=== PATIENT | female | born 1975 | race African-American/Black ===

== ENCOUNTER → 2016-11-26 | Outpatient (CLI) | payer MEDICARE, OTHER ==
[~2016-11-26] MED LIST: ACET325T PO; BENA25TA3 PO; CALC.25 PO; CALC667C PO; CEFU1TAB20 PO; DARU800T PO; DOLU1TAB PO; HYDR-3533 PO; INTE200T PO; LEVA250T PO; MEGE40S PO; NORC5TAB PO; ORPH100T99 PO; OSEL30 PO; OYST500T11 PO; ROPI.5 PO; ZITHTAB PO; ZOFR4TAB PO
[2016-11-26 13:50] LABS: AUTOMATED NEUTROPHIL # 2.4 TH/MM3 (1.8-7.7); BASOPHIL # 0.1 TH/MM3 (0-0.2); BASOPHIL % 1.1 % (0.0-2.0); EOSINOPHIL # 0.1 TH/MM3 (0-0.4); EOSINOPHIL % 2.6 % (0.0-4.0); HEMATOCRIT 32.3 % (35.0-46.0); HEMO FLAGS DIFF FINAL; LYMPH % 42.7 % (9.0-44.0); LYMPHOCYTE # 2.2 TH/MM3 (1.0-4.8); MEAN CELL VOLUME 90.7 FL (80.0-100.0); MEAN CORPUSCULAR HEMOGLOBIN 29.8 PG (27.0-34.0); MEAN CORPUSCULAR HGB CONC 32.8 % (32.0-36.0); MONO % 7.4 % (0.0-8.0); NEUT % 46.2 % (16.0-70.0); PLATELET COUNT 196 TH/MM3 (150-450); RED BLOOD COUNT 3.56 MIL/MM3 (4.00-5.30); RED CELL DISTRIBUTION WIDTH 15.6 % (11.6-17.2); WHITE BLOOD COUNT 5.1 TH/MM3 (4.0-11.0)
[2016-11-26 14:17] LABS: ALKALINE PHOSPHATASE 74 U/L (45-117); ALT (GPT) 12 U/L (10-53); ANION GAP 10 MEQ/L (5-15); AST (GOT) 8 U/L (15-37); BICARBONATE 27.5 MEQ/L (21.0-32.0); BLOOD UREA NITROGEN 33 MG/DL (7-18); CHLORIDE 101 MEQ/L (98-107); GLOMERULAR FILTRATION RATE 7 ML/MIN (>89); GLUCOSE,FASTING 70 MG/DL (74-99); POTASSIUM 4.1 MEQ/L (3.5-5.1); SODIUM (NA) 138 MEQ/L (136-145); TOTAL BILIRUBIN ADULT 0.3 MG/DL (0.2-1.0)
[2016-11-28 07:57] LABS: CD4/CD8 RATIO 0.3 (0.86-5.00)
[2016-11-28 14:17] LABS: MITOGEN MINUS NIL RESULT >10.00 IU/mL (()); NIL RESULT 0.05 IU/mL (()); QUANTIFERON TB GOLD RESULT Negative (Negative)
[2016-11-29 13:56] LABS: HIV RNA LOG COPIES 2.23 (())
== END ==
LOC: CLAB 13:03
DX: B20 Human immunodeficiency virus [HIV] disease (principal); G63 Polyneuropathy in diseases classified elsewhere
CPT/HCPCS: 36415; 80053; 85025; 86355; 86357; 86359; 86360; 86480; 86592; 87536

== ENCOUNTER 2016-12-06 11:38 | Emergency (ER) | payer MEDICARE, OTHER ==
[~2016-12-06] VITALS: Ht 167.6 cm; Wt 69.0 kg
[~2016-12-06 11:38] MED LIST changes: -ACET325T PO; -CALC667C PO; -HYDR-3533 PO; -LEVA250T PO; -ORPH100T99 PO; -OSEL30 PO; -OYST500T11 PO; -ZITHTAB PO
[2016-12-06 11:49] VITALS: BP 129/91; PULSE 76; RESP 16; TEMP 99; O2SAT 99
--- NOTE | 2016-12-06 12:10 | PD ---
HPI Chief Complaint: GI Complaint Time Seen by Provider: 12:03 Travel History International Travel<30 days: No Contact w/Intl Traveler<30days: No Traveled to known affect area: No History of Present Illness HPI The patient is a 41-year-old [place] female who presents emergency department for nausea, vomiting, diarrhea, and body aches. The patient states her symptoms started last night at 1:30 AM with body aches. The patient went back to sleep thinking she might feel better in the morning, however, when she awakened this morning she had nausea that was followed by vomiting. The patient then developed diarrhea which she describes as loose and watery. She does complain of bilateral leg pain and low back pain. The patient does have a history of HIV and is currently on antivirals, also has a history of end-stage renal disease on hemodialysis and is followed by her lumber chain offbearer, Dr. Rodas. The patient goes to dialysis on Tuesdays, , and Saturdays, missed dialysis today secondary to her symptoms. The patient does complain of intermittent chills and sweats for the last 2 days with a productive cough producing yellow sputum. The patient does smoke, her last cigarette was 6:30 AM with coffee. Patient's last CD4 count was approximately 276 and her last viral count was approximately 188,000, according to paperwork she brought with her. [facility] Past Medical History Arthritis: Yes Asthma: Yes Autoimmune Disease: Yes (HIV POSITIVE) Blood Disorders: No Heart Rhythm Problems: No Cancer: No Cardiac Catheterization: No Cardiovascular Problems: No High Cholesterol: No Chest Pain: No Congestive Heart Failure: No COPD: No Cerebrovascular Accident: No Diabetes: No Dialysis: Yes (Thursday, and Thursday; fistula left arm,) Diminished Hearing: No Endocrine: No GERD: No Glaucoma: No Genitourinary: No Headaches: Yes Hepatitis: No Hiatal Hernia: No Hypertension: Yes Immune Disorder: No Implanted Vascular Access Dvce: Yes (VAS CATH R CHEST) Kidney Stones: No Musculoskeletal: No Neurologic: No Psychiatric: No Reproductive: No Respiratory: Yes (ASTHMA) Myocardial Infarction: No Renal Failure: Yes Seizures: No Sleep Apnea: No Thyroid Disease: No Ulcer: No : 5 Para: 5 Tubal Ligation: Yes Past Surgical History Abdominal Surgery: No AICD: No Body Medical Devices: L ARM AV FISTULA Cardiac Surgery: No Section: Yes Coronary Artery Bypass Graft: No Ear Surgery: No Endocrine Surgery: No Eye Surgery: No Genitourinary Surgery: No Gynecologic Surgery: Yes (C-SECT.) Joint Replacement: No Neurologic Surgery: No Pacemaker: No Thoracic Surgery: No Other Surgery: Yes (fistula for dialysis: left arm) Social History Alcohol Use: No Tobacco Use: Yes (11/10 PPD) Substance Use: No Allergies-Medications (Allergen,Severity, Reaction): Coded Allergies: Sulfa (Verified Allergy, Severe, Hives, 12/01/16) Reported Meds & Prescriptions Reported Meds & Active Scripts Active [place] (Hydrocodone-Acetaminophen) 5-325 mg Tab 1 Tab PO Q6H PRN Rocaltrol (Calcitriol) 0.25 Mcg Cap 0.5 Mcg PO DAILY Reported Requip (Ropinirole HCl) 0.5 Mg Tab 0.5 Mg PO TID Zofran (Ondansetron HCl) 4 Mg Tab 4 Mg PO Q6HR PRN Megace Liq (Megestrol Acetate) 40 Mg/Ml Susp 800 Mg PO DAILY Benadryl Allergy (Diphenhydramine HCl) 25 Mg Tab 25 Mg PO Q6H PRN Tivicay (Dolutegravir Sodium) 50 Mg Tab 50 Mg PO DAILY Prezista (Darunavir) 800 Mg Tab 800 Mg PO DAILY Intelence (Etravirine) 200 Mg Tab 200 Mg PO BID Review of Systems Except as stated in HPI: all other systems reviewed are Neg General / Constitutional: Positive: Fever (subjective), Chills HENT: No: Lightheadedness Cardiovascular: No: Chest Pain or Discomfort Respiratory: Positive: Cough Gastrointestinal: Positive: Nausea, Vomiting, Diarrhea, No: Abdominal Pain Musculoskeletal: Positive: Myalgias Neurologic: Positive: Weakness Physical Exam Narrative GENERAL: Awake, alert, 41-year-old female who appears her stated age and is in no acute respiratory distress. SKIN: Warm and dry. HEAD: Atraumatic. Normocephalic. EYES: No injection or drainage. ENT: No nasal bleeding or discharge. Mucous membranes pink and moist. NECK: Trachea midline. No JVD. CARDIOVASCULAR: Regular rate and rhythm. No murmur appreciated. RESPIRATORY: No accessory muscle use. Clear to auscultation. Breath sounds equal bilaterally. GASTROINTESTINAL: Abdomen soft, non-tender, nondistended. No rebound tenderness. MUSCULOSKELETAL: Left forearm AV fistula with positive thrill. NEUROLOGICAL: Awake and alert. No obvious cranial nerve deficits. Motor grossly within normal limits. Normal speech. PSYCHIATRIC: Appropriate mood and affect; insight and judgment normal. Data Data Last Documented VS Vital Signs Date Time Temp Pulse Resp B/P Pulse Ox O2 Delivery O2 Flow Rate FiO2 12/06/16 13:15 16 12/06/16 11:49 99.0 76 129/91 99 Orders Complete Blood Count With Diff (12/06/16 12:03) Comprehensive Metabolic Panel (12/06/16 12:03) Lipase (12/06/16 12:03) Iv Access Insert/Monitor (12/06/16 12:03) Ecg Monitoring (12/06/16 12:03) Oximetry (12/06/16 12:03) Ondansetron Inj (Zofran Inj) (12/06/16 12:15) Sodium Chloride 0.9% Flush (Ns Flush) (12/06/16 12:15) Chest, Single Ap (12/06/16 12:03) Influenzae A/B Antigen (12/06/16 12:03) Magnesium (Mg) (12/06/16 12:03) Phosphorus (Po4) (12/06/16 12:03) Sodium Chlor 0.9% 250 Ml Inj (Ns 250 Ml (12/06/16 12:15) Morphine Inj (Morphine Inj) (12/06/16 12:15) Electrocardiogram (12/06/16 ) Potassium, Serum (K) (12/06/16 16:41) Insulin Human Regular Inj (Novolin R Inj (12/06/16 14:00) Dextrose 50% In Bk (Vial) Inj (D50w (Vi (12/06/16 13:45) Sodium Bicarbonate 8.4% Inj (Sodium Bica (12/06/16 13:45) Albuterol Concentrated Neb (Albuterol Co (12/06/16 13:45) Sodium Polysty Sulfate Liq (Kayexalate L (12/06/16 13:45) Albuterol Neb (Albuterol Neb) (12/06/16 14:00) Labs Laboratory Tests Test 12/06/16 12:55 White Blood Count 6.5 TH/MM3 Red Blood Count 3.52 MIL/MM3 Hemoglobin 10.5 GM/DL Hematocrit 31.7 % Mean Corpuscular Volume 90.0 FL Mean Corpuscular Hemoglobin 29.8 PG Mean Corpuscular Hemoglobin 33.1 % Concent Red Cell Distribution Width 14.8 % Platelet Count 158 TH/MM3 Mean Platelet Volume 8.1 FL Neutrophils (%) (Auto) 55.8 % Lymphocytes (%) (Auto) 34.7 % Monocytes (%) (Auto) 5.5 % Eosinophils (%) (Auto) 2.4 % Basophils (%) (Auto) 1.6 % Neutrophils # (Auto) 3.5 TH/MM3 Lymphocytes # (Auto) 2.3 TH/MM3 Monocytes # (Auto) 0.4 TH/MM3 Eosinophils # (Auto) 0.2 TH/MM3 Basophils # (Auto) 0.1 TH/MM3 CBC Comment DIFF FINAL Differential Comment Sodium Level 141 MEQ/L Potassium Level 6.7 MEQ/L Chloride Level 106 MEQ/L Carbon Dioxide Level 20.9 MEQ/L Anion Gap 14 MEQ/L Blood Urea Nitrogen 85 MG/DL Creatinine 14.00 MG/DL Estimat Glomerular Filtration 4 ML/MIN Rate Random Glucose 75 MG/DL Calcium Level 6.9 MG/DL Protein Corrected Calcium MG/DL Phosphorus Level 8.3 MG/DL Magnesium Level 2.2 MG/DL Total Bilirubin 0.3 MG/DL Aspartate Amino Transf 13 U/L (AST/SGOT) Alanine Aminotransferase 11 U/L (ALT/SGPT) Alkaline Phosphatase 72 U/L Total Protein 8.4 GM/DL Albumin 3.1 GM/DL Lipase 241 U/L MDM Medical Decision Making Medical Screen Exam Complete: Yes Emergency Medical Condition: Yes Medical Record Reviewed: Yes Interpretation(s) EKG reveals normal sinus rhythm with a rate of 74. No ischemic changes or ectopy noted. Laboratory Tests Test 12/06/16 12:55 White Blood Count 6.5 TH/MM3 Red Blood Count 3.52 MIL/MM3 Hemoglobin 10.5 GM/DL Hematocrit 31.7 % Mean Corpuscular Volume 90.0 FL Mean Corpuscular Hemoglobin 29.8 PG Mean Corpuscular Hemoglobin 33.1 % Concent Red Cell Distribution Width 14.8 % Platelet Count 158 TH/MM3 Mean Platelet Volume 8.1 FL Neutrophils (%) (Auto) 55.8 % Lymphocytes (%) (Auto) 34.7 % Monocytes (%) (Auto) 5.5 % Eosinophils (%) (Auto) 2.4 % Basophils (%) (Auto) 1.6 % Neutrophils # (Auto) 3.5 TH/MM3 Lymphocytes # (Auto) 2.3 TH/MM3 Monocytes # (Auto) 0.4 TH/MM3 Eosinophils # (Auto) 0.2 TH/MM3 Basophils # (Auto) 0.1 TH/MM3 CBC Comment DIFF FINAL Differential Comment Sodium Level 141 MEQ/L Potassium Level 6.7 MEQ/L Chloride Level 106 MEQ/L Carbon Dioxide Level 20.9 MEQ/L Anion Gap 14 MEQ/L Blood Urea Nitrogen 85 MG/DL Creatinine 14.00 MG/DL Estimat Glomerular Filtration 4 ML/MIN Rate Random Glucose 75 MG/DL Calcium Level 6.9 MG/DL Protein Corrected Calcium MG/DL Phosphorus Level 8.3 MG/DL Magnesium Level 2.2 MG/DL Total Bilirubin 0.3 MG/DL Aspartate Amino Transf 13 U/L (AST/SGOT) Alanine Aminotransferase 11 U/L (ALT/SGPT) Alkaline Phosphatase 72 U/L Total Protein 8.4 GM/DL Albumin 3.1 GM/DL Lipase 241 U/L Differential Diagnosis Differential diagnosis includes gastroenteritis, enteritis, colitis, influenza, viral syndrome, pneumonia, hypokalemia, hyperkalemia, ESRD on HD. Narrative Course IV was established, labs were drawn and sent, and the patient was placed on cardiac telemetry monitoring and continuous pulse oximetry monitoring. The patient was initially administered Zofran and 250 cc of normal saline. The patient requested pain medication. Chest x-ray was obtained. Influenza screen was sent to lab. Nursing staff was unable to obtain IV access, therefore, I placed a 20-gauge, 1.88 inch, ultrasound-guided IV and right upper extremity with no obvious contraindications. The IV flowed easily and there was good blood return. The patient's potassium was elevated at 6.7, no evidence of hemolysis. The patient does make urine, however, missed dialysis today. She normally goes Tuesdays, , Saturdays. I discussed the patient with the on-call lumber chain offbearer for her urologist, it was agreed the patient needed dialysis. Dr. Vargas spoke with the patient's dialysis center, the patient will be scheduled for dialysis at 3:30 PM today. Therefore, the patient will be discharged and is advised to go straight to the dialysis Center. Procedures Procedure Narrative I placed a 20-gauge, 1.88 inch, IV and a right upper extremity under ultrasound guidance using a linear probe. There was good blood return and the IV flowed easily. There was no obvious complications. Physician Communication Physician Communication I discussed the patient with the on-call physician for Dr. Rodas, Dr. Vargas. Diagnosis Primary Impression: End stage renal disease on dialysis Additional Impression: Hyperkalemia Patient Instructions: General Instructions Additional Instructions: Follow-up with your lumber chain offbearer. Dialysis on Thursday as scheduled. Return if symptoms worsen or progress. Go straight to your dialysis center for dialysis today at 3:30 PM. Med/Other Pt SpecificInfo: No Change to Meds Disposition: 01 DISCHARGE HOME Condition: Stable Zaid Stone MD Dec 06, 2016 12:10
[2016-12-06] MEDS ORDERED: SODIUM CHLORIDE 0.9% FLUSH 5 ML FLUSH IVF PRN (12:15)
[2016-12-06] MEDS ORDERED: SODIUM CHLOR 0.9% 250 ML INJ 250 ML IV ONE (12:15)
[2016-12-06] MEDS ORDERED: ONDANSETRON HCL 4 MG/2 ML VIAL IVP ONE (12:15)
[2016-12-06] MEDS ORDERED: MORPHINE SULFATE 4 MG/ML INJ IV PUSH ONE (12:15)
--- NOTE | 2016-12-06 12:39 | RADHPO ---
EXAM DATE/TIME: 12/06/2016 12:23 [place] COMPARISON: CHEST SINGLE AP, October 03, 2016, 18:51. INDICATIONS : Cough, short of breath MEDICAL HISTORY : HIV Renal disease SURGICAL HISTORY : None. ENCOUNTER: Initial ACUITY: 1 day PAIN SCORE: 0/10 LOCATION: Bilateral chest FINDINGS: A single view of the chest demonstrates the lungs to be symmetrically aerated without evidence of mas s, infiltrate or effusion. The cardiomediastinal contours are unremarkable. Osseous structures are intact. CONCLUSION: Normal examination for a patient of this age. No significant change has occurred. Ludin Wiggins MD on December 06, 2016 at 12:37 Board Certified Radiologist. This report was verified electronically.
[2016-12-06 13:01] LABS: AUTOMATED NEUTROPHIL # 3.5 TH/MM3 (1.8-7.7); BASOPHIL # 0.1 TH/MM3 (0-0.2); BASOPHIL % 1.6 % (0.0-2.0); EOSINOPHIL # 0.2 TH/MM3 (0-0.4); EOSINOPHIL % 2.4 % (0.0-4.0); HEMATOCRIT 31.7 % (35.0-46.0); HEMO FLAGS DIFF FINAL; LYMPH % 34.7 % (9.0-44.0); LYMPHOCYTE # 2.3 TH/MM3 (1.0-4.8); MEAN CORPUSCULAR HEMOGLOBIN 29.8 PG (27.0-34.0); MEAN CORPUSCULAR HGB CONC 33.1 % (32.0-36.0); MONO % 5.5 % (0.0-8.0); NEUT % 55.8 % (16.0-70.0); PLATELET COUNT 158 TH/MM3 (150-450); RED BLOOD COUNT 3.52 MIL/MM3 (4.00-5.30); RED CELL DISTRIBUTION WIDTH 14.8 % (11.6-17.2); WHITE BLOOD COUNT 6.5 TH/MM3 (4.0-11.0)
[2016-12-06 13:15] VITALS: RESP 16
[2016-12-06 13:36] LABS: BICARBONATE 20.9 MEQ/L (21.0-32.0); MAGNESIUM 2.2 MG/DL (1.5-2.5); TOTAL BILIRUBIN ADULT 0.3 MG/DL (0.2-1.0)
[2016-12-06 13:40] LABS: POTASSIUM 6.7 MEQ/L (3.5-5.1)
[2016-12-06] MEDS ORDERED: DEXTROSE 50% IN WATER 50 ML VIAL(D50) IV PUSH ONE (13:45)
[2016-12-06] MEDS ORDERED: SODIUM BICARBONATE 8.4% SOLN 50 MEQ/50 ML VIAL SLOW IVP ONE (13:45)
[2016-12-06] MEDS ORDERED: RESP: ALBUTEROL CONC 2.5 MG/0.5 ML NEB INH ONE (13:45)
[2016-12-06] MEDS ORDERED: SODIUM POLYSTYRENE SULFONATE SUSP 15 GM/60 ML CUP PO ONE (13:45)
[2016-12-06] MEDS ORDERED: RESP: ALBUTEROL 2.5 MG/3 ML NEB (SCH) NEB ONE (14:00)
[2016-12-06] MEDS ORDERED: INSULIN HUMAN REGULAR 1,000 UNITS/10 ML VIAL IV PUSH ONE (14:00)
[2016-12-06 14:31] VITALS: O2SAT 100
[2016-12-06 14:32] VITALS: BP 141/94
--- NOTE | 2016-12-07 13:23 | EKG ---
Date Performed: 12/06/2016 Time Performed: 13:49:58 PTAGE: 41 years EKG: Sinus rhythm Compared to prior tracing no significant change Normal ECG PREVIOUS TRACING : 03/07/2016 21.49 DOCTOR: Rufino Chowdhury Interpretating Date/Time 12/07/2016 13:18:25
[2017-01-16] MEDS ORDERED: LEVA250T PO (15:19)
== END 2016-12-06 14:38 | disposition home or self-care (01) ==
LOC: PHED 11:38
DX: I12.0 Hypertensive chronic kidney disease with stage 5 chronic kidney disease or end stage renal disease (principal); E87.5 Hyperkalemia; M79.605 Pain in left leg; M79.604 Pain in right leg; J45.909 Unspecified asthma, uncomplicated; F17.210 Nicotine dependence, cigarettes, uncomplicated; Z99.2 Dependence on renal dialysis; M54.5 Low back pain
CPT/HCPCS: 71010; 80053; 83690; 83735; 84100; 85025; 87804; 93005; 94664; 96361; 96374; 96375; 99284; J1815; J2270; J2405; J7050; J7613

== ENCOUNTER 2017-01-01 11:55 | Inpatient (IN) | payer MEDICARE, OTHER ==
[~2017-01-01] VITALS: Ht 167.6 cm; Wt 67.3 kg
[2017-01-01] VITALS (8 sets, daily range): BP systolic 138–154; BP diastolic 90–103; PULSE 16–80; RESP 18; TEMP 98.8–98.9; O2SAT 97–100
[~2017-01-01 11:55] MED LIST changes: -CEFU1TAB20 PO
[2017-01-01] MEDS ORDERED: SODIUM CHLORID 0.9% 500 ML INJ 500 ML IV ONE (14:00)
[2017-01-01] MEDS ORDERED: ACETAMINOPHEN 325 MG TAB PO ONE (14:00)
--- NOTE | 2017-01-01 14:06 | PD ---
HPI Chief Complaint: GI Complaint Time Seen by Provider: 13:30 Travel History International Travel<30 days: No Contact w/Intl Traveler<30days: No Traveled to known affect area: No History of Present Illness HPI So 41 year-old woman who presents to the emergency department complaining of nausea vomiting diarrhea. Patient has a history of HIV, on medications, with a previous history of AIDS reported, last CD4 384 in November, as well as end- stage renal disease on hemodialysis Thursday and Thursday. She was feeling generally well until yesterday when she began getting body aches, chills , vomiting, and diarrhea consisting of copious liquid brown stool. She been feeling generally weak. She does not have any sick contacts. No recent unusual or undercooked foods, travel, or antibiotic exposures. No history of previous similar problems. History Past Medical History Narrative Medical HIV, patient takes her last CD4 count 347 in November, on anti-retroviral therapy End-stage renal disease, on hemodialysis Thursday, left arm AV fistula Asthma Hypertension History of polysubstance abuse Influenza Vaccination: Yes LMP: TUBAL : 5 Para: 5 Social History Alcohol Use: No Tobacco Use: Yes (2 PPD) Allergies-Medications (Allergen,Severity, Reaction): Coded Allergies: Sulfa (Verified Allergy, Severe, Hives, 12/15/16) Reported Meds & Prescriptions Reported Meds & Active Scripts Active [place] (Hydrocodone-Acetaminophen) 5-325 mg Tab 1 Tab PO Q6H PRN Rocaltrol (Calcitriol) 0.25 Mcg Cap 0.5 Mcg PO DAILY Reported Requip (Ropinirole HCl) 0.5 Mg Tab 0.5 Mg PO TID Zofran (Ondansetron HCl) 4 Mg Tab 4 Mg PO Q6HR PRN Megace Liq (Megestrol Acetate) 40 Mg/Ml Susp 800 Mg PO DAILY Benadryl Allergy (Diphenhydramine HCl) 25 Mg Tab 25 Mg PO Q6H PRN Tivicay (Dolutegravir Sodium) 50 Mg Tab 50 Mg PO DAILY Prezista (Darunavir) 800 Mg Tab 800 Mg PO DAILY Intelence (Etravirine) 200 Mg Tab 200 Mg PO BID Review of Systems Except as stated in HPI: all other systems reviewed are Neg Physical Exam Narrative GENERAL: Well-appearing 41 year-old woman, appears weak and uncomfortable but nontoxic. SKIN: Warm and dry. Decreased skin turgor, NECK: Trachea midline. No JVD. CARDIOVASCULAR: Regular rate and rhythm. No murmur appreciated. Left arm AV fistula palpable thrill. RESPIRATORY: No accessory muscle use. Clear to auscultation. Breath sounds equal bilaterally. GASTROINTESTINAL: Admits flat and soft. No significant tenderness. MUSCULOSKELETAL: No obvious deformities. No edema. NEUROLOGICAL: Awake and alert. No obvious cranial nerve deficits. Motor grossly within normal limits. Normal speech. PSYCHIATRIC: Appropriate mood and affect; insight and judgment normal. Data Data Last Documented VS Vital Signs Date Time Temp Pulse Resp B/P Pulse Ox O2 Delivery O2 Flow Rate FiO2 01/01/17 16:47 80 18 154/98 98 Room Air 01/01/17 12:27 98.9 Orders Complete Blood Count With Diff (01/01/17 13:47) Comprehensive Metabolic Panel (01/01/17 13:47) Iv Access Insert/Monitor (01/01/17 13:47) Stool Ova And Parasite Screen (01/01/17 13:47) C Diff Toxin Pcr (01/01/17 13:47) Sodium Chlorid 0.9% 500 Ml Inj (Ns 500 M (01/01/17 14:00) Influenzae A/B Antigen (01/01/17 13:47) Acetaminophen (Tylenol) (01/01/17 14:00) Oseltamivir (Tamiflu) (01/01/17 14:45) Calcium Gluconate Inj (Calcium Gluconate (01/01/17 16:30) Phosphorus (Po4) (01/01/17 14:30) Labs Laboratory Tests Test 01/01/17 14:30 White Blood Count 4.9 TH/MM3 Red Blood Count 3.79 MIL/MM3 Hemoglobin 10.9 GM/DL Hematocrit 33.4 % Mean Corpuscular Volume 88.0 FL Mean Corpuscular Hemoglobin 28.7 PG Mean Corpuscular Hemoglobin 32.7 % Concent Red Cell Distribution Width 13.7 % Platelet Count 126 TH/MM3 Mean Platelet Volume 7.5 FL Neutrophils (%) (Auto) 60.7 % Lymphocytes (%) (Auto) 27.9 % Monocytes (%) (Auto) 8.0 % Eosinophils (%) (Auto) 2.7 % Basophils (%) (Auto) 0.7 % Neutrophils # (Auto) 3.0 TH/MM3 Lymphocytes # (Auto) 1.4 TH/MM3 Monocytes # (Auto) 0.4 TH/MM3 Eosinophils # (Auto) 0.1 TH/MM3 Basophils # (Auto) 0.0 TH/MM3 CBC Comment DIFF FINAL Differential Comment Sodium Level 137 MEQ/L Potassium Level 4.3 MEQ/L Chloride Level 101 MEQ/L Carbon Dioxide Level 17.8 MEQ/L Anion Gap 18 MEQ/L Blood Urea Nitrogen 87 MG/DL Creatinine 14.00 MG/DL Estimat Glomerular Filtration 4 ML/MIN Rate Random Glucose 83 MG/DL Calcium Level 5.5 MG/DL Protein Corrected Calcium 5.3 MG/DL Phosphorus Level 9.2 MG/DL Total Bilirubin 0.3 MG/DL Aspartate Amino Transf 32 U/L (AST/SGOT) Alanine Aminotransferase 34 U/L (ALT/SGPT) Alkaline Phosphatase 81 U/L Total Protein 7.9 GM/DL Albumin 2.9 GM/DL [facility] Medical Decision Making Medical Screen Exam Complete: Yes Emergency Medical Condition: Yes Differential Diagnosis Colitis, viral syndrome, flu, sepsis, dehydration, other Narrative Course Medical decision making INITIAL: 41-year-old woman presents to the emergency department with nausea vomiting diarrhea and body aches, subjective chills, with a history of HIV and renal failure. She looks older dehydrated but nontoxic. We'll give her small bolus of IV fluids, check labs. We'll try to send stool studies given her dialysis and HIV, screen for C. difficile or opportunistic infections. Supportive treatment. Procedures Procedure Narrative Peripheral IV: Nursing staff unable to establish IV access or obtain blood samples for diagnostic studies. Right EJ was prepped with chlorhexidine. 20-gauge Angiocath was placed by myself. Patient tolerated well. Diagnosis Primary Impression: Influenza A Additional Impression: Hypocalcemia Trip Lutz MD Jan 01, 2017 14:06
[2017-01-01 14:37] LABS: BASOPHIL % 0.7 % (0.0-2.0); EOSINOPHIL # 0.1 TH/MM3 (0-0.4); EOSINOPHIL % 2.7 % (0.0-4.0); HEMATOCRIT 33.4 % (35.0-46.0); HEMO FLAGS DIFF FINAL; LYMPH % 27.9 % (9.0-44.0); LYMPHOCYTE # 1.4 TH/MM3 (1.0-4.8); MEAN CORPUSCULAR HEMOGLOBIN 28.7 PG (27.0-34.0); MEAN CORPUSCULAR HGB CONC 32.7 % (32.0-36.0); NEUT % 60.7 % (16.0-70.0); PLATELET COUNT 126 TH/MM3 (150-450); RED BLOOD COUNT 3.79 MIL/MM3 (4.00-5.30); RED CELL DISTRIBUTION WIDTH 13.7 % (11.6-17.2); WHITE BLOOD COUNT 4.9 TH/MM3 (4.0-11.0)
[2017-01-01] MEDS ORDERED: OSELTAMIVIR PHOSPHATE 30 MG CAP PO ONE (14:45)
[2017-01-01 15:13] LABS: POTASSIUM 4.3 MEQ/L (3.5-5.1)
[2017-01-01 15:54] LABS: BICARBONATE 17.8 MEQ/L (21.0-32.0); TOTAL BILIRUBIN ADULT 0.3 MG/DL (0.2-1.0)
[2017-01-01 16:02] LABS: CALCIUM-PROTEIN CORRECTED 5.3 MG/DL (8.5-10.1)
[2017-01-01] MEDS ORDERED: CALCIUM GLUCONATE INJ 2 GM in DEXTROSE 5% IN WATER 100ML INJ 100 ML IV ONE ×2 (16:30)
[2017-01-01] MEDS ORDERED: ACETAMINOPHEN 325 MG TAB PO PRN ×2 (17:45→21:30)
[2017-01-01] MEDS ORDERED: SODIUM CHLORIDE 0.9% FLUSH 5 ML FLUSH FLUSH PRN (17:45)
[2017-01-01] MEDS ORDERED: SODIUM CHLOR 0.9% 1000 ML INJ 1,000 ML IV PRN ×3 (21:18)
[2017-01-01] MEDS ORDERED: EPOETIN ALFA 10,000 UNITS/ML VIAL IV PRN (21:30)
[2017-01-01] MEDS ORDERED: diphenhydrAMINE HCL 25 MG CAP PO PRN (21:30)
[2017-01-01] MEDS ORDERED: ALBUMIN HUMAN 25% 25 GM/100 ML BAGP IV PRN (21:30)
[2017-01-01] MEDS ORDERED: NITROGLYCERIN 0.4 MG SL 25 TABS/BTL SL PRN (21:30)
[2017-01-01] MEDS ORDERED: GELATIN 12 MM/7 MM FOAM TOP PRN (21:30)
[2017-01-01] MEDS ORDERED: HEPARIN SODIUM - IV 10,000 UNITS/10 ML VIAL IVF PRN (21:30)
[2017-01-01] MEDS ORDERED: cloNIDine HCL 0.1 MG TAB PO PRN (21:30)
[2017-01-01] MEDS ORDERED: HEPARIN SODIUM - IV 10,000 UNITS/10 ML VIAL PRN (21:30)
[2017-01-01] MEDS ORDERED: MANNITOL 12.5 GM/50 ML VIAL IV PRN (21:30)
[2017-01-01] MEDS ORDERED: SODIUM CHLORIDE 0.9% FLUSH 5 ML FLUSH IVF PRN (21:30)
[2017-01-01] MEDS ORDERED: GENTAMICIN SULFATE (DIALYSIS USE ONLY) 20 MG/2 ML VIAL IV PRN (21:30)
[2017-01-01] MEDS ORDERED: ACETAMINOPHEN/HYDROcodone 325 MG/5 MG TAB PO PRN ×2 (21:45)
[2017-01-01] MEDS: ACETAMINOPHEN/HYDROcodone 325 MG/10 MG TAB PO PRN (22:01)
[2017-01-01] MEDS: SODIUM CHLORIDE 0.9% FLUSH 5 ML FLUSH FLUSH SCH (22:01)
[2017-01-01 22:49] LABS: C. DIFF EPI 027 PRESUMPTIVE NEGATIVE (NEGATIVE); C. DIFF TOXIN PCR NEGATIVE (NEGATIVE)
[2017-01-02] VITALS: BP 138/98; PULSE 75; RESP 16; TEMP 98.7; O2SAT 99
[2017-01-02 04:00] VITALS: BP 140/90; PULSE 78; RESP 18; TEMP 98.9; O2SAT 98
[2017-01-02] MEDS: ACETAMINOPHEN/HYDROcodone 325 MG/10 MG TAB PO PRN ×4 (04:29→21:24)
[2017-01-02 08:00] VITALS: BP 135/95; PULSE 67; PULSE 82; RESP 18; TEMP 99.1; O2SAT 99
[2017-01-02 08:17] LABS: AUTOMATED NEUTROPHIL # 4.3 TH/MM3 (1.8-7.7); BASOPHIL % 0.6 % (0.0-2.0); EOSINOPHIL # 0.1 TH/MM3 (0-0.4); HEMATOCRIT 33.7 % (35.0-46.0); HEMO FLAGS DIFF FINAL; LYMPH % 22.9 % (9.0-44.0); LYMPHOCYTE # 1.4 TH/MM3 (1.0-4.8); MEAN CELL VOLUME 89.4 FL (80.0-100.0); MEAN CORPUSCULAR HEMOGLOBIN 28.6 PG (27.0-34.0); NEUT % 67.5 % (16.0-70.0); PLATELET COUNT 100 TH/MM3 (150-450); RED BLOOD COUNT 3.77 MIL/MM3 (4.00-5.30); RED CELL DISTRIBUTION WIDTH 14.5 % (11.6-17.2); WHITE BLOOD COUNT 6.2 TH/MM3 (4.0-11.0)
[2017-01-02 08:19] LABS: POTASSIUM 4.9 MEQ/L (3.5-5.1)
[2017-01-02 08:37] LABS: BICARBONATE 16.7 MEQ/L (21.0-32.0)
--- NOTE | 2017-01-02 08:42 | MB ---
cc: MELA HERNANDEZ MD DATE OF CONSULTATION 01/01/17 REASON FOR CONSULTATION End-stage renal disease on hemodialysis for management. HISTORY OF PRESENT ILLNESS This is a 41-year-old female known to me from before with past medical history of HIV disease, history of hypertension, history of chronic hypocalcemia, bronchial asthma, history of renal stones, chronic anemia, came to the hospital with complaint of nausea, vomiting, diarrhea sputum. I was called to see the patient for the management of dialysis. She has been on hemodialysis Thursday, and Thursday. The patient had last dialysis done on Thursday and she missed the treatment today because she was feeling sick and she came to the hospital. She has this nausea, vomiting and diarrhea associated with cough and whitish sputum. She denies any history of fever. She has generalized body pain. No history of blood in the stool. She denies any history of fever at home. There is no shortness of breath. No chest pain. PAST MEDICAL HISTORY 1. Bronchial asthma, 2. Hypertension, 3. History of polysubstance abuse, 4. HIV disease, 5. Chronic anemia, 6. End-stage renal disease on hemodialysis three times per week. PAST SURGICAL HISTORY 1. Left arm AV fistula surgery. 2. tubal ligation. REVIEW OF SYSTEMS There is no history of fever. The patient has some sore throat. She has cough with whitish sputum. She does not have any chest pain. She has nausea, vomiting and diarrhea going on for last 2 days. There is no blood in the stool. SOCIAL HISTORY The patient is . She smokes about half-pack per day. There is no history of heavy alcoholism. She has past history of polysubstance abuse. FAMILY HISTORY Noncontributory. ALLERGIES SULFA MEDICATIONS Currently, 1. Calcium gluconate IV 2. Tamiflu 30 mg once a day 3. Tylenol PHYSICAL EXAMINATION GENERAL: The patient is awake, alert. He is not in acute distress. VITAL SIGNS: The last blood pressure is 149/103, temperature 98.8, oxygen saturation 98-99% on room air. HEENT: Pupils equally reacting to light. Nonicteric sclerae. Conjunctivae normal. NECK: Supple. JVD is not elevated. LUNGS: The patient has bilateral good air entry with occasional wheezing and some basilar rales. HEART: S1, S2 regular rhythm. ABDOMEN: Distended, soft, lax. There is no tenderness. Bowel sounds noted. EXTREMITIES: There is no pedal edema. LABORATORY DATA WBC count is 4.9 with hemoglobin of 10.9 and platelet count 126, neutrophils 60.7%. Sodium 139, potassium 4.3, chloride 101, bicarb 17.8, BUN 87, creatinine 14, corrected calcium is 5.3, phosphorus 9.2, AST and ALT normal, total bilirubin is 0.3, total protein 7.9 with albumin of 2.9. She has positive flu A antigen. Stool for cryptosporidium and Giardia are pending. IMAGING STUDIES There is no imaging study done. ASSESSMENT/PLAN 1. Influenza A. 2. Nausea, vomiting, diarrhea possibly gastritis. 3. Dehydration. 4. Severe hypocalcemia. 5. End-stage renal disease on hemodialysis. 6. History of bronchial asthma 7. Hypertension 8. HIV disease. 9. Anemia. The patient has been started on Tamiflu. She was given IV fluid bolus and she was given calcium gluconate IV. Her phosphorus is also elevated. She has been taking calcium supplement at home. I discussed with her and she claims to be taking it regularly. Her calcium was better as outpatient. She will need to continue the calcium supplement as directed. We will dialyze her with high calcium bath tomorrow. There is no acute urgent need for dialysis today. We will continue the dialysis tomorrow and then put her back on her regular schedule of Thursday, and Thursday. If she is stable tomorrow then possibly she could be discharged tomorrow for dialysis. Thank you for the consultation and I will follow the patient while she is in the hospital. MD NANCY Solis/ /9:14 PM /8:36 AM [place]
[2017-01-02 08:55] LABS: CALCIUM-PROTEIN CORRECTED 5.4 MG/DL (8.5-10.1)
[2017-01-02] MEDS: DARUNAVIR 800 MG TAB PO SCH ×2 (09:00→14:28)
[2017-01-02] MEDS ORDERED: OSELTAMIVIR PHOSPHATE 30 MG CAP PO PRN (09:00)
[2017-01-02] MEDS: MEGESTROL ACETATE SUSP 400 MG/10 ML CUP PO SCH ×2 (09:00→09:53)
[2017-01-02] MEDS ORDERED: CALCITRIOL 0.25 MCG CAP PO SCH (09:00)
[2017-01-02] MEDS: ETRAVIRINE 100 MG TAB PO SCH ×2 (09:53→21:14)
[2017-01-02] MEDS: DOLUTEGRAVIR SODIUM 50 MG TAB PO SCH (09:53)
[2017-01-02] MEDS: SODIUM CHLORIDE 0.9% FLUSH 5 ML FLUSH FLUSH SCH ×2 (09:54→21:15)
--- NOTE | 2017-01-02 10:30 | HHI.HP ---
cc: Phi De La Rosa MD [facility] Primary Care Physician Phi De La Rosa MD Admission Diagnosis influenza A, hypocalcemia Diagnoses: (1) Influenza A Diagnosis: Principal (2) Gastroenteritis Diagnosis: Principal (3) Hypocalcemia Diagnosis: Principal Chief Complaint: vomiting, body aches Travel History International Travel<30 Days: No Contact w/Intl Traveler <30 Da: No Traveled to Known Affected Are: No History of Present Illness 41-year-old -[place] female with HIV on antiretrovirals, end-stage renal disease on hemodialysis, asthma, anemia, and hypertension is admitted for influenza and hypocalcemia. Patient admits to having vomiting and body aches which started on Thursday, 3 days ago. She admits to subjective fevers and chills, runny nose, sore throat, and productive cough. States she is producing black mucus. She admits to nausea and constant diarrhea, but states the diarrhea has slowed up some. She admits to chest pain only with coughing and mild shortness of breath. She denies any hematemesis or coffee-ground emesis, hematochezia, or melena. She states she took Tylenol PM at home without relief. Denies any rashes. Denies any urinary symptoms. Review of Systems Constitutional: COMPLAINS OF: Fever, Chills Eyes: DENIES: Blurred vision Ears, nose, mouth, throat: COMPLAINS OF: Throat pain, Running Nose Respiratory: COMPLAINS OF: Cough, Sputum production, Shortness of breath Cardiovascular: COMPLAINS OF: Chest pain (with coughing) Gastrointestinal: COMPLAINS OF: Diarrhea, Nausea, Vomiting, DENIES: Abdominal pain, Black stools, Bloody stools Genitourinary: DENIES: Urinary frequency, Urgency, Dysuria Musculoskeletal: COMPLAINS OF: Muscle aches Integumentary: DENIES: Rash Neurologic: DENIES: Headache Past Family Social History Past Medical History HIV, last CD4 count 347 in November, on antiretroviral therapy. End-stage renal disease on hemodialysis Thursday, , and Thursday Hypertension Anemia Asthma Past Surgical History One Tubal ligation Reported Medications Active [place] (Hydrocodone-Acetaminophen) 5-325 mg Tab 1 Tab PO Q6H PRN Rocaltrol (Calcitriol) 0.25 Mcg Cap 0.5 Mcg PO DAILY Reported Requip (Ropinirole HCl) 0.5 Mg Tab 0.5 Mg PO TID Zofran (Ondansetron HCl) 4 Mg Tab 4 Mg PO Q6HR PRN Megace Liq (Megestrol Acetate) 40 Mg/Ml Susp 800 Mg PO DAILY Benadryl Allergy (Diphenhydramine HCl) 25 Mg Tab 25 Mg PO Q6H PRN Tivicay (Dolutegravir Sodium) 50 Mg Tab 50 Mg PO DAILY Prezista (Darunavir) 800 Mg Tab 800 Mg PO DAILY Intelence (Etravirine) 200 Mg Tab 200 Mg PO BID Allergies: Coded Allergies: Sulfa (Verified Allergy, Severe, Hives, 12/15/16) Family History Denies mother or father having any medical problems. Social History Patient has a history of cocaine use but states she has not used in "a while". She denies history of IVDA. Patient smokes half pack per day of cigarettes starting at age of 18. Drinks alcohol socially. Physical Exam Vital Signs Vital Signs Date Time Temp Pulse Resp B/P Pulse Ox O2 Delivery O2 Flow Rate FiO2 01/02/17 08:00 99.1 82 18 135/95 99 01/02/17 04:00 98.9 78 18 140/90 98 01/02/17 00:00 98.7 75 16 138/98 99 01/01/17 23:17 99 21 01/01/17 20:58 98.8 77 18 149/103 99 01/01/17 20:41 78 01/01/17 20:37 76 18 151/90 98 Room Air 01/01/17 20:36 76 18 98 01/01/17 19:42 78 18 151/96 97 Room Air 01/01/17 16:47 80 18 154/98 98 Room Air 01/01/17 15:50 18 01/01/17 15:07 75 18 147/93 98 Room Air 01/01/17 12:27 98.9 76 18 138/90 100 Physical Exam GENERAL: This is a well-nourished, well-developed patient, in no apparent distress. SKIN: No rashes, ecchymoses or lesions. Warm and dry. HEAD: Atraumatic. Normocephalic. EYES: No scleral icterus. No injection or drainage. ENT: MMM. NECK: Trachea midline. CARDIOVASCULAR: Regular rate and rhythm without murmurs, gallops, or rubs. RESPIRATORY: Clear to auscultation. Breath sounds equal bilaterally. No wheezes , rales, or rhonchi. GASTROINTESTINAL: Normoactive bowel sounds. Abdomen soft, non-tender, nondistended. No guarding. MUSCULOSKELETAL: No lower extremity edema bilaterally. BACK: No CVA tenderness bilaterally. NEUROLOGICAL: Awake and alert. Motor grossly within normal limits. Normal speech. Laboratory Laboratory Tests Test 01/01/17 01/01/17 01/02/17 14:30 17:05 07:58 White Blood Count 4.9 6.2 Red Blood Count 3.79 3.77 Hemoglobin 10.9 10.8 Hematocrit 33.4 33.7 Mean Corpuscular Volume 88.0 89.4 Mean Corpuscular Hemoglobin 28.7 28.6 Mean Corpuscular Hemoglobin 32.7 32.0 Concent Red Cell Distribution Width 13.7 14.5 Platelet Count 126 100 Mean Platelet Volume 7.5 7.8 Neutrophils (%) (Auto) 60.7 67.5 Lymphocytes (%) (Auto) 27.9 22.9 Monocytes (%) (Auto) 8.0 7.0 Eosinophils (%) (Auto) 2.7 2.0 Basophils (%) (Auto) 0.7 0.6 Neutrophils # (Auto) 3.0 4.3 Lymphocytes # (Auto) 1.4 1.4 Monocytes # (Auto) 0.4 0.4 Eosinophils # (Auto) 0.1 0.1 Basophils # (Auto) 0.0 0.0 CBC Comment DIFF FINAL DIFF FINAL Differential Comment Sodium Level 137 136 Potassium Level 4.3 4.9 Chloride Level 101 103 Carbon Dioxide Level 17.8 16.7 Anion Gap 18 16 Blood Urea Nitrogen 87 89 Creatinine 14.00 14.00 Estimat Glomerular Filtration 4 4 Rate Random Glucose 83 85 Calcium Level 5.5 5.7 Protein Corrected Calcium 5.3 5.4 Phosphorus Level 9.2 Total Bilirubin 0.3 Aspartate Amino Transf 32 (AST/SGOT) Alanine Aminotransferase 34 (ALT/SGPT) Alkaline Phosphatase 81 Total Protein 7.9 8.1 Albumin 2.9 Stool C. difficile Toxin (PCR) NEGATIVE Stl C. difficile Toxin PRESUMPTIVE Epiderm 027 NEGATIVE Date/Time Procedure Status Source Growth 01/01/17 17:05 Cryptosporidium Exam Received Stool Stool Pending 01/01/17 17:05 Giardia Antigen (JACKLYN) Received Stool Stool Pending 01/01/17 14:00 Influenza Types A,B Antigen (JACKLYN) - Final Complete Nasal Washing Positive For Flu A Antigen Result Diagram: 01/02/17 0758 01/02/17 0758 Assessment and Plan Assessment and Plan 41-year-old -[place] female with: Influenza A: Patient with respiratory symptoms with h/o HIV. Vitals stable and WBC normal, but patient with productive cough and mild SOB, chest pain only with coughing. -Tamiflu -Tylenol prn fever -Will obtain chest x-ray after checking HCG level. Gastroenteritis: Nausea, vomiting, and diarrhea. Likely viral. -C. difficile negative -Zofran prn nausea/vomiting -Stool studies pending ESRD: Cr [address] Rodas evaluated patient yesterday, to resume hemodialysis today. -Monitor BMP -Dr. Rodas following Hypocalcemia: Protein corrected level 5.3. 2 g IV calcium gluconate ordered yesterday. Ca still low 5.4 today, but patient to receive high calcium with dialysis per Dr. Rodas. Chronic anemia: stable at 10.8. HIV: continue antiretrovirals DVT prevention: SCDs. Discussed Condition With Dr. Lobato Physician Certification 2 Midnight Certification Type: Admission for Inpatient Services Order for Inpatient Services The services are ordered in accordance with Medicare regulations or non- Medicare payer requirements, as applicable. In the case of services not specified as inpatient-only, they are appropriately provided as inpatient services in accordance with the 2-midnight benchmark. Estimated LOS (days): 2 days is the estimated time the patient will need to remain in the hospital, assuming treatment plan goals are met and no additional complications. Post-Hospital Plan: Verenice Amato Jan 02, 2017 10:30
[2017-01-02 10:56] LABS: BETA HCG QUANT LESS THAN 1 MIU/ML (0-5)
--- NOTE | 2017-01-02 12:29 | HHI.NPPN ---
Subjective General Problems: Anemia, Hypertension Renal Failure: End Stage Renal Disease History of Present Illness 41-year-old female known to me from before with past medical history of HIV disease, history of hypertension, history of chronic hypocalcemia, bronchial asthma, history of renal stones, chronic anemia, came to the hospital with complaint of nausea, vomiting, diarrhea cough and sputum. I was called to see the patient for the management of dialysis. Additional Remarks Patient is alert, vomiting is better and cough improving. Review of Systems General Constitutional: Fatigue Respiratory Lungs: SOB, Cough, Sputum Gastrointestinal Gastrointestinal: Nausea & Vomiting, Diarrhea Objective Data Data 01/01/17 01/02/17 18:59 06:59 Intake Total 1350 ml 380 ml Balance 1350 ml 380 ml Intake Oral 750 ml 380 ml IV Total 600 ml # Voids 3 # Bowel Movements 0 Vital Signs Date Time Temp Pulse Resp B/P Pulse Ox O2 Delivery O2 Flow Rate FiO2 01/02/17 08:00 21 01/02/17 08:00 99.1 82 18 135/95 99 01/02/17 04:00 98.9 78 18 140/90 98 01/02/17 00:00 98.7 75 16 138/98 99 01/01/17 23:17 99 21 01/01/17 20:58 98.8 77 18 149/103 99 01/01/17 20:41 78 01/01/17 20:37 76 18 151/90 98 Room Air 01/01/17 20:36 76 18 98 01/01/17 19:42 78 18 151/96 97 Room Air 01/01/17 16:47 80 18 154/98 98 Room Air 01/01/17 15:50 18 01/01/17 15:07 75 18 147/93 98 Room Air 01/01/17 12:27 98.9 76 18 138/90 100 -: 01/02/17 0758 01/02/17 0758 Microbiology 01/01/17 Influenza Types A,B Antigen (JACKLYN) - Final, Complete Positive For Flu A Antigen 01/01/17 Cryptosporidium Exam, Received Pending 01/01/17 Giardia Antigen (JACKLYN), Received Pending Physical Exam General Appearance: No Acute Distress, Comfortable Throat Throat Exam: Oral Mucosa [place] & Moist Neck Neck Exam: Neck Supple Pulmonary Resp Exam: Breath Sounds Equal, No Distress, Decreased Bases Cardiology CV Exam: Regular, Normal Sinus Rhythm Gastrointestinal/Abdomen GI Exam: Soft, Non-Tender, Bowel Sounds Present Extremeties Extremities Exam: Trace Edema Neurologic Neuro Exam: Alert, Awake, Oriented Psychiatric Psych Exam: Appropriate Responses Assessment/Plan Assessment Summary: Anemia of CKD, End Stage Renal Disease Electrolyte Assessment: Hypocalcemia Problem List: (1) Nausea & vomiting (2) Diarrhea in adult patient (3) Hypocalcemia (4) Influenza A (5) Anemia (6) HIV-associated nephropathy (7) End stage renal disease on dialysis Plan Patient has still low Calcium PO4 is elevated, will add Phoslo and CaCo3. Also increase Calcitriol. HD will high Calcium Bath. Follow Calcium level , if better , possible D/C in Am. Josselyn Rodas MD Jan 02, 2017 12:29
[2017-01-02] MEDS: CALCIUM ACETATE 667 MG CAP PO SCH ×2 (14:27→17:50)
[2017-01-02] MEDS: CALCIUM CARBONATE 1.25 GM (CA 500 MG) TAB PO SCH ×2 (14:27→21:14)
[2017-01-02] MEDS: VITAMIN B CMPLX/VITC/FOLIC AC CAP PO SCH (14:28)
[2017-01-02 16:00] VITALS: BP 131/89; PULSE 79; RESP 19; TEMP 98.8; O2SAT 99
--- NOTE | 2017-01-02 16:05 | RADHPO ---
EXAM DATE/TIME: 01/02/2017 15:46 [place] COMPARISON: CHEST SINGLE AP, April 04, 2016, 11:44. CHEST PA & LAT, December 27, 2014, 20:03. INDICATIONS : Cough. MEDICAL HISTORY : HIV Renal disease SURGICAL HISTORY : None. ENCOUNTER: Initial ACUITY: 1 day PAIN SCORE: 7/10 LOCATION: Bilateral chest FINDINGS: PA and lateral views of the chest demonstrate the lungs to be symmetrically aerated without evidence of mass, infiltrate or effusion. Bilateral nipple shadows are demonstrated. The cardiomediastinal co ntours are unremarkable. Osseous structures are intact. CONCLUSION: No acute disease. No significant change has occurred. Ludin Wiggins MD on January 02, 2017 at 16:03 Board Certified Radiologist. This report was verified electronically.
[2017-01-02] MEDS: ONDANSETRON HCL 4 MG/2 ML VIAL IV PRN (17:46)
[2017-01-02 20:26] VITALS: BP 137/95; PULSE 77; RESP 18; TEMP 99.4; O2SAT 100
[2017-01-03 00:28] VITALS: BP 128/85; PULSE 70; RESP 16; TEMP 98; O2SAT 98
[2017-01-03] MEDS: ACETAMINOPHEN/HYDROcodone 325 MG/10 MG TAB PO PRN ×3 (04:13→20:35)
[2017-01-03 04:34] VITALS: BP 133/93; PULSE 80; RESP 14; TEMP 98.5; O2SAT 96
[2017-01-03] MEDS: CALCIUM CARBONATE 1.25 GM (CA 500 MG) TAB PO SCH ×3 (06:04→21:51)
[2017-01-03 08:00] VITALS: BP 135/90; PULSE 75; RESP 18; TEMP 98.1; O2SAT 97
[2017-01-03] MEDS: MEGESTROL ACETATE SUSP 400 MG/10 ML CUP PO SCH (09:00)
[2017-01-03] MEDS ORDERED: CALCITRIOL 0.25 MCG CAP PO SCH (09:00)
[2017-01-03] MEDS: VITAMIN B CMPLX/VITC/FOLIC AC CAP PO SCH (09:00)
[2017-01-03] MEDS: DARUNAVIR 800 MG TAB PO SCH (09:02)
[2017-01-03] MEDS: CALCIUM ACETATE 667 MG CAP PO SCH ×4 (09:02→17:50)
[2017-01-03] MEDS: DOLUTEGRAVIR SODIUM 50 MG TAB PO SCH (09:02)
[2017-01-03] MEDS: ETRAVIRINE 100 MG TAB PO SCH ×2 (09:06→20:35)
[2017-01-03] MEDS: SODIUM CHLORIDE 0.9% FLUSH 5 ML FLUSH FLUSH SCH ×2 (09:08→20:35)
[2017-01-03] MEDS ORDERED: CALC667C PO (11:01)
[2017-01-03] MEDS ORDERED: OSEL30 PO (11:01)
[2017-01-03] MEDS ORDERED: CALC.25 PO (11:01)
--- NOTE | 2017-01-03 11:02 | HHI.DCPOC ---
Discharge Care Plan Diagnosis: (1) HIV (human immunodeficiency virus infection) (2) Renal failure (3) Influenza A Goals to Promote Your Health * To prevent worsening of your condition and complications * To maintain your health at the optimal level Directions to Meet Your Goals Take your medications as prescribed Follow your dietary instruction Follow activity as directed Keep your appointments as scheduled Take your immunizations and boosters as scheduled If your symptoms worsen call your PCP, if no PCP go to Urgent Care Center or Emergency Room Smoking is Dangerous to Your Health. Avoid second hand smoke Call the 24-hour hour crisis hotline for domestic abuse at Shawna Lobato MD Jan 03, 2017 11:02
[2017-01-03 11:14] LABS: BICARBONATE 28.5 MEQ/L (21.0-32.0); POTASSIUM 3.2 MEQ/L (3.5-5.1)
--- NOTE | 2017-01-03 11:31 | HHI.PR ---
Subjective Remarks Seen and evaluated today in follow-up for end-stage renal disease, which might dysphasia and 4 flu. Patient lying a bit better today Tolerating food. Objective Vitals Vital Signs Date Time Temp Pulse Resp B/P Pulse Ox O2 Delivery O2 Flow Rate FiO2 01/03/17 08:00 98.1 75 18 135/90 97 01/03/17 04:34 98.5 80 14 133/93 96 01/03/17 00:28 98.0 70 16 128/85 98 01/02/17 20:26 99.4 77 18 137/95 100 01/02/17 16:00 98.8 79 19 131/89 99 I/O 01/02/17 01/02/17 01/02/17 01/03/17 01/03/17 01/03/17 07:00 15:00 23:00 07:00 15:00 23:00 Intake Total 380 ml Output Total 2400 ml Balance 380 ml -2400 ml Intake Oral 380 ml Output Hemodialysis 2400 ml # Voids 2 2 2 # Bowel Movements 0 Result Diagram: 01/02/17 0758 01/03/17 1015 Imaging Last Impressions Chest X-Ray 01/02/17 0000 Signed Impressions: Service Date/Time: Monday, January 02, 2017 15:46 - CONCLUSION: No acute disease. No significant change has occurred. Ludin Wiggins MD Objective Remarks GENERAL: This is a well-nourished, well-developed patient, in no apparent distress. CARDIOVASCULAR: Regular rate and rhythm without murmurs, gallops, or rubs. RESPIRATORY: Clear to auscultation. Breath sounds equal bilaterally. No wheezes , rales, or rhonchi. GASTROINTESTINAL: Abdomen soft, non-tender, nondistended. Normal active bowel sounds MUSCULOSKELETAL: Extremities without clubbing, cyanosis, or edema. NEURO: Alert & Oriented x4 to person, place, time, situation. Moves all ext x4 A/P Problem List: (1) Influenza A ICD Code: J10.1 Status: Acute Plan: Continue Tamiflu post dialysis (2) Hypocalcemia ICD Code: E83.51 Status: Chronic Plan: Replaced. We'll also correct potassium and check magnesium (3) End stage renal disease on dialysis ICD Code: N18.6 Status: Chronic Plan: Continue hemodialysis Thursday, , Thursday (4) HIV (human immunodeficiency virus infection) ICD Code: Z21 Status: Chronic Plan: Asymptomatic on current antiviral therapy Discharge Planning Likely discharge in a.m. after dialysis Shawna Joiner MD Jan 03, 2017 11:31
[2017-01-03 11:40] LABS: CALCIUM-PROTEIN CORRECTED 6.7 MG/DL (8.5-10.1)
[2017-01-03 12:00] VITALS: BP 158/68; PULSE 66; RESP 18; TEMP 98; O2SAT 97
[2017-01-03] MEDS ORDERED: POTASSIUM CHLORIDE 10 MEQ CONTROLLED RELEASE TAB PO ONE (12:00)
[2017-01-03] MEDS ORDERED: CALCIUM GLUCONATE INJ 1 GM in DEXTROSE 5% IN WATER 100ML INJ 100 ML IV ONE ×2 (13:00)
[2017-01-03] MEDS: ONDANSETRON HCL 4 MG/2 ML VIAL IV PRN (19:40)
[2017-01-03 20:00] VITALS: BP 145/87; PULSE 82; RESP 18; TEMP 100.4; O2SAT 96
[2017-01-03 23:51] VITALS: BP 156/94; PULSE 85; RESP 20; TEMP 99.2; O2SAT 97
[2017-01-04 04:00] VITALS: BP 137/88; PULSE 79; RESP 19; TEMP 99.3; O2SAT 97
[2017-01-04] MEDS: CALCIUM CARBONATE 1.25 GM (CA 500 MG) TAB PO SCH (05:35)
[2017-01-04] MEDS: ACETAMINOPHEN/HYDROcodone 325 MG/10 MG TAB PO PRN (08:05)
[2017-01-04] MEDS ORDERED: ACET325T PO (08:12)
[2017-01-04] MEDS ORDERED: ZOFR4TAB PO (08:12)
--- NOTE | 2017-01-04 08:14 | HHI.DS ---
cc: Josselyn Rodas MD Discharge Summary Admission Date Jan 01, 2017 at 17:25 Discharge Date: Jan 04, 2017 Admitting Diagnosis influenza A, hypocalcemia (1) Influenza A ICD Code: J10.1 (2) Hypocalcemia ICD Code: E83.51 Diagnosis: Principal (3) End stage renal disease on dialysis ICD Code: N18.6 Diagnosis: Principal (4) HIV (human immunodeficiency virus infection) ICD Code: Z21 Diagnosis: Principal Procedures HD Brief History - From Admission 41-year-old -[place] female with HIV on antiretrovirals, end-stage renal disease on hemodialysis, asthma, anemia, and hypertension is admitted for influenza and hypocalcemia. Patient admits to having vomiting and body aches which started on Thursday, 3 days ago. She admits to subjective fevers and chills, runny nose, sore throat, and productive cough. States she is producing black mucus. She admits to nausea and constant diarrhea, but states the diarrhea has slowed up some. She admits to chest pain only with coughing and mild shortness of breath. She denies any hematemesis or coffee-ground emesis, hematochezia, or melena. She states she took Tylenol PM at home without relief. Denies any rashes. Denies any urinary symptoms. CBC/BMP: 01/02/17 0758 01/03/17 1015 Significant Findings Laboratory Tests Test 01/01/17 01/02/17 01/03/17 14:30 07:58 10:15 Red Blood Count 3.79 MIL/MM3 3.77 MIL/MM3 (4.00-5.30) (4.00-5.30) Hemoglobin 10.9 GM/DL 10.8 GM/DL (11.6-15.3) (11.6-15.3) Hematocrit 33.4 % 33.7 % (35.0-46.0) (35.0-46.0) Platelet Count 126 TH/MM3 100 TH/MM3 (150-450) (150-450) Carbon Dioxide Level 17.8 MEQ/L 16.7 MEQ/L (21.0-32.0) (21.0-32.0) Anion Gap 18 MEQ/L (5-15) 16 MEQ/L (5-15) Blood Urea Nitrogen 87 MG/DL (7-18) 89 MG/DL (7-18) 55 MG/DL (7-18) Creatinine 14.00 MG/DL 14.00 MG/DL 12.00 MG/DL (0.50-1.00) (0.50-1.00) (0.50-1.00) Estimat Glomerular Filtration 4 ML/MIN (>89) 4 ML/MIN (>89) 4 ML/MIN (>89) Rate Calcium Level 5.5 MG/DL 5.7 MG/DL 7.0 MG/DL (8.5-10.1) (8.5-10.1) (8.5-10.1) Protein Corrected Calcium 5.3 MG/DL 5.4 MG/DL 6.7 MG/DL (8.5-10.1) (8.5-10.1) (8.5-10.1) Phosphorus Level 9.2 MG/DL (2.5-4.9) Albumin 2.9 GM/DL (3.4-5.0) Potassium Level 3.2 MEQ/L (3.5-5.1) Chloride Level 97 MEQ/L (98-107) Random Glucose 124 MG/DL (74-106) Imaging Last Impressions Chest X-Ray 01/02/17 0000 Signed Impressions: Service Date/Time: Monday, January 02, 2017 15:46 - CONCLUSION: No acute disease. No significant change has occurred. Ludin Wiggins MD PE at Discharge GENERAL: This is a well-nourished, well-developed patient, in no apparent distress. CARDIOVASCULAR: Regular rate and rhythm without murmurs, gallops, or rubs. RESPIRATORY: Clear to auscultation. Breath sounds equal bilaterally. No wheezes , rales, or rhonchi. GASTROINTESTINAL: Abdomen soft, non-tender, nondistended. Normal active bowel sounds MUSCULOSKELETAL: Extremities without clubbing, cyanosis, or edema. NEURO: Alert & Oriented x4 to person, place, time, situation. Moves all ext x4 Pt update on day of discharge Recent seen today, feels better. Discharge plans discussed with patient and Benson ESPINOSA. Dialysis went well overnight. Hospital Course This patient is a 41-year-old female with HIV controlled on medications and with incentive renal disease with hemodialysis. Patient was found have the flu and did spend some time in the hospital for control of symptoms. She was given Tamiflu with renal recommendations for dosing. She also was hypocalcemic and required quite a bit of replacement. She was seen by her visual developer. Patient was discharged home Pt Condition on Discharge: Good Discharge Disposition: Discharge Home Discharge Time: > 30 minutes Discharge Instructions DIET: Follow Instructions for: Renal Failure Diet Activities you can perform: Regular-No Restrictions Follow up Referrals: PCP Follow-up - 1 Week New Medications: Acetaminophen (Acetaminophen) 325 Mg Tab 650 MG PO UNSCH PRN pain #90 TAB Calcitriol (Rocaltrol) 0.25 Mcg Cap 1 MCG PO DAILY calcium #31 CAP Calcium Acetate (Phosphate Bin (Calcium Acetate) 667 Mg Cap 2001 MG PO TID calcium #93 CAP Oseltamivir (Tamiflu) 30 Mg Cap 30 MG PO UNSCH take after HD PRN AFTER EACH HEMODIALYSIS X 5 #3 CAP Continued Medications: Calcitriol (Rocaltrol) 0.25 Mcg Cap 0.5 MCG PO DAILY medical examiner #15 CAP Darunavir (Prezista) 800 Mg Tab 800 MG PO DAILY Mgmt Viral Infection #30 Ref 0 TAB Diphenhydramine (Benadryl Allergy) 25 Mg Tab 25 MG PO Q6H PRN ALLERGIES Ref 0 TAB Dolutegravir (Tivicay) 50 Mg Tab 50 MG PO DAILY Mgmt Viral Infection #30 Ref 0 TAB Etravirine (Intelence) 200 Mg Tab 200 MG PO BID Mgmt Viral Infection Ref 0 TAB Hydrocodone-Acetaminophen ([place]) 5-325 mg Tab 1 TAB PO Q6H PRN PAIN #10 Ref 0 TAB Megestrol Liq (Megace Liq) 40 Mg/Ml Susp 800 MG PO DAILY Improve Appetite Ref 0 ML Ondansetron (Zofran) 4 Mg Tab 4 MG PO Q6HR PRN NAUSEA OR VOMITING #90 Ref 0 TAB (This prescription has been renewed) Ropinirole (Requip) 0.5 Mg Tab 0.5 MG PO TID #90 Ref 0 TAB Shawna Lobato MD Jan 04, 2017 08:14
--- NOTE | 2017-01-04 09:47 | HHI.NPPN ---
Subjective General Problems: Anemia, Hypertension Renal Failure: End Stage Renal Disease History of Present Illness 41-year-old female known to me from before with past medical history of HIV disease, history of hypertension, history of chronic hypocalcemia, bronchial asthma, history of renal stones, chronic anemia, came to the hospital with complaint of nausea, vomiting, diarrhea cough and sputum. I was called to see the patient for the management of dialysis. Additional Remarks This is late entry, patient seen 01/03/17. Patient is alert, feeling weak, cough is better, no vomiting. Review of Systems General Constitutional: Fatigue Respiratory Lungs: SOB, Cough, Sputum Gastrointestinal Gastrointestinal: Nausea & Vomiting, Diarrhea Objective Data Data 01/03/17 01/04/17 19:00 07:00 Intake Total 110 ml 280 ml Output Total 2000 ml Balance 110 ml -1720 ml Intake Oral 280 ml IV Total 110 ml 0 ml Output Hemodialysis 2000 ml # Voids 2 # Bowel Movements 0 Vital Signs Date Time Temp Pulse Resp B/P Pulse Ox O2 Delivery O2 Flow Rate FiO2 01/04/17 04:00 99.3 79 19 137/88 97 01/03/17 23:51 99.2 85 20 156/94 97 01/03/17 21:35 20 01/03/17 20:00 100.4 82 18 145/87 96 01/03/17 12:00 98.0 66 18 158/68 97 -: 01/02/17 0758 01/03/17 1015 Physical Exam General Appearance: No Acute Distress, Comfortable Throat Throat Exam: Oral Mucosa [place] & Moist Neck Neck Exam: Neck Supple Pulmonary Resp Exam: Breath Sounds Equal, No Distress, Decreased Bases Cardiology CV Exam: Regular, Normal Sinus Rhythm Gastrointestinal/Abdomen GI Exam: Soft, Non-Tender, Bowel Sounds Present Extremeties Extremities Exam: Trace Edema Neurologic Neuro Exam: Alert, Awake, Oriented Psychiatric Psych Exam: Appropriate Responses Assessment/Plan Assessment Summary: Anemia of CKD, End Stage Renal Disease Electrolyte Assessment: Hypocalcemia Problem List: (1) Nausea & vomiting (2) Diarrhea in adult patient (3) Hypocalcemia (4) Influenza A (5) Anemia (6) HIV-associated nephropathy (7) End stage renal disease on dialysis Plan Calcium is better, on Caco3 and Phoslo. To continue Calcitriol. HD today. Possible D/C in AM after HD. Will follow Calcium and PO4 with HD. Josselyn Rodas MD Jan 04, 2017 09:47
[2017-01-16] MEDS ORDERED: LEVA250T PO (15:19)
== END 2017-01-04 08:28 | disposition home or self-care (01) | DRG 193 ==
LOC: PHED 11:55 → PHEDA 17:25 → PH3A 20:30
PROVIDERS: ADMIT Hospitalist; ATTEND Hospitalist
PROC: 5A1D60Z (ICD-10-PCS; principal; 2017-01-02)
DX: J10.1 Influenza due to other identified influenza virus with other respiratory manifestations (principal); N18.6 End stage renal disease; I12.0 Hypertensive chronic kidney disease with stage 5 chronic kidney disease or end stage renal disease; E83.51 Hypocalcemia; N05.8 Unspecified nephritic syndrome with other morphologic changes; Z99.2 Dependence on renal dialysis; K52.9 Noninfective gastroenteritis and colitis, unspecified; Z21 Asymptomatic human immunodeficiency virus [HIV] infection status; J45.909 Unspecified asthma, uncomplicated; D63.1 Anemia in chronic kidney disease; Z79.899 Other long term (current) drug therapy; F17.210 Nicotine dependence, cigarettes, uncomplicated
CPT/HCPCS: 71020; 80048; 80053; 82330; 83735; 84100; 84155; 84702; 85025; 87328; 87329; 87493; 87804; 90935; 96361; 96365; 96374; J0610; J2405; J7030; J7040

== ENCOUNTER 2017-01-10 07:01 | Emergency (ER) | payer MEDICARE, OTHER ==
[~2017-01-10] VITALS: Ht 167.6 cm; Wt 64.0 kg
[~2017-01-10 07:01] MED LIST changes: +ACET325T PO; +CALC667C PO; +OSEL30 PO
[2017-01-10 07:18] VITALS: BP 134/85; PULSE 84; RESP 18; TEMP 98.9; O2SAT 97
[2017-01-10] MEDS ORDERED: MORPHINE SULFATE 4 MG/ML INJ IM ONE (07:30)
[2017-01-10] MEDS ORDERED: ONDANSETRON HCL 4 MG/2 ML VIAL IM ONE (07:30)
--- NOTE | 2017-01-10 07:32 | PD ---
HPI Chief Complaint: Pain: Acute or Chronic Time Seen by Provider: 07:17 Travel History International Travel<30 days: No Contact w/Intl Traveler<30days: No Traveled to known affect area: No History of Present Illness HPI The patient was seen and examined in the presence of the nurse. This patient complains of pain in her left chest wall. Duration one day. Severity is moderate. Worse with movement or deep breath or coughing. No injury. She has HIV and was hospitalized for a few days with influenza A. She was discharged week ago. She still has occasional cough. No alleviating factors. PFSH Past Medical History Arthritis: Yes Asthma: Yes Autoimmune Disease: Yes (HIV POSITIVE) Blood Disorders: No Heart Rhythm Problems: No Cancer: No Cardiac Catheterization: No Cardiovascular Problems: No High Cholesterol: No Chest Pain: No Congestive Heart Failure: No COPD: No Cerebrovascular Accident: No Diabetes: No Dialysis: Yes (Thursday, and Thursday; fistula left arm,) Diminished Hearing: No Endocrine: No GERD: No Glaucoma: No Genitourinary: Yes Headaches: Yes Hepatitis: No Hiatal Hernia: No Heparin Induced Thrombocytopen: No Hypertension: No Immune Disorder: Yes Implanted Vascular Access Dvce: Yes (VAS CATH R CHEST) Kidney Stones: No Musculoskeletal: No Neurologic: No Psychiatric: No Reproductive: No Respiratory: Yes (ASTHMA) Myocardial Infarction: No Renal Failure: Yes Seizures: No Sleep Apnea: No Thyroid Disease: No Ulcer: No : 5 Para: 5 Tubal Ligation: Yes Past Surgical History Abdominal Surgery: No AICD: No Body Medical Devices: L ARM AV FISTULA Cardiac Surgery: No Section: Yes Coronary Artery Bypass Graft: No Ear Surgery: No Endocrine Surgery: No Eye Surgery: No Genitourinary Surgery: No Gynecologic Surgery: Yes (C-SECT.) Joint Replacement: No Neurologic Surgery: No Pacemaker: No Thoracic Surgery: No Other Surgery: Yes (fistula for dialysis: left arm) Social History Alcohol Use: No Tobacco Use: Yes (1/2 PPD) Substance Use: No Allergies-Medications (Allergen,Severity, Reaction): Coded Allergies: Sulfa (Verified Allergy, Severe, Hives, 01/10/17) Reported Meds & Prescriptions Reported Meds & Active Scripts Active Acetaminophen 325 Mg Tab 650 Mg PO UNSCH PRN Zofran (Ondansetron HCl) 4 Mg Tab 4 Mg PO Q6HR PRN Tamiflu (Oseltamivir Phosphate) 30 Mg Cap 30 Mg PO UNSCH PRN take after HD Calcium Acetate (Calcium Acetate (Phosphate Bin) 667 Mg Cap 2,001 Mg PO TID Rocaltrol (Calcitriol) 0.25 Mcg Cap 1 Mcg PO DAILY [place] (Hydrocodone-Acetaminophen) 5-325 mg Tab 1 Tab PO Q6H PRN Rocaltrol (Calcitriol) 0.25 Mcg Cap 0.5 Mcg PO DAILY Reported Requip (Ropinirole HCl) 0.5 Mg Tab 0.5 Mg PO TID Megace Liq (Megestrol Acetate) 40 Mg/Ml Susp 800 Mg PO DAILY Benadryl Allergy (Diphenhydramine HCl) 25 Mg Tab 25 Mg PO Q6H PRN Tivicay (Dolutegravir Sodium) 50 Mg Tab 50 Mg PO DAILY Prezista (Darunavir) 800 Mg Tab 800 Mg PO DAILY Intelence (Etravirine) 200 Mg Tab 200 Mg PO BID Review of Systems General / Constitutional: No: Fever Eyes: No: Diploplia HENT: No: Headaches Cardiovascular: Positive: Chest Pain or Discomfort Respiratory: Positive: Cough Gastrointestinal: Positive: Diarrhea Physical Exam Narrative GENERAL: Well-nourished, well-developed patient with chest wall pain SKIN: Warm and dry. HEAD: Normocephalic. EYES: No scleral icterus. No injection or drainage. NECK: Supple, trachea midline. No JVD or lymphadenopathy. No meningeal signs CARDIOVASCULAR: Regular rate and rhythm without murmurs, gallops, or rubs. RESPIRATORY: Breath sounds equal bilaterally. No accessory muscle use. GASTROINTESTINAL: Abdomen soft, non-tender, nondistended. MUSCULOSKELETAL: No cyanosis, or edema. Prominent left chest wall tenderness. This is in the anterior midaxillary lines. No crepitus or bruising. Readily reproducible pain with palpation BACK: Nontender without obvious deformity. No CVA tenderness. Data Data Last Documented VS Vital Signs Date Time Temp Pulse Resp B/P Pulse Ox O2 Delivery O2 Flow Rate FiO2 01/10/17 07:18 98.9 84 18 134/85 97 Orders Chest, Single Ap (01/10/17 ) Ondansetron Inj (Zofran Inj) (01/10/17 07:30) Morphine Inj (Morphine Inj) (01/10/17 07:30) MDM Medical Decision Making Medical Screen Exam Complete: Yes Emergency Medical Condition: Yes Medical Record Reviewed: Yes Differential Diagnosis Rib contusion, pleurisy, intercostal muscle tear Narrative Course I have reviewed the patient's electronic medical record. Reviewed her hospitalization from 1 week ago. She had positive influenza A and was hypocalcemic I gave her injection of morphine and Zofran for symptom relief No objective findings on exam Vital signs are normal This is clearly chest wall in origin and will not require cardiac evaluation I reviewed her chest x-ray which shows no evidence of pneumothorax or rib fracture. There is some bilateral basilar densities not present on prior x- ray. This could be edema or infectious She is due for dialysis in 3 hours and I wrote her some Zithromax to cover the other possibility given her weakened immune system. On recheck she is much improved She has appointment with her primary physician on Thursday Diagnosis Primary Impression: Left-sided chest wall pain Additional Impressions: HIV (human immunodeficiency virus infection) Chronic kidney disease, stage 4, severely decreased GFR Additional Instructions: The patient was advised to follow up with their physician and return if they worsen. Med/Other Pt SpecificInfo: Prescription(s) given Scripts Azithromycin (Zithromax Z-Jamir)250 Mg [id number] Mg PO DIRECTED #1 DSPK Ref 0 500 MG (2 tabs) day 1, then 1 tab days 2-5. Prov:Henry Milton MD 01/10/17 Disposition: 01 DISCHARGE HOME Condition: Stable Henry Milton MD Jan 10, 2017 07:32
--- NOTE | 2017-01-10 07:50 | RADHPO ---
EXAM DATE/TIME: 01/10/2017 07:39 [facility] COMPARISON: CHEST PA & LAT, January 02, 2017, 15:46. CHEST SINGLE AP, December 06, 2016, 12:23. INDICATIONS : Sudden onset of left side chest pain MEDICAL HISTORY : None. SURGICAL HISTORY : None. ENCOUNTER: Initial ACUITY: 1 day PAIN SCORE: 10/10 LOCATION: Left chest FINDINGS: Portable AP view of the chest demonstrates a normal-sized cardiac silhouette. There is mild airspace consolidation at the lung bases bilaterally. No pleural effusion or pneumothorax is visualized. Bones and soft tissues demonstrate no acute finding. CONCLUSION: Mild bibasilar airspace consolidation, right greater than left. Some consideration should include asp iration, edema, or infection. Phi Mott MD on January 10, 2017 at 7:47 Board Certified Radiologist. This report was verified electronically.
[2017-01-10] MEDS ORDERED: ZITHTAB PO (08:20)
[2017-01-10 08:45] VITALS: BP 126/84
[2017-01-16] MEDS ORDERED: LEVA250T PO (15:19)
== END 2017-01-10 08:47 | disposition home or self-care (01) ==
LOC: PHED 07:01
DX: R07.89 Other chest pain (principal); N18.4 Chronic kidney disease, stage 4 (severe); J45.909 Unspecified asthma, uncomplicated; Z21 Asymptomatic human immunodeficiency virus [HIV] infection status; Z99.2 Dependence on renal dialysis; F17.210 Nicotine dependence, cigarettes, uncomplicated
CPT/HCPCS: 71010; 96372; 99283; J2270; J2405

== ENCOUNTER 2017-01-11 13:22 | Inpatient (IN) | payer MEDICARE, OTHER ==
[~2017-01-11] VITALS: Ht 167.6 cm; Wt 70.5 kg
[2017-01-11 13:22] VITALS: BP_SYST 130; BP_DIAS 67; BP_DIAS 87; PULSE 88; PULSE 90; RESP 16; RESP 18; TEMP 97.7; O2SAT 96
[~2017-01-11 13:22] MED LIST changes: +ZITHTAB PO
--- NOTE | 2017-01-11 13:44 | PD ---
HPI Chief Complaint: Chest Pain Time Seen by Provider: 13:35 Travel History International Travel<30 days: No Contact w/Intl Traveler<30days: No Traveled to known affect area: No History of Present Illness HPI This patient was examined in the presence of a nurse at all times. 41-year-old female with history of HIV on antiretroviral therapy, end-stage renal disease with dialysis (TRS), presents via EMS for evaluation of cough and chest pain. Initially the cough started 2 weeks ago. The cough is productive with green sputum production. The patient was admitted on January 01 with a diagnosis of influenza, discharged in January 04. The cough has persisted and then yesterday she developed some left-sided chest wall pain. She was seen at [facility] where chest x-ray revealed mild bibasilar airspace consolidation, right greater than left. She was sent home with azithromycin. She now has bilateral chest pain which is sharp, worse with movement or coughing or palpation. She continues to have a productive cough. She does note some nausea, vomiting yesterday evening as well as this morning. No abdominal pain, dysuria, flank pain, fevers or chills. She missed her usual Thursday dialysis yesterday because she was at emergency department. 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 No other complaints. PFSH Past Medical History Arthritis: Yes Asthma: Yes Autoimmune Disease: Yes (HIV POSITIVE) Blood Disorders: No Heart Rhythm Problems: No Cancer: No Cardiac Catheterization: No Cardiovascular Problems: No High Cholesterol: No Chest Pain: No Congestive Heart Failure: No COPD: No Cerebrovascular Accident: No Diabetes: No Dialysis: Yes (Thursday, and Thursday; fistula left arm,) Diminished Hearing: No Endocrine: No GERD: No Glaucoma: No Genitourinary: Yes Headaches: Yes Hepatitis: No Hiatal Hernia: No Heparin Induced Thrombocytopen: No Hypertension: No Immune Disorder: Yes Implanted Vascular Access Dvce: Yes (VAS CATH R CHEST) Kidney Stones: No Medical other: Yes (HIV POS.) Musculoskeletal: No Neurologic: No Psychiatric: No Reproductive: No Respiratory: Yes (ASTHMA) Myocardial Infarction: No Renal Failure: Yes Seizures: No Sleep Apnea: No Thyroid Disease: No Ulcer: No Tetanus Vaccination: > 5 Years Influenza Vaccination: Yes ?: Not LMP: 3/1/17 : 5 Para: 5 Miscarriage: 0 : 0 Tubal Ligation: Yes Past Surgical History Abdominal Surgery: No AICD: No Body Medical Devices: L ARM AV FISTULA Cardiac Surgery: No Section: Yes Coronary Artery Bypass Graft: No Ear Surgery: No Endocrine Surgery: No Eye Surgery: No Genitourinary Surgery: No Gynecologic Surgery: Yes (C-SECT.) Joint Replacement: No Neurologic Surgery: No Pacemaker: No Thoracic Surgery: No Other Surgery: Yes (fistula for dialysis: left arm) Social History Alcohol Use: No Tobacco Use: Yes (11/10 PPD) Substance Use: No Allergies-Medications (Allergen,Severity, Reaction): Coded Allergies: Sulfa (Verified Allergy, Severe, Hives, 01/11/17) Reported Meds & Prescriptions Reported Meds & Active Scripts Active Zithromax Z-Jamir (Azithromycin) 250 Mg Dspk 250 Mg PO DIRECTED 500 MG (2 tabs) day 1, then 1 tab days 2-5. Acetaminophen 325 Mg Tab 650 Mg PO UNSCH PRN Zofran (Ondansetron HCl) 4 Mg Tab 4 Mg PO Q6HR PRN Tamiflu (Oseltamivir Phosphate) 30 Mg Cap 30 Mg PO UNSCH PRN take after HD Calcium Acetate (Calcium Acetate (Phosphate Bin) 667 Mg Cap 2,001 Mg PO TID Rocaltrol (Calcitriol) 0.25 Mcg Cap 1 Mcg PO DAILY [place] (Hydrocodone-Acetaminophen) 5-325 mg Tab 1 Tab PO Q6H PRN Reported Requip (Ropinirole HCl) 0.5 Mg Tab 0.5 Mg PO TID Megace Liq (Megestrol Acetate) 40 Mg/Ml Susp 800 Mg PO DAILY Benadryl Allergy (Diphenhydramine HCl) 25 Mg Tab 25 Mg PO Q6H PRN Tivicay (Dolutegravir Sodium) 50 Mg Tab 50 Mg PO DAILY Prezista (Darunavir) 800 Mg Tab 800 Mg PO DAILY Intelence (Etravirine) 200 Mg Tab 200 Mg PO BID Review of Systems Except as stated in HPI: all other systems reviewed are Neg Physical Exam Narrative GENERAL: Well-nourished female in no acute distress. SKIN: Warm and dry. HEAD: Atraumatic. Normocephalic. EYES: Pupils equal and round. No scleral icterus. No injection or drainage. ENT: No nasal bleeding or discharge. Mucous membranes pink and moist. No oral pharyngeal erythema or exudate. Tympanic membranes clear. NECK: Trachea midline. No JVD. No lymphadenopathy. CARDIOVASCULAR: Regular rate and rhythm. No murmur appreciated. RESPIRATORY: No accessory muscle use. Clear to auscultation. Breath sounds equal bilaterally. No crackles no wheezing or rhonchi GASTROINTESTINAL: Abdomen soft, non-tender, nondistended. Hepatic and splenic margins not palpable. MUSCULOSKELETAL: No obvious deformities. No edema. There is generalized tenderness to palpation along the lateral aspect of both sides of the chest. No rashes. NEUROLOGICAL: Awake and alert. No obvious cranial nerve deficits. Motor grossly within normal limits. Normal speech. PSYCHIATRIC: Appropriate mood and affect; insight and judgment normal. Data Data Last Documented VS Vital Signs Date Time Temp Pulse Resp B/P Pulse Ox O2 Delivery O2 Flow Rate FiO2 01/11/17 14:30 87 16 153/95 96 Room Air 01/11/17 13:22 97.7 Orders Electrocardiogram (01/11/17 ) Chest, Pa & Lat (01/11/17 ) Complete Blood Count With Diff (01/11/17 13:39) Comprehensive Metabolic Panel (01/11/17 13:39) Phosphorus (Po4) (01/11/17 13:39) Magnesium (Mg) (01/11/17 13:39) Sodium Chlorid 0.9% 500 Ml Inj (Ns 500 M (01/11/17 13:45) Metoclopramide Inj (Reglan Inj) (01/11/17 13:45) Acetaminophen (Tylenol) (01/11/17 13:45) Lactic Acid Sepsis Protocol (01/11/17 14:32) Blood Culture (01/11/17 14:32) Vancomycin Inj (Vancomycin Inj) (01/11/17 14:45) Piperacil-Tazo 2.25 Gm Premix (Zosyn 2.2 (01/11/17 14:45) Diet Renal (01/11/17 Dinner) Sodium Polysty Sulfate Liq (Kayexalate L (01/11/17 14:45) Admit Order (Ed Use Only) (01/11/17 15:05) Labs Laboratory Tests Test 01/11/17 13:50 White Blood Count 9.2 TH/MM3 Red Blood Count 3.91 MIL/MM3 Hemoglobin 11.5 GM/DL Hematocrit 34.4 % Mean Corpuscular Volume 88.1 FL Mean Corpuscular Hemoglobin 29.3 PG Mean Corpuscular Hemoglobin 33.3 % Concent Red Cell Distribution Width 13.9 % Platelet Count 259 TH/MM3 Mean Platelet Volume 8.2 FL Neutrophils (%) (Auto) 67.1 % Lymphocytes (%) (Auto) 22.4 % Monocytes (%) (Auto) 8.3 % Eosinophils (%) (Auto) 1.8 % Basophils (%) (Auto) 0.4 % Neutrophils # (Auto) 6.1 TH/MM3 Lymphocytes # (Auto) 2.0 TH/MM3 Monocytes # (Auto) 0.8 TH/MM3 Eosinophils # (Auto) 0.2 TH/MM3 Basophils # (Auto) 0.0 TH/MM3 CBC Comment DIFF FINAL Differential Comment Sodium Level 135 MEQ/L Potassium Level 5.7 MEQ/L Chloride Level 99 MEQ/L Carbon Dioxide Level 23.5 MEQ/L Anion Gap 13 MEQ/L Blood Urea Nitrogen 53 MG/DL Creatinine 12.90 MG/DL Estimat Glomerular Filtration 4 ML/MIN Rate Random Glucose 75 MG/DL Calcium Level 7.2 MG/DL Protein Corrected Calcium MG/DL Phosphorus Level 6.8 MG/DL Magnesium Level 1.8 MG/DL Total Bilirubin 0.3 MG/DL Aspartate Amino Transf 14 U/L (AST/SGOT) Alanine Aminotransferase 11 U/L (ALT/SGPT) Alkaline Phosphatase 65 U/L Total Protein 8.8 GM/DL Albumin 2.7 GM/DL [facility] Medical Decision Making Medical Screen Exam Complete: Yes Emergency Medical Condition: Yes Medical Record Reviewed: Yes Interpretation(s) EKG sinus rhythm CBC hemoglobin 11.5 CMP sodium 135, potassium 5.7 with some hemolysis, creatinine 12.9, calcium 7.2 , phosphorus 6.8 Differential Diagnosis Bronchitis, pneumonia, influenza, pleurisy, costochondritis, pneumothorax, hemothorax, pulmonary embolism, acute coronary syndrome, pericarditis, myocarditis, gastroenteritis Narrative Course 41-year-old female presents with persistent cough with productive green sputum production, bilateral chest wall pain, nausea and vomiting. Basic lab work and chest x-ray have been ordered. The patient was given IV Reglan as well as oral Tylenol. Her chest x-ray reveals bilateral increased nodular focal areas of consolidation at both lung bases worsening comparison to chest x-ray yesterday with concern for atypical infectious process versus septic emboli. Given the patient's worsening symptoms as well as history of HIV, plan is to admit the patient for IV antibiotic therapy. She was given IV vancomycin and Zosyn here. There is also hyperkalemia with some hemolysis. The patient will be given a dose of Kayexalate. Procedures EKG Prior to Arrival: Yes Diagnosis Primary Impression: Pneumonia Qualified Code: J18.9 - Pneumonia of both lungs due to infectious organism, unspecified part of lung Admitting Information Admitting Physician Requests: it Nick Ulloa Jan 11, 2017 13:44
[2017-01-11] MEDS ORDERED: ACETAMINOPHEN 500 MG CPLT PO ONE (13:45)
[2017-01-11] MEDS ORDERED: METOCLOPRAMIDE HCL 10 MG/2 ML VIAL IV PUSH ONE (13:45)
[2017-01-11] MEDS ORDERED: SODIUM CHLORID 0.9% 500 ML INJ 500 ML IV ONE (13:45)
[2017-01-11 14:08] LABS: AUTOMATED NEUTROPHIL # 6.1 TH/MM3 (1.8-7.7); BASOPHIL % 0.4 % (0.0-2.0); EOSINOPHIL # 0.2 TH/MM3 (0-0.4); EOSINOPHIL % 1.8 % (0.0-4.0); HEMATOCRIT 34.4 % (35.0-46.0); HEMO FLAGS DIFF FINAL; LYMPH % 22.4 % (9.0-44.0); MEAN CELL VOLUME 88.1 FL (80.0-100.0); MEAN CORPUSCULAR HEMOGLOBIN 29.3 PG (27.0-34.0); MEAN CORPUSCULAR HGB CONC 33.3 % (32.0-36.0); MONO % 8.3 % (0.0-8.0); NEUT % 67.1 % (16.0-70.0); PLATELET COUNT 259 TH/MM3 (150-450); RED BLOOD COUNT 3.91 MIL/MM3 (4.00-5.30); RED CELL DISTRIBUTION WIDTH 13.9 % (11.6-17.2); WHITE BLOOD COUNT 9.2 TH/MM3 (4.0-11.0)
[2017-01-11 14:26] LABS: BICARBONATE 23.5 MEQ/L (21.0-32.0); MAGNESIUM 1.8 MG/DL (1.5-2.5)
[2017-01-11 14:27] LABS: POTASSIUM 5.7 MEQ/L (3.5-5.1)
--- NOTE | 2017-01-11 14:28 | RADRPT ---
EXAM DATE/TIME: 01/11/2017 14:20 [facility] COMPARISON: CHEST SINGLE AP, December 06, 2016, 12:23. CT ABDOMEN & PELVIS W/O CONTRAST, April 04, 2016, 11:50. CH EST SINGLE AP, January 10, 2017, 7:39. CHEST PA & LAT, January 02, 2017, 15:46. INDICATIONS : Cough, shortness of breath, and chest pain. MEDICAL HISTORY : None. SURGICAL HISTORY : None. ENCOUNTER: Initial ACUITY: 2 days PAIN SCORE: 10/10 LOCATION: Bilateral chest FINDINGS: Frontal and lateral views of the chest demonstrate a normal-sized cardiac silhouette. There are focal somewhat nodular areas of airspace consolidation at the lung bases bilaterally that appear more dens e than yesterday's examination. No pleural effusion or pneumothorax is identified. Bones and soft tis sues demonstrate no acute finding. Coil remains present in the right upper quadrant. CONCLUSION: Persistent and mildly increased nodular focal areas of consolidation at both lung bases. Given the uncommon appearance consideration should be given to atypical infectious processes or septi c emboli. Phi Mott MD on January 11, 2017 at 14:22 Board Certified Radiologist. This report was verified electronically.
[2017-01-11 14:30] VITALS: BP 153/95; PULSE 87; RESP 16; O2SAT 96
[2017-01-11 14:31] LABS: TOTAL BILIRUBIN ADULT 0.3 MG/DL (0.2-1.0)
[2017-01-11] MEDS ORDERED: VANCOMYCIN INJ 1,000 MG in SODIUM CHLOR 0.9% 250 ML INJ 250 ML IV ONE (14:45)
[2017-01-11] MEDS ORDERED: SODIUM POLYSTYRENE SULFONATE SUSP 15 GM/60 ML CUP PO ONE (14:45)
[2017-01-11] MEDS ORDERED: PIPERACIL-TAZO 2.25 GM PREMIX 50 ML IV ONE (14:45)
--- NOTE | 2017-01-11 15:10 | PD ---
Data Data Last Documented VS Vital Signs Date Time Temp Pulse Resp B/P Pulse Ox O2 Delivery O2 Flow Rate FiO2 01/11/17 14:30 87 16 153/95 96 Room Air 01/11/17 13:22 97.7 Orders Electrocardiogram (01/11/17 ) Chest, Pa & Lat (01/11/17 ) Complete Blood Count With Diff (01/11/17 13:39) Comprehensive Metabolic Panel (01/11/17 13:39) Phosphorus (Po4) (01/11/17 13:39) Magnesium (Mg) (01/11/17 13:39) Sodium Chlorid 0.9% 500 Ml Inj (Ns 500 M (01/11/17 13:45) Metoclopramide Inj (Reglan Inj) (01/11/17 13:45) Acetaminophen (Tylenol) (01/11/17 13:45) Lactic Acid Sepsis Protocol (01/11/17 14:32) Blood Culture (01/11/17 14:32) Vancomycin Inj (Vancomycin Inj) (01/11/17 14:45) Piperacil-Tazo 2.25 Gm Premix (Zosyn 2.2 (01/11/17 14:45) Diet Renal (01/11/17 Dinner) Sodium Polysty Sulfate Liq (Kayexalate L (01/11/17 14:45) Admit Order (Ed Use Only) (01/11/17 15:05) Labs Laboratory Tests Test 01/11/17 13:50 White Blood Count 9.2 TH/MM3 Red Blood Count 3.91 MIL/MM3 Hemoglobin 11.5 GM/DL Hematocrit 34.4 % Mean Corpuscular Volume 88.1 FL Mean Corpuscular Hemoglobin 29.3 PG Mean Corpuscular Hemoglobin 33.3 % Concent Red Cell Distribution Width 13.9 % Platelet Count 259 TH/MM3 Mean Platelet Volume 8.2 FL Neutrophils (%) (Auto) 67.1 % Lymphocytes (%) (Auto) 22.4 % Monocytes (%) (Auto) 8.3 % Eosinophils (%) (Auto) 1.8 % Basophils (%) (Auto) 0.4 % Neutrophils # (Auto) 6.1 TH/MM3 Lymphocytes # (Auto) 2.0 TH/MM3 Monocytes # (Auto) 0.8 TH/MM3 Eosinophils # (Auto) 0.2 TH/MM3 Basophils # (Auto) 0.0 TH/MM3 CBC Comment DIFF FINAL Differential Comment Sodium Level 135 MEQ/L Potassium Level 5.7 MEQ/L Chloride Level 99 MEQ/L Carbon Dioxide Level 23.5 MEQ/L Anion Gap 13 MEQ/L Blood Urea Nitrogen 53 MG/DL Creatinine 12.90 MG/DL Estimat Glomerular Filtration 4 ML/MIN Rate Random Glucose 75 MG/DL Calcium Level 7.2 MG/DL Protein Corrected Calcium MG/DL Phosphorus Level 6.8 MG/DL Magnesium Level 1.8 MG/DL Total Bilirubin 0.3 MG/DL Aspartate Amino Transf 14 U/L (AST/SGOT) Alanine Aminotransferase 11 U/L (ALT/SGPT) Alkaline Phosphatase 65 U/L Total Protein 8.8 GM/DL Albumin 2.7 GM/DL [facility] Supervised Visit with ESHA: Yes Narrative Course The history, exam, and medical decision-making in the associated midlevel provider note were completed with my assistance. I reviewed and agree with the findings presented. I attest that I had a [id number] encounter with the patient on the same day, and personally performed and documented my assessment and findings in the medical record. *My assessment and Findings: This is a 41-year-old female who presents to the emergency department with a history of HIV and end-stage renal disease with persistent cough and chest pain. She was admitted with influenza about a week ago and discharged. She was seen yesterday in the emergency department with chest pain and had evidence of bibasilar pneumonia and was discharged on azithromycin. She returns as her symptoms are worsening. Here in the emergency department her chest x-ray is concerning and increasingly nodular, worrisome for possible septic emboli. She also has an upward trending potassium which may be somewhat related to hemolysis but patient would benefit from dialysis sooner than Thursday which is her scheduled date. Plan for admission for failed outpatient therapy in the setting of pneumonia cultures, empiric antibiotics, and nephrology consultation. Diagnosis Primary Impression: Pneumonia Qualified Code: J18.9 - Pneumonia of both lungs due to infectious organism, unspecified part of lung Mallory Smith MD Jan 11, 2017 15:10
--- NOTE | 2017-01-11 15:46 | HHI.HP ---
[facility] Service Family Medicine Primary Care Physician Phi De La Rosa MD Admission Diagnosis Bilateral pneumonia Diagnoses: International Travel<30 Days: No Contact w/Intl Traveler<30days: No Known Affected Area: No History of Present Illness Patient is a 41-year-old female with a past medical history of HIV, hypertension, end-stage renal disease on hemodialysis that presents to the [facility] ED with a chief complaint of bilateral thoracic back pain. The patient was recently hospitalized at [facility] for influenza and was discharged on ThursdayJanuary 04 with a course of Tamiflu, which she completed. Patient states that she never felt better after leaving the hospital and she continued to have intermittent fever up to 101F measured at home with a thermometer. Yesterday Wednesday 01/10, the patient went to [facility] around 6:30 AM in the morning because she started having left sided thoracic back pain. A chest x-ray was performed which showed mild bibasilar air space consolidation, right greater than left. She was discharged home with a Z-Jamir, which she only took one dose. This morning she woke up with bilateral back pain and also had 2 episodes of vomiting white mucus. She was unable to take a second azithromycin dose. She decided to present to the [facility] ED. (Carleen Reddy MD R1) Review of Systems Constitutional: COMPLAINS OF: Fatigue, Fever, Chills, Change in appetite (poor on and off), Night Sweats Eyes: COMPLAINS OF: Blurred vision, DENIES: Vision loss, Double Vision Ears, nose, mouth, throat: COMPLAINS OF: Running Nose, DENIES: Nasal discharge , Throat pain Respiratory: COMPLAINS OF: Cough, Wheezing, Shortness of breath Cardiovascular: COMPLAINS OF: Chest pain, DENIES: Syncope Gastrointestinal: COMPLAINS OF: Abdominal pain, Nausea, Vomiting Genitourinary: DENIES: Dysuria Musculoskeletal: COMPLAINS OF: Joint pain, DENIES: Muscle aches Integumentary: DENIES: Rash Neurologic: COMPLAINS OF: Headache, Paresthesias (chronic ) (Carleen Reddy MD R1) Past Family Social History Past Medical History HIV, last CD4 count 347 in November, on antiretroviral therapy End-stage renal disease on hemodialysis Thursday, , and Thursday Hypertension Anemia Asthma Past Surgical History One Tubal ligation Reported Medications Reported Meds & Active Scripts Active Zithromax Z-Jamir (Azithromycin) 250 Mg Dspk 250 Mg PO DIRECTED 500 MG (2 tabs) day 1, then 1 tab days 2-5. Acetaminophen 325 Mg Tab 650 Mg PO UNSCH PRN Zofran (Ondansetron HCl) 4 Mg Tab 4 Mg PO Q6HR PRN Tamiflu (Oseltamivir Phosphate) 30 Mg Cap 30 Mg PO UNSCH PRN take after HD Calcium Acetate (Calcium Acetate (Phosphate Bin) 667 Mg Cap 2,001 Mg PO TID Rocaltrol (Calcitriol) 0.25 Mcg Cap 1 Mcg PO DAILY [place] (Hydrocodone-Acetaminophen) 5-325 mg Tab 1 Tab PO Q6H PRN Reported Requip (Ropinirole HCl) 0.5 Mg Tab 0.5 Mg PO TID Megace Liq (Megestrol Acetate) 40 Mg/Ml Susp 800 Mg PO DAILY Benadryl Allergy (Diphenhydramine HCl) 25 Mg Tab 25 Mg PO Q6H PRN Tivicay (Dolutegravir Sodium) 50 Mg Tab 50 Mg PO DAILY Prezista (Darunavir) 800 Mg Tab 800 Mg PO DAILY Intelence (Etravirine) 200 Mg Tab 200 Mg PO BID (Carleen Reddy MD R1) Allergies: Coded Allergies: Sulfa (Verified Allergy, Severe, Hives, 01/11/17) Family History Denies mother or father having any medical problems Lung cancer in mom's side of family Social History Smokes half pack per day of cigarettes starting at age of 18 Denies history of IVDU Drinks alcohol socially (Carleen Reddy MD R1) Physical Exam Vital Signs Vital Signs Date Time Temp Pulse Resp B/P Pulse Ox O2 Delivery O2 Flow Rate FiO2 01/11/17 14:30 87 16 153/95 96 Room Air 01/11/17 13:22 88 18 130/87 96 Room Air 01/11/17 13:22 97.7 90 16 130/67 96 01/11/17 13:22 89 18 96 Room Air Physical Exam GENERAL: This is a well-developed patient, in no respiratory distress SKIN: No rashes, ecchymoses or lesions. Cool and dry. AV dialysis fistula on left arm HEAD: Atraumatic. Normocephalic. No temporal or scalp tenderness. EYES: Pupils equal round and reactive. Extraocular motions intact. No scleral icterus. No injection or drainage. ENT: Nose without bleeding, purulent drainage or septal hematoma. Throat without erythema, tonsillar hypertrophy or exudate. Uvula midline. Airway patent. NECK: Trachea midline. No JVD or lymphadenopathy. Supple, nontender, no meningeal signs. CARDIOVASCULAR: Regular rate and rhythm without murmurs, gallops, or rubs. RESPIRATORY: Clear to auscultation, but very weak effort due to pain. No wheezes , rales, or rhonchi. BACK: Tender to light palpation bilaterally on flank at thoracic level GASTROINTESTINAL: Abdomen soft, non-tender, nondistended. No hepato-splenomegaly , or palpable masses. No guarding. MUSCULOSKELETAL: Extremities without clubbing, cyanosis, or edema. No joint tenderness, effusion, or edema noted. No calf tenderness. NEUROLOGICAL: Awake and alert. Cranial nerves II through XII intact. Motor and sensory grossly within normal limits. Five out of 5 muscle strength in all muscle groups. Normal speech. Laboratory Laboratory Tests Test 01/11/17 01/11/17 13:50 14:50 White Blood Count 9.2 Red Blood Count 3.91 Hemoglobin 11.5 Hematocrit 34.4 Mean Corpuscular Volume 88.1 Mean Corpuscular Hemoglobin 29.3 Mean Corpuscular Hemoglobin 33.3 Concent Red Cell Distribution Width 13.9 Platelet Count 259 Mean Platelet Volume 8.2 Neutrophils (%) (Auto) 67.1 Lymphocytes (%) (Auto) 22.4 Monocytes (%) (Auto) 8.3 Eosinophils (%) (Auto) 1.8 Basophils (%) (Auto) 0.4 Neutrophils # (Auto) 6.1 Lymphocytes # (Auto) 2.0 Monocytes # (Auto) 0.8 Eosinophils # (Auto) 0.2 Basophils # (Auto) 0.0 CBC Comment DIFF FINAL Differential Comment Sodium Level 135 Potassium Level 5.7 Chloride Level 99 Carbon Dioxide Level 23.5 Anion Gap 13 Blood Urea Nitrogen 53 Creatinine 12.90 Estimat Glomerular Filtration 4 Rate Random Glucose 75 Calcium Level 7.2 Protein Corrected Calcium Phosphorus Level 6.8 Magnesium Level 1.8 Total Bilirubin 0.3 Aspartate Amino Transf 14 (AST/SGOT) Alanine Aminotransferase 11 (ALT/SGPT) Alkaline Phosphatase 65 Total Protein 8.8 Albumin 2.7 Lactic Acid Level 0.5 Date/Time Procedure Status Source Growth 01/11/17 14:55 Aerobic Blood Culture Received Blood Peripheral Pending 01/11/17 14:55 Anaerobic Blood Culture Received Blood Peripheral Pending (Carleen Reddy MD R1) Result Diagram: 01/11/17 1350 01/11/17 1350 Imaging Last Impressions Chest X-Ray 01/11/17 0000 Signed Impressions: Service Date/Time: Wednesday, January 11, 2017 14:20 - CONCLUSION: Persistent and mildly increased nodular focal areas of consolidation at both lung bases. Given the uncommon appearance consideration should be given to atypical infectious processes or septic emboli. Phi Mott MD (Carleen Reddy MD R1) Assessment and Plan Assessment and Plan 41-year-old -[place] female with past medical history of HIV, end-stage renal disease on hemodialysis, hypertension, and asthma presents with bilateral lower lobe pneumonia after recent hospitalization for influenza. She will be admitted for management with IV antibiotics. Code Status Full Code Discussed Condition With Seen and examined with Dr. Snider, PGY 2. Discussed with Dr. Newman. DISPO: -Spoke with sales enablement manager; pt. does meet inpatient criteria for double lobe pneumonia -Anticipate discharge in 3-4 days if SOB and chest pain improves -Consider home on PO Levaquin to complete 14-21 total days of therapy from admission (Carleen Reddy MD R1) Attending Attestation The patient has been seen and examined. The chart and all resident notes have been reviewed. I agree that inpatient care is appropriate and that a two midnight stay is expected for the reasons documented in the resident history and physical. I have discussed this with the resident and certify the resident s order for inpatient admission. (Loulou Newman MD) Problem List: (1) Pneumonia Status: Acute Plan: Suspect HCAP Pneumonia due to recent hospitalization for influenza -CXR shows persistent and mildly increased nodular focal areas of consolidation at both lung bases -Causative ddx includes S. pneumo, pseudomonas, MRSA, mycoplasma, Moraxella, viral URI, vs other -WBC 9.2, neutrophil % 67.1, afebrile in the ED, but patient reports a temperature up to 10 1F at home -Vancomycin 1 g every 12 hours for gram positives and MRSA coverage. Pharmacy consulted due to ESRD -Zosyn renally dosed at 2.25 g IV every 12 hours for coverage of gram negatives and Pseudomonas. -Levaquin 750 mg IV loading dose, then 500 mg every 48 hours to cover atypicals and also double coverage for Pseudomonas -Duonebs Q8 hours alternate with albuterol nebulizer when necessary SOB -Albuterol Q8h alternate with DuoNeb's PRN SOB. -Supplemental O2 and continuous pulse ox monitoring -Acapella, incentive spirometer -Tessalon, and Mucinex available as PRNs -Tylenol 650 mg Q6h PRN pain 1-10 of fever greater than 101F -Zofran 4mg IV Q6h PRN nausea/vomiting -Hydralazine 10mg PO QID prn SBP >= 180, DBP >= 100 Trending troponin 3 -electronic device monitor with telemetry -Continuous pulse oximetry with supplemental oxygen -Vital signs every 4 hours -OOB ad neto -Fall precautions -Monitor Is & Os (2) Chronic Medical Problems Status: Acute Plan: Hypertension: No home antihypertensive regimen listed, will cover with hydralazine by mouth when necessary ESRD: -Creatinine 12.90, phosphorus 6.8. Received PhosLo in the ED -Nephrology consulted for hemodialysis while inpatient Anemia: H/H 11.5/34.4, will monitor HIV: Continue home HIV meds (3) FEN/DVT PPX/GI PPX Status: Acute Plan: Fluids: NS @ 100 mls/hr IV Electrolytes: Will monitor and replace as needed, K of 5.7 in the ED. Received one dose of Kayexalate Nutrition: Renal diet DVT Prophylaxis: Bilateral SCDs, heparin and Lovenox contraindicated due to ESRD GI Prophylaxis: Protonix 40mg PO daily (Carleen Reddy MD R1) Physician Certification 2 Midnight Certification Type: Admission for Inpatient Services Order for Inpatient Services The services are ordered in accordance with Medicare regulations or non- Medicare payer requirements, as applicable. In the case of services not specified as inpatient-only, they are appropriately provided as inpatient services in accordance with the 2-midnight benchmark. Estimated LOS (days): 2 days is the estimated time the patient will need to remain in the hospital, assuming treatment plan goals are met and no additional complications. Post-Hospital Plan: Home (Carleen Reddy MD R1) Problem Qualifiers (1) Pneumonia: Qualified Code: J18.9 - Pneumonia of both lungs due to infectious organism, unspecified part of lung Carleen Reddy MD R1 Jan 11, 2017 15:46 Loulou Newman MD Jan 14, 2017 10:02 Carleen Reddy MD R1 Jan 11, 2017 15:46 The services are ordered in accordance with Medicare regulations or non- Medicare payer requirements, as applicable. In the case of services not specified as inpatient-only, they are appropriately provided as inpatient services in accordance with the 2-midnight benchmark. days is the estimated time the patient will need to remain in the hospital, assuming treatment plan goals are met and no additional complications. Problem Qualifiers (1) Pneumonia: Qualified Code: J18.9 - Pneumonia of both lungs due to infectious organism, unspecified part of lung Carleen Reddy MD R1 Jan 11, 2017 15:46
[2017-01-11 16:00] VITALS: BP 141/88; PULSE 90; RESP 16; O2SAT 96
[2017-01-11] MEDS ORDERED: SYRINGE/BAG 1 EA PO SCH (16:30)
[2017-01-11] MEDS ORDERED: hydrALAZINE HCL 10 MG TAB PO PRN (16:30)
[2017-01-11] MEDS ORDERED: Vancomycin Consult Pharmacy 1 EA XX SCH (16:30)
[2017-01-11] MEDS ORDERED: diphenhydrAMINE HCL 25 MG CAP PO PRN (16:30)
[2017-01-11] MEDS ORDERED: ACETAMINOPHEN 325 MG TAB PO PRN (16:30)
[2017-01-11] MEDS ORDERED: BENZONATATE 100 MG CAP PO PRN (17:15)
[2017-01-11] MEDS ORDERED: RESP: ALBUTEROL 2.5 MG/3 ML NEB (PRN) NEB (17:15)
[2017-01-11] MEDS ORDERED: RESP: ALBUTEROL 2.5 MG/IPRATROPIUM 0.5 MG NEB (PRN) NEB (17:15)
[2017-01-11] MEDS ORDERED: LEVOFLOXACIN 750 MG PREMIX INJ 150 ML IV ONE (17:15)
[2017-01-11] MEDS ORDERED: guaiFENesin E.R. 600 MG TAB PO PRN (17:15)
[2017-01-11 17:27] LABS: BETA HCG QUANT LESS THAN 1 MIU/ML (0-5)
[2017-01-11] MEDS: FOLIC ACID 1 MG TAB PO SCH (17:57)
[2017-01-11] MEDS: SODIUM CHLOR 0.9% 1000 ML INJ 1,000 ML IV SCH (17:57)
[2017-01-11] MEDS: CALCIUM ACETATE 667 MG CAP PO SCH (17:58)
[2017-01-11 18:00] VITALS: BP 145/91; PULSE 90; RESP 16; O2SAT 96; O2SAT 97
[2017-01-11] MEDS: ONDANSETRON HCL 4 MG/2 ML VIAL IV PRN (19:55)
[2017-01-11 20:00] VITALS: BP 147/94; PULSE 79; PULSE 80; RESP 18; TEMP 97; O2SAT 97
[2017-01-11] MEDS: MORPHINE SULFATE 4 MG/ML INJ IV PUSH PRN (20:12)
[2017-01-11] MEDS: ETRAVIRINE 100 MG TAB PO SCH (20:16)
[2017-01-11 20:21] VITALS: O2SAT 98
[2017-01-12] VITALS (7 sets, daily range): BP systolic 131–168; BP diastolic 86–95; PULSE 73–92; RESP 16–18; TEMP 96.3–97.6; O2SAT 98–99
[2017-01-12 00:32] LABS: BACTERIA, URINE RARE /hpf; BLOOD, URINE TRACE (NEG); COMMENT (UR) CATH-CULTURE IND; CULTURE IF INDICATED CATH CULTURE IND; GLUCOSE,URINE NEG (NEG); KETONE, URINE NEG (NEG); MUCUS URINE FEW /lpf (OCC); NITRITE,URINE NEG (NEG); SQUAMOUS EPITHELIAL CELL URINE 1 /hpf (0-5); URINE COLOR LIGHT-YELLOW (YELLW/STRAW)
[2017-01-12] MEDS: PIPERACIL-TAZO 2.25 GM PREMIX 50 ML IV SCH ×2 (04:01→18:44)
[2017-01-12] MEDS: SODIUM CHLOR 0.9% 1000 ML INJ 1,000 ML IV SCH (04:04)
[2017-01-12] MEDS ORDERED: VANCOMYCIN IV SCH (04:30)
[2017-01-12] MEDS ORDERED: SODIUM CHLOR 0.9% IV SCH (04:30)
[2017-01-12] MEDS: MORPHINE SULFATE 4 MG/ML INJ IV PUSH PRN ×2 (07:11→19:13)
--- NOTE | 2017-01-12 08:25 | HHI.FPPN ---
Subjective Subjective Patient seen and examined. Case reviewed and discussed Please refer to resident H&P for further details regarding HPI, ROS, PMH, SurgHx , FH and SocHx. In summary, patient is a 41yoF with a history of HIV, last CD4 count 347 11/2016 , ESRD on HD presenting after worsening chest and back pain. Of note, she was recently admitted to the hospital for influenza. She missed her last HD session on Thursday. She is seen in her hospital bed this morning reporting that her breathing and chest pain complaints are slightly improved. Nephrology and infectious disease consult are pending. [facility] Objective Objective Last Impressions Chest X-Ray 01/11/17 0000 Signed Impressions: Service Date/Time: Wednesday, January 11, 2017 14:20 - CONCLUSION: Persistent and mildly increased nodular focal areas of consolidation at both lung bases. Given the uncommon appearance consideration should be given to atypical infectious processes or septic emboli. Phi Mott MD Laboratory Tests - Abnormals Test 01/11/17 01/11/17 01/12/17 13:50 20:00 00:15 Red Blood Count 3.91 MIL/MM3 Hemoglobin 11.5 GM/DL Hematocrit 34.4 % Monocytes (%) (Auto) 8.3 % Sodium Level 135 MEQ/L Potassium Level 5.7 MEQ/L Blood Urea Nitrogen 53 MG/DL Creatinine 12.90 MG/DL Estimat Glomerular Filtration 4 ML/MIN Rate Calcium Level 7.2 MG/DL Phosphorus Level 6.8 MG/DL Aspartate Amino Transf 14 U/L (AST/SGOT) Troponin I LESS THAN 0.02 LESS THAN 0.02 NG/ML NG/ML Total Protein 8.8 GM/DL Albumin 2.7 GM/DL Urine Protein 300 mg/dL Urine Occult Blood TRACE Urine Bacteria RARE /hpf Urine Mucus FEW /lpf Vital Signs 01/11/17 01/11/17 01/11/17 01/11/17 13:22 13:22 13:22 14:30 Temp 97.7 Pulse 89 90 88 87 Resp 18 16 18 16 B/P 130/67 130/87 153/95 Pulse Ox 96 96 96 96 O2 Delivery Room Air Room Air Room Air 01/11/17 01/11/17 01/11/17 01/11/17 16:00 18:00 18:00 18:00 Pulse 90 90 Resp 16 16 B/P 141/88 145/91 Pulse Ox 96 97 97 96 O2 Delivery Room Air Nasal Cannula Nasal Cannula Room Air O2 Flow Rate 1.00 1 01/11/17 01/11/17 01/11/17 01/12/17 20:00 20:00 20:21 00:00 Temp 97.0 97.1 Pulse 80 79 86 Resp 18 18 B/P 147/94 149/95 Pulse Ox 97 98 98 01/12/17 04:00 Temp 97.5 Pulse 86 Resp 17 B/P 131/86 Pulse Ox 98 INTAKE & OUTPUT 01/12/17 07:00 Intake Total 720 ml Output Total 550 ml Balance 170 ml Physical exam GENERAL: Thin female, NAD resting in bed SKIN: Warm and dry. No rashes or lesions HEAD: Normocephalic. Atraumatic EYES: No scleral icterus. No injection or drainage. ENT: OP clear. MM slightly dry. NECK: Supple, trachea midline. No JVD or lymphadenopathy. CARDIOVASCULAR: Regular rate and rhythm without audible murmurs, gallops, or rubs. RESPIRATORY: Breath sounds diminished at bilateral bases. No accessory muscle use. No wheeze. No increased work of breathing GASTROINTESTINAL: Abdomen soft, non-tender, nondistended. No rebound or guarding. Normal active bowel sounds MUSCULOSKELETAL: No cyanosis, or edema. AV fistula present BACK: Nontender without obvious deformity. No CVA tenderness. Neuro: Awake and alert with normal speech. Cranial nerves grossly intact. Assessment Assessment 41yoF admitted with: Bilateral pneumonia in patient with recent hospitalization and HIV End-stage renal disease on hemodialysis Hyperkalemia Hypertension Anemia PLAN PLAN CT chest with IV contrast followed immediately by hemodialysis, discussed with nephrology, Dr. Rodas Infectious disease consultation given pneumonia with HIV Empiric antibiotic therapy with vancomycin and Zosyn Blood cultures Sputum culture Check influenza, pneumococcal, legionella antigen Home medications to be resumed as appropriate Hemodialysis as per nephrology Patient seen and examined. Case reviewed and discussed Agree with plan of care as discussed with me and documented in the resident note. Loulou Newman MD Jan 12, 2017 08:25
[2017-01-12] MEDS: DARUNAVIR 800 MG TAB PO SCH (09:57)
[2017-01-12] MEDS: CALCIUM ACETATE 667 MG CAP PO SCH ×3 (09:57→18:44)
[2017-01-12] MEDS: FOLIC ACID 1 MG TAB PO SCH (09:57)
[2017-01-12] MEDS: ETRAVIRINE 100 MG TAB PO SCH ×2 (09:57→20:39)
[2017-01-12] MEDS: CALCITRIOL 0.25 MCG CAP PO SCH (09:57)
[2017-01-12] MEDS: DOLUTEGRAVIR SODIUM 50 MG TAB PO SCH (09:57)
--- NOTE | 2017-01-12 10:09 | EKG ---
Date Performed: 01/11/2017 Time Performed: 13:46:56 PTAGE: 41 years EKG: Sinus rhythm NORMAL ECG Compared to prior tracing no significant change PREVIOUS TRACING : 12/06/2016 13.49 DOCTOR: Rufino Chowdhury Interpretating Date/Time 01/12/2017 10:04:23
[2017-01-12] MEDS ORDERED: SODIUM CHLOR 0.9% 1000 ML INJ 1,000 ML IV PRN ×3 (10:19)
[2017-01-12] MEDS ORDERED: HEPARIN SODIUM - IV 10,000 UNITS/10 ML VIAL IVF PRN (10:30)
[2017-01-12] MEDS ORDERED: diphenhydrAMINE HCL 25 MG CAP PO PRN (10:30)
[2017-01-12] MEDS ORDERED: ONDANSETRON HCL 4 MG/2 ML VIAL IV PRN (10:30)
[2017-01-12] MEDS ORDERED: MANNITOL 12.5 GM/50 ML VIAL IV PRN (10:30)
[2017-01-12] MEDS ORDERED: SODIUM CHLORIDE 0.9% FLUSH 5 ML FLUSH IVF PRN (10:30)
[2017-01-12] MEDS ORDERED: NITROGLYCERIN 0.4 MG SL 25 TABS/BTL SL PRN (10:30)
[2017-01-12] MEDS ORDERED: ALBUMIN HUMAN 25% 25 GM/100 ML BAGP IV PRN (10:30)
[2017-01-12] MEDS ORDERED: HEPARIN SODIUM - IV 10,000 UNITS/10 ML VIAL PRN (10:30)
[2017-01-12] MEDS ORDERED: cloNIDine HCL 0.1 MG TAB PO PRN (10:30)
[2017-01-12] MEDS ORDERED: GENTAMICIN SULFATE (DIALYSIS USE ONLY) 20 MG/2 ML VIAL IV PRN (10:30)
[2017-01-12 11:25] LABS: AUTOMATED NEUTROPHIL # 5.3 TH/MM3 (1.8-7.7); BASOPHIL % 0.4 % (0.0-2.0); EOSINOPHIL # 0.2 TH/MM3 (0-0.4); EOSINOPHIL % 2.2 % (0.0-4.0); HEMO FLAGS DIFF FINAL; LYMPHOCYTE # 1.4 TH/MM3 (1.0-4.8); MEAN CELL VOLUME 88.8 FL (80.0-100.0); MEAN CORPUSCULAR HEMOGLOBIN 29.8 PG (27.0-34.0); MEAN CORPUSCULAR HGB CONC 33.5 % (32.0-36.0); MONO % 6.7 % (0.0-8.0); NEUT % 71.7 % (16.0-70.0); PLATELET COUNT 207 TH/MM3 (150-450); RED BLOOD COUNT 3.27 MIL/MM3 (4.00-5.30); RED CELL DISTRIBUTION WIDTH 13.9 % (11.6-17.2); WHITE BLOOD COUNT 7.4 TH/MM3 (4.0-11.0)
--- NOTE | 2017-01-12 11:29 | MB ---
cc: MELA HERNANDEZ MD DATE OF CONSULTATION 01/12/2017 REASON FOR CONSULTATION End-stage renal disease on hemodialysis for management. HISTORY OF PRESENT ILLNESS This is a 41-year-old female known to me from before with past medical history of hypertension, HIV disease, has been following with Infectious Disease, history of bronchial asthma, chronic anemia, end-stage renal disease on hemodialysis three times per week, history of chronic hypocalcemia. She came to the hospital with complaint of shortness of breath and pain in lower chest on both sides on taking a deep breath. I was called to see the patient for the management of her dialysis. The patient has been on hemodialysis Thursday, and Thursday. She missed her dialysis on Thursday as she went to the emergency department in [place] and she was diagnosed at that time with left-sided chest wall pain and she was given azithromycin. She missed her dialysis treatment at that time and potassium yesterday was 5.7. She tends to run a very low calcium and the last time she was admitted almost two weeks ago, her calcium was very low and she was given phosphorus binder and also calcium supplement along with calcitriol. Now the patient is diagnosed with bilateral pneumonia. The last time she was admitted almost two weeks ago, she had flu at that time and she was given Tamiflu she intermittently having low-grade to high-grade fever and according to her she had a temperature of 101 Thursday night after she went home from the emergency department. When she was seen in the emergency department on January 10 she was afebrile and she has been afebrile here since then. She has this chest, both lower chest mainly laterally and it increases with taking a deep breath. She has cough which is mainly dry. There is no vomiting. She occasionally has nausea. There is no history of diarrhea. PAST MEDICAL HISTORY 1. Hypertension. 2. Chronic anemia. 3. Bronchial asthma. 4. HIV disease. 5. Chronic hypocalcemia. 6. End-stage renal disease on hemodialysis. PAST SURGICAL HISTORY 1. Left arm A-V fistula surgery. 2. History of section. 3. Tubal ligation. REVIEW OF SYSTEMS The patient has a history of fever at home. She has generalized weakness, has shortness of breath on exertion. Has cough which is mainly dry, bilateral lower chest pain increases with taking deep breaths, not continuous. She has some nausea. There is no vomiting. No abdominal pain. No history of diarrhea. SOCIAL HISTORY The patient is . She smokes about half-pack per day of cigarettes. She has past history of using other drugs but she is not using any drugs now. She occasionally drinks alcoholic beverage. FAMILY HISTORY Noncontributory. ALLERGIES She is ALLERGIC TO SULFA. MEDICATIONS CURRENTLY 1. She is on calcitriol 1 mcg once per day. 2. Etravirine 200 mg b.i.d. 3. Folic acid 1 mg once a day. 4. Prezista 800 mg once a day. 5. Zosyn 2.25 grams IV q. 12-hours. 6. Levaquin 500 mg IV q.48 hours. 7. PhosLo 2000, 1 mg t.i.d. 8. Requip 0.5 mg t.i.d. 9. Benadryl p.r.n. 10. Hydralazine p.r.n. 11. Zofran p.r.n. 12. Mucinex p.r.n. PHYSICAL EXAMINATION GENERAL: The patient is awake, alert. She is not in acute distress. VITAL SIGNS: Her last blood pressure was 134/87, temperature was 97.3, oxygen saturation 98%. HEENT: Pupils equally reacting to light. Nonicteric sclerae, conjunctivae pale. NECK: Supple. JVD is not elevated. LUNGS: The patient has bilateral decreased air entry with basilar rales and scattered wheezing. HEART: S1, S2. Regular rhythm. ABDOMEN: Soft, lax. There is no tenderness. Bowel sounds positive. EXTREMITIES: She has mild edema in the legs. Left arm A-V fistula with good bruit. INVESTIGATION WBC count is 9.2, hemoglobin 11.5, platelet count 259, neutrophils 67.1%. Sodium 135, potassium 5.7, chloride 99, bicarb 23.5, BUN 53, creatinine 12.9, calcium 7.2, phosphorus 6.8, AST is 14, ALT is 11, total protein is 8.8 and albumin is 2.7. Troponin I is less than 0.02. Urinalysis showing protein of 300 with rare bacteria. IMAGING STUDIES The patient had a chest x-ray done which shows mild increased nodular focal area of ulceration at both lung bases, possible atypical pneumonia or septic embolism. ASSESSMENT/PLAN 1. Bilateral pneumonia. 2. End-stage renal disease on hemodialysis. 3. Hypocalcemia. 4. Chronic anemia. 5. History of HIV disease. 6. History of bronchial asthma. The patient was started on Zosyn and Levaquin mainly for atypical coverage and Pseudomonas coverage. At present she is afebrile. She will be going for the CT scan of chest to rule out any septic embolism or fluid collection. She missed her dialysis treatment on Thursday and her potassium was 5.7 yesterday. I already called Dialysis and she will be dialyzed after the CT scan today. We will continue dialysis with high calcium bath and continue the calcium supplement and the phosphorus binders and calcitriol and follow the calcium and phosphorus level. Her hemoglobin is 11.5 so we will give her a lower dose of Epogen. Thank you for the consultation and I will follow the patient while she is in the hospital Mela Hernandez MD AQErendira/BAILEE /10:14 AM /11:01 AM
[2017-01-12] MEDS ORDERED: IOHEXOL 350 MG/ML 10 ML VIAL (for RAD DIAG) IV ONE (11:33)
[2017-01-12] MEDS: ONDANSETRON HCL 4 MG/2 ML VIAL IV PRN (11:46)
--- NOTE | 2017-01-12 11:54 | RADRPT ---
EXAM DATE/TIME: 01/12/2017 11:13 [facility] COMPARISON: CHEST PA & LAT, January 11, 2017, 14:20. CHEST SINGLE AP, January 10, 2017, 7:39. INDICATIONS : Chest and mid back pain IV CONTRAST: 55 cc Omnipaque 350 (iohexol) IV RADIATION DOSE: 6.56 CTDIvol (mGy) MEDICAL HISTORY : HIV. Asthma SURGICAL HISTORY : Tubal ligation. ENCOUNTER: Initial ACUITY: 1 day PAIN SCALE: 5/10 LOCATION: middle chest and back TECHNIQUE: Volumetric scanning of the chest was performed using a pulmonary embolism protocol MIP images were re constructed. Using automated exposure control and adjustment of the mA and/or kV according to patien t size, radiation dose was kept as low as reasonably achievable to obtain optimal diagnostic quality images. FINDINGS: PULMONARY ARTERIES: No filling defects are seen in the pulmonary arteries through the segmental level. LUNGS: There is abnormal patchy dense airspace consolidation in the lower lung zones bilaterally involving t he right middle lobe, right lower lobe, inferior left upper lobe, and left lower lobe. No cavitation is present. Consolidation is primarily subpleural. There is compressive atelectasis in both lower lob es adjacent to the small pleural effusions. No pneumothorax is present. PLEURAE: There are small bilateral pleural effusions. MEDIASTINUM: Heart and great vessels demonstrate no acute finding. There is abnormal soft tissue density encasing the trachea and throughout the mediastinum. There is lymphadenopathy in the hilar regions bilaterally and there is an enlarged subcarinal lymph node measuring 2 cm in short axis diameter. MUSCULOSKELETAL: No acute osseous abnormality. MISCELLANEOUS: The visualized upper abdominal organs demonstrate no acute abnormality. CONCLUSION: 1. No PE is identified. 2. Abnormal dense multifocal subpleural predominant air space consolidation in the lower lung zones b ilaterally with associated small bilateral pleural effusions. Aspiration should be a consideration as well as infectious processes including atypical infections given the history of HIV. 3. Bilateral hilar and subcarinal lymphadenopathy and abnormal soft tissue throughout the middle medi astinum that also presumably represents lymphadenopathy as well. Suggest followup imaging following a ppropriate treatment to confirm resolution. Phi Mott MD on January 12, 2017 at 11:48 Board Certified Radiologist. This report was verified electronically.
[2017-01-12 12:10] LABS: ALKALINE PHOSPHATASE 51 U/L (45-117); ALT (GPT) 8 U/L (10-53); ANION GAP 14 MEQ/L (5-15); AST (GOT) 9 U/L (15-37); BICARBONATE 19.9 MEQ/L (21.0-32.0); BLOOD UREA NITROGEN 53 MG/DL (7-18); CHLORIDE 103 MEQ/L (98-107); GLOMERULAR FILTRATION RATE 4 ML/MIN (>89); MAGNESIUM 1.8 MG/DL (1.5-2.5); POTASSIUM 4.4 MEQ/L (3.5-5.1); SODIUM (NA) 137 MEQ/L (136-145); TOTAL BILIRUBIN ADULT 0.2 MG/DL (0.2-1.0)
[2017-01-12 12:17] LABS: CALCIUM-PROTEIN CORRECTED 6.3 MG/DL (8.5-10.1)
--- NOTE | 2017-01-12 16:04 | EC ---
Study Study Date:01/12/2017 STUDY CONCLUSIONS SUMMARY - Left ventricle: The cavity size was normal. Wall thickness was normal. Systolic function was normal. The estimated ejection fraction was in the range of 60% to 65%. Wall motion was normal; there were no regional wall motion abnormalities. - Aortic valve: Valve area: 2.69cm^2 (Vmax). - Mitral valve: Mild regurgitation. Impressions: No evidence of endocarditis. If LV function is below 40, please consider prescribing an ACEI or ARB or document rationale for non-use. PROCEDURE DATA STUDY STATUS: Elective. Procedure: Transthoracic echocardiography. Image quality was good. Scanning was performed from the parasternal, apical, and subcostal acoustic windows. Study completion: The patient tolerated the procedure well. Transthoracic echocardiography. M-mode, complete 2D, complete spectral Doppler, and color Doppler. Patient status: Inpatient. CARDIAC ANATOMY LEFT VENTRICLE: The cavity size was normal. Wall thickness was normal. Systolic function was normal. The estimated ejection fraction was in the range of 60% to 65%. Wall motion was normal; there were no regional wall motion abnormalities. AORTIC VALVE: Trileaflet; normal thickness leaflets. Doppler: Transvalvular velocity was within the normal range. There was no stenosis. No regurgitation. Valve area: 2.69cm^2 (Vmax). AORTA: Aortic root: The aortic root was normal in size. MITRAL VALVE: Structurally normal valve. Doppler: Transvalvular velocity was within the normal range. There was no evidence for stenosis. Mild regurgitation. Peak gradient: 3mm Hg (D). LEFT ATRIUM: The atrium was normal in size. RIGHT VENTRICLE: The cavity size was normal. Wall thickness was normal. PULMONIC VALVE: Doppler: Transvalvular velocity was within the normal range. There was no evidence for stenosis. No regurgitation. TRICUSPID VALVE: Structurally normal valve. Doppler: Transvalvular velocity was within the normal range. Trace regurgitation. PULMONARY ARTERY: The main pulmonary artery was normal-sized. Systolic pressure was within the normal range. RIGHT ATRIUM: The atrium was normal in size. PERICARDIUM: There was no pericardial effusion. SYSTEMIC VEINS: Inferior vena cava: The vessel was normal in size. BASIC MEASUREMENTS ADULT NORMAL Left ventricle LV internal dimension, ED, chordal level, 46.7 mm 43-52 PLAX LV internal dimension, ES, chordal level, 36.7 mm 23-38 PLAX Fractional shortening, chordal level, PLAX *21 % >29 LV posterior wall thickness, ED 7.42 mm IVS/LVPW ratio, ED 0.99 <1.3 Ventricular septum Septal thickness, ED 7.33 mm Aortic valve Leaflet separation *14 mm 15-26 BASIC MEASUREMENTS ADULT NORMAL Aortic valve Leaflet separation *14 mm 15-26 Aorta Root diameter, ED 20 mm 20-37 Left atrium Anterior-posterior dimension, ES 26 mm 19-40 LA/aortic root ratio 1.3 DOPPLER MEASUREMENTS ADULT NORMAL Main pulmonary artery Pressure, S 27 mm Hg =30 Aortic valve Peak velocity, S 134 cm/s Valve area, Vmax 2.69 cm^2 Mitral valve Peak E-wave velocity 91.3 cm/s Peak A-wave velocity 76.5 cm/s Deceleration time *261 ms 150-230 Peak gradient, D 3 mm Hg Peak E/A ratio 1.2 Maximal regurgitant velocity 388 cm/s Tricuspid valve Regurgitant peak velocity 224 cm/s Peak RV-RA gradient, S 20 mm Hg Maximal regurgitant velocity 224 cm/s Systemic veins Estimated CVP 10 mm Hg Right ventricle RV pressure, S *30 mm Hg <30 Pulmonic valve Peak velocity, S 88.2 cm/s LEGEND: Mean values are shown as u=mean value. Asterisk (*) weiner values outside specified normal range. Prepared and signed by Diaz Peguero [id number]
[2017-01-12] MEDS: ACETAMINOPHEN 325 MG TAB PO PRN (17:00)
[2017-01-12] MEDS: EPOETIN ALFA 10,000 UNITS/ML VIAL IV PRN (17:45)
[2017-01-12] MEDS: GELATIN 12 MM/7 MM FOAM TOP PRN (18:18)
[2017-01-12] MEDS: HEPARIN SODIUM - SQ 10,000 UNITS/ML VIAL SQ SCH (20:40)
[2017-01-13] VITALS (9 sets, daily range): BP systolic 123–148; BP diastolic 78–92; PULSE 69–92; RESP 16–18; TEMP 96.9–97.8; O2SAT 93–98
[2017-01-13] MEDS: MORPHINE SULFATE 4 MG/ML INJ IV PUSH PRN ×3 (00:27→15:46)
[2017-01-13] MEDS: PIPERACIL-TAZO 2.25 GM PREMIX 50 ML IV SCH ×3 (02:55→17:15)
[2017-01-13 07:06] LABS: BASOPHIL % 0.8 % (0.0-2.0); EOSINOPHIL # 0.1 TH/MM3 (0-0.4); EOSINOPHIL % 2.2 % (0.0-4.0); HEMATOCRIT 28.5 % (35.0-46.0); HEMO FLAGS DIFF FINAL; LYMPH % 24.6 % (9.0-44.0); LYMPHOCYTE # 1.5 TH/MM3 (1.0-4.8); MEAN CELL VOLUME 88.1 FL (80.0-100.0); MEAN CORPUSCULAR HEMOGLOBIN 28.7 PG (27.0-34.0); MEAN CORPUSCULAR HGB CONC 32.6 % (32.0-36.0); MONO % 7.2 % (0.0-8.0); NEUT % 65.2 % (16.0-70.0); PLATELET COUNT 184 TH/MM3 (150-450); RED BLOOD COUNT 3.24 MIL/MM3 (4.00-5.30); RED CELL DISTRIBUTION WIDTH 13.7 % (11.6-17.2); WHITE BLOOD COUNT 6.2 TH/MM3 (4.0-11.0)
--- NOTE | 2017-01-13 07:33 | MB ---
cc: SHAY NEWMAN MD, ARJUN D. MD DATE OF CONSULTATION: 01/12/2017 REASON FOR CONSULTATION Evaluation of pneumonia. HISTORY OF PRESENT ILLNESS Ms. Martinez is at 41-year-old -[place] female with a longstanding history of HIV disease and AIDS. She has hypertension and end-stage renal disease. She has been on hemodialysis for about one year or so. She came to the hospital with complaint of pain in both sides of the chest. She was seen at [facility] two days ago and was given a Z-Jamir. She did not get better. She started having more pain and also she threw up one time, had nausea and vomiting and fever up to 101 degrees. Because of worsening of her symptoms she came to the hospital. She had a CTA of the chest done which shows that she has no PE. She has multifocal subpleural predominant airspace consolidation in the lower lobes, small pleural effusion. She has bilateral hilar and subcarinal lymphadenopathy. Her CBC showed WBC count 7.4, hemoglobin 9.7, hematocrit 29, MCV 88, platelet count 207. Sodium 137, potassium 4.4, chloride 103, CO2 20, BUN 53, creatinine 13.35. Beta hCG is negative. PAST MEDICAL HISTORY 1. HIV/AIDS. 2. Hypertension. 3. End-stage renal disease. 4. Asthma. MEDICATIONS She is currently takin. Levaquin q.48h. 2. Heparin 5000 units daily. 3. Prezista 800 mg daily. 4. Calcitriol 0.25 mcg a day. ALLERGIES She is allergic to SULFA. SOCIAL HISTORY She is . She has five children. She smokes 1/2 pack of cigarettes a day. No alcohol use. FAMILY HISTORY Her youngest daughter has HIV. REVIEW OF SYSTEMS She denies any weight loss. Normally she is up, around and active. No hemoptysis. No DVT or pulmonary embolism. PHYSICAL EXAMINATION GENERAL: A well-built, well-nourished female not in any acute distress. VITAL SIGNS: Blood pressure 145/90, heart rate 70, respirations 16, temperature 96.3. HEENT: Pupils are equal and reactive to light. No thrush. NECK: Supple. JVP not raised. CHEST: Symmetrical bilaterally. Has a few scattered rales. CARDIOVASCULAR: S1, S2 normal. ABDOMEN: Benign. EXTREMITIES: No edema. IMPRESSION 1. Multifocal pneumonia, likely community acquired, however, the patient is immunocompromised, need to rule out atypical pneumonia. Clinically she is stable. 2. HIV/AIDS. 3. End-stage renal disease. 4. Hypertension. PLAN I discussed with the patient to check her pneumococcal Legionella antigen, sputum for culture and sensitivity. Continue antibiotic, Levaquin. Also start her on Zosyn. She is stable on room air. Further treatment will depend on the course in the hospital. Thank you Dr. Newman for this consult. MD JUAN Mcclain/JIM /6:16 PM /7:16 AM MTDRajan
[2017-01-13 07:39] LABS: BICARBONATE 26.3 MEQ/L (21.0-32.0); TOTAL BILIRUBIN ADULT 0.3 MG/DL (0.2-1.0)
[2017-01-13 07:46] LABS: CALCIUM-PROTEIN CORRECTED 7.1 MG/DL (8.5-10.1)
[2017-01-13] MEDS: CALCITRIOL 0.25 MCG CAP PO SCH (09:11)
[2017-01-13] MEDS: ETRAVIRINE 100 MG TAB PO SCH ×2 (09:11→20:40)
[2017-01-13] MEDS: FOLIC ACID 1 MG TAB PO SCH (09:11)
[2017-01-13] MEDS: CALCIUM ACETATE 667 MG CAP PO SCH ×3 (09:11→16:57)
[2017-01-13] MEDS: DARUNAVIR 800 MG TAB PO SCH (09:12)
[2017-01-13] MEDS: DOLUTEGRAVIR SODIUM 50 MG TAB PO SCH (09:12)
[2017-01-13] MEDS: HEPARIN SODIUM - SQ 10,000 UNITS/ML VIAL SQ SCH (09:14)
--- NOTE | 2017-01-13 12:11 | HHI.FPPN ---
Subjective Remarks Patient states she is doing a little better this morning. Continues to have cough with sputum production. No fever or chills. She continues to complain of mild pain when she coughs. She has a little more energy today. Overall, slightly better than yesterday. (Jones Snider MD R2) Objective Vitals Vital Signs Date Time Temp Pulse Resp B/P Pulse Ox O2 Delivery O2 Flow Rate FiO2 01/13/17 11:01 74 01/13/17 08:53 98 21 01/13/17 08:00 97.1 92 16 123/79 96 01/13/17 05:29 17 01/13/17 04:00 97.5 85 18 140/78 96 01/13/17 00:58 93 Nasal Cannula 01/13/17 00:15 97.7 83 18 131/92 01/12/17 20:40 77 01/12/17 20:00 97.6 73 18 168/93 99 01/12/17 18:20 17 01/12/17 12:00 96.3 79 16 145/90 99 I/O 01/12/17 01/12/17 01/12/17 01/13/17 01/13/17 01/13/17 07:00 15:00 23:00 07:00 15:00 23:00 Intake Total 240 ml 220 ml 830 ml 120 ml Output Total 400 ml Balance -160 ml 220 ml 830 ml 120 ml Intake Oral 240 ml 220 ml 480 ml 120 ml IV Total 350 ml Output Urine Total 400 ml # Voids 2 1 (Jones Snider MD R2) Result Diagram: 01/13/17 0636 01/13/17 [address] Angiography 01/12/17 0000 Signed Impressions: Service Date/Time: Thursday, January 12, 2017 11:13 - CONCLUSION: 1. No PE is identified. 2. Abnormal dense multifocal subpleural predominant air space consolidation in the lower lung zones bilaterally with associated small bilateral pleural effusions. Aspiration should be a consideration as well as infectious processes including atypical infections given the history of HIV. 3. Bilateral hilar and subcarinal lymphadenopathy and abnormal soft tissue throughout the middle mediastinum that also presumably represents lymphadenopathy as well. Suggest followup imaging following appropriate treatment to confirm resolution. Phi Mott MD Chest X-Ray 01/11/17 0000 Signed Impressions: Service Date/Time: Wednesday, January 11, 2017 14:20 - CONCLUSION: Persistent and mildly increased nodular focal areas of consolidation at both lung bases. Given the uncommon appearance consideration should be given to atypical infectious processes or septic emboli. Phi Mott MD Objective Remarks GENERAL: Thin female, NAD resting in bed SKIN: Warm and dry. No rashes or lesions HEAD: Normocephalic. Atraumatic EYES: No scleral icterus. No injection or drainage. ENT: OP clear. MM slightly dry. NECK: Supple, trachea midline. No JVD or lymphadenopathy. CARDIOVASCULAR: Regular rate and rhythm without audible murmurs, gallops, or rubs. RESPIRATORY: Breath sounds diminished at bilateral bases. No accessory muscle use. No wheeze. No increased work of breathing GASTROINTESTINAL: Abdomen soft, non-tender, nondistended. No rebound or guarding. Normal active bowel sounds MUSCULOSKELETAL: No cyanosis, or edema. AV fistula present BACK: Nontender without obvious deformity. No CVA tenderness. Neuro: Awake and alert with normal speech. Cranial nerves grossly intact. ( Jones Snider MD R2) A/P Assessment and Plan 41-year-old -[place]ian female with past medical history of HIV, end-stage renal disease on hemodialysis, hypertension, and asthma presents with bilateral lower lobe pneumonia after recent hospitalization for influenza. She will be admitted for management with IV antibiotics. Discharge Planning Pending clinical improvement. Patient will need follow-up chest imaging following hospital course. (Jones Snider MD R2) Attending Attestation Patient seen and examined. Case reviewed and discussed Agree with plan of care as discussed with me and documented in the resident note. (Loulou Newman MD) Problem List: (1) Pneumonia Status: Acute Plan: CTA 01/12: abnormal dense multifocal subpleural predominant airspace consolidation in the lower lung zones bilaterally with associated small bilateral pleural effusions. Aspiration should be a consideration as well as infectious process including atypical infections given the history of HIV. Bilateral hilar and subcarinal lymphadenopathy and abnormal soft tissue throughout the middle mediastinum that also presumably represents nonfat adenopathy as well. Suggest follow-up imaging following appropriate treatment to confirm resolution. Infectious disease consult Pulmonology consult Continue Zosyn 2.25 g every 8 hours (started 01/11) Continue Levaquin 500 milligram IV every 48 hours Vancomycin discontinued Urine Legionella and streptococcal antigen negative Sputum culture pending Blood culture no growth in 2 days Negative for flu (2) Chronic Medical Problems Status: Acute Plan: Hypertension: No home antihypertensive regimen listed, will cover with hydralazine by mouth when necessary ESRD: -Nephrology consulted for hemodialysis while inpatient; continue dialysis with high calcium supplementation and phosphorus binders. -Follow calcium and phosphorus level Anemia: Currently stable HIV: Continue home HIV meds: darunavir 800 mg po daily, etravirine 200 mg bid (3) FEN/DVT PPX/GI PPX Status: Acute Plan: Fluids: tolerating, PO; careful with any fluids given ESRD Electrolytes: Will monitor and replace as needed Nutrition: Renal diet DVT Prophylaxis: Bilateral SCDs, heparin 5000 sq daily (Jones Snider MD R2) Problem Qualifiers (1) Pneumonia: Qualified Code: J18.9 - Pneumonia of both lungs due to infectious organism, unspecified part of lung Jones Snider MD R2 Jan 13, 2017 12:11 Loulou Newman MD Jan 14, 2017 10:04
[2017-01-13] MEDS: ONDANSETRON HCL 4 MG/2 ML VIAL IV PRN (15:46)
[2017-01-13] MEDS ORDERED: LEVOFLOXACIN 500 MG PREMIX INJ 100 ML IV SCH (17:00)
--- NOTE | 2017-01-13 17:04 | HHI.NPPN ---
Subjective General Problems: Anemia, Hypertension Renal Failure: End Stage Renal Disease History of Present Illness 11-year-old female known to me from before with past medical history of hypertension, HIV disease, has been following with Infectious Disease, history of bronchial asthma, chronic anemia, end-stage renal disease on hemodialysis three times per week, history of chronic hypocalcemia. She came to the hospital with complaint of shortness of breath and pain in lower chest on both sides on taking a deep breath. I was called to see the patient for the management of her dialysis. The patient has been on hemodialysis Thursday, and Thursday. Additional Remarks Patient is alert, no SOB, has nausea, now feeling better, seen post HD. Review of Systems General Constitutional: Fatigue Respiratory Lungs: SOB, Cough, Sputum Cardiovascular Cardiac: CEDILLO Gastrointestinal Gastrointestinal: Abdominal Pain, Nausea & Vomiting Objective Data Data 01/12/17 01/13/17 19:00 07:00 Intake Total 570 ml 600 ml Output Total 3000 ml Balance -2430 ml 600 ml Intake Oral 220 ml 600 ml IV Total 350 ml Hemodialysis 3000 ml # Voids 2 1 Vital Signs Date Time Temp Pulse Resp B/P Pulse Ox O2 Delivery O2 Flow Rate FiO2 01/13/17 16:00 96.9 69 16 136/85 97 01/13/17 12:31 97.8 78 16 131/85 96 01/13/17 11:01 74 01/13/17 08:53 98 21 01/13/17 08:00 97.1 92 16 123/79 96 01/13/17 05:29 17 01/13/17 04:00 97.5 85 18 140/78 96 01/13/17 00:58 93 Nasal Cannula 01/13/17 00:15 97.7 83 18 131/92 01/12/17 20:40 77 01/12/17 20:00 97.6 73 18 168/93 99 01/12/17 18:20 17 -: 01/13/17 0636 01/13/17 0636 Physical Exam General Appearance: No Acute Distress, Comfortable Eyes Eye Exam: Pupils Equal Throat Throat Exam: Oral Mucosa [employer] & Moist Neck Neck Exam: Neck Supple, Trachea Midline Pulmonary Resp Exam: No Distress, Rhonchi, Sputum, Decreased Bases, Diminished Breath Sounds Cardiology CV Exam: Regular, Normal Sinus Rhythm Gastrointestinal/Abdomen GI Exam: Soft, Non-Tender, Bowel Sounds Present, Non-Distended Extremeties Extremities Exam: No Edema Neurologic Neuro Exam: Alert, Awake, Oriented Psychiatric Psych Exam: Appropriate Responses Assessment/Plan Assessment Summary: Anemia of CKD, Hypertension, End Stage Renal Disease Electrolyte Assessment: Hypocalcemia Problem List: (1) Generalized weakness (2) Pneumonia (3) Anemia (4) HIV (human immunodeficiency virus infection) (5) Nausea & vomiting (6) Hyperkalemia (7) End stage renal disease on dialysis Plan Patient has HD done today. Tolerated well. The BP is stable, remain afebrile. Cultures all negative. Continue antibiotics. Calcium is better, Po4 increased, on PhosLo. Problem Qualifiers (1) Pneumonia: Qualified Code: J18.9 - Pneumonia of both lungs due to infectious organism, unspecified part of lung Josselyn Rodas MD Jan 13, 2017 17:04
--- NOTE | 2017-01-13 17:19 | HHI.IDPN ---
Subjective Subjective Remarks Patient feels okay. Notes she feels better. Still has chest pain. Still has cough. Afebrile. Sputum culture sent. Antibiotics Levaquin Pip/Tazo Current Medications Medications (Trade) Dose Ordered Sig/Alvaro Route PRN Reason Start Time Stop Time Status Last Admin Dose Admin Calcitriol (Rocaltrol) 1 mcg DAILY PO 01/12/17 09:00 01/13/17 09:11 Calcium Acetate (Phoslo) 2,001 mg TID PO 01/11/17 18:00 01/13/17 16:57 Darunavir (Prezista) 800 mg DAILY PO 01/12/17 09:00 01/13/17 09:12 Ropinirole HCl (Requip) 0.5 mg TID PO 01/11/17 18:00 01/13/17 16:57 Diphenhydramine HCl (Benadryl) 25 mg Q6H PRN PO ALLERGIES 01/11/17 16:30 Etravirine (Intelence) 200 mg BID PO 01/11/17 21:00 01/13/17 09:11 Hydralazine HCl (Apresoline) 10 mg Q6H PRN PO SBP>160, DBP>90 01/11/17 16:30 Ondansetron HCl (Zofran Inj) 4 mg Q6H PRN IV NAUSEA OR VOMITING 01/11/17 16:30 01/13/17 15:46 Folic Acid (Folate) 1 mg DAILY PO 01/11/17 16:30 01/16/17 16:29 01/13/17 09:11 Acetaminophen (Tylenol) 650 mg Q4H PRN PO SEE LABEL COMMENTS 01/11/17 16:30 01/13/17 12:26 Morphine Sulfate (Morphine Inj) 2 mg Q4H PRN IV PUSH PAIN SCALE 6 TO 10 01/11/17 16:30 01/13/17 15:46 Benzonatate (Tessalon) 200 mg Q8H PRN PO COUGH 01/11/17 17:15 Guaifenesin 600 mg 600 mg BID PRN PO NASAL CONGESTION 01/11/17 17:15 Levofloxacin/ Dextrose 100 ml @ 100 mls/hr Q48H IV 01/13/17 17:00 01/13/17 15:47 Sodium Chloride (NS 1000 ml Inj) 1,000 ml @ 0 mls/hr Q0M PRN IV For Prime & Rinse Back 01/12/17 10:19 Heparin Sodium (Porcine) 8000 units 8,000 units UNSCH PRN IVF WITH DIALYSIS 01/12/17 10:30 Sodium Chloride 1,000 ml @ 200 mls/hr Q5H PRN IV WITH DIALYSIS 01/12/17 10:19 Sodium Chloride (NS 1000 ml Inj) 1,000 ml @ 0 mls/hr Q0M PRN IV WITH DIALYSIS 01/12/17 10:19 Mannitol (Mannitol Inj) 12.5 gm UNSCH PRN IV WITH DIALYSIS 01/12/17 10:30 Albumin Human (Albumin 25% Inj) 25 gm UNSCH PRN IV WITH DIALYSIS 01/12/17 10:30 IV Flush (NS Flush) 5 ml UNSCH PRN IVF WITH DIALYSIS 01/12/17 10:30 Heparin Sodium (Porcine) (Heparin Inj) UNSCH PRN .XX WITH DIALYSIS 01/12/17 10:30 Gentamicin Sulfate (Gentamicin (Dialysis) Inj) 20 mg UNSCH PRN IV WITH DIALYSIS 01/12/17 10:30 Ondansetron HCl (Zofran Inj) 4 mg UNSCH PRN IV WITH DIALYSIS 01/12/17 10:30 Acetaminophen (Tylenol) 650 mg UNSCH PRN PO for headach, pain, temp > 101F 01/12/17 10:30 01/12/17 17:00 Diphenhydramine HCl (Benadryl) 25 mg UNSCH PRN PO for hives/itching/anaphylaxis 01/12/17 10:30 Nitroglycerin (Nitrostat Sl) 0.4 mg UNSCH PRN SL CHEST PAIN 01/12/17 10:30 Clonidine (Catapres) 0.1 mg UNSCH PRN PO for BP > 180/100 X 2 readings 01/12/17 10:30 Epoetin Hair (Epogen Inj) 4,000 units UNSCH PRN IV WITH DIALYSIS 01/12/17 10:30 01/12/17 17:45 Gelatin (Gelfoam 12 Mm/7 Mm Top) 1 foam UNSCH PRN TOP SEE LABEL COMMENTS 01/12/17 10:30 01/12/17 18:18 Heparin Sodium (Porcine) 5000 units 5,000 units DAILY SQ 01/12/17 21:00 01/13/17 09:14 Piperacillin Sod/ Tazobactam Sod (Zosyn 2.25 Gm Premix) 50 ml @ 100 mls/hr Q8H IV 01/13/17 02:00 01/13/17 10:14 Lines peripheral catheter. Allergies: Coded Allergies: Sulfa (Verified Allergy, Severe, Hives, 01/11/17) Objective . Vital Signs Date Time Temp Pulse Resp B/P Pulse Ox O2 Delivery O2 Flow Rate FiO2 01/13/17 16:00 96.9 69 16 136/85 97 01/13/17 12:31 97.8 78 16 131/85 96 01/13/17 11:01 74 01/13/17 08:53 98 21 01/13/17 08:00 97.1 92 16 123/79 96 01/13/17 05:29 17 01/13/17 04:00 97.5 85 18 140/78 96 01/13/17 00:58 93 Nasal Cannula 01/13/17 00:15 97.7 83 18 131/92 01/12/17 20:40 77 01/12/17 20:00 97.6 73 18 168/93 99 01/12/17 18:20 17 01/12/17 01/12/17 01/13/17 15:00 23:00 07:00 Intake Total 220 ml 830 ml 120 ml Output Total 3000 ml Balance 220 ml -2170 ml 120 ml Intake Oral 220 ml 480 ml 120 ml IV Total 350 ml Hemodialysis 3000 ml # Voids 2 1 . Laboratory Tests Test 01/12/17 01/13/17 10:30 06:36 White Blood Count 7.4 TH/MM3 6.2 TH/MM3 Red Blood Count 3.27 MIL/MM3 3.24 MIL/MM3 Hemoglobin 9.7 GM/DL 9.3 GM/DL Hematocrit 29.0 % 28.5 % Mean Corpuscular Volume 88.8 FL 88.1 FL Mean Corpuscular Hemoglobin 29.8 PG 28.7 PG Mean Corpuscular Hemoglobin 33.5 % 32.6 % Concent Red Cell Distribution Width 13.9 % 13.7 % Platelet Count 207 TH/MM3 184 TH/MM3 Mean Platelet Volume 8.4 FL 8.0 FL Neutrophils (%) (Auto) 71.7 % 65.2 % Lymphocytes (%) (Auto) 19.0 % 24.6 % Monocytes (%) (Auto) 6.7 % 7.2 % Eosinophils (%) (Auto) 2.2 % 2.2 % Basophils (%) (Auto) 0.4 % 0.8 % Neutrophils # (Auto) 5.3 TH/MM3 4.0 TH/MM3 Lymphocytes # (Auto) 1.4 TH/MM3 1.5 TH/MM3 Monocytes # (Auto) 0.5 TH/MM3 0.4 TH/MM3 Eosinophils # (Auto) 0.2 TH/MM3 0.1 TH/MM3 Basophils # (Auto) 0.0 TH/MM3 0.0 TH/MM3 CBC Comment DIFF FINAL DIFF FINAL Differential Comment Laboratory Tests Test 01/11/17 01/12/17 01/13/17 20:00 10:30 06:36 Troponin I LESS THAN 0.02 LESS THAN 0.02 NG/ML NG/ML Sodium Level 137 MEQ/L 137 MEQ/L Potassium Level 4.4 MEQ/L 4.0 MEQ/L Chloride Level 103 MEQ/L 100 MEQ/L Carbon Dioxide Level 19.9 MEQ/L 26.3 MEQ/L Anion Gap 14 MEQ/L 11 MEQ/L Blood Urea Nitrogen 53 MG/DL 31 MG/DL Creatinine 13.35 MG/DL 9.46 MG/DL Estimat Glomerular Filtration 4 ML/MIN 6 ML/MIN Rate Random Glucose 122 MG/DL 87 MG/DL Calcium Level 6.4 MG/DL 7.3 MG/DL Protein Corrected Calcium 6.3 MG/DL 7.1 MG/DL Phosphorus Level 7.8 MG/DL Magnesium Level 1.8 MG/DL Total Bilirubin 0.2 MG/DL 0.3 MG/DL Aspartate Amino Transf 9 U/L 7 U/L (AST/SGOT) Alanine Aminotransferase 8 U/L 7 U/L (ALT/SGPT) Alkaline Phosphatase 51 U/L 50 U/L C-Reactive Protein 15.00 MG/DL Total Protein 7.4 GM/DL 7.6 GM/DL Albumin 2.1 GM/DL 2.1 GM/DL Microbiology Date/Time Procedure Status Source Growth 01/11/17 14:50 Aerobic Blood Culture - Preliminary Resulted Blood Peripheral NO GROWTH IN 2 DAYS 01/11/17 14:50 Anaerobic Blood Culture - Preliminary Resulted Blood Peripheral NO GROWTH IN 2 DAYS 01/11/17 14:55 Aerobic Blood Culture - Preliminary Resulted Blood Peripheral NO GROWTH IN 2 DAYS 01/11/17 14:55 Anaerobic Blood Culture - Preliminary Resulted Blood Peripheral NO GROWTH IN 2 DAYS 01/11/17 18:35 Influenza Types A,B Antigen (JACKLYN) - Final Complete Nasal Washing NEGATIVE FOR FLU A AND B ANTIGEN.... 01/12/17 00:15 Legionella Antigen - Final Complete Urine Clean Catch PRESUMPTIVE NEGATIVE FOR LEGIONELLA P... 01/12/17 00:15 Streptococcus pneumoniae Antigen (M - Final Complete Urine Clean Catch PRESUMPTIVE NEGATIVE FOR STREPTOCOCCU... 01/12/17 00:15 Urine Culture - Preliminary Resulted Urine Catheterized Urine NO GROWTH IN 24 HOURS. 01/12/17 12:45 Gram Stain - Final Resulted Sputum Expectorated Sputum 01/12/17 12:45 Sputum Culture - Preliminary Resulted Sputum Expectorated Sputum IMMATURE GROWTH - REINCUBATE Imaging CT Angiography 01/12/17 0000 Signed Impressions: Service Date/Time: Thursday, January 12, 2017 11:13 - CONCLUSION: 1. No PE is identified. 2. Abnormal dense multifocal subpleural predominant air space consolidation in the lower lung zones bilaterally with associated small bilateral pleural effusions. Aspiration should be a consideration as well as infectious processes including atypical infections given the history of HIV. 3. Bilateral hilar and subcarinal lymphadenopathy and abnormal soft tissue throughout the middle mediastinum that also presumably represents lymphadenopathy as well. Suggest followup imaging following appropriate treatment to confirm resolution. Phi Mott MD Chest X-Ray 01/11/17 0000 Signed Impressions: Service Date/Time: Wednesday, January 11, 2017 14:20 - CONCLUSION: Persistent and mildly increased nodular focal areas of consolidation at both lung bases. Given the uncommon appearance consideration should be given to atypical infectious processes or septic emboli. Phi Mott MD Physical Exam GENERAL: Patient is in no acute distress. HEENT: EOMI, No icterus. NECK: Supple without adenopathy. LUNGS: Decreased breath sounds. CARDIAC: Regular rate and rhythm, No murmurs, rubs or gallops. ABDOMEN: Soft, non tender. EXTREMITIES: No Clubbing, cyanosis or edema. SKIN: No rash. Assessment & Plan Diagnosis: (1) Pneumonia (2) HIV (human immunodeficiency virus infection) Plan: Continue Levaquin adjusted for renal function. Continue Pip/Tazo. Monitor sputum culture. Monitor clinical status. (3) Renal failure Problem Qualifiers (1) Pneumonia: Qualified Code: J18.9 - Pneumonia of both lungs due to infectious organism, unspecified part of lung Michel Edwards MD Jan 13, 2017 17:19
--- NOTE | 2017-01-13 18:25 | HHI.PR ---
Subjective Remarks 41 YOAA female with HIV,AIDS,Pn Had HD yesterday Has mild sob Tired no Fever Objective Vital Signs Vital Signs Date Time Temp Pulse Resp B/P Pulse Ox O2 Delivery O2 Flow Rate FiO2 01/13/17 16:00 96.9 69 16 136/85 97 01/13/17 12:31 97.8 78 16 131/85 96 01/13/17 11:01 74 01/13/17 08:53 98 21 01/13/17 08:00 97.1 92 16 123/79 96 01/13/17 05:29 17 01/13/17 04:00 97.5 85 18 140/78 96 01/13/17 00:58 93 Nasal Cannula 01/13/17 00:15 97.7 83 18 131/92 01/12/17 20:40 77 01/12/17 20:00 97.6 73 18 168/93 99 I/O 01/12/17 01/12/17 01/12/17 01/13/17 01/13/17 01/13/17 07:00 15:00 23:00 07:00 15:00 23:00 Intake Total 240 ml 220 ml 830 ml 120 ml 640 ml Output Total 400 ml 3000 ml Balance -160 ml 220 ml -2170 ml 120 ml 640 ml Intake Oral 240 ml 220 ml 480 ml 120 ml 640 ml IV Total 350 ml Output Urine Total 400 ml Hemodialysis 3000 ml # Voids 2 1 2 Result Diagram: 01/13/17 0636 01/13/17 0636 Objective Remarks GENERAL: MBMN Female,NAD SKIN: Warm and dry. HEAD: Normocephalic. EYES: No scleral icterus. No injection or drainage. NECK: Supple, trachea midline. No JVD or lymphadenopathy. CARDIOVASCULAR: Regular rate and rhythm without murmurs, gallops, or rubs. RESPIRATORY: Breath sounds equal bilaterally. No accessory muscle use. GASTROINTESTINAL: Abdomen soft, non-tender, nondistended. MUSCULOSKELETAL: No cyanosis, or edema. BACK: Nontender without obvious deformity. No CVA tenderness. A/P Assessment and Plan Bilat multifocal Pn HIV,AIDS HTN ESRD PLAN: Cont Abx Levaquin and Zosyn Check cultures ID following Juan J Pelaez MD Jan 13, 2017 18:24
[2017-01-13] MEDS ORDERED: PROMETHAZINE HCL 25 MG TAB PO PRN (20:30)
[2017-01-14] VITALS (10 sets, daily range): BP systolic 121–140; BP diastolic 78–91; PULSE 67–77; RESP 16–18; TEMP 96.8–97.9; O2SAT 95–100
[2017-01-14] MEDS: MORPHINE SULFATE 4 MG/ML INJ IV PUSH PRN ×2 (00:21→23:44)
[2017-01-14] MEDS: PIPERACIL-TAZO 2.25 GM PREMIX 50 ML IV SCH ×3 (00:24→17:15)
[2017-01-14 07:27] LABS: AUTOMATED NEUTROPHIL # 3.2 TH/MM3 (1.8-7.7); BASOPHIL % 0.6 % (0.0-2.0); EOSINOPHIL # 0.2 TH/MM3 (0-0.4); HEMATOCRIT 28.6 % (35.0-46.0); HEMO FLAGS DIFF FINAL; LYMPH % 25.3 % (9.0-44.0); LYMPHOCYTE # 1.3 TH/MM3 (1.0-4.8); MEAN CELL VOLUME 86.8 FL (80.0-100.0); MEAN CORPUSCULAR HEMOGLOBIN 29.4 PG (27.0-34.0); MEAN CORPUSCULAR HGB CONC 33.9 % (32.0-36.0); MONO % 8.4 % (0.0-8.0); NEUT % 62.7 % (16.0-70.0); PLATELET COUNT 196 TH/MM3 (150-450); RED BLOOD COUNT 3.29 MIL/MM3 (4.00-5.30); RED CELL DISTRIBUTION WIDTH 13.7 % (11.6-17.2); WHITE BLOOD COUNT 5.1 TH/MM3 (4.0-11.0)
[2017-01-14 07:34] LABS: ALKALINE PHOSPHATASE 54 U/L (45-117); ALT (GPT) 9 U/L (10-53); ANION GAP 9 MEQ/L (5-15); AST (GOT) 9 U/L (15-37); BLOOD UREA NITROGEN 20 MG/DL (7-18); CHLORIDE 98 MEQ/L (98-107); GLOMERULAR FILTRATION RATE 7 ML/MIN (>89); SODIUM (NA) 136 MEQ/L (136-145); TOTAL BILIRUBIN ADULT 0.3 MG/DL (0.2-1.0)
--- NOTE | 2017-01-14 07:43 | MB ---
cc: ROSA EDWARDS MD DATE OF CONSULTATION 01/12/[address] Snider. REASON HIV with pneumonia. HISTORY OF PRESENT ILLNESS This is a 41-year-old white female who has HIV disease and was recently discharged from the hospital after treatment for influenza. The patient felt poorly with bilateral upper back and chest pain and was evaluated in the outpatient setting on January 10 because of left-sided chest wall pain. She was given Zithromax and went home and took the Zithromax for one day and felt worse and presented to the emergency department again on 01/11 and she was admitted to the hospital for evaluation. Chest x-ray was performed and it showed persistent increased nodular focal areas of consolidation in both lung bases. The patient states that she is coughing up black-brown sputum. A sputum sample was obtained today. Blood cultures were taken and has no growth in one day. Nasal washing for influenza is negative. She states that she has chest pain at both lateral chest houser, towards the anterior aspect of the chest as well. She has vomiting which occurs approximately one hour after she eats. She notes mild soreness of the throat. She is afebrile and the white blood cell count is normal. The patient follows up with the Dr. Lovell for HIV management. She recently was started on new medications about two months ago and she had lab work done but has not received the results. She tells me that her last check for HIV counts were high with high viral load and that her CD-4 count was less than 200. She undergoes hemodialysis three times a week through an A-V fistula in her left forearm. She has been on dialysis a little over a year. PAST MEDICAL HISTORY 1. HIV. 2. End-stage renal disease. 3. Hypertension. 4. Asthma. 5. Bilateral tubal ligation. 6. A-V fistula at the left forearm. 7. Surgery for fracture of the right arm. ALLERGIES SULFA. MEDICATIONS 1. Levaquin. 2. Prezista. 3. Calcitriol. 4. Piperacillin/tazobactam. 5. Etravirine. 6. Requip. 7. PhosLo. 8. Folic acid 9. Zofran. SOCIAL HISTORY The patient is . The patient smokes 1/2 pack of cigarettes a day. No alcohol. FAMILY HISTORY Noncontributory. REVIEW OF SYSTEMS CONSTITUTIONAL: Significant for body aches. HEAD, EYES, EARS, NOSE, AND THROAT: No difficulty swallowing. No blurred vision, no diplopia. No nasal discharge. RESPIRATORY: Significant for cough, sputum production. No hemoptysis. CARDIOVASCULAR: Significant for lateral chest pain bilateral. No palpitations. GASTROINTESTINAL: Positive vomiting. No abdominal pain. No diarrhea. No constipation. GENITOURINARY: No urgency, frequency, dysuria. MUSCULOSKELETAL: Significant for joint pain and muscle aches. INTEGUMENTARY: No skin rash or itching. NEUROLOGIC: No headache. The patient has occasional pains in the fingers and legs. PSYCHIATRIC: No abnormal affect or confusion. ENDOCRINE: No polyuria, polydipsia. PHYSICAL EXAMINATION GENERAL: This is a slender, well-appearing female who is in no acute distress. She is awake and alert and oriented. VITAL SIGNS: Temperature of 96.3, BP 145/90, respirations 16, heart rate 79. HEENT: Head atraumatic. Extraocular movements grossly intact, pupils reactive to light. No icterus. No conjunctival erythema. Oropharynx - no visible lesions. NECK: Supple without adenopathy. LUNGS: Decreased breath sounds at the bases. No rhonchi audible. HEART: Regular rate and rhythm without murmurs or rubs or gallops. ABDOMEN: Bowel sounds present, soft, no tenderness appreciated. RECTAL: Not performed. EXTREMITIES: No clubbing or cyanosis or edema. SKIN: Warm and moist. No diffuse skin rash. NEURO: Nonfocal. LABORATORY DATA WBC 7.4, platelets 207, 71% neutrophils, 19% lymphocytes, 6% monocytes. Creatinine is 13.35, BUN 53, sodium 137, AST 9, ALT 8, sodium 137. Urinalysis shows 1 white cell and urine culture is pending. IMAGING STUDIES CT scan of the chest showed abnormal dense multifocal subpleural predominant airspace consolidation in the lower lung zones bilateral and also associated bilateral pleural effusions. Bilateral high and subcarinal lymphadenopathy and abnormal soft tissue throughout the middle mediastinum and also presumably representing lymphadenopathy as well. IMPRESSION 1. Pneumonia bilateral in patient with HIV disease. 2. End-stage renal disease. 3. Nausea and vomiting. RECOMMENDATIONS 1. Continue Levaquin. 2. Continue piperacillin/tazobactam. 3. Follow up on the sputum culture. 4. Continue HIV medications which the patient has been receiving and which has been managed by her outpatient HIV provider, Dr. Lovell. 5. Monitor response to antibiotic treatment. Thank you this consultation. The patient's progress will be monitored and further recommendations will be given on following if necessary. Rosa Edwards MD FD/BAILEE /1:21 PM /7:19 AM
[2017-01-14] MEDS: CALCIUM ACETATE 667 MG CAP PO SCH ×3 (09:34→17:15)
[2017-01-14] MEDS: CALCITRIOL 0.25 MCG CAP PO SCH (09:34)
[2017-01-14] MEDS: DARUNAVIR 800 MG TAB PO SCH (09:34)
[2017-01-14] MEDS: ETRAVIRINE 100 MG TAB PO SCH ×2 (09:34→19:25)
[2017-01-14] MEDS: DOLUTEGRAVIR SODIUM 50 MG TAB PO SCH (09:34)
[2017-01-14] MEDS: FOLIC ACID 1 MG TAB PO SCH (09:35)
[2017-01-14] MEDS: HEPARIN SODIUM - SQ 10,000 UNITS/ML VIAL SQ SCH (09:35)
--- NOTE | 2017-01-14 09:39 | HHI.FPPN ---
Subjective Remarks Ms. Martinez is doing okay this morning. She states that she is 70-80% close to her baseline. She continues to have bilateral upper flank pain which she rates 7 /10 but is much improved compared to admission. She has been coughing a lot with sputum production. She would like to go home today. (Carleen Reddy MD R1) Objective Vitals Vital Signs Date Time Temp Pulse Resp B/P Pulse Ox O2 Delivery O2 Flow Rate FiO2 01/14/17 09:08 100 21 01/14/17 09:00 97.6 69 16 121/78 97 01/14/17 05:00 96.8 76 16 126/84 95 01/14/17 00:37 99 01/14/17 00:15 96.8 77 18 137/90 97 01/13/17 20:30 97.8 72 18 148/86 96 01/13/17 16:00 96.9 69 16 136/85 97 01/13/17 12:31 97.8 78 16 131/85 96 01/13/17 11:01 74 I/O 01/13/17 01/13/17 01/13/17 01/14/17 01/14/17 01/14/17 07:00 15:00 23:00 07:00 15:00 23:00 Intake Total 120 ml 640 ml 240 ml Output Total 2000 ml Balance 120 ml 640 ml -2000 ml 240 ml Intake Oral 120 ml 640 ml 240 ml Hemodialysis 2000 ml # Voids 1 2 (Carleen Reddy MD R1) Result Diagram: 01/14/17 0620 01/14/17 0620 Objective Remarks GENERAL: Thin female, NAD resting in bed SKIN: Warm and dry. No rashes or lesions HEAD: Normocephalic. Atraumatic EYES: No scleral icterus. No injection or drainage. ENT: OP clear. MM slightly dry. NECK: Supple, trachea midline. No JVD or lymphadenopathy. CARDIOVASCULAR: Regular rate and rhythm without audible murmurs, gallops, or rubs. RESPIRATORY: CTAB. No accessory muscle use. No wheeze. No increased work of breathing GASTROINTESTINAL: Abdomen soft, non-tender, nondistended. No rebound or guarding. Normal active bowel sounds MUSCULOSKELETAL: No cyanosis, or edema. AV fistula present BACK: Nontender without obvious deformity. No CVA tenderness. Neuro: Awake and alert with normal speech. Cranial nerves grossly intact. (Carleen Reddy MD R1) A/P Assessment and Plan 41-year-old -[place] female with past medical history of HIV, end-stage renal disease on hemodialysis, hypertension, and asthma presents with bilateral lower lobe pneumonia after recent hospitalization for influenza. She was admitted for management with IV antibiotics. Infectious diseases consulted to assist with antibiotic management in the setting of HIV. Discharge Planning Pending clinical improvement. Patient will need follow-up chest imaging following hospital course. (Carleen Reddy MD R1) Attending Attestation Patient seen and examined. Case reviewed and discussed Agree with plan of care as discussed with me and documented in the resident note. (Loulou Newman MD) Problem List: (1) Pneumonia Status: Acute Plan: CTA 01/12: abnormal dense multifocal subpleural predominant airspace consolidation in the lower lung zones bilaterally with associated small bilateral pleural effusions. Aspiration should be a consideration as well as infectious process including atypical infections given the history of HIV. Bilateral hilar and subcarinal lymphadenopathy and abnormal soft tissue throughout the middle mediastinum that also presumably represents nonfat adenopathy as well. Suggest follow-up imaging following appropriate treatment to confirm resolution. Infectious disease consult Pulmonology consult Continue Zosyn 2.25 g every 8 hours (started 01/11) Continue Levaquin 500 milligram IV every 48 hours Vancomycin discontinued on 01/12 Urine Legionella and streptococcal antigen negative Sputum culture pending Blood culture no growth in 3 days Negative for flu (2) Chronic Medical Problems Status: Acute Plan: Hypertension: No home antihypertensive regimen listed, will cover with hydralazine by mouth when necessary ESRD: -Nephrology consulted for hemodialysis while inpatient; continue hemodialysis with high calcium supplementation and phosphorus binders -Follow calcium and phosphorus level Anemia: Currently stable HIV: Continue home HIV meds: darunavir 800 mg po daily, etravirine 200 mg bid (3) FEN/DVT PPX/GI PPX Status: Acute Plan: Fluids: tolerating, PO; careful with any fluids given ESRD Electrolytes: Will monitor and replace as needed Nutrition: Renal diet DVT Prophylaxis: Bilateral SCDs, heparin 5000 sq daily (Carleen Reddy MD R1) Problem Qualifiers (1) Pneumonia: Qualified Code: J18.9 - Pneumonia of both lungs due to infectious organism, unspecified part of lung Carleen Reddy MD R1 Jan 14, 2017 09:39 Loulou Newman MD Jan 14, 2017 16:33
--- NOTE | 2017-01-14 11:21 | HHI.DCPOC ---
Discharge Care Plan Diagnosis: (1) HIV (human immunodeficiency virus infection) (2) MAGDALENA (acute kidney injury) (3) Bilateral pneumonia (4) End stage renal disease on dialysis (5) Asthma Goals to Promote Your Health * To prevent worsening of your condition and complications * To maintain your health at the optimal level Directions to Meet Your Goals Take your medications as prescribed Follow your dietary instruction Follow activity as directed Keep your appointments as scheduled Take your immunizations and boosters as scheduled If your symptoms worsen call your PCP, if no PCP go to Urgent Care Center or Emergency Room Smoking is Dangerous to Your Health. Avoid second hand smoke Call the 24-hour hour crisis hotline for domestic abuse at Carleen Reddy MD R1 Jan 14, 2017 11:20
--- NOTE | 2017-01-14 11:54 | HHI.IDPN ---
Note Infectious Disease Note Patient feels okay. Still has chest pain at R lateral chest. Still has cough but less. Afebrile. Sputum culture has normal soy. Antibiotics Levaquin Pip/Tazo Lines peripheral catheter. Allergies: Coded Allergies: Sulfa (Verified Allergy, Severe, Hives, 01/11/17) Objective . Vital Signs Date Time Temp Pulse Resp B/P Pulse Ox O2 Delivery O2 Flow Rate FiO2 01/14/17 09:08 100 21 01/14/17 09:00 97.6 69 16 121/78 97 01/14/17 05:00 96.8 76 16 126/84 95 01/14/17 00:37 99 01/14/17 00:15 96.8 77 18 137/90 97 01/13/17 20:30 97.8 72 18 148/86 96 01/13/17 16:00 96.9 69 16 136/85 97 01/13/17 12:31 97.8 78 16 131/85 96 01/13/17 01/13/17 01/14/17 15:00 23:00 07:00 Intake Total 640 ml 240 ml Output Total 2000 ml Balance 640 ml -2000 ml 240 ml Intake Oral 640 ml 240 ml Hemodialysis 2000 ml # Voids 2 Laboratory Tests Test 01/13/17 01/14/17 06:36 06:20 White Blood Count 6.2 TH/MM3 5.1 TH/MM3 Red Blood Count 3.24 MIL/MM3 3.29 MIL/MM3 Hemoglobin 9.3 GM/DL 9.7 GM/DL Hematocrit 28.5 % 28.6 % Mean Corpuscular Volume 88.1 FL 86.8 FL Mean Corpuscular Hemoglobin 28.7 PG 29.4 PG Mean Corpuscular Hemoglobin 32.6 % 33.9 % Concent Red Cell Distribution Width 13.7 % 13.7 % Platelet Count 184 TH/MM3 196 TH/MM3 Mean Platelet Volume 8.0 FL 8.5 FL Neutrophils (%) (Auto) 65.2 % 62.7 % Lymphocytes (%) (Auto) 24.6 % 25.3 % Monocytes (%) (Auto) 7.2 % 8.4 % Eosinophils (%) (Auto) 2.2 % 3.0 % Basophils (%) (Auto) 0.8 % 0.6 % Neutrophils # (Auto) 4.0 TH/MM3 3.2 TH/MM3 Lymphocytes # (Auto) 1.5 TH/MM3 1.3 TH/MM3 Monocytes # (Auto) 0.4 TH/MM3 0.4 TH/MM3 Eosinophils # (Auto) 0.1 TH/MM3 0.2 TH/MM3 Basophils # (Auto) 0.0 TH/MM3 0.0 TH/MM3 CBC Comment DIFF FINAL DIFF FINAL Differential Comment Hematology Comments Laboratory Tests Test 01/13/17 01/14/17 06:36 06:20 Sodium Level 137 MEQ/L 136 MEQ/L Potassium Level 4.0 MEQ/L 4.0 MEQ/L Chloride Level 100 MEQ/L 98 MEQ/L Carbon Dioxide Level 26.3 MEQ/L 29.0 MEQ/L Anion Gap 11 MEQ/L 9 MEQ/L Blood Urea Nitrogen 31 MG/DL 20 MG/DL Creatinine 9.46 MG/DL 7.93 MG/DL Estimat Glomerular Filtration 6 ML/MIN 7 ML/MIN Rate Random Glucose 87 MG/DL 79 MG/DL Calcium Level 7.3 MG/DL 7.6 MG/DL Protein Corrected Calcium 7.1 MG/DL Total Bilirubin 0.3 MG/DL 0.3 MG/DL Aspartate Amino Transf 7 U/L 9 U/L (AST/SGOT) Alanine Aminotransferase 7 U/L 9 U/L (ALT/SGPT) Alkaline Phosphatase 50 U/L 54 U/L Total Protein 7.6 GM/DL 8.0 GM/DL Albumin 2.1 GM/DL 2.3 GM/DL Microbiology Date/Time Procedure Status Source Growth 01/11/17 14:50 Aerobic Blood Culture - Preliminary Resulted Blood Peripheral NO GROWTH IN 3 DAYS 01/11/17 14:50 Anaerobic Blood Culture - Preliminary Resulted Blood Peripheral NO GROWTH IN 3 DAYS 01/11/17 14:55 Aerobic Blood Culture - Preliminary Resulted Blood Peripheral NO GROWTH IN 3 DAYS 01/11/17 14:55 Anaerobic Blood Culture - Preliminary Resulted Blood Peripheral NO GROWTH IN 3 DAYS 01/11/17 18:35 Influenza Types A,B Antigen (JACKLYN) - Final Complete Nasal Washing NEGATIVE FOR FLU A AND B ANTIGEN.... 01/12/17 00:15 Legionella Antigen - Final Complete Urine Clean Catch PRESUMPTIVE NEGATIVE FOR LEGIONELLA P... 01/12/17 00:15 Streptococcus pneumoniae Antigen (M - Final Complete Urine Clean Catch PRESUMPTIVE NEGATIVE FOR STREPTOCOCCU... 01/12/17 00:15 Urine Culture - Final Complete Urine Catheterized Urine <10,000 CFU/ML MIXED GRAM POSITIVE FL... 01/12/17 12:45 Gram Stain - Final Complete Sputum Expectorated Sputum 01/12/17 12:45 Sputum Culture - Final Complete Sputum Expectorated Sputum MODERATE GROWTH NORMAL RESPIRATORY SOY Imaging CT Angiography 01/12/17 0000 Signed Impressions: Service Date/Time: Thursday, January 12, 2017 11:13 - CONCLUSION: 1. No PE is identified. 2. Abnormal dense multifocal subpleural predominant air space consolidation in the lower lung zones bilaterally with associated small bilateral pleural effusions. Aspiration should be a consideration as well as infectious processes including atypical infections given the history of HIV. 3. Bilateral hilar and subcarinal lymphadenopathy and abnormal soft tissue throughout the middle mediastinum that also presumably represents lymphadenopathy as well. Suggest followup imaging following appropriate treatment to confirm resolution. Phi Mott MD Chest X-Ray 01/11/17 0000 Signed Impressions: Service Date/Time: Wednesday, January 11, 2017 14:20 - CONCLUSION: Persistent and mildly increased nodular focal areas of consolidation at both lung bases. Given the uncommon appearance consideration should be given to atypical infectious processes or septic emboli. Phi Mott MD Physical Exam GENERAL: Patient is in no acute distress. HEENT: EOMI, No icterus. NECK: Supple without adenopathy. LUNGS: Decreased breath sounds. Slight rhonchi at both lung mackenzie. no accessory muscle use. CARDIAC: Regular rate and rhythm, No murmurs, rubs or gallops. ABDOMEN: Soft, non tender. EXTREMITIES: No Clubbing, cyanosis or edema. SKIN: No rash. Assessment & Plan Diagnosis: (1) Pneumonia Clinically looks better. Plan: Repeat the CXR today. Continue Levaquin adjusted for renal function. PO x 14 more days. Stop Pip/Tazo. Arrangement for follow up with Dr Lovell her ID physician ASHLEY. Can be discharged from my standpoint as long as the CXR is not significantly worse. (2) HIV (human immunodeficiency virus infection) Follow up with Dr. Lovell. (3) Renal failure Follow up with renal. Michel Edwards MD Jan 14, 2017 11:54
--- NOTE | 2017-01-14 12:45 | RADRPT ---
EXAM DATE/TIME: 01/14/2017 12:11 [facility] COMPARISON: CHEST PA & LAT, January 11, 2017, 14:20. CHEST SINGLE AP, January 10, 2017, 7:39. INDICATIONS : Pneumonia. MEDICAL HISTORY : HIV Asthma. SURGICAL HISTORY : Tubal ligation. ENCOUNTER: Initial ACUITY: 1 day PAIN SCORE: 3/10 LOCATION: Bilateral lateral chest FINDINGS: Portable upright AP view of the chest demonstrates a normal-sized cardiac silhouette. There is bibasi lar airspace consolidation similar to the prior examination. No pneumothorax or definite pleural effu dez is visualized. Bones and soft tissues demonstrate no acute finding. CONCLUSION: Stable bilateral lower lung zone airspace consolidation. Phi Mott MD on January 14, 2017 at 12:42 Board Certified Radiologist. This report was verified electronically.
--- NOTE | 2017-01-14 16:14 | HHI.NPPN ---
Subjective General Problems: Anemia, Hypertension Renal Failure: End Stage Renal Disease History of Present Illness 11-year-old female known to me from before with past medical history of hypertension, HIV disease, has been following with Infectious Disease, history of bronchial asthma, chronic anemia, end-stage renal disease on hemodialysis three times per week, history of chronic hypocalcemia. She came to the hospital with complaint of shortness of breath and pain in lower chest on both sides on taking a deep breath. I was called to see the patient for the management of her dialysis. The patient has been on hemodialysis Thursday, and Thursday. Additional Remarks Patient is alert, breathing is better, has mild nausea. Review of Systems General Constitutional: Fatigue Respiratory Lungs: SOB, Cough, Sputum Cardiovascular Cardiac: CEDILLO Gastrointestinal Gastrointestinal: Abdominal Pain, Nausea & Vomiting Objective Data Data 01/13/17 01/14/17 19:00 07:00 Intake Total 640 ml 240 ml Output Total 2000 ml Balance 640 ml -1760 ml Intake Oral 640 ml 240 ml Hemodialysis 2000 ml # Voids 2 Vital Signs Date Time Temp Pulse Resp B/P Pulse Ox O2 Delivery O2 Flow Rate FiO2 01/14/17 16:00 97.7 72 133/89 97 01/14/17 12:00 97.9 67 16 123/84 96 01/14/17 09:08 100 21 01/14/17 09:00 97.6 69 16 121/78 97 01/14/17 08:09 74 01/14/17 05:00 96.8 76 16 126/84 95 01/14/17 00:37 99 01/14/17 00:15 96.8 77 18 137/90 97 01/13/17 20:30 97.8 72 18 148/86 96 -: 01/14/17 0620 01/14/17 0620 Physical Exam General Appearance: No Acute Distress, Comfortable Eyes Eye Exam: Pupils Equal Throat Throat Exam: Oral Mucosa [place] & Moist Neck Neck Exam: Neck Supple, Trachea Midline Pulmonary Resp Exam: No Distress, Rhonchi, Sputum, Decreased Bases, Diminished Breath Sounds Cardiology CV Exam: Regular, Normal Sinus Rhythm Gastrointestinal/Abdomen GI Exam: Soft, Non-Tender, Bowel Sounds Present, Non-Distended Extremeties Extremities Exam: No Edema Neurologic Neuro Exam: Alert, Awake, Oriented Psychiatric Psych Exam: Appropriate Responses Assessment/Plan Assessment Summary: Anemia of CKD, Hypertension, End Stage Renal Disease Electrolyte Assessment: Hypocalcemia Problem List: (1) Generalized weakness (2) Pneumonia (3) Anemia (4) HIV (human immunodeficiency virus infection) (5) Nausea & vomiting (6) Hyperkalemia (7) End stage renal disease on dialysis Plan HD was done yesterday. Remain afebrile, BP is stable. Repeat CXR noted, also ID follow up seen. To continue PO Levaquin. HD is due in AM. Problem Qualifiers (1) Pneumonia: Qualified Code: J18.9 - Pneumonia of both lungs due to infectious organism, unspecified part of lung Josselyn Rodas MD Jan 14, 2017 16:14
--- NOTE | 2017-01-14 18:57 | HHI.PR ---
Subjective Remarks 41 YOAA female with HIV,AIDS,Pn Had HD yesterday Has mild sob Tired no Fever CXR stable bilat infilt Objective Vital Signs Vital Signs Date Time Temp Pulse Resp B/P Pulse Ox O2 Delivery O2 Flow Rate FiO2 01/14/17 16:00 97.7 72 133/89 97 01/14/17 12:00 97.9 67 16 123/84 96 01/14/17 09:08 100 21 01/14/17 09:00 97.6 69 16 121/78 97 01/14/17 08:09 74 01/14/17 05:00 96.8 76 16 126/84 95 01/14/17 00:37 99 01/14/17 00:15 96.8 77 18 137/90 97 01/13/17 20:30 97.8 72 18 148/86 96 I/O 01/13/17 01/13/17 01/13/17 01/14/17 01/14/17 01/14/17 07:00 15:00 23:00 07:00 15:00 23:00 Intake Total 120 ml 640 ml 240 ml 588 ml Output Total 2000 ml Balance 120 ml 640 ml -2000 ml 240 ml 588 ml Intake Oral 120 ml 640 ml 240 ml 480 ml IV Total 108 ml Hemodialysis 2000 ml # Voids 1 2 4 Result Diagram: 01/14/1761901/14/17619 Objective Remarks GENERAL: MBMN Female,NAD SKIN: Warm and dry. HEAD: Normocephalic. EYES: No scleral icterus. No injection or drainage. NECK: Supple, trachea midline. No JVD or lymphadenopathy. CARDIOVASCULAR: Regular rate and rhythm without murmurs, gallops, or rubs. RESPIRATORY: Breath sounds equal bilaterally. No accessory muscle use. GASTROINTESTINAL: Abdomen soft, non-tender, nondistended. MUSCULOSKELETAL: No cyanosis, or edema. BACK: Nontender without obvious deformity. No CVA tenderness. A/P Assessment and Plan Bilat multifocal Pn HIV,AIDS HTN ESRD PLAN: Cont Abx Levaquin and Zosyn Check cultures ID following DW pt and her . Juan J Pelaez MD Jan 14, 2017 18:57
[2017-01-15] VITALS: BP 143/84; PULSE 76; RESP 18; TEMP 97; O2SAT 98
[2017-01-15] MEDS: PIPERACIL-TAZO 2.25 GM PREMIX 50 ML IV SCH (02:23)
[2017-01-15 04:00] VITALS: BP 136/82; PULSE 68; RESP 16; TEMP 96.7; O2SAT 97
[2017-01-15 05:09] LABS: AUTOMATED NEUTROPHIL # 2.7 TH/MM3 (1.8-7.7); BASOPHIL % 0.8 % (0.0-2.0); EOSINOPHIL # 0.2 TH/MM3 (0-0.4); EOSINOPHIL % 3.3 % (0.0-4.0); HEMATOCRIT 29.9 % (35.0-46.0); HEMO FLAGS DIFF FINAL; LYMPH % 32.8 % (9.0-44.0); LYMPHOCYTE # 1.6 TH/MM3 (1.0-4.8); MEAN CELL VOLUME 87.2 FL (80.0-100.0); MEAN CORPUSCULAR HEMOGLOBIN 28.7 PG (27.0-34.0); MEAN CORPUSCULAR HGB CONC 32.9 % (32.0-36.0); MONO % 8.3 % (0.0-8.0); NEUT % 54.8 % (16.0-70.0); PLATELET COUNT 211 TH/MM3 (150-450); RED BLOOD COUNT 3.43 MIL/MM3 (4.00-5.30); RED CELL DISTRIBUTION WIDTH 13.5 % (11.6-17.2)
[2017-01-15 05:46] LABS: ALKALINE PHOSPHATASE 60 U/L (45-117); ALT (GPT) 7 U/L (10-53); ANION GAP 11 MEQ/L (5-15); AST (GOT) 8 U/L (15-37); BICARBONATE 28.9 MEQ/L (21.0-32.0); BLOOD UREA NITROGEN 25 MG/DL (7-18); CHLORIDE 98 MEQ/L (98-107); GLOMERULAR FILTRATION RATE 5 ML/MIN (>89); SODIUM (NA) 138 MEQ/L (136-145); TOTAL BILIRUBIN ADULT 0.3 MG/DL (0.2-1.0)
[2017-01-15] MEDS: HEPARIN SODIUM - SQ 10,000 UNITS/ML VIAL SQ SCH (07:53)
[2017-01-15] MEDS: CALCIUM ACETATE 667 MG CAP PO SCH ×2 (07:53→12:50)
[2017-01-15] MEDS: FOLIC ACID 1 MG TAB PO SCH (07:53)
[2017-01-15 08:00] VITALS: BP 137/92; PULSE 72; RESP 18; TEMP 96.2; O2SAT 95
[2017-01-15] MEDS ORDERED: LEVA250T PO ×2 (08:18→14:05)
--- NOTE | 2017-01-15 08:26 | HHI.FPPN ---
Subjective Remarks Patient states she is doing well this morning. She would like to go home today. She is nearly 100% back to her baseline. She continues to have mild pain when coughing. However, her cough has improved. No fever, chills, shortness of breath. (Jones Snider MD R2) Objective Vitals Vital Signs Date Time Temp Pulse Resp B/P Pulse Ox O2 Delivery O2 Flow Rate FiO2 01/15/17 04:00 96.7 68 16 136/82 97 01/15/17 00:00 97.0 76 18 143/84 98 01/14/17 20:52 98 21 01/14/17 20:00 97.1 70 18 140/91 97 01/14/17 20:00 70 01/14/17 16:00 97.7 72 133/89 97 01/14/17 12:00 97.9 67 16 123/84 96 01/14/17 09:08 100 21 01/14/17 09:00 97.6 69 16 121/78 97 I/O 01/14/17 01/14/17 01/14/17 01/15/17 01/15/17 01/15/17 07:00 15:00 23:00 07:00 15:00 23:00 Intake Total 240 ml 588 ml 708 ml Balance 240 ml 588 ml 708 ml Intake Oral 240 ml 480 ml 600 ml IV Total 108 ml 108 ml # Voids 4 2 1 (Jones Snider MD R2) Result Diagram: 01/15/17 0453 01/15/17 0453 Imaging Last Impressions Chest X-Ray 01/14/17 0000 Signed Impressions: Service Date/Time: Saturday, January 14, 2017 12:11 - CONCLUSION: Stable bilateral lower lung zone airspace consolidation. Phi Mott MD CT Angiography 01/12/17 0000 Signed Impressions: Service Date/Time: Thursday, January 12, 2017 11:13 - CONCLUSION: 1. No PE is identified. 2. Abnormal dense multifocal subpleural predominant air space consolidation in the lower lung zones bilaterally with associated small bilateral pleural effusions. Aspiration should be a consideration as well as infectious processes including atypical infections given the history of HIV. 3. Bilateral hilar and subcarinal lymphadenopathy and abnormal soft tissue throughout the middle mediastinum that also presumably represents lymphadenopathy as well. Suggest followup imaging following appropriate treatment to confirm resolution. Phi Mott MD Objective Remarks GENERAL: Thin female, NAD resting in bed SKIN: Warm and dry. No rashes or lesions HEAD: Normocephalic. Atraumatic EYES: No scleral icterus. No injection or drainage. ENT: OP clear. MM slightly dry. NECK: Supple, trachea midline. No JVD or lymphadenopathy. CARDIOVASCULAR: Regular rate and rhythm without audible murmurs, gallops, or rubs. RESPIRATORY: CTAB. No accessory muscle use. No wheeze. No increased work of breathing GASTROINTESTINAL: Abdomen soft, non-tender, nondistended. No rebound or guarding. Normal active bowel sounds MUSCULOSKELETAL: No cyanosis, or edema. AV fistula present BACK: Nontender without obvious deformity. No CVA tenderness. Neuro: Awake and alert with normal speech. Cranial nerves grossly intact. ( Jones Snider MD R2) A/P Assessment and Plan 41-year-old -[place] female with past medical history of HIV, end-stage renal disease on hemodialysis, hypertension, and asthma presents with bilateral lower lobe pneumonia after recent hospitalization for influenza. She was admitted for management with IV antibiotics. Infectious diseases consulted to assist with antibiotic management in the setting of HIV. Discharge Planning Likely today following dialysis. Patient will need follow-up chest imaging following hospital course. (Jones Snider MD R2) Attending Attestation Patient seen and examined Case reviewed and discussed Agree with plan of care as discussed with me and documented in the resident note. (Loulou Newman MD) Problem List: (1) Pneumonia Status: Acute Plan: CTA 01/12: abnormal dense multifocal subpleural predominant airspace consolidation in the lower lung zones bilaterally with associated small bilateral pleural effusions. Aspiration should be a consideration as well as infectious process including atypical infections given the history of HIV. Bilateral hilar and subcarinal lymphadenopathy and abnormal soft tissue throughout the middle mediastinum that also presumably represents nonfat adenopathy as well. Suggest follow-up imaging following appropriate treatment to confirm resolution. Infectious disease consult Pulmonology consult Continue Levaquin renally dosed at 250 mg by mouth every 48 hours (first dose on 01/15); total course of 14 days per ID ASHLEY follow-up agents infectious disease doctor, Dr. Lovell Blood work: Urine Legionella and streptococcal antigen negative Sputum culture normal soy Blood culture no growth Negative for flu Antibiotic history: Zosyn 2.25 g every 8 hours (started 01/11-01/15) Levaquin 500 milligram IV every 48 hours (01/11-01/15) Vancomycin discontinued on 01/12 (2) Chronic Medical Problems Status: Acute Plan: Hypertension: No home antihypertensive regimen listed, will cover with hydralazine by mouth when necessary ESRD: -Nephrology consulted for hemodialysis while inpatient; continue hemodialysis with high calcium supplementation and phosphorus binders -Follow calcium and phosphorus level Anemia: Currently stable HIV: Continue home HIV meds: darunavir 800 mg po daily, etravirine 200 mg bid (3) FEN/DVT PPX/GI PPX Status: Acute Plan: Fluids: tolerating, PO; careful with any fluids given ESRD Electrolytes: Will monitor and replace as needed Nutrition: Renal diet DVT Prophylaxis: Bilateral SCDs, heparin 5000 sq daily (Jones Snider MD R2) Problem Qualifiers (1) Pneumonia: Qualified Code: J18.9 - Pneumonia of both lungs due to infectious organism, unspecified part of lung Jones Snider MD R2 Jan 15, 2017 08:26 Loulou Newman MD Jan 16, 2017 13:44
[2017-01-15] MEDS: CALCITRIOL 0.25 MCG CAP PO SCH (09:00)
[2017-01-15] MEDS: EPOETIN ALFA 10,000 UNITS/ML VIAL IV PRN (09:53)
[2017-01-15] MEDS: ACETAMINOPHEN 325 MG TAB PO PRN (09:54)
[2017-01-15] MEDS ORDERED: LEVOFLOXACIN 250 MG TAB PO SCH (10:00)
[2017-01-15] MEDS: GELATIN 12 MM/7 MM FOAM TOP PRN (10:02)
[2017-01-15] MEDS: MORPHINE SULFATE 4 MG/ML INJ IV PUSH PRN (11:06)
[2017-01-15 12:00] VITALS: BP 126/91; PULSE 74; RESP 16; O2SAT 100
[2017-01-15] MEDS: ETRAVIRINE 100 MG TAB PO SCH (12:49)
[2017-01-15] MEDS: DARUNAVIR 800 MG TAB PO SCH (12:49)
[2017-01-15] MEDS: DOLUTEGRAVIR SODIUM 50 MG TAB PO SCH (12:49)
--- NOTE | 2017-01-15 14:37 | HHI.FF ---
Face to Face Verification Diagnosis: (1) HIV (human immunodeficiency virus infection) (2) Sepsis (3) Asthma (4) Influenza A (5) Bilateral pneumonia (6) Chest pain Physical Therapy Order: Evaluate and Treat, Improve ambulation, Strength and gait training Home Health Nursing Order: Medical education Signs/symptoms of disease process Nursing assessment with vital signs I have seen patient Yoana Martinez on 01/15/17. My clinical findings support the need for the requested home health care services because: Ltd mobility - disease progression Deconditioned w/ increased weakness Limited ability to care for self I certify that my clinical findings support that this patient is homebound because: Unsteady gait/balance Unsafe to leave home unassisted Need for psychosocial assistance Carleen Reddy MD R1 Jan 15, 2017 14:37
--- NOTE | 2017-01-15 17:06 | HHI.NPPN ---
Subjective General Problems: Anemia, Hypertension Renal Failure: End Stage Renal Disease History of Present Illness 11-year-old female known to me from before with past medical history of hypertension, HIV disease, has been following with Infectious Disease, history of bronchial asthma, chronic anemia, end-stage renal disease on hemodialysis three times per week, history of chronic hypocalcemia. She came to the hospital with complaint of shortness of breath and pain in lower chest on both sides on taking a deep breath. I was called to see the patient for the management of her dialysis. The patient has been on hemodialysis Thursday, and Thursday. Additional Remarks Patient was seen in AM, feeling better. Review of Systems General Constitutional: Fatigue Respiratory Lungs: SOB, Cough, Sputum Cardiovascular Cardiac: CEDILLO Gastrointestinal Gastrointestinal: Abdominal Pain, Nausea & Vomiting Objective Data Data 01/14/17 01/15/17 19:00 07:00 Intake Total 696 ml 600 ml Balance 696 ml 600 ml Intake Oral 480 ml 600 ml IV Total 216 ml # Voids 4 3 Vital Signs Date Time Temp Pulse Resp B/P Pulse Ox O2 Delivery O2 Flow Rate FiO2 01/15/17 12:00 74 16 126/91 100 01/15/17 08:00 96.2 72 18 137/92 95 01/15/17 08:00 95 21 01/15/17 04:00 96.7 68 16 136/82 97 01/15/17 00:00 97.0 76 18 143/84 98 01/14/17 20:52 98 21 01/14/17 20:00 97.1 70 18 140/91 97 01/14/17 20:00 70 -: 01/15/17 0453 01/15/17 0453 Physical Exam General Appearance: No Acute Distress, Comfortable Eyes Eye Exam: Pupils Equal Throat Throat Exam: Oral Mucosa [place] & Moist Neck Neck Exam: Neck Supple, Trachea Midline Pulmonary Resp Exam: No Distress, Rhonchi, Sputum, Decreased Bases, Diminished Breath Sounds Cardiology CV Exam: Regular, Normal Sinus Rhythm Gastrointestinal/Abdomen GI Exam: Soft, Non-Tender, Bowel Sounds Present, Non-Distended Extremeties Extremities Exam: No Edema Neurologic Neuro Exam: Alert, Awake, Oriented Psychiatric Psych Exam: Appropriate Responses Assessment/Plan Assessment Summary: Anemia of CKD, Hypertension, End Stage Renal Disease Electrolyte Assessment: Hypocalcemia Problem List: (1) Generalized weakness (2) Pneumonia (3) Anemia (4) HIV (human immunodeficiency virus infection) (5) Nausea & vomiting (6) Hyperkalemia (7) End stage renal disease on dialysis Plan Remain afebrile, BP is stable. Repeat CXR noted, also ID follow up seen. To continue PO Levaquin. HD done, she cut treatment short. Wants to go home. Told to take binders reg. Will follow Calcium and Po4 as out patient. Problem Qualifiers (1) Pneumonia: Qualified Code: J18.9 - Pneumonia of both lungs due to infectious organism, unspecified part of lung Josselyn Rodas MD Jan 15, 2017 17:06
[2017-01-16] MEDS ORDERED: LEVA250T PO (15:19)
--- NOTE | 2017-01-17 15:33 | HHI.DS ---
Discharge Summary Admission Date Jan 11, 2017 at 15:06 Discharge Date: Jan 15, 2017 Admitting Diagnosis Bilateral pneumonia (1) Pneumonia (2) Chronic Medical Problems Diagnosis: Secondary Brief History Patient is a 41-year-old female with a past medical history of HIV, hypertension, end-stage renal disease on hemodialysis that presents to the [facility] ED with a chief complaint of bilateral thoracic back pain. The patient was recently hospitalized at [facility] for influenza and was discharged on ThursdayJanuary 04 with a course of Tamiflu, which she completed. Patient states that she never felt better after leaving the hospital and she continued to have intermittent fever up to 101F measured at home with a thermometer. Yesterday Wednesday 01/10, the patient went to [facility] around 6:30 AM in the morning because she started having left sided thoracic back pain. A chest x-ray was performed which showed mild bibasilar air space consolidation, right greater than left. She was discharged home with a Z-Jamir, which she only took one dose. This morning she woke up with bilateral back pain and also had 2 episodes of vomiting white mucus. She was unable to take a second azithromycin dose. She decided to present to the [facility] ED. CBC/BMP: 01/15/17 0453 01/15/17 0453 Significant Findings Laboratory Tests Test 01/15/17 04:53 Red Blood Count 3.43 MIL/MM3 (4.00-5.30) Hemoglobin 9.8 GM/DL (11.6-15.3) Hematocrit 29.9 % (35.0-46.0) Monocytes (%) (Auto) 8.3 % (0.0-8.0) Blood Urea Nitrogen 25 MG/DL (7-18) Creatinine 9.99 MG/DL (0.50-1.00) Estimat Glomerular Filtration 5 ML/MIN (>89) Rate Calcium Level 8.3 MG/DL (8.5-10.1) Aspartate Amino Transf 8 U/L (15-37) (AST/SGOT) Alanine Aminotransferase 7 U/L (10-53) (ALT/SGPT) Albumin 2.3 GM/DL (3.4-5.0) PE at Discharge GENERAL: Thin female, NAD resting in bed SKIN: Warm and dry. No rashes or lesions HEAD: Normocephalic. Atraumatic EYES: No scleral icterus. No injection or drainage. ENT: OP clear. MM slightly dry. NECK: Supple, trachea midline. No JVD or lymphadenopathy. CARDIOVASCULAR: Regular rate and rhythm without audible murmurs, gallops, or rubs. RESPIRATORY: CTAB. No accessory muscle use. No wheeze. No increased work of breathing GASTROINTESTINAL: Abdomen soft, non-tender, nondistended. No rebound or guarding. Normal active bowel sounds MUSCULOSKELETAL: No cyanosis, or edema. AV fistula present BACK: Nontender without obvious deformity. No CVA tenderness. Neuro: Awake and alert with normal speech. Cranial nerves grossly intact. Hospital Course 41-year-old -[place] female with past medical history of HIV, end-stage renal disease on hemodialysis, hypertension, and asthma presents with bilateral lower lobe pneumonia after recent hospitalization for influenza. She was admitted for management with broad-spectrum IV antibiotics. Infectious diseases was consulted to assist with antibiotic management in the setting of HIV and they recommended Levaquin 250 mg by mouth renally dosed every 48 hours to complete a total course of 14 days. Nephrology was consulted and she received hemodialysis while inpatient. Her shortness of breath, cough, and upper back pain slowly improved during her hospital stay. She was discharged home in stable condition. Pt Condition on Discharge: Stable Discharge Disposition: Discharge Home Discharge Instructions DIET: Follow Instructions for: Renal Failure Diet Activities you can perform: Weight Bearing as Nicanor Follow up Referrals: Appointment for Follow Up - 1 Week Infectious Disease - 1 Week with Magnus Lovell MD New Medications: Levofloxacin (Levaquin) 250 Mg Tab 250 MG PO Q48H Starting on 01/17, take one tablet every 48 hours after dialysis until you have completed the entire bottle. Infection #7 Ref 0 TAB Continued Medications: Acetaminophen (Acetaminophen) 325 Mg Tab 650 MG PO UNSCH PRN pain #90 TAB Calcitriol (Rocaltrol) 0.25 Mcg Cap 1 MCG PO DAILY calcium #31 CAP Calcium Acetate (Phosphate Bin (Calcium Acetate) 667 Mg Cap 2001 MG PO TID calcium #93 CAP Darunavir (Prezista) 800 Mg Tab 800 MG PO DAILY Mgmt Viral Infection #30 Ref 0 TAB Diphenhydramine (Benadryl Allergy) 25 Mg Tab 25 MG PO Q6H PRN ALLERGIES Ref 0 TAB Dolutegravir (Tivicay) 50 Mg Tab 50 MG PO DAILY Mgmt Viral Infection #30 Ref 0 TAB Etravirine (Intelence) 200 Mg Tab 200 MG PO BID Mgmt Viral Infection Ref 0 TAB Megestrol Liq (Megace Liq) 40 Mg/Ml Susp 800 MG PO DAILY Improve Appetite Ref 0 ML Ondansetron (Zofran) 4 Mg Tab 4 MG PO Q6HR PRN NAUSEA OR VOMITING #90 Ref 0 TAB Ropinirole (Requip) 0.5 Mg Tab 0.5 MG PO TID #90 Ref 0 TAB Discontinued Medications: Azithromycin (Zithromax Z-Jamir) 250 Mg Dspk 250 MG PO DIRECTED 500 MG (2 tabs) day 1, then 1 tab days 2-5. Infection #1 Ref 0 DSPK Hydrocodone-Acetaminophen ([place]) 5-325 mg Tab 1 TAB PO Q6H PRN PAIN #10 Ref 0 TAB Oseltamivir (Tamiflu) 30 Mg Cap 30 MG PO UNSCH take after HD PRN AFTER EACH HEMODIALYSIS X 5 #3 CAP Craleen Reddy MD R1 Jan 17, 2017 15:33
== END 2017-01-15 15:11 | disposition home health service (06) | DRG 193 ==
LOC: NEPA 13:22 → NEDA 15:06 → HOCA 19:31
PROVIDERS: ADMIT Family Medicine; ATTEND Family Medicine
PROC: 5A1D60Z (ICD-10-PCS; principal; 2017-01-13)
DX: J18.9 Pneumonia, unspecified organism (principal); N18.6 End stage renal disease; I12.0 Hypertensive chronic kidney disease with stage 5 chronic kidney disease or end stage renal disease; Z99.2 Dependence on renal dialysis; M19.90 Unspecified osteoarthritis, unspecified site; J45.909 Unspecified asthma, uncomplicated; Z21 Asymptomatic human immunodeficiency virus [HIV] infection status; F17.210 Nicotine dependence, cigarettes, uncomplicated; E87.5 Hyperkalemia; M54.6 Pain in thoracic spine; Z88.2 Allergy status to sulfonamides; Y95 Nosocomial condition; E83.51 Hypocalcemia; Z83.0 Family history of human immunodeficiency virus [HIV] disease; D63.1 Anemia in chronic kidney disease
CPT/HCPCS: 71010; 71020; 71275; 76937; 80053; 81001; 83605; 83735; 84100; 84484; 84702; 85025; 86140; 87040; 87070; 87086; 87205; 87449; 87804; 90935; 93005; 93306; 94150; 94664; 94667; 94668; 96361; 96372; 96374; 96375; J1644; J1956; J2270; J2405; J2543; J2765; J3370; J7030; J7040; J7050; J7613; Q0169; Q4081; Q9967

== ENCOUNTER 2017-02-19 11:45 | Emergency (ER) | payer OTHER, MEDICARE ==
[~2017-02-19] VITALS: Ht 167.6 cm; Wt 70.0 kg
[~2017-02-19 11:45] MED LIST changes: +LEVA250T PO; -NORC5TAB PO; -OSEL30 PO; -ZITHTAB PO
[2017-02-19 11:47] VITALS: BP 168/105; PULSE 68; RESP 20; TEMP 98; O2SAT 98
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
[2017-02-19] MEDS ORDERED: traMADol HCL 50 MG TAB PO ONE (12:30)
[2017-02-20] MEDS ORDERED: HYDR-3533 PO (20:38)
[2017-02-20] MEDS ORDERED: ORPH100T99 PO (20:38)
== END 2017-02-19 12:55 | disposition home or self-care (01) ==
LOC: NEPK 11:45
DX: S60.212A Contusion of left wrist, initial encounter (principal); E11.9 Type 2 diabetes mellitus without complications; I12.0 Hypertensive chronic kidney disease with stage 5 chronic kidney disease or end stage renal disease; N18.6 End stage renal disease; F17.200 Nicotine dependence, unspecified, uncomplicated; V89.2XXA Person injured in unspecified motor-vehicle accident, traffic, initial encounter; Y92.410 Unspecified street and highway as the place of occurrence of the external cause; Z99.2 Dependence on renal dialysis; Z79.84 Long term (current) use of oral hypoglycemic drugs; Z21 Asymptomatic human immunodeficiency virus [HIV] infection status; Z87.39 Personal history of other diseases of the musculoskeletal system and connective tissue; Z87.09 Personal history of other diseases of the respiratory system; Z87.448 Personal history of other diseases of urinary system
CPT/HCPCS: 99283

== ENCOUNTER 2017-02-20 19:41 | Emergency (ER) | payer OTHER, MEDICARE, MEDICAID ==
[~2017-02-20] VITALS: Ht 167.6 cm; Wt 69.0 kg
[~2017-02-20 19:41] MED LIST changes: -LEVA250T PO
[2017-02-20 20:09] VITALS: BP 158/91; PULSE 77; RESP 18; TEMP 98; O2SAT 100
[2017-02-20] MEDS ORDERED: HYDR-3533 PO (20:38)
[2017-02-20] MEDS ORDERED: ORPH100T99 PO (20:38)
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
== END 2017-02-20 20:53 | disposition home or self-care (01) ==
LOC: PHEFT 19:41
DX: M54.5 Low back pain (principal); F17.210 Nicotine dependence, cigarettes, uncomplicated; Z21 Asymptomatic human immunodeficiency virus [HIV] infection status; N18.6 End stage renal disease; Z99.2 Dependence on renal dialysis; V89.2XXD Person injured in unspecified motor-vehicle accident, traffic, subsequent encounter
CPT/HCPCS: 99281

== ENCOUNTER 2017-03-17 21:22 | Emergency (ER) | payer MEDICARE, MEDICAID ==
[~2017-03-17] VITALS: Ht 167.6 cm; Wt 71.2 kg
[~2017-03-17 21:22] MED LIST changes: +HYDR-3533 PO; +ORPH100T99 PO
[2017-03-17 21:46] VITALS: BP 146/102; PULSE 74; RESP 14; TEMP 98.4; O2SAT 100
[2017-03-17 21:57] VITALS: BP 174/102; PULSE 71; RESP 18; TEMP 98.4; O2SAT 99
[2017-03-17] MEDS ORDERED: hydrALAZINE HCL 20 MG/ML VIAL IM ONE ×2 (22:30→22:45)
--- NOTE | 2017-03-17 22:35 | PD ---
HPI Chief Complaint: Hypertension Time Seen by Provider: 22:28 Travel History International Travel<30 days: No Contact w/Intl Traveler<30days: No Traveled to known affect area: No History of Present Illness HPI The patient is a 41-year-old female that complains of high blood pressure. She has a global headache of gradual onset that started this morning. She does get dialysis apparently Thursday and Thursday. She went to dialysis this morning and Dr. Rodas wrote her some prescriptions for hypertension. She did not get these filled. Instead, she comes to the emergency department because of her headache and blood pressure. She denies any nausea. She denies any focal neurologic deficit. She denies any chest pain or shortness of breath. PFSH Past Medical History Arthritis: Yes Asthma: Yes Autoimmune Disease: Yes (HIV POSITIVE) Blood Disorders: No Heart Rhythm Problems: No Cancer: No Cardiac Catheterization: No Cardiovascular Problems: No High Cholesterol: No Chest Pain: No Congestive Heart Failure: No COPD: No Cerebrovascular Accident: No Diabetes: Yes (no metformin) Dialysis: Yes (Thursday, and Thursday; fistula left arm,) Diminished Hearing: No Endocrine: No GERD: No Glaucoma: No Genitourinary: Yes Headaches: Yes Hepatitis: No Hiatal Hernia: No Heparin Induced Thrombocytopen: No Hypertension: No Immune Disorder: Yes Kidney Stones: No Medical other: Yes (HIV POS.) Musculoskeletal: No Neurologic: No Psychiatric: No Reproductive: No Respiratory: Yes (asthma) Myocardial Infarction: No Renal Failure: Yes Seizures: No Sleep Apnea: No Thyroid Disease: No Ulcer: No Tetanus Vaccination: > 5 Years ?: Not LMP: 5-1-17 : 5 Para: 5 Miscarriage: 0 : 0 Tubal Ligation: Yes Past Surgical History Abdominal Surgery: No AICD: No Body Medical Devices: L ARM AV FISTULA Cardiac Surgery: No Section: Yes Coronary Artery Bypass Graft: No Ear Surgery: No Endocrine Surgery: No Eye Surgery: No Genitourinary Surgery: No Gynecologic Surgery: Yes (C-SECT.) Joint Replacement: No Neurologic Surgery: No Pacemaker: No Thoracic Surgery: No Other Surgery: Yes (fistula for dialysis: left arm) Social History Alcohol Use: No Tobacco Use: Yes (1 a day) Substance Use: No Allergies-Medications (Allergen,Severity, Reaction): Coded Allergies: Sulfa (Verified Allergy, Severe, Hives, 03/17/17) Reported Meds & Prescriptions Reported Meds & Active Scripts Active Orphenadrine CR (Orphenadrine Citrate) 100 Mg Tab 100 Mg PO Q12HR Lortab (Hydrocodone-Acetaminophen) 5-325 Mg Tab 1-2 Tab PO Q6H PRN Acetaminophen 325 Mg Tab 650 Mg PO UNSCH PRN Zofran (Ondansetron HCl) 4 Mg Tab 4 Mg PO Q6HR PRN Calcium Acetate (Calcium Acetate (Phosphate Bin) 667 Mg Cap 2,001 Mg PO TID Rocaltrol (Calcitriol) 0.25 Mcg Cap 1 Mcg PO DAILY Reported Requip (Ropinirole HCl) 0.5 Mg Tab 0.5 Mg PO TID Megace Liq (Megestrol Acetate) 40 Mg/Ml Susp 800 Mg PO DAILY Benadryl Allergy (Diphenhydramine HCl) 25 Mg Tab 25 Mg PO Q6H PRN Tivicay (Dolutegravir Sodium) 50 Mg Tab 50 Mg PO DAILY Prezista (Darunavir) 800 Mg Tab 800 Mg PO DAILY Intelence (Etravirine) 200 Mg Tab 200 Mg PO BID Review of Systems Except as stated in HPI: all other systems reviewed are Neg Physical Exam Narrative GENERAL: Well-nourished, well-developed patient in moderate apparent distress with her headache. She is alert and oriented 3. Her vital signs show blood pressure 146/102 with repeat 174/102. The rest the vital signs are normal. SKIN: Focused skin assessment warm/dry. HEAD: Normocephalic. EYES: No scleral icterus. No injection or drainage. NECK: Supple, trachea midline. No JVD or lymphadenopathy. CARDIOVASCULAR: Regular rate and rhythm without murmurs, gallops, or rubs. RESPIRATORY: Breath sounds equal bilaterally. No accessory muscle use. GASTROINTESTINAL: Abdomen soft, non-tender, nondistended. MUSCULOSKELETAL: No cyanosis, or edema. BACK: Nontender without obvious deformity. No CVA tenderness. Data Data Last Documented VS Vital Signs Date Time Temp Pulse Resp B/P Pulse Ox O2 Delivery O2 Flow Rate FiO2 03/17/17 23:23 87 15 143/90 100 03/17/17 22:02 Room Air 03/17/17 21:57 98.4 Orders Hydralazine Inj (Apresoline Inj) (03/17/17 22:30) Hydralazine Inj (Apresoline Inj) (03/17/17 22:45) MDM Medical Decision Making Medical Screen Exam Complete: Yes Emergency Medical Condition: Yes Medical Record Reviewed: Yes Differential Diagnosis Hypertensive headache, hypertension poor control, noncompliance to medications, postdialysis headache, intracranial bleedunlikely Narrative Course It is now 11:30 and the patient feels much better. The headache is resolving. Her blood pressure is 143/90. Plan: The patient will get her medications tomorrow and take them. She should follow-up with Dr. De La Rosa and Dr. Rodas. Diagnosis Primary Impression: Hypertension, poor control Additional Instructions: Follow-up with Dr. D eLa Rosa and Dr. Rodas. As we discussed, get the medications tomorrow morning as soon as the pharmacy opens up. Disposition: 01 DISCHARGE HOME Condition: Stable Hossein Demarco MD March 17, 2017 22:35
[2017-03-17 23:23] VITALS: BP 143/90; PULSE 87; RESP 15; O2SAT 100
[2017-03-17 23:32] VITALS: BP 143/90; TEMP 97.8
== END 2017-03-17 23:40 | disposition home or self-care (01) ==
LOC: PHED 21:22
DX: I10 Essential (primary) hypertension (principal); R51 Headache; J45.909 Unspecified asthma, uncomplicated; E11.9 Type 2 diabetes mellitus without complications; Z21 Asymptomatic human immunodeficiency virus [HIV] infection status; Z72.0 Tobacco use
CPT/HCPCS: 96372; 99283; J0360

== ENCOUNTER 2017-03-31 09:32 | Inpatient (IN) | payer MEDICARE, OTHER ==
[~2017-03-31] VITALS: Ht 167.6 cm; Wt 71.2 kg
[2017-03-31] VITALS (7 sets, daily range): BP systolic 143–187; BP diastolic 98–114; PULSE 69–75; RESP 14–18; TEMP 96.5–97.7; O2SAT 97–100
[2017-03-31] MEDS ORDERED: ACETAMINOPHEN/HYDROcodone 325 MG/5 MG TAB PO ONE (10:00)
[2017-03-31 10:21] LABS: AUTOMATED NEUTROPHIL # 2.5 TH/MM3 (1.8-7.7); BASOPHIL % 0.8 % (0.0-2.0); EOSINOPHIL # 0.2 TH/MM3 (0-0.4); EOSINOPHIL % 4.3 % (0.0-4.0); HEMATOCRIT 35.7 % (35.0-46.0); HEMO FLAGS DIFF FINAL; LYMPH % 32.4 % (9.0-44.0); LYMPHOCYTE # 1.5 TH/MM3 (1.0-4.8); MEAN CELL VOLUME 89.7 FL (80.0-100.0); MEAN CORPUSCULAR HEMOGLOBIN 28.9 PG (27.0-34.0); MEAN CORPUSCULAR HGB CONC 32.3 % (32.0-36.0); MONO % 7.6 % (0.0-8.0); NEUT % 54.9 % (16.0-70.0); PLATELET COUNT 153 TH/MM3 (150-450); RED BLOOD COUNT 3.98 MIL/MM3 (4.00-5.30); WHITE BLOOD COUNT 4.5 TH/MM3 (4.0-11.0)
[2017-03-31 10:36] LABS: POTASSIUM 6.4 MEQ/L (3.5-5.1)
[2017-03-31 10:57] LABS: BICARBONATE 20.8 MEQ/L (21.0-32.0); MAGNESIUM 2.2 MG/DL (1.5-2.5); TOTAL BILIRUBIN ADULT 0.3 MG/DL (0.2-1.0)
[2017-03-31 11:07] LABS: CALCIUM-PROTEIN CORRECTED 6.1 MG/DL (8.5-10.1)
[2017-03-31] MEDS ORDERED: ONDANSETRON HCL 4 MG/2 ML VIAL IV ONE (11:45)
[2017-03-31] MEDS ORDERED: CALCIUM GLUCONATE 10% 1 GM/10 ML VIAL SLOW IVP ONE (11:45)
[2017-03-31] MEDS ORDERED: INSULIN HUMAN REGULAR 1,000 UNITS/10 ML VIAL IV PUSH ONE (11:45)
[2017-03-31] MEDS ORDERED: DEXTROSE 50% IN WATER 50 ML VIAL(D50) IV PUSH ONE (11:45)
--- NOTE | 2017-03-31 11:47 | PD ---
HPI Chief Complaint: GI Complaint Time Seen by Provider: 09:46 Travel History International Travel<30 days: No Contact w/Intl Traveler<30days: No Traveled to known affect area: No History of Present Illness HPI This is a 41-year-old female who has a history of HIV who is dialysis dependent who presents to the emergency department with several days of diffuse body aches , constant, severe, and her legs and arms, associated with generalized fatigue. She is due for dialysis today. She denies any fevers or chills. She's also felt somewhat nauseous. PFSH Past Medical History Hx Anticoagulant Therapy: No Arthritis: Yes Asthma: Yes Autoimmune Disease: Yes (HIV POSITIVE) Blood Disorders: No Heart Rhythm Problems: No Cancer: No Cardiac Catheterization: No Cardiovascular Problems: Yes (HTN) High Cholesterol: No Chest Pain: No Congestive Heart Failure: No COPD: No Cerebrovascular Accident: No Diabetes: No Dialysis: Yes (Thursday, and Thursday; fistula left arm,) Diminished Hearing: No Endocrine: No GERD: No Glaucoma: No Genitourinary: Yes Headaches: Yes Hepatitis: No Hiatal Hernia: No Heparin Induced Thrombocytopen: No Hypertension: No Immune Disorder: Yes Kidney Stones: No Medical other: Yes (HIV POS.) Musculoskeletal: No Neurologic: No Psychiatric: No Reproductive: No Respiratory: Yes (asthma) Myocardial Infarction: No Renal Failure: Yes Seizures: No Sleep Apnea: No Thyroid Disease: No Ulcer: No ?: Not : 5 Para: 5 Miscarriage: 0 : 0 Tubal Ligation: Yes Past Surgical History Abdominal Surgery: No AICD: No Body Medical Devices: L ARM AV FISTULA Cardiac Surgery: No Section: Yes Coronary Artery Bypass Graft: No Ear Surgery: No Endocrine Surgery: No Eye Surgery: No Genitourinary Surgery: No Gynecologic Surgery: Yes (C-SECT.) Joint Replacement: No Neurologic Surgery: No Pacemaker: No Thoracic Surgery: No Other Surgery: Yes (fistula for dialysis: left arm) Family History Family Myocardial Infarction: No Social History Alcohol Use: No Tobacco Use: No Substance Use: No Allergies-Medications (Allergen,Severity, Reaction): Coded Allergies: Sulfa (Verified Allergy, Severe, Hives, 03/31/17) Reported Meds & Prescriptions Reported Meds & Active Scripts Active Orphenadrine CR (Orphenadrine Citrate) 100 Mg Tab 100 Mg PO Q12HR Lortab (Hydrocodone-Acetaminophen) 5-325 Mg Tab 1-2 Tab PO Q6H PRN Acetaminophen 325 Mg Tab 650 Mg PO UNSCH PRN Zofran (Ondansetron HCl) 4 Mg Tab 4 Mg PO Q6HR PRN Calcium Acetate (Calcium Acetate (Phosphate Bin) 667 Mg Cap 2,001 Mg PO TID Rocaltrol (Calcitriol) 0.25 Mcg Cap 1 Mcg PO DAILY Reported Requip (Ropinirole HCl) 0.5 Mg Tab 0.5 Mg PO TID Megace Liq (Megestrol Acetate) 40 Mg/Ml Susp 800 Mg PO DAILY Benadryl Allergy (Diphenhydramine HCl) 25 Mg Tab 25 Mg PO Q6H PRN Tivicay (Dolutegravir Sodium) 50 Mg Tab 50 Mg PO DAILY Prezista (Darunavir) 800 Mg Tab 800 Mg PO DAILY Intelence (Etravirine) 200 Mg Tab 200 Mg PO BID Review of Systems Except as stated in HPI: all other systems reviewed are Neg Physical Exam Narrative GENERAL:Well appearing, no acute distress SKIN: Focused skin assessment warm and dry. HEAD: Atraumatic. Normocephalic. EYES: Pupils equal and round. No injection or drainage. ENT: Moist mucous membranes NECK: Trachea midline. CARDIOVASCULAR: Regular rate and rhythm. No murmur appreciated. RESPIRATORY: Clear to auscultation. Breath sounds equal bilaterally. GASTROINTESTINAL: Abdomen soft, non-tender, nondistended. MUSCULOSKELETAL: No obvious deformities. NEUROLOGICAL: Awake and alert. No obvious cranial nerve deficits. Moving all extremities. PSYCHIATRIC: Appropriate mood and affect; insight and judgment normal. Data Data Last Documented VS Vital Signs Date Time Temp Pulse Resp B/P Pulse Ox O2 Delivery O2 Flow Rate FiO2 03/31/17 11:10 71 14 187/114 100 Room Air 03/31/17 09:37 97.7 Orders Acetamin-Hydrocod 325-5 Mg ([place] 5-325 (03/31/17 10:00) Complete Blood Count With Diff (03/31/17 09:53) Comprehensive Metabolic Panel (03/31/17 09:53) Magnesium (Mg) (03/31/17 09:53) ^ Insert Iv (03/31/17 09:53) Creatine Kinase (Cpk) (03/31/17 09:53) Electrocardiogram (03/31/17 ) Calcium Gluconate Inj (Calcium Gluconate (03/31/17 11:45) Insulin Human Regular Inj (Novolin R Inj (03/31/17 11:45) Dextrose 50% In Bk (Vial) Inj (D50w (Vi (03/31/17 11:45) Consult Nephrology (03/31/17 ) Ondansetron Inj (Zofran Inj) (03/31/17 11:45) Labs Laboratory Tests Test 03/31/17 10:13 White Blood Count 4.5 TH/MM3 Red Blood Count 3.98 MIL/MM3 Hemoglobin 11.5 GM/DL Hematocrit 35.7 % Mean Corpuscular Volume 89.7 FL Mean Corpuscular Hemoglobin 28.9 PG Mean Corpuscular Hemoglobin 32.3 % Concent Red Cell Distribution Width 16.0 % Platelet Count 153 TH/MM3 Mean Platelet Volume 8.0 FL Neutrophils (%) (Auto) 54.9 % Lymphocytes (%) (Auto) 32.4 % Monocytes (%) (Auto) 7.6 % Eosinophils (%) (Auto) 4.3 % Basophils (%) (Auto) 0.8 % Neutrophils # (Auto) 2.5 TH/MM3 Lymphocytes # (Auto) 1.5 TH/MM3 Monocytes # (Auto) 0.3 TH/MM3 Eosinophils # (Auto) 0.2 TH/MM3 Basophils # (Auto) 0.0 TH/MM3 CBC Comment DIFF FINAL Differential Comment Sodium Level 139 MEQ/L Potassium Level 6.4 MEQ/L Chloride Level 105 MEQ/L Carbon Dioxide Level 20.8 MEQ/L Anion Gap 13 MEQ/L Blood Urea Nitrogen 59 MG/DL Creatinine 11.00 MG/DL Estimat Glomerular Filtration 5 ML/MIN Rate Random Glucose 99 MG/DL Calcium Level 6.3 MG/DL Protein Corrected Calcium 6.1 MG/DL Magnesium Level 2.2 MG/DL Total Bilirubin 0.3 MG/DL Aspartate Amino Transf 18 U/L (AST/SGOT) Alanine Aminotransferase 13 U/L (ALT/SGPT) Alkaline Phosphatase 82 U/L Total Creatine Kinase 96 U/L Total Protein 7.8 GM/DL Albumin 3.0 GM/DL MDM Medical Decision Making Medical Screen Exam Complete: Yes Emergency Medical Condition: Yes Interpretation(s) EKG: Normal sinus rhythm No leukocytosis Mild anemia Potassium is 6.4 Protein corrected calcium is 6.1 Differential Diagnosis Opiate withdrawal, electrolyte abnormality, rhabdomyolysis, infection Narrative Course This is a 41-year-old female who is dialysis dependent who presents to the emergency department with body aches. She was placed on a monitor and an IV was established. Labs were obtained which moderate hyperkalemia. She has no EKG changes. I spoke to Dr. Schumacher who wants the patient admitted and we will dialyze her in the hospital.She was given insulin, D50 and calcium in the emergency department. Physician Communication Physician Communication Discussed with Dr. schumacher (geriatric physical therapist) Diagnosis Primary Impression: Hyperkalemia Additional Impression: Hypocalcemia Admitting Information Admitting Physician Requests: Admit Mallory Smith MD March 31, 2017 11:47
[2017-03-31] MEDS ORDERED: SODIUM CHLOR 0.9% 1000 ML INJ 1,000 ML IV SCH (11:56)
[2017-03-31] MEDS ORDERED: ONDANSETRON HCL 4 MG/2 ML VIAL IVP PRN (12:00)
[2017-03-31] MEDS ORDERED: ACETAMINOPHEN/HYDROcodone 325 MG/5 MG TAB PO PRN (12:00)
[2017-03-31] MEDS ORDERED: SODIUM CHLORIDE 0.9% FLUSH 10 ML FLUSH IV FLUSH PRN ×2 (12:00→13:45)
[2017-03-31] MEDS ORDERED: NALOXONE HCL 0.4 MG/ML AMP IV PRN (12:00)
[2017-03-31] MEDS ORDERED: cloNIDine HCL 0.1 MG TAB PO PRN ×2 (13:00→13:45)
[2017-03-31] MEDS: ACETAMINOPHEN/HYDROcodone 325 MG/7.5 MG TAB PO PRN ×2 (13:29→17:15)
[2017-03-31] MEDS ORDERED: HEPARIN SODIUM - IV 10,000 UNITS/10 ML VIAL PRN (13:45)
[2017-03-31] MEDS ORDERED: HEPARIN SODIUM - IV 10,000 UNITS/10 ML VIAL IVF PRN (13:45)
[2017-03-31] MEDS ORDERED: ALBUMIN HUMAN 25% 25 GM/100 ML BAGP IV PRN (13:45)
[2017-03-31] MEDS ORDERED: diphenhydrAMINE HCL 25 MG CAP PO PRN ×2 (13:45→18:00)
[2017-03-31] MEDS ORDERED: EPOETIN ALFA 4,000 UNITS/ML VIAL IV PRN ×2 (13:45→14:00)
[2017-03-31] MEDS ORDERED: ACETAMINOPHEN 325 MG TAB PO PRN ×2 (13:45→18:00)
[2017-03-31] MEDS ORDERED: GENTAMICIN SULFATE (DIALYSIS USE ONLY) 20 MG/2 ML VIAL IV PRN (13:45)
[2017-03-31] MEDS ORDERED: GELATIN 12 MM/7 MM FOAM TOP PRN (13:45)
[2017-03-31] MEDS ORDERED: NITROGLYCERIN 0.4 MG SL 25 TABS/BTL SL PRN (13:45)
[2017-03-31] MEDS ORDERED: SODIUM CHLOR 0.9% 1000 ML INJ 1,000 ML IV PRN ×3 (13:45)
[2017-03-31] MEDS ORDERED: ONDANSETRON HCL 4 MG/2 ML VIAL IV PRN (13:45)
[2017-03-31] MEDS ORDERED: MANNITOL 12.5 GM/50 ML VIAL IV PRN (13:45)
--- NOTE | 2017-03-31 14:34 | HHI.HP ---
[facility] Service [facility] Primary Care Physician Phi De La Rosa MD Admission Diagnosis hyperkalemia, hypocalcemia Diagnoses: (1) HIV (human immunodeficiency virus infection) Diagnosis: Secondary (2) Dependence on peritoneal dialysis Diagnosis: Secondary (3) Chronic renal failure Diagnosis: Secondary (4) Muscle weakness Diagnosis: Principal (5) Hypocalcemia Diagnosis: Principal (6) Acute hyperkalemia Diagnosis: Principal Travel History International Travel<30 Days: No Contact w/Intl Traveler <30 Da: No Traveled to Known Affected Are: No History of Present Illness Mrs. Martinez is a 41-year-old female. At baseline she has chronic renal failure secondary to HIV complications. She is here today secondary to global muscular pains and fatigue which has been present for about one week. Paresthesias and muscle weakness is worsening today which brought her in. She is found to be hyperkalemic with a value of 6.4. She is also hypocalcemic at 6.1. Dialysis planned for today. She follows with Dr. Rodas as an outpatient. Asthma and hypertension are to other medical conditions that she has. Neither of these have been exacerbated. She may have some mild opioid withdrawal but does not report taking high volumes of opioids. She ran out of her opioids 3 days ago. No complaints of fever. No nausea or vomiting. No diarrhea reported. She reports that she has had hypocalcemia in the past. She denies ever being hospitalized for hyperkalemia, to her recollection. Review of Systems Constitutional: COMPLAINS OF: Fatigue, DENIES: Fever, Chills Eyes: DENIES: Blurred vision, Diplopia Ears, nose, mouth, throat: DENIES: Tinnitus, Hearing loss Respiratory: DENIES: Cough, Wheezing, Shortness of breath Cardiovascular: DENIES: Chest pain, Palpitations, Syncope Gastrointestinal: DENIES: Abdominal pain, Black stools, Bloody stools Musculoskeletal: COMPLAINS OF: Muscle aches, DENIES: Joint pain Integumentary: DENIES: Abnormal pigmentation Hematologic/lymphatic: DENIES: Bruising Immunologic/allergic: DENIES: Eczema Neurologic: COMPLAINS OF: Headache, DENIES: Abnormal gait Psychiatric: DENIES: Anxiety, Confusion, Mood changes Past Family Social History Past Medical History Hypertension Chronic renal failure HIV Asthma Past Surgical History Dialysis-related catheter/port placements Reported Medications Administered Medications Medications (Trade) Dose Ordered Sig/Alvaro Route PRN Reason Start Time Stop Time Status Last Admin Dose Admin Acetaminophen/ Hydrocodone Bitart ([place] 7.5-325 Mg) 1 tab Q4H PRN PO PAIN SCALE 6 TO 10 03/31/17 12:00 03/31/17 13:29 Allergies: Coded Allergies: Sulfa (Verified Allergy, Severe, Hives, 03/31/17) Active Ordered Medications Administered Medications Medications (Trade) Dose Ordered Sig/Alvaro Route PRN Reason Start Time Stop Time Status Last Admin Dose Admin Acetaminophen/ Hydrocodone Bitart ([place] 7.5-325 Mg) 1 tab Q4H PRN PO PAIN SCALE 6 TO 10 03/31/17 12:00 03/31/17 13:29 Family History No medical history in parents Grandparent on her mother's side has had lung cancer Social History Smoking is present No alcohol abuse No drug abuse Physical Exam Vital Signs Vital Signs Date Time Temp Pulse Resp B/P Pulse Ox O2 Delivery O2 Flow Rate FiO2 03/31/17 11:35 14 03/31/17 11:10 71 14 187/114 100 Room Air 03/31/17 09:37 97.7 74 16 143/98 100 Physical Exam GENERAL: NAD, A&Ox3 SKIN: Warm and dry. HEAD: Normocephalic. EYES: No scleral icterus. No injection or drainage. NECK: Supple, trachea midline. No JVD or lymphadenopathy. CARDIOVASCULAR: Regular rate and rhythm without murmurs, gallops, or rubs. RESPIRATORY: Breath sounds equal bilaterally. No accessory muscle use. GASTROINTESTINAL: Abdomen soft, non-tender, nondistended. MUSCULOSKELETAL: No cyanosis, or edema. Laboratory Laboratory Tests Test 03/31/17 10:13 White Blood Count 4.5 Red Blood Count 3.98 Hemoglobin 11.5 Hematocrit 35.7 Mean Corpuscular Volume 89.7 Mean Corpuscular Hemoglobin 28.9 Mean Corpuscular Hemoglobin 32.3 Concent Red Cell Distribution Width 16.0 Platelet Count 153 Mean Platelet Volume 8.0 Neutrophils (%) (Auto) 54.9 Lymphocytes (%) (Auto) 32.4 Monocytes (%) (Auto) 7.6 Eosinophils (%) (Auto) 4.3 Basophils (%) (Auto) 0.8 Neutrophils # (Auto) 2.5 Lymphocytes # (Auto) 1.5 Monocytes # (Auto) 0.3 Eosinophils # (Auto) 0.2 Basophils # (Auto) 0.0 CBC Comment DIFF FINAL Differential Comment Sodium Level 139 Potassium Level 6.4 Chloride Level 105 Carbon Dioxide Level 20.8 Anion Gap 13 Blood Urea Nitrogen 59 Creatinine 11.00 Estimat Glomerular Filtration 5 Rate Random Glucose 99 Calcium Level 6.3 Protein Corrected Calcium 6.1 Magnesium Level 2.2 Total Bilirubin 0.3 Aspartate Amino Transf 18 (AST/SGOT) Alanine Aminotransferase 13 (ALT/SGPT) Alkaline Phosphatase 82 Total Creatine Kinase 96 Total Protein 7.8 Albumin 3.0 Result Diagram: 03/31/17 1013 03/31/17 1013 Assessment and Plan Problem List: (1) HIV (human immunodeficiency virus infection) ICD Code: Z21 Status: Acute (2) Acute hyperkalemia ICD Code: E87.5 Status: Acute (3) Hypocalcemia ICD Code: E83.51 Status: Acute (4) Muscle weakness ICD Code: M62.81 Status: Acute (5) Chronic renal failure ICD Code: N18.9 Status: Acute (6) Dependence on peritoneal dialysis ICD Code: Z99.2 Status: Acute Assessment and Plan Assessment and plan 41-year-old female with a history of chronic renal failure admitted with hyperkalemia and hypocalcemia. Hyperkalemia Glucose and insulin given in the ER Dialysis pending Follow potassium level after dialysis Follow potassium level in the a.m. Hypocalcemia supplement provided in the ER Follow calcium level twice a day Supplement as needed based on lab findings Asthma No exacerbation Follow clinically As needed albuterol Hypertension When necessary clonidine Monitor blood pressures Continue baseline treatment DVT prophylaxis SCDs Physician Certification 2 Midnight Certification Type: Admission for Inpatient Services Order for Inpatient Services The services are ordered in accordance with Medicare regulations or non- Medicare payer requirements, as applicable. In the case of services not specified as inpatient-only, they are appropriately provided as inpatient services in accordance with the 2-midnight benchmark. Estimated LOS (days): 2 days is the estimated time the patient will need to remain in the hospital, assuming treatment plan goals are met and no additional complications. Post-Hospital Plan: Simone Thompson MD March 31, 2017 2:34 pm
[2017-03-31] MEDS ORDERED: RESP: ALBUTEROL 2.5 MG/3 ML NEB (PRN) INH (14:45)
--- NOTE | 2017-03-31 17:55 | MB ---
cc: MELA HERNANDEZ MD DATE OF CONSULTATION 03/31/2017 REASON FOR CONSULTATION End-stage renal disease on hemodialysis for management. HISTORY OF PRESENT ILLNESS This is a 41-year-old female with past medical history of HIV disease, end-stage renal disease on hemodialysis, history of hypocalcemia, hypertension, bronchial asthma and history of noncompliance came to the hospital with complaint of generalized weakness and loose bowel motion and not feeling well. I was called to see the patient for management of dialysis. The patient has been on hemodialysis three times per week Thursday, and Thursday. I was told from the outpatient clinic that she has been signing off her dialysis early and not completing the treatments, and now she came with a very high potassium and she has some fluid overload. The patient was seen by me after dialysis and she felt much better. Her potassium on admission was found to be 6.4 and also her calcium was very low, her corrected calcium was 6.3. The creatinine was 11. The patient has known history of hypocalcemia and she has been taking the calcium supplement but recently she reduced it to only once a day instead of taking it three times a day. Her blood pressure was quite high on admission and still on the higher side. She has this loose bowel motions started 2 days ago associated with generalized weakness and inability to ambulate much because of weakness. PAST MEDICAL HISTORY 1. HIV disease. 2. End-stage renal disease on hemodialysis. 3. Hypertension. 4. Bronchial asthma. 5. Chronic hypocalcemia. PAST SURGICAL HISTORY 1. A-V fistula surgery. 2. Perma-Cath placement and removal. REVIEW OF SYSTEMS The patient has generalized weakness, feeling tired. Denies any history of fever. No sore throat. She has shortness of breath on exertion. There is no nausea or vomiting. Denies any abdominal pain. Has loose bowel motion going on for last [id number] days. No history of dysuria. She cut down her calcium tablet to once only at night and she was supposed to take three times per day. SOCIAL HISTORY The patient is . There is no history of alcoholism. She smokes currently. ALLERGIES SHE IS ALLERGIC TO SULFA. MEDICATIONS Currently she is on following medications: 1. Zofran p.r.n. 2. She received calcium gluconate. 3. She received Epogen with the dialysis. PHYSICAL EXAMINATION GENERAL: The patient is awake and alert. She is not in acute distress. VITAL SIGNS: Her last blood pressure was 157/112, temperature is 96.6. Oxygen saturation is 100% on room air. HEENT: Pupils equally reactive to light. Nonicteric sclerae. Conjunctivae normal. NECK: Supple. JVD is not elevated. LUNGS: The patient has bilateral good air entry with occasional wheezing. HEART: S1-S2. Regular rhythm. ABDOMEN: Soft. Lax. There is no tenderness. Bowel sounds positive. EXTREMITIES: She has bilateral 2+ edema in the legs. LABORATORY DATA Investigation, WBC count is 4.5, hemoglobin 11.5, platelet count 153. Sodium 139. Potassium 6.4, chloride 105, bicarb 20.8, BUN 59, creatinine 11. Corrected calcium 6.3, glucose 99. AST, ALT normal. Albumin level is 3.0. IMAGING There is no imaging study done. ASSESSMENT AND PLAN 1. Severe hyperkalemia. 2. End-stage renal disease on hemodialysis. 3. Fluid overload status. 4. Hypocalcemia. 5. Hypertension uncontrolled. 6. History of HIV disease. The patient has known history of hypocalcemia. She has to be on high dose of calcium supplement. I will restart her back on Os-Alex which is 500 mg and I will give her every 8-hour when she receives the hemodialysis. I will follow her potassium, calcium and phosphorus in the morning. I discussed with the patient and told her to be compliant with her dialysis treatment and with her medications. Thank you for the consultation and I will follow the patient while she is in the hospital. MD NANCY Solis/JORGE /5:04 PM /5:17 PM
[2017-03-31] MEDS: VITAMIN B CMPLX/VITC/FOLIC AC CAP PO SCH (18:00)
[2017-03-31] MEDS: CALCIUM ACETATE 667 MG CAP PO SCH (20:05)
--- NOTE | 2017-03-31 20:08 | EKG ---
Date Performed: 03/31/2017 Time Performed: 11:05:30 PTAGE: 41 years EKG: Sinus rhythm Rightward axis Borderline ECG PREVIOUS TRACING : 01/11/2017 13.46 Compared to prior tracing no significant change DOCTOR: Vernon Concepcion Interpretating Date/Time 03/31/2017 20:07:25
[2017-03-31] MEDS: SODIUM CHLORIDE 0.9% FLUSH 10 ML FLUSH IV FLUSH SCH (21:16)
[2017-03-31] MEDS: ETRAVIRINE 100 MG TAB PO SCH (21:16)
[2017-03-31] MEDS: CALCIUM CARBONATE 1.25 GM (CA 500 MG) TAB PO SCH (21:16)
[2017-03-31] MEDS: ORPHENADRINE CITRATE 100 MG SUSTAINED RELEASE TAB PO SCH (21:16)
[2017-04-01] VITALS: BP 149/104; PULSE 78; RESP 16; TEMP 97.2; O2SAT 99
[2017-04-01 04:00] VITALS: BP 151/98; PULSE 75; RESP 18; TEMP 96.7; O2SAT 99
[2017-04-01] MEDS: CALCIUM CARBONATE 1.25 GM (CA 500 MG) TAB PO SCH (06:00)
[2017-04-01 07:39] LABS: AUTOMATED NEUTROPHIL # 1.6 TH/MM3 (1.8-7.7); BASOPHIL % 1.3 % (0.0-2.0); EOSINOPHIL # 0.2 TH/MM3 (0-0.4); EOSINOPHIL % 6.5 % (0.0-4.0); HEMATOCRIT 35.4 % (35.0-46.0); HEMO FLAGS DIFF FINAL; LYMPH % 39.5 % (9.0-44.0); LYMPHOCYTE # 1.4 TH/MM3 (1.0-4.8); MEAN CELL VOLUME 89.9 FL (80.0-100.0); MEAN CORPUSCULAR HEMOGLOBIN 28.9 PG (27.0-34.0); MEAN CORPUSCULAR HGB CONC 32.1 % (32.0-36.0); MONO % 9.8 % (0.0-8.0); NEUT % 42.9 % (16.0-70.0); PLATELET COUNT 138 TH/MM3 (150-450); RED BLOOD COUNT 3.94 MIL/MM3 (4.00-5.30); RED CELL DISTRIBUTION WIDTH 15.8 % (11.6-17.2); WHITE BLOOD COUNT 3.5 TH/MM3 (4.0-11.0)
[2017-04-01 08:00] VITALS: BP_SYST 142; BP_SYST 158; BP_DIAS 103; BP_DIAS 63; PULSE 80; PULSE 92; RESP 20; RESP 21; TEMP 96.3; TEMP 96.8; O2SAT 92; O2SAT 97
[2017-04-01 08:12] LABS: BICARBONATE 25.7 MEQ/L (21.0-32.0); POTASSIUM 4.3 MEQ/L (3.5-5.1); TOTAL BILIRUBIN ADULT 0.3 MG/DL (0.2-1.0)
[2017-04-01 08:24] LABS: CALCIUM-PROTEIN CORRECTED 6.6 MG/DL (8.5-10.1)
[2017-04-01] MEDS ORDERED: DOLUTEGRAVIR SODIUM 50 MG TAB PO SCH (09:00)
[2017-04-01] MEDS ORDERED: MEGESTROL ACETATE SUSP 400 MG/10 ML CUP PO SCH (09:00)
[2017-04-01] MEDS: VITAMIN B CMPLX/VITC/FOLIC AC CAP PO SCH (09:00)
[2017-04-01] MEDS ORDERED: DARUNAVIR 800 MG TAB PO SCH (09:00)
[2017-04-01] MEDS ORDERED: CALCITRIOL 0.25 MCG CAP PO SCH (09:00)
[2017-04-01] MEDS ORDERED: OYST500T11 PO (09:01)
[2017-04-01] MEDS: ACETAMINOPHEN/HYDROcodone 325 MG/7.5 MG TAB PO PRN (09:03)
--- NOTE | 2017-04-01 09:04 | HHI.DS ---
Discharge Summary Admission Date March 31, 2017 at 11:52 am Discharge Date: April 01, 2017 Admitting Diagnosis hyperkalemia, hypocalcemia (1) HIV (human immunodeficiency virus infection) ICD Code: Z21 (2) Acute hyperkalemia ICD Code: E87.5 Diagnosis: Principal (3) Hypocalcemia ICD Code: E83.51 Diagnosis: Principal (4) Muscle weakness ICD Code: M62.81 Diagnosis: Principal (5) Chronic renal failure ICD Code: N18.9 Diagnosis: Secondary (6) Dependence on peritoneal dialysis ICD Code: Z99.2 Diagnosis: Secondary Procedures Dialysis Brief History - From Admission Mrs. Martinez is a 41-year-old female. At baseline she has chronic renal failure secondary to HIV complications. She is here today secondary to global muscular pains and fatigue which has been present for about one week. Paresthesias and muscle weakness is worsening today which brought her in. She is found to be hyperkalemic with a value of 6.4. She is also hypocalcemic at 6.1. Dialysis planned for today. She follows with Dr. Rodas as an outpatient. Asthma and hypertension are to other medical conditions that she has. Neither of these have been exacerbated. She may have some mild opioid withdrawal but does not report taking high volumes of opioids. She ran out of her opioids 3 days ago. No complaints of fever. No nausea or vomiting. No diarrhea reported. She reports that she has had hypocalcemia in the past. She denies ever being hospitalized for hyperkalemia, to her recollection. CBC/BMP: 04/01/17 0715 04/01/17 0715 Significant Findings Laboratory Tests Test 03/31/17 04/01/17 10:13 07:15 Red Blood Count 3.98 MIL/MM3 3.94 MIL/MM3 (4.00-5.30) (4.00-5.30) Hemoglobin 11.5 GM/DL 11.4 GM/DL (11.6-15.3) (11.6-15.3) Eosinophils (%) (Auto) 4.3 % (0.0-4.0) 6.5 % (0.0-4.0) Potassium Level 6.4 MEQ/L (3.5-5.1) Carbon Dioxide Level 20.8 MEQ/L (21.0-32.0) Blood Urea Nitrogen 59 MG/DL (7-18) 45 MG/DL (7-18) Creatinine 11.00 MG/DL 8.60 MG/DL (0.50-1.00) (0.50-1.00) Estimat Glomerular Filtration 5 ML/MIN (>89) 6 ML/MIN (>89) Rate Calcium Level 6.3 MG/DL 6.6 MG/DL (8.5-10.1) (8.5-10.1) Protein Corrected Calcium 6.1 MG/DL 6.6 MG/DL (8.5-10.1) (8.5-10.1) Albumin 3.0 GM/DL 2.8 GM/DL (3.4-5.0) (3.4-5.0) White Blood Count 3.5 TH/MM3 (4.0-11.0) Platelet Count 138 TH/MM3 (150-450) Monocytes (%) (Auto) 9.8 % (0.0-8.0) Neutrophils # (Auto) 1.6 TH/MM3 (1.8-7.7) Random Glucose 71 MG/DL (74-106) Phosphorus Level 8.0 MG/DL (2.5-4.9) Aspartate Amino Transf 13 U/L (15-37) (AST/SGOT) PE at Discharge GENERAL: NAD, A&Ox3 SKIN: Warm and dry. HEAD: Normocephalic. EYES: No scleral icterus. No injection or drainage. NECK: Supple, trachea midline. No JVD or lymphadenopathy. CARDIOVASCULAR: Regular rate and rhythm without murmurs, gallops, or rubs. RESPIRATORY: Breath sounds equal bilaterally. No accessory muscle use. GASTROINTESTINAL: Abdomen soft, non-tender, nondistended. MUSCULOSKELETAL: No cyanosis, or edema. Hospital Course Mrs. Martinez is a 41-year-old female. At baseline she has chronic renal failure , end-stage renal disease, and is dialysis dependent. She came in secondary to global muscle fatigues and aches. She was found to have severe hyperkalemia and hypocalcemia. Supplementation for hypocalcemia has been provided and this is slowly improving her through time. She had dialysis to correct her hyperkalemia and this morning it is returned to normal level. Patient reports resolution of her symptoms. She feels a baseline today. She requests discharge. Nephrology has cleared patient for discharge. Medically stable to discharge home today on calcium supplement. Pt Condition on Discharge: Stable Discharge Disposition: Discharge Home Discharge Time: > 30 minutes Discharge Instructions DIET: Follow Instructions for: As Tolerated, No Restrictions, Renal Failure Diet Activities you can perform: Regular-No Restrictions Follow up Referrals: Nephrology - 2-3 Days PCP Follow-up - 1 Week New Medications: Oyster Shell (Oyster Shell Calcium) 500 Mg Tab 500 MG PO Q8HR Hypocalcemia #90 TAB Continued Medications: Acetaminophen (Acetaminophen) 325 Mg Tab 650 MG PO UNSCH PRN pain #90 TAB Calcitriol (Rocaltrol) 0.25 Mcg Cap 1 MCG PO DAILY calcium #31 CAP Calcium Acetate (Phosphate Bin (Calcium Acetate) 667 Mg Cap 2001 MG PO TID calcium #93 CAP Darunavir (Prezista) 800 Mg Tab 800 MG PO DAILY Mgmt Viral Infection #30 Ref 0 TAB Diphenhydramine (Benadryl Allergy) 25 Mg Tab 25 MG PO Q6H PRN ALLERGIES Ref 0 TAB Dolutegravir (Tivicay) 50 Mg Tab 50 MG PO DAILY Mgmt Viral Infection #30 Ref 0 TAB Etravirine (Intelence) 200 Mg Tab 200 MG PO BID Mgmt Viral Infection Ref 0 TAB Hydrocodone-Acetaminophen (Lortab) 5-325 Mg Tab 1-2 TAB PO Q6H PRN PAIN #12 TAB Megestrol Liq (Megace Liq) 40 Mg/Ml Susp 800 MG PO DAILY Improve Appetite Ref 0 ML Ondansetron (Zofran) 4 Mg Tab 4 MG PO Q6HR PRN NAUSEA OR VOMITING #90 Ref 0 TAB Orphenadrine ER 12 HR (Orphenadrine CR) 100 Mg Tab 100 MG PO Q12HR Muscle Spasm #10 TAB Ropinirole (Requip) 0.5 Mg Tab 0.5 MG PO TID #90 Ref 0 TAB Simone Madrigal MD April 01, 2017 9:04 am
[2017-04-01] MEDS: CALCIUM ACETATE 667 MG CAP PO SCH (09:05)
[2017-04-01] MEDS: ETRAVIRINE 100 MG TAB PO SCH (09:06)
[2017-04-01] MEDS: ORPHENADRINE CITRATE 100 MG SUSTAINED RELEASE TAB PO SCH (09:08)
[2017-04-01] MEDS: SODIUM CHLORIDE 0.9% FLUSH 10 ML FLUSH IV FLUSH SCH (09:10)
--- NOTE | 2017-04-01 09:30 | HHI.FF ---
Face to Face Verification Diagnosis: (1) HIV (human immunodeficiency virus infection) (2) End stage renal disease on dialysis Home Health Nursing Order: Nursing assessment with vital signs I have seen patient Yoana Martinez on 04/01/17. My clinical findings support the need for the requested home health care services because: Ltd mobility - disease progression Limited ability to care for self I certify that my clinical findings support that this patient is homebound because: Unsteady gait/balance Unsafe to leave home unassisted Unable to use public transportation Simone Madrigal MD April 01, 2017 9:30 am
[2017-04-01 09:43] VITALS: O2SAT 96
[2017-04-01 10:45] VITALS: RESP 16
== END 2017-04-01 11:21 | disposition home health service (06) | DRG 977 ==
LOC: PHED 09:32 → PHEDA 11:52 → PH3A 12:56
PROVIDERS: ADMIT Hospitalist; ATTEND Hospitalist
PROC: 5A1D00Z (ICD-10-PCS; principal; 2017-03-31)
DX: B20 Human immunodeficiency virus [HIV] disease (principal); N18.6 End stage renal disease; I12.0 Hypertensive chronic kidney disease with stage 5 chronic kidney disease or end stage renal disease; E87.5 Hyperkalemia; E83.51 Hypocalcemia; J45.909 Unspecified asthma, uncomplicated; M62.81 Muscle weakness (generalized); E87.70 Fluid overload, unspecified; F17.200 Nicotine dependence, unspecified, uncomplicated; Z88.2 Allergy status to sulfonamides; Z91.15 Patient's noncompliance with renal dialysis; Z99.2 Dependence on renal dialysis
CPT/HCPCS: 80053; 82550; 83735; 83970; 84100; 85025; 90935; 93005; 94664; 96372; 96374; 96375; J0610; J1815; J2405; J7613

== ENCOUNTER → 2017-05-06 | Outpatient (CLI) | payer MEDICARE, OTHER ==
[~2017-05-06] MED LIST changes: +OYST500T11 PO
[2017-05-06 13:32] LABS: AUTOMATED NEUTROPHIL # 1.1 TH/MM3 (1.8-7.7); BASOPHIL % 0.6 % (0.0-2.0); EOSINOPHIL % 1.2 % (0.0-4.0); HEMATOCRIT 35.9 % (35.0-46.0); LYMPHOCYTE # 1.2 TH/MM3 (1.0-4.8); MEAN CELL VOLUME 88.2 FL (80.0-100.0); MEAN CORPUSCULAR HEMOGLOBIN 27.8 PG (27.0-34.0); MEAN CORPUSCULAR HGB CONC 31.5 % (32.0-36.0); MONO % 9.9 % (0.0-8.0); NEUT % 41.3 % (16.0-70.0); PLATELET COUNT 82 TH/MM3 (150-450); RED BLOOD COUNT 4.07 MIL/MM3 (4.00-5.30); RED CELL DISTRIBUTION WIDTH 15.1 % (11.6-17.2); WHITE BLOOD COUNT 2.7 TH/MM3 (4.0-11.0)
[2017-05-06 13:42] LABS: HEMO FLAGS AUTO DIFF
[2017-05-06 14:19] LABS: BANDS 10 % (0-6); NEUTROPHIL # MANUAL DIFF 1.1 TH/MM3 (1.8-7.7); POLYS (SEG NEUTROPHILS) 29 % (16-70); WBC DIFF SAMPLE 100
[2017-05-06 14:24] LABS: OVALOCYTES 1+ (NORMAL); PLATELET ESTIMATE SMEAR LOW (NORMAL)
[2017-05-06 14:30] LABS: PLATELET MORPHOLOGY HYPOGRAN (NORMAL); SCAN/DIFF FINAL DIFF MANUAL
[2017-05-06 14:57] LABS: BICARBONATE 18.1 MEQ/L (21.0-32.0); POTASSIUM 4.6 MEQ/L (3.5-5.1); TOTAL BILIRUBIN ADULT 0.2 MG/DL (0.2-1.0)
[2017-05-06 15:08] LABS: CALCIUM-PROTEIN CORRECTED 5.7 MG/DL (8.5-10.1)
[2017-05-07 23:53] LABS: CD4/CD8 RATIO 0.3 (0.86-5.00)
[2017-05-08 13:51] LABS: HIV RNA LOG COPIES 5.23 (())
== END ==
LOC: CLAB 12:48
PROVIDERS: ATTEND Internal Medicine
DX: B20 Human immunodeficiency virus [HIV] disease (principal)
CPT/HCPCS: 36415; 80053; 85007; 85027; 86355; 86357; 86359; 86360; 86592; 87536

== ENCOUNTER 2017-05-11 15:02 | Emergency (ER) | payer MEDICARE, OTHER ==
[~2017-05-11] VITALS: Ht 167.6 cm; Wt 74.2 kg
[2017-05-11 15:06] VITALS: BP 147/96; PULSE 71; RESP 16; TEMP 98.3; O2SAT 99
[2017-05-11 15:31] VITALS: O2SAT 97
[2017-05-11 15:47] LABS: POTASSIUM 4.9 MEQ/L (3.5-5.1)
[2017-05-11 15:51] LABS: APTT (PATIENT) 28.6 SEC (24.3-30.1); INTERNATIONAL NORMALIZED RATIO 0.9 RATIO; PROTHROMBIN TIME - PATIENT 10.2 SEC (9.8-11.6)
[2017-05-11 15:52] LABS: AUTOMATED NEUTROPHIL # 1.4 TH/MM3 (1.8-7.7); BASOPHIL % 0.5 % (0.0-2.0); EOSINOPHIL # 0.1 TH/MM3 (0-0.4); EOSINOPHIL % 2.7 % (0.0-4.0); HEMATOCRIT 34.3 % (35.0-46.0); LYMPH % 58.5 % (9.0-44.0); LYMPHOCYTE # 2.7 TH/MM3 (1.0-4.8); MEAN CELL VOLUME 87.5 FL (80.0-100.0); MEAN CORPUSCULAR HEMOGLOBIN 28.3 PG (27.0-34.0); MEAN CORPUSCULAR HGB CONC 32.3 % (32.0-36.0); MONO % 6.9 % (0.0-8.0); NEUT % 31.4 % (16.0-70.0); PLATELET COUNT 60 TH/MM3 (150-450); RED BLOOD COUNT 3.92 MIL/MM3 (4.00-5.30); RED CELL DISTRIBUTION WIDTH 14.2 % (11.6-17.2); WHITE BLOOD COUNT 4.5 TH/MM3 (4.0-11.0)
[2017-05-11 15:54] LABS: HEMO FLAGS AUTO DIFF
[2017-05-11 15:55] LABS: BICARBONATE 21.1 MEQ/L (21.0-32.0)
[2017-05-11 16:01] LABS: TOTAL BILIRUBIN ADULT 0.3 MG/DL (0.2-1.0)
[2017-05-11 16:03] LABS: CALCIUM-PROTEIN CORRECTED 5.4 MG/DL (8.5-10.1)
--- NOTE | 2017-05-11 16:06 | PD ---
HPI Chief Complaint: General Weakness Time Seen by Provider: 15:16 Travel History International Travel<30 days: No Contact w/Intl Traveler<30days: No Traveled to known affect area: No History of Present Illness HPI PATIENT STATES THAT SHE IS A //THURSDAY DIALYSIS PATIENT....HOWEVER SHE MISSED SATURDAYS SESSION AND NOW COMES IN C/O GENERALIZED WEAKNESS, MILD SOB NO COUGH/N/V/D/ABDPAIN/CP/[place].... PFSH Past Medical History Hx Anticoagulant Therapy: No Arthritis: Yes Asthma: Yes Autoimmune Disease: Yes (HIV POSITIVE) Blood Disorders: No Heart Rhythm Problems: No Cancer: No Cardiac Catheterization: No Cardiovascular Problems: Yes (HTN) High Cholesterol: No Chest Pain: No Congestive Heart Failure: No COPD: No Cerebrovascular Accident: No Diabetes: No Dialysis: Yes (Thursday, and Thursday; fistula left arm,) Diminished Hearing: No Endocrine: No GERD: No Glaucoma: No Genitourinary: Yes Headaches: Yes Hepatitis: No Hiatal Hernia: No Heparin Induced Thrombocytopen: No Hypertension: No Immune Disorder: Yes Implanted Vascular Access Dvce: No (VAS CATH R CHEST REMOVED) Kidney Stones: No Medical other: Yes (HIV POS.) Musculoskeletal: No Neurologic: No Psychiatric: No Reproductive: No Respiratory: Yes (asthma) Myocardial Infarction: No Renal Failure: Yes Seizures: No Sleep Apnea: No Thyroid Disease: No Ulcer: No Tetanus Vaccination: > 5 Years Influenza Vaccination: Yes ?: Not : 5 Para: 5 Miscarriage: 0 : 0 Tubal Ligation: Yes Past Surgical History Abdominal Surgery: No AICD: No Body Medical Devices: L ARM AV FISTULA Cardiac Surgery: No Section: Yes Coronary Artery Bypass Graft: No Ear Surgery: No Endocrine Surgery: No Eye Surgery: No Genitourinary Surgery: No Gynecologic Surgery: Yes (C-SECT.) Joint Replacement: No Neurologic Surgery: No Pacemaker: No Thoracic Surgery: No Other Surgery: Yes (fistula for dialysis: left arm) Social History Alcohol Use: No Tobacco Use: Yes (RARE) Substance Use: Yes Allergies-Medications (Allergen,Severity, Reaction): Coded Allergies: Sulfa (Verified Allergy, Severe, Hives, 05/11/17) Reported Meds & Prescriptions Reported Meds & Active Scripts Active Oyster Shell Calcium (Oyster Shell) 500 Mg Tab 500 Mg PO Q8HR Orphenadrine CR (Orphenadrine Citrate) 100 Mg Tab 100 Mg PO Q12HR Lortab (Hydrocodone-Acetaminophen) 5-325 Mg Tab 1-2 Tab PO Q6H PRN Zofran (Ondansetron HCl) 4 Mg Tab 4 Mg PO Q6HR PRN Calcium Acetate (Calcium Acetate (Phosphate Bin) 667 Mg Cap 2,001 Mg PO TID Rocaltrol (Calcitriol) 0.25 Mcg Cap 1 Mcg PO DAILY Reported Requip (Ropinirole HCl) 0.5 Mg Tab 0.5 Mg PO TID Megace Liq (Megestrol Acetate) 40 Mg/Ml Susp 800 Mg PO DAILY Tivicay (Dolutegravir Sodium) 50 Mg Tab 50 Mg PO DAILY Prezista (Darunavir) 800 Mg Tab 800 Mg PO DAILY Intelence (Etravirine) 200 Mg Tab 200 Mg PO BID Review of Systems Except as stated in HPI: all other systems reviewed are Neg Respiratory: Positive: Shortness of Breath Physical Exam Narrative GENERAL: SKIN: Warm and dry. HEAD: Atraumatic. Normocephalic. EYES: Pupils equal and round. No scleral icterus. No injection or drainage. ENT: No nasal bleeding or discharge. Mucous membranes pink and moist. NECK: Trachea midline. No JVD. RN UNABLE TO PLACE PERIPHERAL LINE ON LEFT ARM ( RIGHT ARM HAS AV FISTULA WHICH IS FUNCTIONAL). CARDIOVASCULAR: Regular rate and rhythm. RESPIRATORY: No accessory muscle use. Clear to auscultation. Breath sounds equal bilaterally. GASTROINTESTINAL: Abdomen soft, non-tender, nondistended. Hepatic and splenic margins not palpable. MUSCULOSKELETAL: Extremities without clubbing, cyanosis, or edema. No obvious deformities. NEUROLOGICAL: Awake and alert. No obvious cranial nerve deficits. Motor grossly within normal limits. Five out of 5 muscle strength in the arms and legs. Normal speech. PSYCHIATRIC: Appropriate mood and affect; insight and judgment normal. Data Data Last Documented VS Vital Signs Date Time Temp Pulse Resp B/P Pulse Ox O2 Delivery O2 Flow Rate FiO2 05/11/17 15:31 Room Air 05/11/17 15:31 97 05/11/17 15:06 98.3 71 16 147/96 Orders Complete Blood Count With Diff (05/11/17 15:17) Comprehensive Metabolic Panel (05/11/17 15:17) B-Type Natriuretic Peptide (05/11/17 15:17) Act Partial Throm Time (Ptt) (05/11/17 15:17) Prothrombin Time / Inr (Pt) (05/11/17 15:17) Ckmb (Isoenzyme) Profile (05/11/17 15:17) Troponin I (05/11/17 15:17) Iv Access Insert/Monitor (05/11/17 15:17) Electrocardiogram (05/11/17 15:17) Ecg Monitoring (05/11/17 15:17) Oximetry (05/11/17 15:17) Oxygen Administration (05/11/17 15:17) Chest, Single Ap (05/11/17 15:17) CKMB (05/11/17 15:30) CKMB% (05/11/17 15:30) Labs Laboratory Tests Test 05/11/17 15:30 White Blood Count 4.5 TH/MM3 Red Blood Count 3.92 MIL/MM3 Hemoglobin 11.1 GM/DL Hematocrit 34.3 % Mean Corpuscular Volume 87.5 FL Mean Corpuscular Hemoglobin 28.3 PG Mean Corpuscular Hemoglobin 32.3 % Concent Red Cell Distribution Width 14.2 % Platelet Count 60 TH/MM3 Mean Platelet Volume 9.6 FL Neutrophils (%) (Auto) 31.4 % Lymphocytes (%) (Auto) 58.5 % Monocytes (%) (Auto) 6.9 % Eosinophils (%) (Auto) 2.7 % Basophils (%) (Auto) 0.5 % Neutrophils # (Auto) 1.4 TH/MM3 Lymphocytes # (Auto) 2.7 TH/MM3 Monocytes # (Auto) 0.3 TH/MM3 Eosinophils # (Auto) 0.1 TH/MM3 Basophils # (Auto) 0.0 TH/MM3 CBC Comment AUTO DIFF Prothrombin Time 10.2 SEC Prothromb Time International 0.9 RATIO Ratio Activated Partial 28.6 SEC Thromboplast Time Sodium Level 139 MEQ/L Potassium Level 4.9 MEQ/L Chloride Level 104 MEQ/L Carbon Dioxide Level 21.1 MEQ/L Anion Gap 14 MEQ/L Blood Urea Nitrogen 90 MG/DL Creatinine 16.00 MG/DL Estimat Glomerular Filtration 3 ML/MIN Rate Random Glucose 69 MG/DL Calcium Level 5.7 MG/DL Protein Corrected Calcium 5.4 MG/DL Total Bilirubin 0.3 MG/DL Aspartate Amino Transf 20 U/L (AST/SGOT) Alanine Aminotransferase 19 U/L (ALT/SGPT) Alkaline Phosphatase 79 U/L Total Creatine Kinase 277 U/L Creatine Kinase MB 1.9 NG/ML Creatine Kinase MB % 0.7 % Troponin I 0.02 NG/ML B-Type Natriuretic Peptide 315 PG/ML Total Protein 8.1 GM/DL Albumin 3.2 GM/DL MDM Medical Decision Making Medical Screen Exam Complete: Yes Emergency Medical Condition: Yes Medical Record Reviewed: Yes Interpretation(s) NSR 71, NO PEAKED T WAVES, NL INTERVALS, P MITRALE, LVH PATTERN, NO STEMI PATTERN NOTED Differential Diagnosis PNA V PULM EDEMA V CHF OR RENAL FAILURE V ELECTROLYTE ABNL Narrative Course PATIENT'S LABS ABNORMAL FOR HYPOCALCEMIA REPLACEMENT ORDERED...PATIENT IN NO RESPIRATORY DISTRESS WITH NORMAL PULSE OX 96 OR BETTER WITHOUT SUPPLEMENTAL OXYGEN AND CXR DID NOT SHOW E/O PULM EDEMA..... BUN/CREATININE ELEV EXPECTED BUT NO HYPERKALEMIA. DECISION TO D/C HOME AFTER CALCIUM REPLACEMENT ORDERS COMPLETED. PATIENT IS STABLE TO OBTAIN DIALYSIS AN OUTPATIENT, NO INDICATIONS FOR EMERGENT DIALYSIS PRESENT TODAY. Diagnosis Primary Impression: Hypocalcemia Disposition: DISCHARGE HOME Condition: Stable Roe Trevino MD May 11, 2017 16:06
--- NOTE | 2017-05-11 16:09 | RADRPT ---
EXAM DATE/TIME: 05/11/2017 15:37 [facility] COMPARISON: CHEST SINGLE AP, January 14, 2017, 12:11. INDICATIONS : Shortness of breath. MEDICAL HISTORY : None. SURGICAL HISTORY : None. ENCOUNTER: Initial ACUITY: 1 day PAIN SCORE: 0/10 LOCATION: Bilateral chest FINDINGS: A single view of the chest demonstrates the lungs to be symmetrically aerated without evidence of mas s, infiltrate or effusion. The cardiomediastinal contours are unremarkable. Osseous structures are intact. CONCLUSION: No acute disease. Micah Vincent MD FACR on May 11, 2017 at 16:07 Board Certified Radiologist. This report was verified electronically.
[2017-05-11 16:18] LABS: CKMB 1.9 NG/ML (0.5-3.6)
[2017-05-11 16:30] LABS: PLATELET ESTIMATE SMEAR LOW (NORMAL); PLATELET MORPHOLOGY NORMAL (NORMAL); SCAN/DIFF AUTO DIFF CONFIRMED
[2017-05-11] MEDS ORDERED: CALCIUM CARBONATE 1.25 GM (CA 500 MG) TAB PO ONE (16:30)
[2017-05-11] MEDS ORDERED: CALCIUM GLUCONATE 10% 1 GM/10 ML VIAL IV PUSH ONE (16:30)
[2017-05-11 17:03] VITALS: BP 177/103; PULSE 77; RESP 14; O2SAT 100
[2017-05-11] MEDS ORDERED: KETOROLAC TROMETHAMINE 30 MG/ML (IVP) VIAL IV PUSH ONE (17:15)
[2017-05-11] MEDS ORDERED: CALCIUM GLUCONATE INJ 1 GM in DEXTROSE 5% IN WATER 100ML INJ 100 ML IV ONE ×2 (17:30)
[2017-05-11 18:46] VITALS: BP 130/97
--- NOTE | 2017-05-12 13:25 | EKG ---
Date Performed: 05/11/2017 Time Performed: 15:46:29 PTAGE: 41 years EKG: Sinus rhythm NORMAL ECG INTERPRETATION BASED ON A DEFAULT AGE OF 42 YEARS NO PREVIOUS TRACING DOCTOR: Jaison Gomez Interpretating Date/Time 05/12/2017 13:19:13
== END 2017-05-11 18:53 | disposition home or self-care (01) ==
LOC: PHED 15:02
DX: E83.51 Hypocalcemia (principal); R06.02 Shortness of breath; I12.9 Hypertensive chronic kidney disease with stage 1 through stage 4 chronic kidney disease, or unspecified chronic kidney disease; N18.9 Chronic kidney disease, unspecified; Z99.2 Dependence on renal dialysis; B20 Human immunodeficiency virus [HIV] disease; J45.909 Unspecified asthma, uncomplicated
CPT/HCPCS: 71010; 80053; 82550; 82552; 83880; 84484; 85025; 85610; 85730; 93005; 96365; 96375; 99285; J0610; J1885

== ENCOUNTER 2017-09-28 13:23 | Observation (INO) | payer MEDICARE, OTHER ==
[~2017-09-28] VITALS: Ht 167.6 cm; Wt 75.0 kg
[2017-09-28] VITALS (10 sets, daily range): BP systolic 131–182; BP diastolic 83–107; PULSE 77–91; RESP 15–23; TEMP 97.6–98.5; O2SAT 98–100
[~2017-09-28 13:23] MED LIST changes: -ACET325T PO; -BENA25TA3 PO; -DARU800T PO; +DARU800T2 PO; -INTE200T PO; +INTE200T2 PO; +ORPH100T2 PO; -ORPH100T99 PO
--- NOTE | 2017-09-28 13:43 | PD ---
HPI Chief Complaint: Chest Pain Time Seen by Provider: 13:32 Travel History International Travel<30 days: No Contact w/Intl Traveler<30days: No Traveled to known affect area: No History of Present Illness HPI PATIENT DEVELOPED CHEST PAIN DURING DIALYSIS, ONLY COMPLETED SNF THROUGH IT. CP, SUBSTERNAL, PRESSURE, NONRAD, 05/18...RELIEVED WITH NTG SLX2 BY EMS WHO ALSO GAVE ASA 162 LAB ASSISTANT. PFSH Past Medical History Hx Anticoagulant Therapy: No Arthritis: Yes Asthma: Yes Autoimmune Disease: Yes (HIV POSITIVE) Blood Disorders: No Heart Rhythm Problems: No Cancer: No Cardiac Catheterization: No Cardiovascular Problems: Yes (HTN ) High Cholesterol: No Chest Pain: No Congestive Heart Failure: No COPD: No Cerebrovascular Accident: No Diabetes: No Dialysis: Yes (Thursday, and Thursday; fistula left arm,) Diminished Hearing: No Endocrine: No GERD: No Glaucoma: No Genitourinary: Yes Headaches: Yes Hepatitis: No Hiatal Hernia: No Heparin Induced Thrombocytopen: No Hypertension: No Immune Disorder: Yes Implanted Vascular Access Dvce: No (VAS CATH R CHEST REMOVED) Kidney Stones: No Musculoskeletal: No Neurologic: No Psychiatric: No Reproductive: No Respiratory: Yes (asthma) Myocardial Infarction: No Renal Failure: Yes Seizures: No Sleep Apnea: No Thyroid Disease: No Ulcer: No ?: Not : 5 Para: 5 Miscarriage: 0 : 0 Tubal Ligation: Yes Past Surgical History Abdominal Surgery: No AICD: No Body Medical Devices: L ARM AV FISTULA Cardiac Surgery: No Section: Yes Coronary Artery Bypass Graft: No Ear Surgery: No Endocrine Surgery: No Eye Surgery: No Genitourinary Surgery: No Gynecologic Surgery: Yes (C-SECT.) Joint Replacement: No Neurologic Surgery: No Pacemaker: No Thoracic Surgery: No Other Surgery: Yes (fistula for dialysis: left arm) Social History Alcohol Use: No Tobacco Use: Yes (RARE) Substance Use: Yes Allergies-Medications (Allergen,Severity, Reaction): Coded Allergies: Sulfa (Sulfonamide Antibiotics) (Unverified Allergy, Severe, Hives, ) Reported Meds & Prescriptions Reported Meds & Active Scripts Active Oyster Shell Calcium (Oyster Shell) 500 Mg Tab 500 Mg PO Q8HR Calcium Acetate (Calcium Acetate (Phosphate Bin) 667 Mg Cap 2,001 Mg PO TID Rocaltrol (Calcitriol) 0.25 Mcg Cap 1 Mcg PO DAILY Reported Lorcet Hd 10-325 mg (Hydrocodone-Acetaminophen) 10 Mg-325 Mg Tab 1 Tab PO Q6H PRN Requip (Ropinirole HCl) 0.5 Mg Tab 0.5 Mg PO TID Tivicay (Dolutegravir Sodium) 50 Mg Tab 50 Mg PO DAILY Prezista (Darunavir) 800 Mg Tab 800 Mg PO DAILY Intelence (Etravirine) 200 Mg Tab 200 Mg PO BID Review of Systems General / Constitutional: No: Fever Eyes: No: Visual changes HENT: No: Headaches Cardiovascular: Positive: Chest Pain or Discomfort Respiratory: No: Shortness of Breath Gastrointestinal: No: Abdominal Pain Genitourinary: No: Dysuria Musculoskeletal: No: Pain Skin: No Rash Neurologic: No: Weakness Psychiatric: No: Depression Endocrine: No: Polydipsia Hematologic/Lymphatic: No: Easy Bruising Physical Exam Narrative GENERAL: SKIN: Warm and dry.....FISTULA ON LEFT UE HEAD: Atraumatic. Normocephalic. EYES: Pupils equal and round. No scleral icterus. No injection or drainage. ENT: No nasal bleeding or discharge. Mucous membranes pink and moist. NECK: Trachea midline. No JVD. CARDIOVASCULAR: Regular rate and rhythm. RESPIRATORY: No accessory muscle use. Clear to auscultation. Breath sounds equal bilaterally. GASTROINTESTINAL: Abdomen soft, non-tender, nondistended. MUSCULOSKELETAL: Extremities without clubbing, cyanosis, or edema. No obvious deformities. NEUROLOGICAL: Awake and alert. No obvious cranial nerve deficits. Motor grossly within normal limits. Five out of 5 muscle strength in the arms and legs. Normal speech. PSYCHIATRIC: Appropriate mood and affect; insight and judgment normal. Data Data Last Documented VS Vital Signs Date Time Temp Pulse Resp B/P (MAP) Pulse Ox O2 Delivery O2 Flow Rate FiO2 09/28/17 14:57 88 18 160/90 (113) 100 Room Air 09/28/17 13:35 2.00 09/28/17 13:31 98.5 Orders Orders Electrocardiogram (09/28/17 13:32) B-Type Natriuretic Peptide (09/28/17 13:32) Ckmb (Isoenzyme) Profile (09/28/17 13:32) Complete Blood Count With Diff (09/28/17 13:32) Comprehensive Metabolic Panel (09/28/17 13:32) Prothrombin Time / Inr (Pt) (09/28/17 13:32) Act Partial Throm Time (Ptt) (09/28/17 13:32) Troponin I (09/28/17 13:32) Lipase (09/28/17 13:32) Chest, Single Ap (09/28/17 13:32) Ecg Monitoring (09/28/17 13:32) Bilateral Bp Monitoring (09/28/17 13:32) Iv Access Insert/Monitor (09/28/17 13:32) Oximetry (09/28/17 13:32) Oxygen Administration (09/28/17 13:32) Sodium Chloride 0.9% Flush (Ns Flush) (09/28/17 13:45) Influenzae A/B Antigen (09/28/17 13:38) Morphine Inj (Morphine Inj) (09/28/17 13:45) Nitroglycerin 2% Oint (Nitroglycerin 2% (09/28/17 13:45) Hydralazine Inj (Apresoline Inj) (09/28/17 13:45) Admit Order (Ed Use Only) (09/28/17 14:57) Labs Laboratory Tests Test 09/28/17 13:45 White Blood Count 3.1 TH/MM3 Red Blood Count 3.81 MIL/MM3 Hemoglobin 10.9 GM/DL Hematocrit 33.9 % Mean Corpuscular Volume 88.9 FL Mean Corpuscular Hemoglobin 28.5 PG Mean Corpuscular Hemoglobin Concent 32.1 % Red Cell Distribution Width 14.6 % Platelet Count 131 TH/MM3 Mean Platelet Volume 8.9 FL Neutrophils (%) (Auto) 44.2 % Lymphocytes (%) (Auto) 41.9 % Monocytes (%) (Auto) 9.5 % Eosinophils (%) (Auto) 3.6 % Basophils (%) (Auto) 0.8 % Neutrophils # (Auto) 1.4 TH/MM3 Lymphocytes # (Auto) 1.3 TH/MM3 Monocytes # (Auto) 0.3 TH/MM3 Eosinophils # (Auto) 0.1 TH/MM3 Basophils # (Auto) 0.0 TH/MM3 CBC Comment DIFF FINAL Differential Comment Prothrombin Time 10.1 SEC Prothromb Time International Ratio 0.9 RATIO Activated Partial Thromboplast Time 27.1 SEC Blood Urea Nitrogen 17 MG/DL Creatinine 5.80 MG/DL Random Glucose 93 MG/DL Total Protein 7.4 GM/DL Albumin 3.1 GM/DL Calcium Level 7.5 MG/DL Alkaline Phosphatase 55 U/L Aspartate Amino Transf (AST/SGOT) 19 U/L Alanine Aminotransferase (ALT/SGPT) 12 U/L Total Bilirubin 0.2 MG/DL Sodium Level 141 MEQ/L Potassium Level 3.2 MEQ/L Chloride Level 101 MEQ/L Carbon Dioxide Level 32.4 MEQ/L Anion Gap 8 MEQ/L Estimat Glomerular Filtration Rate 10 ML/MIN Total Creatine Kinase 72 U/L Troponin I LESS THAN 0.02 NG/ML B-Type Natriuretic Peptide 118 PG/ML Lipase 159 U/L MDM Medical Decision Making Medical Screen Exam Complete: Yes Emergency Medical Condition: Yes Medical Record Reviewed: Yes Interpretation(s) NSR 81, NL INTERVALS, INFERIOR ST DEPRESSION, NO STEMI PATTERN Differential Diagnosis PNA V FLU V PTX V STEMI V NONSTEMI Narrative Course patient cxr neg for pna/ptx, flu neg, ekg neg for stemi however c/w acs, so i believe it prudent to admit to chest pain center for further care and evaluation Diagnosis Primary Impression: chest pain r/o mi Admitting Information Admitting Physician Requests: Observation Scripts Amlodipine (Amlodipine) 5 Mg Tab 5 MG PO DAILY for Blood Pressure Management, #30 TAB 0 Refills Prov: Bebo Kim 09/29/17 Roe Trevino MD Sep 28, 2017 13:43
[2017-09-28] MEDS ORDERED: NITROGLYCERIN 2% OINT 1 GM PACKET TOP ONE (13:45)
[2017-09-28] MEDS ORDERED: hydrALAZINE HCL 20 MG/ML VIAL IV PUSH ONE (13:45)
[2017-09-28] MEDS ORDERED: MORPHINE SULFATE 4 MG/ML INJ IV PUSH ONE (13:45)
[2017-09-28] MEDS ORDERED: SODIUM CHLORIDE 0.9% FLUSH 10 ML FLUSH IVF PRN (13:45)
[2017-09-28 14:23] LABS: AUTOMATED NEUTROPHIL # 1.4 TH/MM3 (1.8-7.7); BASOPHIL % 0.8 % (0.0-2.0); EOSINOPHIL # 0.1 TH/MM3 (0-0.4); EOSINOPHIL % 3.6 % (0.0-4.0); HEMATOCRIT 33.9 % (35.0-46.0); HEMO FLAGS DIFF FINAL; LYMPH % 41.9 % (9.0-44.0); LYMPHOCYTE # 1.3 TH/MM3 (1.0-4.8); MEAN CELL VOLUME 88.9 FL (80.0-100.0); MEAN CORPUSCULAR HEMOGLOBIN 28.5 PG (27.0-34.0); MEAN CORPUSCULAR HGB CONC 32.1 % (32.0-36.0); MONO % 9.5 % (0.0-8.0); NEUT % 44.2 % (16.0-70.0); PLATELET COUNT 131 TH/MM3 (150-450); RED BLOOD COUNT 3.81 MIL/MM3 (4.00-5.30); RED CELL DISTRIBUTION WIDTH 14.6 % (11.6-17.2); WHITE BLOOD COUNT 3.1 TH/MM3 (4.0-11.0)
--- NOTE | 2017-09-28 14:27 | RADRPT ---
EXAM DATE/TIME: 09/28/2017 13:56 [facility] COMPARISON: CHEST SINGLE AP, May 11, 2017, 15:37. INDICATIONS : Chest pain with some shortness of breath. MEDICAL HISTORY : HIV. AsthmaHypertension. Gastroesophageal reflux disease. renal failure, dialysis, asthma SURGICAL HISTORY : Tubal ligation. section. ENCOUNTER: Initial ACUITY: 3 days PAIN SCORE: 5/10 LOCATION: mid chest pain FINDINGS: Portable AP view of the chest demonstrates a normal-sized cardiac silhouette. No effusion, consolidat ion, or pneumothorax is visualized. The bones and soft tissues demonstrate no acute abnormality. CONCLUSION: No acute cardiopulmonary abnormality is identified. Phi Mott MD on September 28, 2017 at 14:25 Board Certified Radiologist. This report was verified electronically.
[2017-09-28 14:41] LABS: PROTHROMBIN TIME - PATIENT 10.1 SEC (9.8-11.6)
[2017-09-28 14:44] LABS: APTT (PATIENT) 27.1 SEC (24.3-30.1); INTERNATIONAL NORMALIZED RATIO 0.9 RATIO
[2017-09-28 14:55] LABS: ALKALINE PHOSPHATASE 55 U/L (45-117); ALT (GPT) 12 U/L (10-53); ANION GAP 8 MEQ/L (5-15); AST (GOT) 19 U/L (15-37); BICARBONATE 32.4 MEQ/L (21.0-32.0); BLOOD UREA NITROGEN 17 MG/DL (7-18); CHLORIDE 101 MEQ/L (98-107); CREATINE KINASE 72 U/L (26-192); GLOMERULAR FILTRATION RATE 10 ML/MIN (>89); POTASSIUM 3.2 MEQ/L (3.5-5.1); SODIUM (NA) 141 MEQ/L (136-145); TOTAL BILIRUBIN ADULT 0.2 MG/DL (0.2-1.0)
[2017-09-28] MEDS ORDERED: HYDR-3578 PO (14:56)
[2017-09-28] MEDS ORDERED: NITROGLYCERIN 0.4 MG SL 25 TABS/BTL SL PRN (15:30)
[2017-09-28] MEDS ORDERED: ACETAMINOPHEN 500 MG CPLT PO PRN (15:30)
[2017-09-28] MEDS ORDERED: ONDANSETRON HCL 4 MG/2 ML VIAL IV PUSH PRN (15:30)
--- NOTE | 2017-09-28 16:55 | HHI.HP ---
HPI Primary Care Physician Primary Care Physician Chief Complaint Dyspnea History of Present Illness 42-year-old female with history of end-stage renal disease, HIV positive, and hypertension (currently not taking BP meds) presents to emergency room for further evaluation of chest pain. Onset this afternoon while at dialysis. Reports she was sleeping when she was abruptly awakened with dyspnea and chest pain. Location substernal. Characterized tightness. No radiation of pain. Severity 8/10. Duration 10 minutes stating discomfort gradually went away. No radiation of pain. No known precipitating or relieving factors. Denies any similar pain in the past. Reports completed half of dialysis. Dialysis days generally Thursday, , and Thursday-dialysis completed today due to holiday week. Review of Systems General: No fatigue,weakness, fever, chills, recent illness, or change in appetite. Has been her general state of health. Dialysis Thursday, , and Thursday. Endorses compliance with antivirals. She quit taking lisinopril 2 months ago due to ill effects, reporting she notified her shop cooper of stopping BP med. Reports most recent viral load and CD4 counts normal, follows closely with her infectious disease MD. HEENT: No [place] CV: As stated above. Denies any chest pain or pressure. No palpitations or dizziness RESP: No SOB, cough, wheeze, or recent URI. GI: No nausea, vomiting, or bowel changes. No unintentional weight gain or weight loss. : No dysuria, urgency, frequency, continues to make urine. EXT: No lower leg edema, no paraesthesias, ambulated independently, uses a wheeled walker on dialysis days. MS: No discomfort or change in ROM NEURO: No difficulty with balance, LOC, motor/sensory deficits PSYCH: No anxiety, depression, recurrent situational stress. SKIN: No rashes, no concerning lesions Past Family Social History Allergies: Coded Allergies: Sulfa (Sulfonamide Antibiotics) (Unverified Allergy, Severe, Hives, ) Past Medical History End-stage renal disease, dialysis Thursday, , Thursday, asthma, hypertension, HIV positive Past Surgical History Left arm AV fistula, Reported Medications Reported Meds & Active Scripts Active Oyster Shell Calcium (Oyster Shell) 500 Mg Tab 500 Mg PO Q8HR Calcium Acetate (Calcium Acetate (Phosphate Bin) 667 Mg Cap 2,001 Mg PO TID Rocaltrol (Calcitriol) 0.25 Mcg Cap 1 Mcg PO DAILY Lorcet Hd 10-325 mg (Hydrocodone-Acetaminophen) 10 Mg-325 Mg Tab 1 Tab PO Q6H PRN Requip (Ropinirole HCl) 0.5 Mg Tab 0.5 Mg PO TID Tivicay (Dolutegravir Sodium) 50 Mg Tab 50 Mg PO DAILY Prezista (Darunavir) 800 Mg Tab 800 Mg PO DAILY Intelence (Etravirine) 200 Mg Tab 200 Mg PO BID Active Ordered Medications Current Medications Medications (Trade) Dose Ordered Sig/Alvaro Route Start Time Stop Time Status Last Admin (NS Flush) 2 ml UNSCH PRN IVF 09/28/17 13:45 09/28/17 14:47 (NS Flush) 2 ml BID IV FLUSH 09/28/17 21:00 (Tylenol) 500 mg Q4H PRN PO 09/28/17 15:30 (Zofran Inj) 4 mg Q6H PRN IV PUSH 09/28/17 15:30 (Nitrostat Sl) 0.4 mg Q5M PRN SL 09/28/17 15:30 (Aspirin) 325 mg DAILY PO 09/29/17 09:00 Family History Noncontributory for early onset cardiovascular disease. Social History Known hypertension. No known diabetes or hyperlipidemia. Current smoker 4 cigarettes/daily. Denies any alcohol use. Endorses a sedentary lifestyle Past cardiac testing None Physical Exam Vital Signs Vital Signs Date Time Temp Pulse Resp B/P (MAP) Pulse Ox O2 Delivery O2 Flow Rate FiO2 09/28/17 16:12 97.6 91 20 158/86 (110) 100 09/28/17 15:45 90 23 131/99 (110) 100 Room Air 09/28/17 14:57 88 18 160/90 (113) 100 Room Air 09/28/17 14:00 90 17 168/100 (122) 100 Room Air 09/28/17 13:35 100 Nasal Cannula 2.00 09/28/17 13:32 100 Room Air 09/28/17 13:31 77 15 182/107 (132) 100 Room Air 09/28/17 13:31 98.5 79 15 182/107 (132) 100 Physical Exam GENERAL: Alert WN, WD, NAD, pleasant, ill appearing female HEAD: NC, AT EYES: Sclera clear, conjunctiva without injection, pupils equal and round ENT: Mucous membranes pink and moist NECK: Supple, no masses, trachea midline CV: RRR, without murmur, rub, gallop, no JVD, S1-S2 no S3-S4. Left AV fistula + bruit +thrill. Chest wall nontender with palpation. RESP: Clear lungs throughout bilateral, no crackles, wheeze, rhonchi, symmetrical chest rise, nonlabored, able to speak in full sentences ABD: Soft, NT, ND, no masses, positive bowel tones EXT: Pulses +24, no dependent edema MS: Normal tone 4 extremities, nontender, no obvious deformities, full range of motion NEURO: CN II through CN XII grossly intact, motor strength 5/5 PSYCH: A+O 3, pleasant affect, appropriate speech,mood, insight and judgment SKIN: Normal turgor, normal texture, no lesions, no rashes Laboratory Laboratory Tests Test 09/28/17 13:45 White Blood Count 3.1 Red Blood Count 3.81 Hemoglobin 10.9 Hematocrit 33.9 Mean Corpuscular Volume 88.9 Mean Corpuscular Hemoglobin 28.5 Mean Corpuscular Hemoglobin Concent 32.1 Red Cell Distribution Width 14.6 Platelet Count 131 Mean Platelet Volume 8.9 Neutrophils (%) (Auto) 44.2 Lymphocytes (%) (Auto) 41.9 Monocytes (%) (Auto) 9.5 Eosinophils (%) (Auto) 3.6 Basophils (%) (Auto) 0.8 Neutrophils # (Auto) 1.4 Lymphocytes # (Auto) 1.3 Monocytes # (Auto) 0.3 Eosinophils # (Auto) 0.1 Basophils # (Auto) 0.0 CBC Comment DIFF FINAL Differential Comment Prothrombin Time 10.1 Prothromb Time International Ratio 0.9 Activated Partial Thromboplast Time 27.1 Blood Urea Nitrogen 17 Creatinine 5.80 Random Glucose 93 Total Protein 7.4 Albumin 3.1 Calcium Level 7.5 Alkaline Phosphatase 55 Aspartate Amino Transf (AST/SGOT) 19 Alanine Aminotransferase (ALT/SGPT) 12 Total Bilirubin 0.2 Sodium Level 141 Potassium Level 3.2 Chloride Level 101 Carbon Dioxide Level 32.4 Anion Gap 8 Estimat Glomerular Filtration Rate 10 Total Creatine Kinase 72 Troponin I LESS THAN 0.02 B-Type Natriuretic Peptide 118 Lipase 159 Date/Time Source Procedure Growth Status 09/28/17 13:51 Nasal Washing Influenza Types A,B Antigen (JACKLYN) - Final NEGATIVE FOR FLU A AND B ANTIGEN.... Complete Result Diagram: 09/28/17 1345 09/28/17 1345 Imaging Last Impressions Chest X-Ray 09/28/17 1332 Signed Impressions: Service Date/Time: Thursday, September 28, 2017 13:56 - CONCLUSION: No acute cardiopulmonary abnormality is identified. Phi Mott MD Course EKG , Sinus rhythm, normal axis no ST or T-segment changes Caprini VTE Risk Assessment Caprini VTE Risk Assessment: No/Low Risk (score <= 1) Caprini Risk Assessment Model Point Value = 1 Point Value = 2 Point Value = 3 Point Value = 5 Age 41-60 Minor surgery BMI > 25 kg/m2 Swollen legs Varicose veins or History of unexplained or recurrent spontaneous Oral contraceptives or hormone replacement Sepsis (< 1 month) Serious lung disease, including pneumonia (< 1 month) Abnormal pulmonary function Acute myocardial infarction Congestive heart failure (< 1 month) History of inflammatory bowel disease Medical patient at bed rest Age 61-74 Arthroscopic surgery Major open surgery (> 45 min) Laparoscopic surgery (> 45 min) Malignancy Confined to bed (> 72 hours) Immobilizing plaster cast Central venous access Age >= 75 History of VTE Family history of VTE Factor V Leiden Prothrombin [id number] Lupus anticoagulant Anticardiolipin antibodies Elevated serum homocysteine Heparin-induced thrombocytopenia Other congenital or acquired thrombophilia Stroke (< 1 month) Elective arthroplasty Hip, pelvis, or leg fracture Acute spinal cord injury (< 1 month) Prophylaxis Regimen Total Risk Factor Score Risk Level Prophylaxis Regimen 0-1 Low Early ambulation 2 Moderate Order ONE of the following: *Sequential Compression Device (SCD) *Heparin 5000 units SQ BID 3-4 Higher Order ONE of the following medications: *Heparin 5000 units SQ TID *Enoxaparin/Lovenox 40 mg SQ daily (WT < 150 kg, CrCl > 30 mL/min) *Enoxaparin/Lovenox 30 mg SQ daily (WT < 150 kg, CrCl > 10-29 mL/min) *Enoxaparin/Lovenox 30 mg SQ BID (WT < 150 kg, CrCl > 30 mL/min) AND/OR *Sequential Compression Device (SCD) 5 or more Highest Order ONE of the following medications: *Heparin 5000 units SQ TID (Preferred with Epidurals) *Enoxaparin/Lovenox 40 mg SQ daily (WT < 150 kg, CrCl > 30 mL/min) *Enoxaparin/Lovenox 30 mg SQ daily (WT < 150 kg, CrCl > 10-29 mL/min) *Enoxaparin/Lovenox 30 mg SQ BID (WT < 150 kg, CrCl > 30 mL/min) AND *Sequential Compression Device (SCD) Assessment and Plan Assessment and Plan #1 Atypical chest pain-admitted to chest pain center. Rule out with 3 sets of EKGs and cardiac enzymes. Monitor on telemetry overnight. Will be seen and evaluated by Dr. Mila Chicas in a.m. Discussed possible chemical stress in am, this will be determined after assessment by broaching machine set up operator. Patient agreeable plan of care. #2 [id number] antivirals. Notified by pharmacist, Araceli, patient should be also taking antiviral Norvair (Cobicistat) in combination with current antiviral regimen. Discussed in length with patient. Patient states her ID physician stopped this medication and aware she is not taking. Instructed her to follow up with infectious disease physician to clarify. Patient verbalizes understanding. #3 Hypertension-amlodipine 5 mg daily, discussed importance of tight blood pressure control, follow-up with shop cooper #4 End stage renal disease-continue calcium, vitamin D, and phosphate #5 Dyspnea-resolved, no acute findings, spo2 100% on Roomair, continue to monitor. Latasha Lobo Sep 28, 2017 16:55
[2017-09-28] MEDS: CALCIUM ACETATE 667 MG CAP PO SCH (17:37)
[2017-09-28] MEDS: amLODIPine BESYLATE 5 MG TAB PO SCH (17:37)
[2017-09-28 18:33] LABS: CREATINE KINASE 76 U/L (26-192)
[2017-09-28] MEDS: SODIUM CHLORIDE 0.9% FLUSH 10 ML FLUSH IV FLUSH SCH (19:35)
[2017-09-28] MEDS: ETRAVIRINE 100 MG TAB PO SCH (20:23)
[2017-09-28] MEDS: CALCIUM CARBONATE 1.25 GM (CA 500 MG) TAB PO SCH (20:24)
[2017-09-28 21:02] LABS: CREATINE KINASE 66 U/L (26-192)
[2017-09-28] MEDS ORDERED: traMADol HCL 50 MG TAB PO PRN (22:00)
[2017-09-29] VITALS (8 sets, daily range): BP systolic 141–208; BP diastolic 85–107; PULSE 72–96; RESP 16–17; TEMP 97.4–97.9; O2SAT 99–100
[2017-09-29] MEDS: CALCIUM CARBONATE 1.25 GM (CA 500 MG) TAB PO SCH (06:23)
--- NOTE | 2017-09-29 07:23 | EKG ---
Date Performed: 09/28/2017 Time Performed: 16:21:15 PTAGE: 42 years EKG: Sinus rhythm BORDERLINE RIGHT AXIS DEVIATION BORDERLINE ECG Since PREVIOUS TRACING , no significant change noted PREVIOUS TRACIN09/28/2017 13.36 DOCTOR: Mila Chicas Interpretating Date/Time 09/29/2017 07:23:19
--- NOTE | 2017-09-29 07:26 | EKG ---
Date Performed: 09/28/2017 Time Performed: 19:38:38 PTAGE: 42 years EKG: Sinus rhythm NORMAL ECG Since PREVIOUS TRACING , no significant change noted PREVIOUS TRACIN09/28/2017 16.21 DOCTOR: Mila Chicas Interpretating Date/Time 09/29/2017 07:24:55
--- NOTE | 2017-09-29 07:28 | EKG ---
Date Performed: 09/28/2017 Time Performed: 13:36:20 PTAGE: 42 years EKG: Sinus rhythm POSSIBLE LEFT ATRIAL ENLARGEMENT NONSPECIFIC T-WAVE ABNORMALITY BORDERLINE ECG Since PREVIOUS TRACING , now with nonspecific ST changes PREVIOUS TRACIN05/11/2017 15.46 DOCTOR: Mila Chicas Interpretating Date/Time 09/29/2017 07:27:43
[2017-09-29] MEDS ORDERED: ASPIRIN 325 MG TAB PO SCH (09:00)
[2017-09-29] MEDS ORDERED: CALCITRIOL 0.25 MCG CAP PO SCH (09:00)
[2017-09-29] MEDS: SODIUM CHLORIDE 0.9% FLUSH 10 ML FLUSH IV FLUSH SCH (09:00)
[2017-09-29] MEDS ORDERED: DARUNAVIR 800 MG TAB PO SCH (09:00)
[2017-09-29] MEDS ORDERED: REGADENOSON INJ 0.4 MG/5 ML SYR ONE (10:03)
[2017-09-29] MEDS ORDERED: AMINOPHYLLINE INJ 500 MG/20 ML VIAL ONE (10:20)
[2017-09-29] MEDS ORDERED: DOLUTEGRAVIR SODIUM 50 MG TAB PO SCH (11:00)
[2017-09-29] MEDS: CALCIUM ACETATE 667 MG CAP PO SCH ×2 (11:07→11:56)
[2017-09-29] MEDS: ETRAVIRINE 100 MG TAB PO SCH (11:08)
[2017-09-29] MEDS: amLODIPine BESYLATE 5 MG TAB PO SCH (11:08)
[2017-09-29] MEDS ORDERED: amLODIPine BESYLATE 5 MG TAB PO ONE (11:08)
--- NOTE | 2017-09-29 11:10 | RADRPT ---
EXAM DATE/TIME: 09/29/2017 09:25 [facility] COMPARISON: MYOCARDIAL PERF PHARM SPECT, GATED W/EF, May 08, 2015, 13:18. INDICATIONS : Substernal chest pain. Angina. DOSE: 25.9 mCi Tc99m Myoview at stress. 8.5 mCi Tc99m Myoview at rest. 0.4 mg Lexiscan STRESS SYMPTOMS: Nausea and vomiting. EJECTION FRACTION: > 70% MEDICAL HISTORY : Hypertension. HIV. SURGICAL HISTORY : Tubal ligation. section. ENCOUNTER: Initial ACUITY: 1 day PAIN SCALE: 7/10 LOCATION: Substernal chest TECHNIQUE: The patient underwent pharmacologic stress with infusion of prescribed dose. Continuous ECG tracing was monitored during stress. Gated SPECT imaging was performed after stress and conventional SPECT i maging was performed at rest. The examination was performed on a SPECT/CT scanner, both attenuation and non-corrected datasets were reviewed. FINDINGS: DISTRIBUTION: The maximum perfused segment at stress is in the inferior wall. PERFUSION STUDY: The pattern of perfusion at stress is within normal limits. GATED STUDY: There is intact wall motion and thickening without hypokinetic or dyskinetic segments. CONCLUSION: 1. Unremarkable myocardial perfusion scan. RISK CATEGORY: Low (<1% Annual Mortality Rate) Rufino Hastings MD on September 29, 2017 at 11:08 Board Certified Radiologist. This report was verified electronically.
[2017-09-29] MEDS ORDERED: AMLO5TAB2 PO (13:07)
--- NOTE | 2017-09-29 13:08 | HHI.DCPOC ---
Discharge Care Plan Diagnosis: (1) Chest pain (2) End stage renal disease on dialysis (3) Hypertension (4) Tobacco abuse Goals to Promote Your Health * To prevent worsening of your condition and complications * To maintain your health at the optimal level Directions to Meet Your Goals Take your medications as prescribed Follow your dietary instruction Follow activity as directed Keep your appointments as scheduled Take your immunizations and boosters as scheduled If your symptoms worsen call your PCP, if no PCP go to Urgent Care Center or Emergency Room Smoking is Dangerous to Your Health. Avoid second hand smoke Call the 24-hour hour crisis hotline for domestic abuse at Bebo Kim Sep 29, 2017 13:08
--- NOTE | 2017-09-29 16:54 | TR ---
Date Performed: 09/29/2017 Time Performed: 09:52:53 DOCTOR: Mila Chicas DRUG LIST: CLINICAL HISTORY: REASON FOR TEST: Angina REASON FOR ENDING: OBSERVATION: CONCLUSION: Lexiscan stress test was performed under standard four minute protocol. Radionuclid e was injected one minute prior to ending the test. No electrocardiographic abormalities were present to suggest ischemia. Nuclear imaging and interpretation are pending. COMMENTS:
== END 2017-09-29 13:45 | disposition home or self-care (01) ==
LOC: NEPE 13:23 → NEDA 15:00 → NEPGCP 16:08
PROVIDERS: ADMIT Internal Medicine Cardiovascular Disease; ATTEND Internal Medicine Cardiovascular Disease
DX: R07.89 Other chest pain (principal); I12.0 Hypertensive chronic kidney disease with stage 5 chronic kidney disease or end stage renal disease; N18.6 End stage renal disease; Z21 Asymptomatic human immunodeficiency virus [HIV] infection status; I20.9 Angina pectoris, unspecified; R06.02 Shortness of breath; R11.2 Nausea with vomiting, unspecified; J45.909 Unspecified asthma, uncomplicated; K21.9 Gastro-esophageal reflux disease without esophagitis; M19.90 Unspecified osteoarthritis, unspecified site; F17.210 Nicotine dependence, cigarettes, uncomplicated; Z99.2 Dependence on renal dialysis
CPT/HCPCS: 71010; 78452; 80053; 82550; 83690; 83880; 84484; 85025; 85610; 85730; 87804; 93005; 93017; 96374; 96375; 99285; A9502; G0378; J0280; J0360; J2270; J2405; J2785

== ENCOUNTER → 2017-10-05 | Outpatient (CLI) | payer MEDICARE, OTHER ==
[~2017-10-05] MED LIST changes: +AMLO5TAB2 PO; -HYDR-3533 PO; +HYDR-3578 PO; -MEGE40S PO; -ORPH100T2 PO; -ZOFR4TAB PO
[2017-10-05 10:10] LABS: AUTOMATED NEUTROPHIL # 2.9 TH/MM3 (1.8-7.7); BASOPHIL % 0.8 % (0.0-2.0); EOSINOPHIL # 0.1 TH/MM3 (0-0.4); EOSINOPHIL % 2.1 % (0.0-4.0); HEMATOCRIT 36.3 % (35.0-46.0); HEMO FLAGS DIFF FINAL; LYMPHOCYTE # 1.8 TH/MM3 (1.0-4.8); MEAN CELL VOLUME 89.5 FL (80.0-100.0); MEAN CORPUSCULAR HEMOGLOBIN 29.4 PG (27.0-34.0); MEAN CORPUSCULAR HGB CONC 32.9 % (32.0-36.0); MONO % 8.7 % (0.0-8.0); NEUT % 54.4 % (16.0-70.0); PLATELET COUNT 125 TH/MM3 (150-450); RED BLOOD COUNT 4.05 MIL/MM3 (4.00-5.30); RED CELL DISTRIBUTION WIDTH 14.7 % (11.6-17.2); WHITE BLOOD COUNT 5.2 TH/MM3 (4.0-11.0)
[2017-10-07 03:51] LABS: CD 19 PERCENT 6 % (6-29); CD3 ABSOLUTE 1218 (840-3060); CD4/CD8 RATIO 0.3 (0.86-5.00); CD8 ABSOLUTE 930 (180-1170); LYMPHOCYTES, ABSOLUTE 1550 (850-3900)
[2017-10-07 13:52] LABS: HIV RNA LOG COPIES 3.12 (<1.30)
[2017-10-08 18:55] LABS: ABACAVIR SUSC; ATAZANAVIR WITH RITONAVIR SUSC; DARUNAVIR WITH RITONAVIR SUSC; DIDANOSINE SUSC; EFAVIRENZ RESIST; EMTRICITABINE SUSC; ETRAVIRINE RESIST; FOSAMPRENAVIR WITH RITONAVIR SUSC; HIV-1 GENOTYPING INTERP; INDINAVIR WITH RITONAVIR SUSC; LAMIVUDINE SUSC; LOPINAVIR WITH RITONAVIR SUSC; NELFINAVIR SUSC; NEVIRAPINE RESIST; RILPIVIRINE RESIST; SAQUINAVIR WITH RITONAVIR SUSC; STAVUDINE SUSC; TENOFOVIR SUSC; TIPRANAVIR WITH RITONAVIR SUSC; ZIDOVUDINE SUSC
== END ==
LOC: CLAB 09:32
PROVIDERS: ATTEND Internal Medicine
DX: B20 Human immunodeficiency virus [HIV] disease (principal)
CPT/HCPCS: 36415; 85025; 86355; 86357; 86359; 86360; 86592; 87536; 87901

== ENCOUNTER 2017-11-19 13:12 | Emergency (ER) | payer MEDICARE, MEDICAID ==
[~2017-11-19] VITALS: Ht 167.6 cm; Wt 71.8 kg
[2017-11-19 13:14] VITALS: BP 136/91; PULSE 80; RESP 18; TEMP 98.5; O2SAT 100
--- NOTE | 2017-11-19 13:47 | RADRPT ---
EXAM DATE/TIME: 11/19/2017 13:31 [facility] COMPARISON: CHEST PA & LAT, January 11, 2017, 14:20. INDICATIONS : Cough MEDICAL HISTORY : Hypertension. HIV. SURGICAL HISTORY : Tubal ligation. section. ENCOUNTER: Initial ACUITY: 2 days PAIN SCORE: 0/10 LOCATION: chest FINDINGS: PA and lateral views of the chest demonstrate the lungs to be symmetrically aerated without evidence of mass, infiltrate or effusion. The cardiomediastinal contours are unremarkable. Osseous structure s are intact. CONCLUSION: No acute disease. There is no evidence of pneumonia. Kory Mandujano MD on November 19, 2017 at 13:44 Board Certified Radiologist. This report was verified electronically.
--- NOTE | 2017-11-19 14:15 | PD ---
HPI Chief Complaint: Cold / Flu Symptoms Time Seen by Provider: 14:06 Travel History International Travel<30 days: No Contact w/Intl Traveler<30days: No Traveled to known affect area: No History of Present Illness HPI 42-year-old female to history of HIV on antiretroviral therapy, end stage renal disease on hemodialysis TRS presents for evaluation. For 2 days she has had cough, congestion, sneezing, left ear pain. She reports that for the past day she has had bloody/sutures drainage from her left ear. Things are mild, no aggravating her leaving factors. She endorses myalgias and chills. She denies abdominal pain, nausea or vomiting. No sick contacts. No other complaints. PFSH Past Medical History Hx Anticoagulant Therapy: No Arthritis: Yes Asthma: Yes Autoimmune Disease: Yes (HIV POSITIVE) Blood Disorders: No Heart Rhythm Problems: No Cancer: No Cardiac Catheterization: No Cardiovascular Problems: Yes (HTN ) High Cholesterol: No Chest Pain: No Congestive Heart Failure: No COPD: No Cerebrovascular Accident: No Diabetes: No Dialysis: Yes (tues, th, sat , fistula left arm,) Diminished Hearing: No Endocrine: No GERD: Yes Glaucoma: No Genitourinary: Yes Headaches: Yes Hepatitis: No Hiatal Hernia: No Heparin Induced Thrombocytopen: No Hypertension: Yes Immune Disorder: Yes Kidney Stones: No Medical other: Yes (HIV POS.) Musculoskeletal: No Neurologic: No Psychiatric: No Reproductive: No Respiratory: Yes Immunizations Current: No Myocardial Infarction: No Renal Failure: Yes Seizures: No Sleep Apnea: No Thyroid Disease: No Ulcer: No ?: Not LMP: end october : 5 Para: 5 Miscarriage: 0 : 0 Tubal Ligation: Yes Past Surgical History Abdominal Surgery: No AICD: No Arteriovenous Shunt: Yes (L FOREARM ) Body Medical Devices: L ARM AV FISTULA Cardiac Surgery: No Section: Yes Coronary Artery Bypass Graft: No Ear Surgery: No Endocrine Surgery: No Eye Surgery: No Genitourinary Surgery: No Gynecologic Surgery: Yes (C-SECT.) Joint Replacement: No Neurologic Surgery: No Pacemaker: No Thoracic Surgery: No Other Surgery: Yes (fistula for dialysis: left arm) Family History Family Myocardial Infarction: No Social History Alcohol Use: No Tobacco Use: Yes (RARE) Substance Use: No Allergies-Medications (Allergen,Severity, Reaction): Coded Allergies: Sulfa (Sulfonamide Antibiotics) (Unverified Allergy, Severe, Hives, ) Reported Meds & Prescriptions Reported Meds & Active Scripts Active Ofloxacin Otic Drops 0.3 % Drops 10 Drop LEFT EAR DAILY 10 Days Augmentin (Amoxicillin-Clavulanate) 500-125 mg Tab 500 Mg PO DAILY 10 Days Amlodipine (Amlodipine Besylate) 5 Mg Tab 5 Mg PO DAILY Oyster Shell Calcium (Oyster Shell) 500 Mg Tab 500 Mg PO Q8HR Calcium Acetate (Calcium Acetate (Phosphate Bin) 667 Mg Cap 2,001 Mg PO TID Rocaltrol (Calcitriol) 0.25 Mcg Cap 1 Mcg PO DAILY Reported Lorcet Hd 10-325 mg (Hydrocodone-Acetaminophen) 10 Mg-325 Mg Tab 1 Tab PO Q6H PRN Requip (Ropinirole HCl) 0.5 Mg Tab 0.5 Mg PO TID Tivicay (Dolutegravir Sodium) 50 Mg Tab 50 Mg PO DAILY Prezista (Darunavir) 800 Mg Tab 800 Mg PO DAILY Intelence (Etravirine) 200 Mg Tab 200 Mg PO BID Review of Systems Except as stated in HPI: all other systems reviewed are Neg Physical Exam Narrative GENERAL: Well-developed well-nourished female in no acute distress SKIN: Warm and dry. HEAD: Atraumatic. Normocephalic. EYES: Pupils equal and round. No scleral icterus. No injection or drainage. ENT: No nasal bleeding or discharge. Mucous membranes pink and moist. The left tympanic membrane is bulging and erythematous. There is some sanguinous drainage in the external ear canal. No obvious visible perforation. No oropharyngeal erythema or exudate. NECK: Trachea midline. No JVD. CARDIOVASCULAR: Regular rate and rhythm. No murmur appreciated. RESPIRATORY: No accessory muscle use. Clear to auscultation. Breath sounds equal bilaterally. GASTROINTESTINAL: Abdomen soft, non-tender, nondistended. Hepatic and splenic margins not palpable. Data Data Last Documented VS Vital Signs Date Time Temp Pulse Resp B/P (MAP) Pulse Ox O2 Delivery O2 Flow Rate FiO2 11/19/17 14:08 Room Air 11/19/17 13:14 98.5 80 18 136/91 (106) 100 Orders Orders Influenzae A/B Antigen (11/19/17 13:19) Chest, Pa & Lat (11/19/17 ) Ed Discharge Order (11/19/17 14:50) [facility] Medical Decision Making Medical Screen Exam Complete: Yes Emergency Medical Condition: Yes Medical Record Reviewed: Yes Differential Diagnosis Influenza, pneumonia, bronchitis, otitis media, perforated tympanic membrane Narrative Course 42-year-old female with 2 days of cough, sneezing, congestion, myalgias, now with left ear pain and drainage. Examination is consistent with upper respiratory infection with left otitis media, suspect a small perforation in the tympanic membrane is well given her bloody drainage. Her chest x-ray reveals no acute abnormalities. She appears well overall. The patient will be discharged with renally dosed Augmentin as well as otic ofloxacin. She is stable for discharge. Diagnosis Primary Impression: Left otitis media Additional Impression: Upper respiratory infection Additional Instructions: Medication as prescribed. Avoid getting water in left ear canal. Follow-up with primary care physician in one to 2 weeks. Return for any emergent medical conditions. Med/Other Pt SpecificInfo: Prescription(s) given Scripts Ofloxacin Otic Drops (Ofloxacin Otic Drops) 0.3 % Drops 10 DROP LEFT EAR DAILY for Infection for 10 Days, #1 BOTTLE 0 Refills Prov: Zaid Stone MD 11/19/17 Amoxicillin-Clavulanate (Augmentin) 500-125 mg Tab 500 MG PO DAILY for Infection for 10 Days, TAB 0 Refills Prov: Zaid Stone MD 11/19/17 Disposition: 01 DISCHARGE HOME Condition: Stable Nick Ulloa Nov 19, 2017 14:15
[2017-11-19] MEDS ORDERED: OFLO0.3D9 LEFT EAR (14:25)
[2017-11-19] MEDS ORDERED: AUGM500T7 PO (14:25)
[2017-11-19] MEDS ORDERED: ACETAMINOPHEN 325 MG TAB PO ONE (15:00)
== END 2017-11-19 15:08 | disposition home or self-care (01) ==
LOC: NEPD 13:12
DX: H66.92 Otitis media, unspecified, left ear (principal); J06.9 Acute upper respiratory infection, unspecified; I12.0 Hypertensive chronic kidney disease with stage 5 chronic kidney disease or end stage renal disease; J45.909 Unspecified asthma, uncomplicated; N18.6 End stage renal disease; K21.9 Gastro-esophageal reflux disease without esophagitis; Z21 Asymptomatic human immunodeficiency virus [HIV] infection status; Z99.2 Dependence on renal dialysis; Z72.0 Tobacco use
CPT/HCPCS: 71046; 87804; 99283

== ENCOUNTER 2017-11-21 14:43 | Emergency (ER) | payer MEDICARE, OTHER ==
[~2017-11-21] VITALS: Ht 167.6 cm; Wt 77.5 kg
[~2017-11-21 14:43] MED LIST changes: +AUGM500T7 PO; +OFLO0.3D9 LEFT EAR
[2017-11-21 14:59] VITALS: BP 100/60; PULSE 76; RESP 18; TEMP 98; O2SAT 100
[2017-11-21] MEDS ORDERED: ONDANSETRON HCL 4 MG/2 ML VIAL IV PUSH ONE (16:15)
[2017-11-21] MEDS ORDERED: SODIUM CHLORIDE 0.9% FLUSH 10 ML FLUSH IVF PRN (16:15)
[2017-11-21 16:39] VITALS: O2SAT 100
--- NOTE | 2017-11-21 16:51 | RADRPT ---
EXAM DATE/TIME: 11/21/2017 16:42 [facility] COMPARISON: CHEST PA & LAT, November 19, 2017, 13:31. INDICATIONS : Chest pains, fever, cough, short of breath MEDICAL HISTORY : None. SURGICAL HISTORY : None. ENCOUNTER: Initial ACUITY: 1 week PAIN SCORE: 10/10 LOCATION: Bilateral chest FINDINGS: A single view of the chest demonstrates the lungs to be symmetrically aerated without evidence of mas s, infiltrate or effusion. The cardiomediastinal contours are unremarkable. Osseous structures are intact. CONCLUSION: Normal one view chest x-ray. Phi Hector MD on November 21, 2017 at 16:48 Board Certified Radiologist. This report was verified electronically.
[2017-11-21 17:12] LABS: AUTOMATED NEUTROPHIL # 2.3 TH/MM3 (1.8-7.7); BASOPHIL % 0.2 % (0.0-2.0); EOSINOPHIL # 0.3 TH/MM3 (0-0.4); HEMATOCRIT 31.4 % (35.0-46.0); HEMOGLOBIN 10.1 GM/DL (11.6-15.3); LYMPH % 41.8 % (9.0-44.0); LYMPHOCYTE # 2.2 TH/MM3 (1.0-4.8); MEAN CELL VOLUME 86.6 FL (80.0-100.0); MEAN CORPUSCULAR HGB CONC 32.3 % (32.0-36.0); MEAN PLATELET VOLUME 8.4 FL (7.0-11.0); MONO % 9.3 % (0.0-8.0); MONOCYTE # 0.5 TH/MM3 (0-0.9); NEUT % 42.7 % (16.0-70.0); PLATELET COUNT 124 TH/MM3 (150-450); RED BLOOD COUNT 3.62 MIL/MM3 (4.00-5.30); WHITE BLOOD COUNT 5.3 TH/MM3 (4.0-11.0)
[2017-11-21 17:18] LABS: CHLORIDE 102 MEQ/L (98-107); SODIUM (NA) 138 MEQ/L (136-145)
[2017-11-21 17:21] LABS: ALBUMIN 3.2 GM/DL (3.4-5.0); CALCIUM 7.6 MG/DL (8.5-10.1); GLUCOSE,RANDOM 82 MG/DL (74-106)
[2017-11-21 17:22] LABS: BICARBONATE 22.7 MEQ/L (21.0-32.0); BLOOD UREA NITROGEN 81 MG/DL (7-18); LIPASE 221 U/L (73-393); PROTHROMBIN TIME - PATIENT 9.9 SEC (9.8-11.6)
[2017-11-21 17:24] LABS: ALT (GPT) 10 U/L (10-53); AST (GOT) 8 U/L (15-37); GLOMERULAR FILTRATION RATE 3 ML/MIN (>89)
[2017-11-21 17:26] LABS: TOTAL BILIRUBIN ADULT 0.4 MG/DL (0.2-1.0); TOTAL PROTEIN 8.1 GM/DL (6.4-8.2)
[2017-11-21 17:27] LABS: ALKALINE PHOSPHATASE 51 U/L (45-117)
[2017-11-21] MEDS ORDERED: ACETAMINOPHEN/HYDROcodone 325 MG/5 MG TAB PO ONE (17:30)
--- NOTE | 2017-11-21 18:28 | PD ---
HPI Chief Complaint: Cold / Flu Symptoms Time Seen by Provider: 16:08 Travel History International Travel<30 days: No Contact w/Intl Traveler<30days: No Traveled to known affect area: No History of Present Illness HPI Patient is a 42-year-old female presents emergency department for evaluation of dizziness right ear pain nausea. Patient has a history of HIV, recently diagnosed with otitis externa and media, she also was told that she had a URI. She's been able to fill her antibiotics and started taking them but has been unable to fill the ear drops. She has not followed up with a primary care physician. She is also on dialysis Thursday, she missed her last 2 dialysis sessions on and today (thursday) she states that she's also been having generalized body aches for the past week. Denies any fever denies any chest pain denies any shortness of breath. Endorses a dry cough. PFSH Past Medical History Hx Anticoagulant Therapy: No Arthritis: Yes Asthma: Yes Autoimmune Disease: Yes (HIV POSITIVE) Blood Disorders: No Heart Rhythm Problems: No Cancer: No Cardiac Catheterization: No Cardiovascular Problems: Yes (HTN ) High Cholesterol: No Chest Pain: No Congestive Heart Failure: No COPD: No Cerebrovascular Accident: No Diabetes: No Dialysis: Yes (, , thu , fistula left arm,) Diminished Hearing: No Endocrine: No GERD: Yes Glaucoma: No Genitourinary: Yes Headaches: Yes Hepatitis: No Hiatal Hernia: No Heparin Induced Thrombocytopen: No Hypertension: Yes Immune Disorder: Yes Kidney Stones: No Medical other: Yes (HIV POS.) Musculoskeletal: No Neurologic: No Psychiatric: No Reproductive: No Respiratory: Yes Immunizations Current: No Myocardial Infarction: No Renal Failure: Yes Seizures: No Sleep Apnea: No Thyroid Disease: No Ulcer: No ?: Not : 5 Para: 5 Miscarriage: 0 : 0 Tubal Ligation: Yes Past Surgical History Abdominal Surgery: No AICD: No Arteriovenous Shunt: Yes (L FOREARM ) Body Medical Devices: L ARM AV FISTULA Cardiac Surgery: No Section: Yes Coronary Artery Bypass Graft: No Ear Surgery: No Endocrine Surgery: No Eye Surgery: No Genitourinary Surgery: No Gynecologic Surgery: Yes (C-SECT.) Joint Replacement: No Neurologic Surgery: No Pacemaker: No Thoracic Surgery: No Other Surgery: Yes (fistula for dialysis: left arm) Social History Alcohol Use: No Tobacco Use: Yes (RARE) Substance Use: No Allergies-Medications (Allergen,Severity, Reaction): Coded Allergies: Sulfa (Sulfonamide Antibiotics) (Unverified Allergy, Severe, Hives, ) Reported Meds & Prescriptions Reported Meds & Active Scripts Active Ofloxacin Otic Drops 0.3 % Drops 10 Drop LEFT EAR DAILY 10 Days Augmentin (Amoxicillin-Clavulanate) 500-125 mg Tab 500 Mg PO DAILY 10 Days Amlodipine (Amlodipine Besylate) 5 Mg Tab 5 Mg PO DAILY Oyster Shell Calcium (Oyster Shell) 500 Mg Tab 500 Mg PO Q8HR Calcium Acetate (Calcium Acetate (Phosphate Bin) 667 Mg Cap 2,001 Mg PO TID Rocaltrol (Calcitriol) 0.25 Mcg Cap 1 Mcg PO DAILY Reported Lorcet Hd 10-325 mg (Hydrocodone-Acetaminophen) 10 Mg-325 Mg Tab 1 Tab PO Q6H PRN Requip (Ropinirole HCl) 0.5 Mg Tab 0.5 Mg PO TID Tivicay (Dolutegravir Sodium) 50 Mg Tab 50 Mg PO DAILY Prezista (Darunavir) 800 Mg Tab 800 Mg PO DAILY Intelence (Etravirine) 200 Mg Tab 200 Mg PO BID Review of Systems Except as stated in HPI: all other systems reviewed are Neg Physical Exam Narrative GENERAL: Well-developed well-nourished no obvious distress, appears well and nontoxic. SKIN: Focused skin assessment warm/dry. HEAD: Atraumatic. Normocephalic. EYES: Pupils equal and round. No scleral icterus. No injection or drainage. ENT: No nasal bleeding or discharge. Mucous membranes pink and moist. Right TM clear, canal care, left TM bulging erythematous, only partially visualized secondary to discharge in the ear canal which is white. Absolutely no mastoid tenderness, no nuchal rigidity. NECK: Trachea midline. No JVD. Kernig's emergency signs negative. CARDIOVASCULAR: Regular rate and rhythm. No murmur appreciated. RESPIRATORY: No accessory muscle use. Clear to auscultation. Breath sounds equal bilaterally. GASTROINTESTINAL: Abdomen soft, non-tender, nondistended. Hepatic and splenic margins not palpable. MUSCULOSKELETAL: No obvious deformities. No clubbing. No cyanosis. No edema. NEUROLOGICAL: Awake and alert. No obvious cranial nerve deficits. Motor grossly within normal limits. Normal speech. PSYCHIATRIC: Appropriate mood and affect; insight and judgment normal. Data Data Last Documented VS Vital Signs Date Time Temp Pulse Resp B/P (MAP) Pulse Ox O2 Delivery O2 Flow Rate FiO2 11/21/17 18:43 11/21/17 18:31 71 16 98 Room Air 11/21/17 14:59 98.0 Orders Orders Electrocardiogram (11/21/17 16:10) Complete Blood Count With Diff (11/21/17 16:10) Comprehensive Metabolic Panel (11/21/17 16:10) Prothrombin Time / Inr (Pt) (11/21/17 16:10) Act Partial Throm Time (Ptt) (11/21/17 16:10) Lipase (11/21/17 16:10) Chest, Single Ap (11/21/17 16:10) Ecg Monitoring (11/21/17 16:10) Iv Access Insert/Monitor (11/21/17 16:10) Oximetry (11/21/17 16:10) Oxygen Administration (11/21/17 16:10) Sodium Chloride 0.9% Flush (Ns Flush) (11/21/17 16:15) Ondansetron Inj (Zofran Inj) (11/21/17 16:15) Acetamin-Hydrocod 325-5 Mg ([place] 5-325 (11/21/17 17:30) Ed Discharge Order (11/21/17 18:31) Labs Laboratory Tests Test 11/21/17 17:05 White Blood Count 5.3 TH/MM3 Red Blood Count 3.62 MIL/MM3 Hemoglobin 10.1 GM/DL Hematocrit 31.4 % Mean Corpuscular Volume 86.6 FL Mean Corpuscular Hemoglobin 28.0 PG Mean Corpuscular Hemoglobin Concent 32.3 % Red Cell Distribution Width 14.0 % Platelet Count 124 TH/MM3 Mean Platelet Volume 8.4 FL Neutrophils (%) (Auto) 42.7 % Lymphocytes (%) (Auto) 41.8 % Monocytes (%) (Auto) 9.3 % Eosinophils (%) (Auto) 6.0 % Basophils (%) (Auto) 0.2 % Neutrophils # (Auto) 2.3 TH/MM3 Lymphocytes # (Auto) 2.2 TH/MM3 Monocytes # (Auto) 0.5 TH/MM3 Eosinophils # (Auto) 0.3 TH/MM3 Basophils # (Auto) 0.0 TH/MM3 CBC Comment DIFF FINAL Differential Comment Prothrombin Time 9.9 SEC Prothromb Time International Ratio 1.0 RATIO Activated Partial Thromboplast Time 26.0 SEC Blood Urea Nitrogen 81 MG/DL Creatinine 15.00 MG/DL Random Glucose 82 MG/DL Total Protein 8.1 GM/DL Albumin 3.2 GM/DL Calcium Level 7.6 MG/DL Alkaline Phosphatase 51 U/L Aspartate Amino Transf (AST/SGOT) 8 U/L Alanine Aminotransferase (ALT/SGPT) 10 U/L Total Bilirubin 0.4 MG/DL Sodium Level 138 MEQ/L Potassium Level 5.4 MEQ/L Chloride Level 102 MEQ/L Carbon Dioxide Level 22.7 MEQ/L Anion Gap 13 MEQ/L Estimat Glomerular Filtration Rate 3 ML/MIN Lipase 221 U/L MDM Medical Decision Making Medical Screen Exam Complete: Yes Emergency Medical Condition: Yes Differential Diagnosis Labyrinthitis, hyperkalemia, immune compromise. Narrative Course Patient roomed in the emergency department, she appears quite well in no obvious distress, notable laboratory findings her white count and within normal limits, she does have some hyperkalemia with a K of 5.4 with no EKG changes to suggest hyperkalemia. This finding as well as her INFORMAT[employer] APPLICATION ANALYST elevation was discussed with Dr. Jim who is on-call for nephrology. The patient follows with Dr. Sultana. He states the patient can be safely discharged and should call her dialysis Center on Thursday to arrange dialysis then, this was conveyed to the patient she is agreeable. She appears well and nontoxic, remainder of her workup was nonremarkable in the emergency department. She stable for discharge. Last 24 hours Impressions Chest X-Ray 11/21/17 1610 Signed Impressions: Service Date/Time: Tuesday, November 21, 2017 16:42 - CONCLUSION: Normal one view chest x-ray. Phi Hector MD Diagnosis Primary Impression: Labyrinthitis Additional Impression: Myalgia Additional Instructions: Call your dialysis unit on Thursday to set up an earlier dialysis per Dr. Vargas. Take all your medications as prescribed, return to the emergency department with any fevers. He always welcome to return for repeat evaluation. Try not to miss her dialysis in the future Disposition: 01 DISCHARGE HOME Condition: Stable Pa Frye MD Nov 21, 2017 18:28
[2017-11-21 18:31] VITALS: BP 167/96; PULSE 71; RESP 16; O2SAT 98
--- NOTE | 2017-11-22 17:23 | EKG ---
Date Performed: 11/21/2017 Time Performed: 16:21:43 PTAGE: 42 years EKG: Sinus rhythm NORMAL ECG PREVIOUS TRACING : 09/28/2017 19.38 Since previous tracing, no significant change noted DOCTOR: Diaz Peguero Interpretating Date/Time 11/22/2017 17:21:57
== END 2017-11-21 18:50 | disposition home or self-care (01) ==
LOC: PHEFT 14:43 → PHED 18:50
DX: H83.09 Labyrinthitis, unspecified ear (principal); M79.1 Myalgia; R11.0 Nausea; R42 Dizziness and giddiness; Z99.2 Dependence on renal dialysis; J45.909 Unspecified asthma, uncomplicated; I10 Essential (primary) hypertension; K21.9 Gastro-esophageal reflux disease without esophagitis
CPT/HCPCS: 71045; 80053; 83690; 85025; 85610; 85730; 93005; 96374; 99285; J2405

== ENCOUNTER 2017-12-12 13:40 | Emergency (ER) | payer MEDICARE ==
[2017-12-12 13:43] VITALS: BP 180/99; PULSE 88; RESP 14; TEMP 98.1; O2SAT 98
--- NOTE | 2017-12-12 14:48 | PD ---
HPI Chief Complaint: Cold / Flu Symptoms Time Seen by Provider: 14:30 Travel History International Travel<30 days: No Contact w/Intl Traveler<30days: No Traveled to known affect area: No History of Present Illness HPI This is a 42-year-old female who presents to the emergency department with myalgias, fevers, chills, rhinorrhea, sore throat nonproductive cough that started yesterday, constant, severe. She is in end-stage renal disease patient and his dialysis Thursday, and Thursday. She went to receive dialysis today but they told her they could not complete dialysis on her because they thought she had the flu. The patient also has HIV but she says her CD4 count is over 250 and her HIV is under control. PFSH Past Medical History Hx Anticoagulant Therapy: No Arthritis: Yes Asthma: Yes Autoimmune Disease: Yes (HIV POSITIVE) Blood Disorders: No Heart Rhythm Problems: No Cancer: No Cardiac Catheterization: No Cardiovascular Problems: Yes (HTN ) High Cholesterol: No Chest Pain: No Congestive Heart Failure: No COPD: No Cerebrovascular Accident: No Diabetes: No Dialysis: Yes (, , thu , fistula left arm,) Diminished Hearing: No Endocrine: No GERD: Yes Glaucoma: No Genitourinary: Yes Headaches: Yes Hepatitis: No Hiatal Hernia: No Heparin Induced Thrombocytopen: No Hypertension: Yes Immune Disorder: Yes Kidney Stones: No Medical other: Yes (HIV POS.) Musculoskeletal: No Neurologic: No Psychiatric: No Reproductive: No Respiratory: Yes Immunizations Current: No Myocardial Infarction: No Renal Failure: Yes Seizures: No Sleep Apnea: No Thyroid Disease: No Ulcer: No ?: Not : 5 Para: 5 Miscarriage: 0 : 0 Tubal Ligation: Yes Past Surgical History Abdominal Surgery: No AICD: No Arteriovenous Shunt: Yes (L FOREARM ) Body Medical Devices: L ARM AV FISTULA Cardiac Surgery: No Section: Yes Coronary Artery Bypass Graft: No Ear Surgery: No Endocrine Surgery: No Eye Surgery: No Genitourinary Surgery: No Gynecologic Surgery: Yes (C-SECT.) Joint Replacement: No Neurologic Surgery: No Pacemaker: No Thoracic Surgery: No Other Surgery: Yes (fistula for dialysis: left arm) Social History Alcohol Use: No Tobacco Use: Yes (RARE) Substance Use: No Allergies-Medications (Allergen,Severity, Reaction): Coded Allergies: Sulfa (Sulfonamide Antibiotics) (Unverified Allergy, Severe, Hives, ) Reported Meds & Prescriptions Reported Meds & Active Scripts Active Amlodipine (Amlodipine Besylate) 5 Mg Tab 5 Mg PO DAILY Oyster Shell Calcium (Oyster Shell) 500 Mg Tab 500 Mg PO Q8HR Calcium Acetate (Calcium Acetate (Phosphate Bin) 667 Mg Cap 2,001 Mg PO TID Rocaltrol (Calcitriol) 0.25 Mcg Cap 1 Mcg PO DAILY Reported Requip (Ropinirole HCl) 0.5 Mg Tab 0.5 Mg PO TID Tivicay (Dolutegravir Sodium) 50 Mg Tab 50 Mg PO DAILY Prezista (Darunavir) 800 Mg Tab 800 Mg PO DAILY Intelence (Etravirine) 200 Mg Tab 200 Mg PO BID Review of Systems Except as stated in HPI: all other systems reviewed are Neg Physical Exam Narrative GENERAL:Well appearing, no acute distress SKIN: Focused skin assessment warm and dry. HEAD: Atraumatic. Normocephalic. EYES: Pupils equal and round. No injection or drainage. ENT: Moist mucous membranes. bilateral tympanic membranes are clear. No posterior pharyngeal erythema or exudates. NECK: Trachea midline. CARDIOVASCULAR: Regular rate and rhythm. No murmur appreciated. RESPIRATORY: Clear to auscultation. Breath sounds equal bilaterally. GASTROINTESTINAL: Abdomen soft, non-tender, nondistended. MUSCULOSKELETAL: No obvious deformities. NEUROLOGICAL: Awake and alert. No obvious cranial nerve deficits. Moving all extremities. PSYCHIATRIC: Appropriate mood and affect; insight and judgment normal. Data Data Last Documented VS Vital Signs Date Time Temp Pulse Resp B/P (MAP) Pulse Ox O2 Delivery O2 Flow Rate FiO2 12/12/17 13:43 98.1 88 14 180/99 (126) 98 Orders Orders Complete Blood Count With Diff (12/12/17 14:30) Comprehensive Metabolic Panel (12/12/17 14:30) ^ Insert Iv (12/12/17 14:30) Chest, Single Ap (12/12/17 ) Influenzae A/B Antigen (12/12/17 14:30) Labs Laboratory Tests Test 12/12/17 14:35 White Blood Count 6.6 TH/MM3 Red Blood Count 4.18 MIL/MM3 Hemoglobin 12.3 GM/DL Hematocrit 37.9 % Mean Corpuscular Volume 90.7 FL Mean Corpuscular Hemoglobin 29.5 PG Mean Corpuscular Hemoglobin Concent 32.5 % Red Cell Distribution Width 15.7 % Platelet Count 142 TH/MM3 Mean Platelet Volume 8.5 FL Neutrophils (%) (Auto) 72.0 % Lymphocytes (%) (Auto) 14.8 % Monocytes (%) (Auto) 8.2 % Eosinophils (%) (Auto) 4.6 % Basophils (%) (Auto) 0.4 % Neutrophils # (Auto) 4.7 TH/MM3 Lymphocytes # (Auto) 1.0 TH/MM3 Monocytes # (Auto) 0.5 TH/MM3 Eosinophils # (Auto) 0.3 TH/MM3 Basophils # (Auto) 0.0 TH/MM3 CBC Comment DIFF FINAL Differential Comment Blood Urea Nitrogen 55 MG/DL Creatinine 12.49 MG/DL Random Glucose 76 MG/DL Total Protein 8.2 GM/DL Albumin 3.3 GM/DL Calcium Level 8.4 MG/DL Alkaline Phosphatase 52 U/L Aspartate Amino Transf (AST/SGOT) 12 U/L Alanine Aminotransferase (ALT/SGPT) 11 U/L Total Bilirubin 0.4 MG/DL Sodium Level 136 MEQ/L Potassium Level 4.7 MEQ/L Chloride Level 104 MEQ/L Carbon Dioxide Level 19.6 MEQ/L Anion Gap 12 MEQ/L Estimat Glomerular Filtration Rate 4 ML/MIN MDM Medical Decision Making Medical Screen Exam Complete: Yes Emergency Medical Condition: Yes Interpretation(s) Afebrile, no tachycardia, hypertensive No leukocytosis BUN is slightly elevated Electrolytes are otherwise reassuring influenza is negative Differential Diagnosis Viral syndrome, influenza, pneumonia, sepsis Narrative Course This is a 42-year-old female who has a history of HIV and end-stage renal disease who presents to the emergency department with rhinorrhea, sore throat, cough and myalgias. Labs are reassuring. Influenza is negative and chest x- ray demonstrates no pneumonia. I suspect the patient has a viral syndrome. She was advised to do conservative management with Tylenol and codeine cough syrup. She is nontoxic appearing at this time and I think appropriate for outpatient management. Diagnosis Primary Impression: Viral syndrome Patient Instructions: General Instructions Additional Instructions: If you develop severe chest pain, shortness of breath, sweating, lightheadedness , dizziness or difficulty breathing return to the emergency department immediately. Followup with your primary care physician in 2-3 days if your symptoms are not resolved. Med/Other Pt SpecificInfo: Prescription(s) given Scripts Promethazine-Codeine Liq (Promethazine-Codeine Liq) 6.25-10 Mg/5 Ml Syrp 2.5 ML PO Q6H Y for COUGH AND/OR COLD SYMPTOMS, #25 ML 0 Refills Prov: Mallory Smith MD 12/12/17 Disposition: 01 DISCHARGE HOME Condition: Stable Mallory Smith MD Dec 12, 2017 14:47
--- NOTE | 2017-12-12 15:01 | RADRPT ---
EXAM DATE/TIME: 12/12/2017 14:44 [facility] COMPARISON: CHEST SINGLE AP, November 21, 2017, 16:42. INDICATIONS : Cough, chest pain, flu-like symptoms for 1 week MEDICAL HISTORY : None. SURGICAL HISTORY : None. ENCOUNTER: Initial ACUITY: 1 week PAIN SCORE: 5/10 LOCATION: Left chest FINDINGS: The lungs are clear without infiltrate, nodule, or mass. There is no appreciable pleural effusion fo r technique. Heart and mediastinum are unremarkable. CONCLUSION: No acute cardiopulmonary disease. Roberto Dixon MD on December 12, 2017 at 14:57 Board Certified Radiologist. This report was verified electronically.
[2017-12-12 15:02] LABS: AUTOMATED NEUTROPHIL # 4.7 TH/MM3 (1.8-7.7); BASOPHIL % 0.4 % (0.0-2.0); EOSINOPHIL # 0.3 TH/MM3 (0-0.4); EOSINOPHIL % 4.6 % (0.0-4.0); HEMATOCRIT 37.9 % (35.0-46.0); HEMOGLOBIN 12.3 GM/DL (11.6-15.3); LYMPH % 14.8 % (9.0-44.0); MEAN CELL VOLUME 90.7 FL (80.0-100.0); MEAN CORPUSCULAR HEMOGLOBIN 29.5 PG (27.0-34.0); MEAN CORPUSCULAR HGB CONC 32.5 % (32.0-36.0); MEAN PLATELET VOLUME 8.5 FL (7.0-11.0); MONO % 8.2 % (0.0-8.0); MONOCYTE # 0.5 TH/MM3 (0-0.9); PLATELET COUNT 142 TH/MM3 (150-450); RED BLOOD COUNT 4.18 MIL/MM3 (4.00-5.30); RED CELL DISTRIBUTION WIDTH 15.7 % (11.6-17.2); WHITE BLOOD COUNT 6.6 TH/MM3 (4.0-11.0)
[2017-12-12 15:13] LABS: ALBUMIN 3.3 GM/DL (3.4-5.0); ALT (GPT) 11 U/L (10-53); AST (GOT) 12 U/L (15-37); BICARBONATE 19.6 MEQ/L (21.0-32.0); BLOOD UREA NITROGEN 55 MG/DL (7-18); CALCIUM 8.4 MG/DL (8.5-10.1); CHLORIDE 104 MEQ/L (98-107); GLOMERULAR FILTRATION RATE 4 ML/MIN (>89); GLUCOSE,RANDOM 76 MG/DL (74-106); SODIUM (NA) 136 MEQ/L (136-145)
[2017-12-12 15:14] LABS: ALKALINE PHOSPHATASE 52 U/L (45-117); TOTAL BILIRUBIN ADULT 0.4 MG/DL (0.2-1.0); TOTAL PROTEIN 8.2 GM/DL (6.4-8.2)
[2017-12-12 15:20] LABS: CREATININE 12.49 MG/DL (0.50-1.00)
[2017-12-12] MEDS ORDERED: PROM6.256 PO (15:44)
== END 2017-12-12 16:24 | disposition home or self-care (01) ==
LOC: NEPD 13:40
DX: B34.9 Viral infection, unspecified (principal); I12.0 Hypertensive chronic kidney disease with stage 5 chronic kidney disease or end stage renal disease; N18.6 End stage renal disease; Z99.2 Dependence on renal dialysis; J45.909 Unspecified asthma, uncomplicated; K21.9 Gastro-esophageal reflux disease without esophagitis; Z21 Asymptomatic human immunodeficiency virus [HIV] infection status
CPT/HCPCS: 71045; 80053; 85025; 87804; 99284

== ENCOUNTER → 2018-01-04 | Outpatient (CLI) | payer MEDICARE, MEDICAID ==
[~2018-01-04] MED LIST changes: -AUGM500T7 PO; -HYDR-3578 PO; -OFLO0.3D9 LEFT EAR; +PROM6.256 PO
[2018-01-04 08:48] LABS: HEMATOCRIT 31.4 % (35.0-46.0); HEMOGLOBIN 10.2 GM/DL (11.6-15.3); MEAN CELL VOLUME 88.6 FL (80.0-100.0); MEAN CORPUSCULAR HEMOGLOBIN 28.9 PG (27.0-34.0); MEAN CORPUSCULAR HGB CONC 32.6 % (32.0-36.0); MEAN PLATELET VOLUME 9.1 FL (7.0-11.0); PLATELET COUNT 137 TH/MM3 (150-450); RED BLOOD COUNT 3.54 MIL/MM3 (4.00-5.30); RED CELL DISTRIBUTION WIDTH 15.4 % (11.6-17.2); WHITE BLOOD COUNT 4.9 TH/MM3 (4.0-11.0)
[2018-01-04 10:15] LABS: RPR SCREEN FOR REFLEX NON-REACTIVE (NON-REACTVE)
[2018-01-06 03:51] LABS: CD3-/CD16+CD56+ PERCENT 11 % (4-25); CD3-CD16+CD56+ (ABSOLUTE) 169 (70-760); LYMPHOCYTES, ABSOLUTE 1618 (850-3900)
== END ==
LOC: CLAB 08:09
PROVIDERS: ATTEND Internal Medicine
DX: B20 Human immunodeficiency virus [HIV] disease (principal)
CPT/HCPCS: 36415; 85027; 86355; 86357; 86359; 86360; 86592; 87536; 87901

== ENCOUNTER 2018-05-02 18:13 | Emergency (ER) | payer MEDICARE, MEDICAID ==
[~2018-05-02] VITALS: Ht 157.5 cm; Wt 69.0 kg
[2018-05-02 18:25] VITALS: BP 194/110; PULSE 96; RESP 18; TEMP 99.2
[2018-05-02] MEDS ORDERED: hydrALAZINE HCL 20 MG/ML VIAL IV PUSH ONE (18:30)
[2018-05-02 18:47] LABS: AUTOMATED NEUTROPHIL # 3.2 TH/MM3 (1.8-7.7); BASOPHIL # 0.1 TH/MM3 (0-0.2); BASOPHIL % 1.7 % (0.0-2.0); EOSINOPHIL # 0.3 TH/MM3 (0-0.4); EOSINOPHIL % 4.1 % (0.0-4.0); HEMATOCRIT 33.8 % (35.0-46.0); HEMOGLOBIN 11.2 GM/DL (11.6-15.3); LYMPH % 39.3 % (9.0-44.0); LYMPHOCYTE # 2.7 TH/MM3 (1.0-4.8); MEAN CELL VOLUME 87.6 FL (80.0-100.0); MEAN CORPUSCULAR HEMOGLOBIN 29.1 PG (27.0-34.0); MEAN CORPUSCULAR HGB CONC 33.2 % (32.0-36.0); MEAN PLATELET VOLUME 9.1 FL (7.0-11.0); MONO % 8.4 % (0.0-8.0); MONOCYTE # 0.6 TH/MM3 (0-0.9); NEUT % 46.5 % (16.0-70.0); PLATELET COUNT 169 TH/MM3 (150-450); RED BLOOD COUNT 3.86 MIL/MM3 (4.00-5.30); RED CELL DISTRIBUTION WIDTH 13.6 % (11.6-17.2); WHITE BLOOD COUNT 6.9 TH/MM3 (4.0-11.0)
[2018-05-02 18:56] LABS: CHLORIDE 101 MEQ/L (98-107); SODIUM (NA) 137 MEQ/L (136-145)
--- NOTE | 2018-05-02 18:58 | PD ---
HPI Chief Complaint: GI Complaint Time Seen by Provider: 18:22 Travel History International Travel<30 days: No Contact w/Intl Traveler<30days: No History of Present Illness HPI 42yo F with PMH of ESRD on HD M// (last HD Thursday), HIV CD4 in the 300s as per patient presents to the ED with multiple complaints today. Said she has generalized body ache, nausea, vomiting, diarrhea and tactile fever today. + Cough. Denies any chest pain, sob, abdominal pain, focal weakness or numbness. PFSH Past Medical History Hx Anticoagulant Therapy: No Arthritis: Yes Asthma: Yes Autoimmune Disease: Yes (HIV POSITIVE) Blood Disorders: No Heart Rhythm Problems: No Cancer: No Cardiac Catheterization: No Cardiovascular Problems: Yes (HTN ) High Cholesterol: No Chest Pain: No Congestive Heart Failure: No COPD: No Cerebrovascular Accident: No Diabetes: No Dialysis: Yes (tues, th, sat , fistula left arm,) Diminished Hearing: No Endocrine: No GERD: Yes Glaucoma: No Genitourinary: Yes Headaches: Yes Hepatitis: No Hiatal Hernia: No Heparin Induced Thrombocytopen: No Hypertension: Yes Immune Disorder: Yes Kidney Stones: No Musculoskeletal: No Neurologic: No Psychiatric: No Reproductive: No Respiratory: Yes Immunizations Current: No Myocardial Infarction: No Renal Failure: Yes Seizures: No Sleep Apnea: No Thyroid Disease: No Ulcer: No : 5 Para: 5 Miscarriage: 0 : 0 Tubal Ligation: Yes Past Surgical History Abdominal Surgery: No AICD: No Arteriovenous Shunt: Yes (L FOREARM ) Body Medical Devices: L ARM AV FISTULA Cardiac Surgery: No Section: Yes Coronary Artery Bypass Graft: No Ear Surgery: No Endocrine Surgery: No Eye Surgery: No Genitourinary Surgery: No Gynecologic Surgery: Yes (C-SECT.) Joint Replacement: No Neurologic Surgery: No Pacemaker: No Thoracic Surgery: No Other Surgery: Yes (fistula for dialysis: left arm) Social History Alcohol Use: No Tobacco Use: Yes (RARE) Substance Use: No Allergies-Medications (Allergen,Severity, Reaction): Coded Allergies: Sulfa (Sulfonamide Antibiotics) (Unverified Allergy, Severe, Hives, ) Reported Meds & Prescriptions Reported Meds & Active Scripts Active Zofran Odt (Ondansetron Odt) 4 Mg Tab 4 Mg SL Q12HR PRN Amlodipine (Amlodipine Besylate) 5 Mg Tab 5 Mg PO DAILY Calcium Acetate (Calcium Acetate (Phosphate Bin) 667 Mg Cap 2,001 Mg PO TID Rocaltrol (Calcitriol) 0.25 Mcg Cap 1 Mcg PO DAILY Reported Requip (Ropinirole HCl) 0.5 Mg Tab 0.5 Mg PO TID Tivicay (Dolutegravir Sodium) 50 Mg Tab 50 Mg PO DAILY Prezista (Darunavir) 800 Mg Tab 800 Mg PO DAILY Intelence (Etravirine) 200 Mg Tab 200 Mg PO BID Review of Systems Except as stated in HPI: all other systems reviewed are Neg Physical Exam Narrative GENERAL: 42yo F in mild distress. SKIN: Focused skin assessment warm/dry. HEAD: Atraumatic. Normocephalic. EYES: Pupils equal and round. No scleral icterus. No injection or drainage. ENT: No nasal bleeding or discharge. Mucous membranes pink and moist. NECK: Trachea midline. No JVD. CARDIOVASCULAR: Regular rate and rhythm. No murmur appreciated. RESPIRATORY: No accessory muscle use. Clear to auscultation. Breath sounds equal bilaterally. GASTROINTESTINAL: Abdomen soft, non-tender, nondistended. MUSCULOSKELETAL: LUE: +AV fistula with thrill. NEUROLOGICAL: Awake and alert. No obvious cranial nerve deficits. Motor grossly within normal limits. Normal speech. PSYCHIATRIC: Appropriate mood and affect; insight and judgment normal. Data Data Last Documented VS Vital Signs Date Time Temp Pulse Resp B/P (MAP) Pulse Ox O2 Delivery O2 Flow Rate FiO2 05/02/18 21:31 90 18 178/66 (103) 99 Room Air 05/02/18 18:25 99.2 Orders Orders Electrocardiogram (05/02/18 ) Complete Blood Count With Diff (05/02/18 18:22) Comprehensive Metabolic Panel (05/02/18 18:22) Lactic Acid Sepsis Protocol (05/02/18 18:27) Prothrombin Time / Inr (Pt) (05/02/18 18:27) Act Partial Throm Time (Ptt) (05/02/18 18:27) Chest, Single Ap (05/02/18 ) Influenzae A/B Antigen (05/02/18 18:27) Hydralazine Inj (Apresoline Inj) (05/02/18 18:30) Lipase (05/02/18 18:22) Stool Ova And Parasite Screen (05/02/18 18:37) C Diff Toxin Pcr (05/02/18 18:37) Urinalysis - C+S If Indicated (05/02/18 18:37) Magnesium (Mg) (05/02/18 18:22) Ketorolac Inj (Toradol Inj) (05/02/18 19:00) Ondansetron Odt (Zofran Odt) (05/02/18 19:00) Guaifen-Cod 200-20 Mg/10ml Liq (Robituss (05/02/18 19:00) Ct Abd/Pel W/O Iv Contrast (05/02/18 ) Dextrose 50% In Bk (Vial) Inj (D50w (Vi (05/02/18 20:00) Morphine Inj (Morphine Inj) (05/02/18 20:00) Sodium Chlorid 0.9% 500 Ml Inj (Ns 500 M (05/02/18 20:15) Ed Discharge Order (05/02/18 21:43) Labs Laboratory Tests Test 05/02/18 18:28 05/02/18 18:45 05/02/18 19:50 05/02/18 21:05 White Blood Count 6.9 TH/MM3 Red Blood Count 3.86 MIL/MM3 Hemoglobin 11.2 GM/DL Hematocrit 33.8 % Mean Corpuscular Volume 87.6 FL Mean Corpuscular Hemoglobin 29.1 PG Mean Corpuscular Hemoglobin Concent 33.2 % Red Cell Distribution Width 13.6 % Platelet Count 169 TH/MM3 Mean Platelet Volume 9.1 FL Neutrophils (%) (Auto) 46.5 % Lymphocytes (%) (Auto) 39.3 % Monocytes (%) (Auto) 8.4 % Eosinophils (%) (Auto) 4.1 % Basophils (%) (Auto) 1.7 % Neutrophils # (Auto) 3.2 TH/MM3 Lymphocytes # (Auto) 2.7 TH/MM3 Monocytes # (Auto) 0.6 TH/MM3 Eosinophils # (Auto) 0.3 TH/MM3 Basophils # (Auto) 0.1 TH/MM3 CBC Comment DIFF FINAL Differential Comment Prothrombin Time 10.7 SEC Prothromb Time International Ratio 1.1 RATIO Activated Partial Thromboplast Time 25.4 SEC Blood Urea Nitrogen 73 MG/DL Creatinine 12.00 MG/DL Random Glucose 51 MG/DL Total Protein 8.0 GM/DL Albumin 3.1 GM/DL Calcium Level 7.7 MG/DL Magnesium Level 2.1 MG/DL Alkaline Phosphatase 51 U/L Aspartate Amino Transf (AST/SGOT) 13 U/L Alanine Aminotransferase (ALT/SGPT) 21 U/L Total Bilirubin 0.3 MG/DL Sodium Level 137 MEQ/L Potassium Level 5.2 MEQ/L Chloride Level 101 MEQ/L Carbon Dioxide Level 22.2 MEQ/L Anion Gap 14 MEQ/L Estimat Glomerular Filtration Rate 4 ML/MIN Lactic Acid Level 2.6 mmol/L 1.7 mmol/L Lipase 109 U/L Urine Color YELLOW Urine Turbidity CLEAR Urine pH 7.0 Urine Specific Pinole 1.010 Urine Protein 100 mg/dL Urine Glucose (UA) NEG mg/dL Urine Ketones NEG mg/dL Urine Occult Blood TRACE Urine Nitrite NEG Urine Bilirubin NEG Urine Urobilinogen 0.2 MG/DL Urine Leukocyte Esterase NEG Urine RBC 3-5 /hpf Urine WBC 0-2 /hpf Urine Squamous Epithelial Cells 0-5 /hpf Urine Bacteria NONE /hpf Microscopic Urinalysis Comment CULT NOT INDICATED MDM Medical Decision Making Medical Screen Exam Complete: Yes Emergency Medical Condition: Yes Interpretation(s) EKG: NSR 86bpm. Normal axis. No peaked T waves. Differential Diagnosis Dehydration vs. electrolyte abnormalities vs. viral syndrome vs. pneumonia vs. influenza Narrative Course 42yo F with flu like symptoms. Influenza negative. Labs reviewed, no leukocytosis. H/H low at 11.2/33.8 which is baseline. K is 5.2. BUN/ creatinine is elevated at 73/12.0 which is baseline. Lactic acid mildly elevated at 2.6. Lipase normal. Glucose low at 51, pt given dextrose. Pt given zofran and toradol and said she still has pain. Her abdomen is now sore across her upper abdomen. Pt given morphine and CT a/p- ordered. BP was initially elevated at 194/110, given hydralazine. Pt has been having vomiting and diarrhea and likely dehydrated. Pt is ESRD so will give NS IVF 500cc. Lungs are clear. CXR negative. Repeat lactic acid is normal at 1.7. UA negative. CT a/p showed mild ileus. Lymph nodes. Left adnexal lesion possibly ovarian cyst. Pt has no lower abdominal pain. Will have pt follow up as outpatient. Repeat blood glucose 70 and pt is drinking now and feeling better. Return precautions given. Diagnosis Primary Impression: Viral syndrome Patient Instructions: General Instructions Departure Forms: Tests/Procedures Additional Instructions: Please follow up with your primary care physician in 2-3 days. Return to the ED if symptoms worsen. Med/Other Pt SpecificInfo: Prescription(s) given Scripts Ondansetron Odt (Zofran Odt) 4 Mg Tab 4 MG SL Q12HR Y for Nausea/Vomiting, #6 TAB 0 Refills Prov: Vianey Ward DO 05/02/18 Disposition: 01 DISCHARGE HOME Condition: Stable Vianey Ward DO May 02, 2018 18:58
[2018-05-02 18:59] LABS: CALCIUM 7.7 MG/DL (8.5-10.1)
--- NOTE | 2018-05-02 18:59 | RADRPT ---
EXAM DATE: 05/02/2018 6:56 PM EDT AGE/SEX: 42 years / Female INDICATIONS: Cough, short of breath CLINICAL DATA: This is the patient's initial encounter. Patient reports that signs and symptoms have been present for 1 day and indicates a pain score of 0/10. MEDICAL/SURGICAL HISTORY: None. None. COMPARISON: [facility] [place], 12/12[place]. . FINDINGS: A single AP view of the chest demonstrates the lungs to be symmetrically aerated without evidence of mass, infiltrate or effusion. The cardiomediastinal contours are unremarkable. Osseous structures a re intact. CONCLUSION: No acute findings. Electronically signed by: Mark Aguilar MD 05/02/2018 6:58 PM EDT
[2018-05-02 19:00] LABS: ALBUMIN 3.1 GM/DL (3.4-5.0); BICARBONATE 22.2 MEQ/L (21.0-32.0); BLOOD UREA NITROGEN 73 MG/DL (7-18); GLUCOSE,RANDOM 51 MG/DL (74-106); MAGNESIUM 2.1 MG/DL (1.5-2.5)
[2018-05-02] MEDS ORDERED: KETOROLAC TROMETHAMINE 30 MG/ML (IVP) VIAL IV PUSH ONE (19:00)
[2018-05-02] MEDS ORDERED: ONDANSETRON ODT 4 MG TAB PO ONE (19:00)
[2018-05-02] MEDS ORDERED: guaiFENesin/CODEINE SYRUP 200 MG/20 MG/10 ML CUP PO ONE (19:00)
[2018-05-02 19:03] LABS: ALT (GPT) 21 U/L (10-53); AST (GOT) 13 U/L (15-37); GLOMERULAR FILTRATION RATE 4 ML/MIN (>89)
[2018-05-02 19:04] LABS: TOTAL BILIRUBIN ADULT 0.3 MG/DL (0.2-1.0)
[2018-05-02 19:05] LABS: ALKALINE PHOSPHATASE 51 U/L (45-117); LACTIC ACID SEPSIS PROTOCOL 2.6 mmol/L (0.4-2.0)
[2018-05-02 19:10] LABS: INTERNATIONAL NORMALIZED RATIO 1.1 RATIO; PROTHROMBIN TIME - PATIENT 10.7 SEC (9.8-11.6)
[2018-05-02 20:00] LABS: BILIRUBIN, URINE NEG (NEG); BLOOD, URINE TRACE (NEG); GLUCOSE,URINE NEG (NEG); KETONE, URINE NEG (NEG); NITRITE,URINE NEG (NEG); URINE COLOR YELLOW (YELLW/STRAW); URINE LEUKOCYTE ESTERASE NEG (NEG)
[2018-05-02] MEDS ORDERED: DEXTROSE 50% IN WATER 50 ML VIAL(D50) IV PUSH ONE (20:00)
[2018-05-02] MEDS ORDERED: MORPHINE SULFATE 4 MG/ML INJ IV PUSH ONE (20:00)
[2018-05-02 20:02] VITALS: BP 182/97; PULSE 92; RESP 18; O2SAT 100
[2018-05-02 20:06] LABS: SQUAMOUS EPITHELIAL CELL URINE 0-5 /hpf (0-5); WBC, URINE 0-2 /hpf (0-5)
[2018-05-02] MEDS ORDERED: SODIUM CHLORID 0.9% 500 ML INJ 500 ML IV ONE (20:15)
--- NOTE | 2018-05-02 20:27 | RADRPT ---
EXAM DATE: 05/02/2018 8:12 PM EDT AGE/SEX: 42 years / Female INDICATIONS: Nausea. Vomiting. CLINICAL DATA: This is the patient's initial encounter. Patient reports that signs and symptoms have been present for 2 days and indicates a pain score of 6/10. MEDICAL/SURGICAL HISTORY: Renal disease. Gastroesophageal reflux disease. section. T ubal ligation. RADIATION DOSE: 10.37 CTDI (mGy) COMPARISON: [facility], CT ABDOMEN & PELVIS W/O CONTRAST, 04/04/2016. . TECHNIQUE: Multiple contiguous axial images were obtained through the abdomen. Images were obtained using multiple row detector helical technique. Using automated exposure control and adjustment of the mA and/or kV according to patient size, radiation dose was kept as low as reasonably achievable to o btain optimal diagnostic quality images. DICOM format image data is available electronically for rev iew and comparison. FINDINGS: There is minimal basilar atelectasis. Liver is enlarged to about 18.9 cm in length. Spleen is within normal limits. Stable aneurysm coil right kidney compared with March 2016. Small nonobstructing left re nal calculus measuring 2 to 3 mm. The kidneys are atrophic. Adrenals and pancreas unremarkable. No calcified gallstones identified. No free fluid. No bowel obstruction. Mild ileus. No adenopathy. Normal alignment in the spine. Partia lly calcified 1.7 cm lymph node in the left groin similar in size to previous exam. Other subcentimet er calcified lymph nodes noted in the left iliac region and left retroperitoneum. 3.5 cm left adnexal lesion, probably a cyst. CONCLUSION: 1. Mild ileus. 2. Partially calcified 1.7 cm left inguinal lymph node similar in size to 2016. Other smaller calcif ied lymph nodes noted along the left-sided retroperitoneum of uncertain etiology. 3.5 cm left adnexal lesion possibly an ovarian cyst. Electronically signed by: Mark Aguilar MD 05/02/2018 8:25 PM EDT
[2018-05-02 21:31] VITALS: BP 178/66; PULSE 90; RESP 18; O2SAT 99
[2018-05-02] MEDS ORDERED: ZOFR4TAB3 SL (21:52)
[2018-05-02 23:14] VITALS: BP 181/96; PULSE 90; RESP 18; O2SAT 99
--- NOTE | 2018-05-03 23:13 | EKG ---
Date Performed: 05/02/2018 Time Performed: 18:43:08 PTAGE: 42 years EKG: Sinus rhythm POSSIBLE LEFT ATRIAL ENLARGEMENT NONSPECIFIC T-WAVE ABNORMALITY BORDERLINE ECG PREVIOUS TRACING : 11/21/2017 16.21 Compared to previous tracing, ST/T wave changes noted, non -specific DOCTOR: Aristeo Pinto Interpretating Date/Time 05/03/2018 23:11:47
== END 2018-05-02 23:17 | disposition home or self-care (01) ==
LOC: PHED 18:13
DX: B34.9 Viral infection, unspecified (principal); K56.7 Ileus, unspecified; I12.0 Hypertensive chronic kidney disease with stage 5 chronic kidney disease or end stage renal disease; N18.6 End stage renal disease; R94.31 Abnormal electrocardiogram [ECG] [EKG]; J45.909 Unspecified asthma, uncomplicated; M19.90 Unspecified osteoarthritis, unspecified site; Z99.2 Dependence on renal dialysis; Z21 Asymptomatic human immunodeficiency virus [HIV] infection status
CPT/HCPCS: 71045; 74176; 80053; 81001; 83605; 83690; 83735; 85025; 85610; 85730; 87328; 87329; 87493; 87804; 93005; 96361; 96374; 96375; 99285; J0360; J1885; J2270; J7040

== ENCOUNTER 2018-06-19 06:05 | Inpatient (IN) ==
[2018-06-19] MEDS ORDERED: Acetaminophen 325 MG Tablet PO ONE (07:34)
--- NOTE | 2018-06-19 08:11 | XR ---
EXAM DATE: 06/19/2018 8:06 AM EDT AGE/SEX: 42 years / Female INDICATIONS: . Shortness of breath. CLINICAL DATA: This is the patient's initial encounter. Patient reports that signs and symptoms have been present for 4 - 6 days and indicates a pain score of 0/10. MEDICAL/SURGICAL HISTORY: Hypertension. None. COMPARISON: [facility] – [place], CHEST 2V PA&LAT, 06/18/2018. . FINDINGS: PA and lateral views of the chest demonstrate persistent density in the lingula. Right lung clear. He art normal in size. The cardiomediastinal contours are unremarkable. Osseous structures are intact. CONCLUSION: Persistent lingular infiltrate Electronically signed by: Cheo Villaseñor MD 06/19/2018 8:10 AM EDT
[2018-06-19 08:12] LABS: Baso % (Auto) 0.4 % (0.0-2.0); Eos # (Auto) 0.2 th/mm3 (0.0-0.4); Eos % (Auto) 2.6 % (0.0-4.0); Hematocrit 32.7 % (35.0-46.0); Hemoglobin 10.8 gm/dL (11.6-15.3); Lymph % (Auto) 20.9 % (9.0-44.0); Mean Corpuscular HGB Conc 33.1 % (32.0-36.0); Mean Corpuscular Volume 87.7 fL (80.0-100.0); Mean Platelet Volume 9.1 fL (7.0-11.0); Mono # (Auto) 0.9 th/mm3 (0.0-0.9); Mono % (Auto) 9.1 % (0.0-8.0); Neut # (Auto) 6.4 th/mm3 (1.8-7.7); Platelet Count 174 th/mm3 (150-450); Red Blood Count 3.73 mil/mm3 (4.00-5.30); Red Cell Distribution Width 15.9 % (11.6-17.2); White Blood Count 9.6 th/mm3 (4.0-11.0)
[2018-06-19 08:54] LABS: Calcium 8.1 mg/dL (8.5-10.1); Carbon Dioxide 18.2 meq/L (21.0-32.0); Potassium 4.7 meq/L (3.5-5.1)
--- NOTE | 2018-06-19 08:57 | ED ---
HPI General Chief complaint: Respiratory Symptoms Stated complaint: Respiratory/Evac Time Seen by Provider: 06/19/18 07:10 Source: patient and old records reviewed Mode of arrival: ambulatory Limitations: no limitations History of Present Illness HPI narrative: Patient is a 42-year-old female, past medical history significant for HIV with an adequate CD 4 count, end-stage renal disease on hemodialysis, who presents with complaint of worsening body aches, cough, shortness of breath. She was seen here yesterday and diagnosed with a lingular pneumonia. She was instructed to take antibiotics which she had previously been prescribed and return to the emergency department for any new/concerning/ worsening symptoms. She states that she missed her dialysis yesterday because she was here. She took Tylenol this morning for her body aches but states they have continued to worsen despite the Tylenol. She has not taken her antibiotics yet today. She is complaining of worsening shortness of breath and chest pain only when she coughs. MD complaint: body aches Onset (ago): day(s) Radiation: non-radiation Severity: moderate Quality: aching Pain Consistency: constant Relieving factors: none Exacerbating factors: none Associated symptoms: cough, fever/chills and shortness of breath Treatments prior to arrival: other (tylenol) Related Data Home Medications Medication Instructions Recorded Confirmed amlodipine [Norvasc] 5 mg PO DAILY 05/19/18 06/19/18 darunavir ethanolate [Prezista] 800 mg PO DAILY 05/19/18 06/19/18 dolutegravir [Tivicay] 50 mg PO BID 05/19/18 06/19/18 etravirine [Intelence] 200 mg PO BID 05/19/18 06/19/18 labetalol 100 mg PO BID 05/19/18 06/19/18 ropinirole [Requip] 0.5 mg PO TID 05/19/18 06/19/18 Previous Rx's Medication Instructions Recorded azithromycin See Label Instructions .ROUTE 06/16/18 .COMPLEX #6 tab Allergies Allergy/AdvReac Type Severity Reaction Status Date / Time Sulfa (Sulfonamide Allergy Intermediate Hives Verified 06/19/18 08:49 Antibiotics) Review of Systems ROS: all other systems reviewed are negative Constitutional Reports body ache(s), Reports chills and Denies fever(s) Eyes Denies blurry vision ENT Reports nasal congestion Cardiovascular Denies syncope Respiratory Reports chest congestion, Reports cough and Reports dyspnea Gastrointestinal Denies abdominal pain Genitourinary Denies dysuria Musculoskeletal Denies back pain Integumentary/Breasts Denies rash Neurologic Denies confusion Psychiatric Denies confusion Endocrine Reports fatigue [facility] Medical History Medical History Arteriovenous fistula for hemodialysis in place, primary (Acute) ESRD on dialysis (Acute) HBP (high blood pressure) (Acute) HIV (human immunodeficiency virus infection) (Acute) Smoker (Acute) Surgical History Surgical History History of tubal ligation (Acute) Family History Family History Mother Family history of cancer Social History Social History Substance History: No History of Abuse Second Hand Smoke Exposure: Yes Smoking Status: Former smoker (stopped 1 month ago, smoked 1/2 pack per day x 25 years) Tobacco Type: Cigarettes How Often Do You Have a Drink Containing Alcohol: Monthly or less Hx Recent Travel: No Recent Travel in [facility] within the Last 8 Weeks: No Recent Out of Country Travel within the Last 8 Weeks: No Immunization History Tetanus Immunization: >5 Years Hx Influenza Vaccine This Season: Yes Exam Narrative Exam Narrative: GENERAL: Well-appearing female in no acute distress SKIN: Focused skin assessment warm/dry. No rashes. HEAD: Atraumatic. Normocephalic. EYES: Pupils equal and round. No scleral icterus. No injection or drainage. ENT: No nasal bleeding or discharge. Mucous membranes pink and moist. NECK: Trachea midline. No JVD. CARDIOVASCULAR: Regular rate and rhythm. No murmur appreciated. Palpable thrill in the right upper extremity at the site of her AV fistula. RESPIRATORY: No accessory muscle use. Faint wheezes with rhonchi throughout. Breath sounds equal bilaterally. GASTROINTESTINAL: Abdomen soft, non-tender, nondistended. Hepatic and splenic margins not palpable. MUSCULOSKELETAL: No obvious deformities. No clubbing. No cyanosis. Trace edema to the bilateral lower extremities. NEUROLOGICAL: Awake and alert. No obvious cranial nerve deficits. Motor grossly within normal limits. Normal speech. PSYCHIATRIC: Appropriate mood and affect; insight and judgment normal. Course Reevaluation(s) Reevaluation #1: Patient states that she feels better after the breathing treatment and thinks she needs another. She was informed of her results and states that she is scared of going home with her pneumonia and HIV status ( though with an adequate CD4 count). Time: 09:28 Initial Documented Vital Signs Temperature 99.7 F H 06/19/18 06:19 Pulse Rate 101 H 06/19/18 06:19 Respiratory Rate 15 06/19/18 06:19 Blood Pressure 192/102 H 06/19/18 06:19 Pulse Oximetry 99 06/19/18 06:19 Last Documented Vital Signs Temperature 99.2 F 06/19/18 06:22 Pulse Rate 94 H 06/19/18 10:20 Respiratory Rate 17 06/19/18 10:20 Blood Pressure 141/101 H 06/19/18 10:20 Pulse Oximetry 99 06/19/18 10:20 Medical Decision Making MDM Narrative Medical decision making narrative: Patient is a 42-year-old female who presents with complaint of persistent body aches and cough with slight dyspnea. She was diagnosed with pneumonia yesterday and has been on azithromycin for several days. Her CD4 count was greater than 300 which makes her not immunosuppressed. She was given several DuoNeb's after which she states she felt much better. White blood cell count has improved since yesterday and creatinine is at baseline without hyperkalemia. We discussed options and patient states she would like to be admitted as she is scared with her ongoing pneumonia. I then spoke to the family medicine chair environmental lead whom accepted the admission. Differential Diagnosis Differential Diagnosis: Differential diagnosis includes but is not limited to worsening pneumonia, sepsis, fluid overload, electrolyte abnormality. Medical Records Medical records reviewed: Yes I reviewed the patient's medical records. Lab Data Lab results reviewed: Yes I reviewed the patient's lab results. Lab results narrative: Labs reveal chronic end-stage renal disease without hyperkalemia. White blood cell count has improved from yesterday. Result diagrams: 06/19/18 07:30 06/19/18 07:30 Lab Results 06/19/18 06/19/18 Range/Units 07:30 07:30 WBC 9.6 (4.0-11.0) th/mm3 RBC 3.73 L (4.00-5.30) mil/mm3 Hgb 10.8 L (11.6-15.3) gm/dL Hct 32.7 L (35.0-46.0) % MCV 87.7 (80.0-100.0) fL MCH 29.0 (27.0-34.0) pg MCHC 33.1 (32.0-36.0) % RDW 15.9 (11.6-17.2) % Plt Count 174 (150-450) th/mm3 MPV 9.1 (7.0-11.0) fL Neut % (Auto) 67.0 (16.0-70.0) % Lymph % (Auto) 20.9 (9.0-44.0) % Baldwin % (Auto) 9.1 H (0.0-8.0) % Eos % (Auto) 2.6 (0.0-4.0) % Baso % (Auto) 0.4 (0.0-2.0) % Neut # (Auto) 6.4 (1.8-7.7) th/mm3 Lymph # (Auto) 2.0 (1.0-4.8) th/mm3 Baldwin # (Auto) 0.9 (0.0-0.9) th/mm3 Eos # (Auto) 0.2 (0.0-0.4) th/mm3 Baso # (Auto) 0.0 (0.0-0.2) th/mm3 WBC Differential . Differential Comment Auto diff final Sodium 138 (136-145) meq/L Potassium 4.7 (3.5-5.1) meq/L Chloride 105 (98-107) meq/L Carbon Dioxide 18.2 L (21.0-32.0) meq/L Anion Gap 15 (5-15) meq/L BUN 78 H (7-18) mg/dL Creatinine 12.82 H* D (0.50-1.00) mg/dL Estimated GFR 4 L (>89) mL/min Random Glucose 67 L (74-106) mg/dL Calcium 8.1 L (8.5-10.1) mg/dL Imaging Data Attestation: I personally reviewed and interpreted this imaging study as follows : My impression: Persistent infiltrate. Radiologist's impression: Chest X-Ray 06/19/18 07:34 CONCLUSION: Persistent lingular infiltrate Discharge Plan Discharge Disposition Patient Disposition: 30 Still Patient Discharge Condition Condition: Stable Discharge Details Diagnosis: Pneumonia, End-stage renal disease (ESRD), HIV (human immunodeficiency virus infection) Physicians Team ED Provider: Christianne Betancourt Primary Care Provider: UNKNOWN, Attending Provider: Clau Sigala Discharge Interventions Interventions: Vital Signs Last Done: 06/19/18 10:20 Status ED Status: Admitted Observation Patient
--- NOTE | 2018-06-19 10:39 | P.HPFP ---
History of Present Illness Primary Care Physician: UNKNOWN <Clau Sigala - 06/20/18 10:32> UNKNOWN PCP, ID, Nephro Nephroligist Dr. Krishna <Reyna Hunter - 06/19/18 13:00> History of Present Illness: 42-year-old female, past medical history of end-stage renal disease on dialysis , HIV, hypertension, presents with pneumonia that failed outpatient treatment. Pt slime sick on Thursday and Thursday and decided to go the ER Thursday, and was told she had a URI (XRAY normal in ED). 2 days later she was told she had a pneumonia (Thursday). She was sent home with antibiotic and instructions to return if its worse. She woke up 3AM with severe body aches and SOB, called [facility] , and came back to the ED. Thursday and Thursday she was spitting up yellow mucous with mild body aches that increased over the week. She took her temp at her dialysis appt Thursday and it was 99.6, although she has felt that she has probably had fever/chills. She thinks that her symptoms seem to come and go in waves every few hours. She took tylenol PM last night but that did not relieve her sx. Denies any sick contacts , no kids around. She mostly stays home, works at [employer], and goes to her [employer] appts. She just had a nebulizer treatment, and does not feel any SOB. Denies any current chest pains. Denies N/V, diarrhea, constipation. She has continued to take her HIV medications and she sees her ID doctor regularly. The last cell count was good per pt. <Reyna Hunter - 06/19/18 13:00> - Diagnosis (1) Pneumonia (2) End-stage renal disease (ESRD) (3) HIV (human immunodeficiency virus infection) (4) Hypertension (5) Nutrition, metabolism, and development symptoms <Clau Sigala - 06/20/18 10:32> (1) Pneumonia (2) End-stage renal disease (ESRD) (3) HIV (human immunodeficiency virus infection) (4) Hypertension (5) Nutrition, metabolism, and development symptoms <Reyna Hunter - 06/19/18 12:54> Inpatient Certification: I certify that the inpatient services were ordered in accordance with Medicare regulations governing the order. This includes certification that hospital inpatient services are reasonable and necessary and in the case of services not specified as inpatient-only under 42 CFR 419.22(n), that they are appropriately provided as inpatient services in accordance to with the 2-midnight benchmark under 43 CFR 412.3(e) <Clau Sigala Lew - 06/20/18 10:32> Review of Systems Constitutional: Reports body ache(s) <Reyna Hunter 06/19/18 10:39> Eyes: Denies blurry vision <[facility] 06/19/18 10:39> Ears, Nose, Mouth, and Throat: Denies abnormal hearing <[facility] 09/26 10:39> Cardiovascular: Denies chest pain, Denies excessive sweating, Denies fainting [facility]/19/18 10:39> Respiratory: Reports change in phlegm color, Reports chest congestion, Reports cough, Reports coughing up blood ("maybe had red stuff in mucous this AM") < ElsaReyna 06/19/18 10:39> Gastrointestinal: Denies abdominal pain, Denies black, tarry stools, Denies change in stools <Leta Hunterory 06/19/18 10:39> Musculoskeletal: Reports body aches, Denies abnormal walking <Leta Hunterory 06/19/18 10:39> Psychiatric: Denies confusion, Denies memory loss <Leta Hunterory 06/19/18 10:39> PMFSH - History History Provided By: Patient, Associate Drafter / EMT <Leta Hunterory 06/19/18 10: 39> - Medical History Medical History: Medical History (Last Updated 06/19/18 @ 10:38 by Reyna Hunter MD, R2) Arteriovenous fistula for hemodialysis in place, primary ESRD on dialysis HBP (high blood pressure) HIV (human immunodeficiency virus infection) Smoker <Clau Sigala Lew - 06/20/18 10:32> Medical History (Last Updated 06/19/18 @ 10:38 by Reyna Hunter MD, R2) Arteriovenous fistula for hemodialysis in place, primary ESRD on dialysis HBP (high blood pressure) HIV (human immunodeficiency virus infection) Smoker <Reyna Hunter 06/19/18 10:39> - Surgical History Surgical History: Surgical History (Last Reviewed 06/19/18 @ 08:55 by Christianne Betancourt MD) History of tubal ligation <Clau Sigala 06/20/18 10:32> Surgical History (Last Reviewed 06/19/18 @ 08:55 by Christianne Betancourt MD) History of tubal ligation <Reyna Hunter 06/19/18 10:39> - Family History Family History: Family History (Last Updated 06/19/18 @ 10:38 by Reyna Hunter MD, R2) Mother Family history of cancer <Clau Sigala 06/20/18 10:32> Family History (Last Updated 06/19/18 @ 10:38 by Reyna Hunter MD, R2) Mother Family history of cancer <Reyna Hunter 06/19/18 10:39> - Tobacco History Second Hand Smoke Exposure: Yes <Reyna Hunter 06/19/18 10:39> Tobacco Use In Past 30 Days: No <Reyna Hunter 06/19/18 10:39> Smoking Status: Former smoker (stopped 1 month ago, smoked 1/2 pack per day x 25 years) <Reyna Hunter 06/19/18 10:39> Tobacco Type: Cigarettes <Reyna Hunter 06/19/18 10:39> - Alcohol History How Often Do You Have a Drink Containing Alcohol: Monthly or less <Reyna Hunter 06/19/18 10:39> - Substance Use History Substance History: No History of Abuse <Reyna Hunter 06/19/18 10:39> - Travel History History of Recent Travel: No <Reyna Hunter 06/19/18 10:39> Recent Travel in the [place] Within the Last 8 Weeks: No <Reyna Hunter 10:39> Recent Travel Out of the Country Within the Last 8 Weeks: No <Reyna Hunter 06/19/18 10:39> - Immunization History Tetanus Immunization: >5 Years <Reyna Hunter 06/19/18 10:39> Hx Influenza Vaccine This Season: Yes <Reyna Hunter - 06/19/18 10:39> Medications and Allergies Allergies Allergy/AdvReac Type Severity Reaction Status Date / Time Sulfa (Sulfonamide Allergy Intermediate Hives Verified 06/19/18 08:49 Antibiotics) <Clau Sigala - 06/20/18 10:32> Home Medications Medication Instructions Recorded Confirmed Type amlodipine [Norvasc] 5 mg PO DAILY 05/19/18 06/19/18 History darunavir ethanolate [Prezista] 800 mg PO DAILY 05/19/18 06/19/18 History dolutegravir [Tivicay] 50 mg PO BID 05/19/18 06/19/18 History etravirine [Intelence] 200 mg PO BID 05/19/18 06/19/18 History labetalol 100 mg PO BID 05/19/18 06/19/18 History ropinirole [Requip] 0.5 mg PO TID 05/19/18 06/19/18 History <Clau Sigala - 06/20/18 10:32> Active Medications: Active Medications Acetaminophen (Tylenol) 650 mg PO Q6HR PRN PRN Reason: PAIN SCALE 1 TO 2 Hydrocodone Bitart/Acetaminophen ([place] 5/325) 1 tab PO Q4H PRN PRN Reason: PAIN SCALE 3 TO 5 Hydrocodone Bitart/Acetaminophen ([place] 7.5/325) 1 tab PO Q4H PRN PRN Reason: PAIN SCALE 6 TO 10 Last Admin: 06/20/18 03:48 Dose: 1 tab Albuterol (Duoneb Neb (Alvaro)) 1 ampul NEB Q6HR NEB ALVARO Last Admin: 06/20/18 08:38 Dose: 1 ampul Amlodipine Besylate (Norvasc) 5 mg PO DAILY [facility] Last Admin: 06/19/18 13:08 Dose: 5 mg Darunavir (Prezista) 800 mg PO DAILY [facility] Dolutegravir Sodium (Tivicay) 50 mg PO BID [facility] Last Admin: 06/19/18 21:29 Dose: 50 mg Etravirine (Intelence) 200 mg PO BID [facility] Last Admin: 06/19/18 21:29 Dose: 200 mg Guaifenesin/Dextromethorphan (Robitussin Dm 200/20 Mg/10 Ml Liq) 10 ml PO Q4H PRN PRN Reason: COUGH Labetalol HCl (Trandate) 100 mg PO BID [facility] Last Admin: 06/19/18 21:30 Dose: 100 mg Labetalol HCl (Trandate Inj) 10 mg IV.PUSH Q4H PRN PRN Reason: SEE LABEL COMMENTS Levofloxacin (Levaquin) 500 mg PO Q48H [facility] Naloxone HCl (Narcan Inj) 0.4 mg IV.PUSH UNSCH PRN PRN Reason: SEE LABEL COMMENTS Ondansetron HCl (Zofran Inj) 4 mg IV.PUSH Q6H PRN PRN Reason: NAUSEA OR VOMITING Sodium Chloride (Ns Flush) 2 ml IV.FLUSH UNSCH PRN PRN Reason: FLUSH AFTER USING IV ACCESS Sodium Chloride (Ns Flush) 2 ml IV.FLUSH BID [facility] Last Admin: 06/19/18 21:29 Dose: 2 ml <Clau Sigala - 06/20/18 10:32> Exam Vital signs: Vital Signs 06/19/18 12:16 06/19/18 13:52 06/19/18 14:44 Temperature 98.9 F Pulse Rate 91 H 90 87 Respiratory Rate 15 19 19 Blood Pressure 173/110 H 163/96 H Pulse Oximetry 100 98 06/19/18 14:54 06/19/18 19:14 06/19/18 21:36 Temperature 98.9 F Pulse Rate 97 H 97 H Respiratory Rate 16 18 18 Blood Pressure 148/90 H Pulse Oximetry 100 95 06/19/18 23:29 06/20/18 03:36 06/20/18 04:12 Temperature 98 F 98.6 F Pulse Rate 69 91 H 91 H Respiratory Rate 18 16 16 Blood Pressure 158/87 H 157/81 H Pulse Oximetry 100 100 06/20/18 07:29 06/20/18 08:39 Temperature 98.1 F Pulse Rate 90 87 Respiratory Rate 16 18 Blood Pressure 159/93 H Pulse Oximetry 99 <Clau Sigala - 06/20/18 10:32> Vital Signs 06/19/18 06:19 06/19/18 06:22 06/19/18 08:06 Temperature 99.7 F H 99.2 F Pulse Rate 101 H 96 H 91 H Respiratory Rate 15 19 15 Blood Pressure 192/102 H 185/107 H Pulse Oximetry 99 99 100 06/19/18 08:48 06/19/18 09:34 06/19/18 10:20 Temperature Pulse Rate 91 H 94 H Respiratory Rate 17 15 17 Blood Pressure 141/101 H Pulse Oximetry 99 Intake & Output 06/18/18 06/19/18 06/19/18 18:59 06:59 18:59 Weight 71.214 kg <eLta Hunterory - 06/19/18 10:39> - Constitutional no acute distress, average body habitus <Leta Hunterory - 06/19/18 13:00> - Routine Respiratory Exam Present: wheezes, crackles. Absent: accessory muscle use, decreased breath sounds, prolonged expiratory phase, respiratory distress <Reyna Hunter - 13:00> Comments: Wheezes and crackles in left middle and left lower lung [place] <[facility] - 06/19/18 13:00> - Routine Cardiovascular Exam Present: RRR, S1, S2. Absent: murmur <Leta Hunterory - 06/19/18 13:00> - Routine Abdominal Exam Present: soft, normoactive bowel sounds. Absent: tenderness [facility] - 06/19/18 13:00> - Routine Extremities Exam Absent: cyanosis, clubbing, edema <Reyna Hunter - 06/19/18 13:00> Results - Labs Result diagrams: 06/19/18 07:30 06/19/18 07:30 <Clau Sigala - 06/20/18 10:32> Abnormal lab results 06/19/18 06/19/18 Range/Units 12:37 12:51 Urine Clarity Hazy H (Clear) Urine Protein 100 H (Neg-Trace) mg/dL Urine Bacteria Rare H (None) /hpf Urine Cocaine Screen Pos H (Neg) Urine 06/19/18 Range/Units 12:51 Urine Color Straw (Yellw/Straw) Urine Clarity Hazy H (Clear) Urine pH 7.0 (5.0-8.5) Ur Specific Donner 1.009 (1.002-1.035) Urine Protein 100 H (Neg-Trace) mg/dL Urine Glucose (UA) 50 (Negative) mg/dL <Clau Sigala - 06/20/18 10:32> Abnormal lab results 06/19/18 06/19/18 Range/Units 07:30 07:30 RBC 3.73 L (4.00-5.30) mil/mm3 Hgb 10.8 L (11.6-15.3) gm/dL Hct 32.7 L (35.0-46.0) % [place] % (Auto) 9.1 H (0.0-8.0) % Carbon Dioxide 18.2 L (21.0-32.0) meq/L BUN 78 H (7-18) mg/dL Creatinine 12.82 H* D (0.50-1.00) mg/dL Estimated GFR 4 L (>89) mL/min Random Glucose 67 L (74-106) mg/dL Calcium 8.1 L (8.5-10.1) mg/dL Short CBC 06/19/18 Range/Units 07:30 WBC 9.6 (4.0-11.0) th/mm3 Hgb 10.8 L (11.6-15.3) gm/dL Hct 32.7 L (35.0-46.0) % Plt Count 174 (150-450) th/mm3 BMP 06/19/18 07:30 Sodium 138 Potassium 4.7 Chloride 105 Carbon Dioxide 18.2 L BUN 78 H Creatinine 12.82 H* D Calcium 8.1 L <Reyna Hunter - 06/19/18 10:39> - Imaging Impressions Chest X-Ray 06/19/18 07:34 CONCLUSION: Persistent lingular infiltrate <Reyna Hunter - 06/19/18 10:39> Caprini VTE Risk Assessment Caprini VTE Risk Assessment: No/Low Risk (score <= 1) <Reyna Hunter - 06/19 13:00> Caprini Risk Assessment Model: Point Value = 1 Point Value = 2 Point Value = 3 Point Value = 5 Age 41-60 Minor surgery BMI > 25 kg/m2 Swollen legs Varicose veins or History of unexplained or recurrent spontaneous Oral contraceptives or hormone replacement Sepsis (< 1 month) Serious lung disease, including pneumonia (< 1 month) Abnormal pulmonary function Acute myocardial infarction Congestive heart failure (< 1 month) History of inflammatory bowel disease Medical patient at bed rest Age 61-74 Arthroscopic surgery Major open surgery (> 45 min) Laparoscopic surgery (> 45 min) Malignancy Confined to bed (> 72 hours) Immobilizing plaster cast Central venous access Age >= 75 History of VTE Family history of VTE Factor V Leiden Prothrombin [id number] Lupus anticoagulant Anticardiolipin antibodies Elevated serum homocysteine Heparin-induced thrombocytopenia Other congenital or acquired thrombophilia Stroke (< 1 month) Elective arthroplasty Hip, pelvis, or leg fracture Acute spinal cord injury (< 1 month) <Clau Sigala - 06/20/18 10:32> Point Value = 1 Point Value = 2 Point Value = 3 Point Value = 5 Age 41-60 Minor surgery BMI > 25 kg/m2 Swollen legs Varicose veins or History of unexplained or recurrent spontaneous Oral contraceptives or hormone replacement Sepsis (< 1 month) Serious lung disease, including pneumonia (< 1 month) Abnormal pulmonary function Acute myocardial infarction Congestive heart failure (< 1 month) History of inflammatory bowel disease Medical patient at bed rest Age 61-74 Arthroscopic surgery Major open surgery (> 45 min) Laparoscopic surgery (> 45 min) Malignancy Confined to bed (> 72 hours) Immobilizing plaster cast Central venous access Age >= 75 History of VTE Family history of VTE Factor V Leiden Prothrombin [id number] Lupus anticoagulant Anticardiolipin antibodies Elevated serum homocysteine Heparin-induced thrombocytopenia Other congenital or acquired thrombophilia Stroke (< 1 month) Elective arthroplasty Hip, pelvis, or leg fracture Acute spinal cord injury (< 1 month) <Reyna Hunter - 06/19/18 10:39> Prophylaxis Regimen: Total Risk Factor Score Risk Level Prophylaxis Regimen 0-1 Low Early ambulation 2 Moderate Order ONE of the following: *Sequential Compression Device (SCD) *Heparin 5000 units SQ BID 3-4 Higher Order ONE of the following medications: *Heparin 5000 units SQ TID *Enoxaparin/Lovenox 40 mg SQ daily (WT < 150 kg, CrCl > 30 mL/min) *Enoxaparin/Lovenox 30 mg SQ daily (WT < 150 kg, CrCl > 10-29 mL/min) *Enoxaparin/Lovenox 30 mg SQ BID (WT < 150 kg, CrCl > 30 mL/min) AND/OR *Sequential Compression Device (SCD) 5 or more Highest Order ONE of the following medications: *Heparin 5000 units SQ TID (Preferred with Epidurals) *Enoxaparin/Lovenox 40 mg SQ daily (WT < 150 kg, CrCl > 30 mL/min) *Enoxaparin/Lovenox 30 mg SQ daily (WT < 150 kg, CrCl > 10-29 mL/min) *Enoxaparin/Lovenox 30 mg SQ BID (WT < 150 kg, CrCl > 30 mL/min) AND *Sequential Compression Device (SCD) <Clau Sigala - 06/20/18 10:32> Total Risk Factor Score Risk Level Prophylaxis Regimen 0-1 Low Early ambulation 2 Moderate Order ONE of the following: *Sequential Compression Device (SCD) *Heparin 5000 units SQ BID 3-4 Higher Order ONE of the following medications: *Heparin 5000 units SQ TID *Enoxaparin/Lovenox 40 mg SQ daily (WT < 150 kg, CrCl > 30 mL/min) *Enoxaparin/Lovenox 30 mg SQ daily (WT < 150 kg, CrCl > 10-29 mL/min) *Enoxaparin/Lovenox 30 mg SQ BID (WT < 150 kg, CrCl > 30 mL/min) AND/OR *Sequential Compression Device (SCD) 5 or more Highest Order ONE of the following medications: *Heparin 5000 units SQ TID (Preferred with Epidurals) *Enoxaparin/Lovenox 40 mg SQ daily (WT < 150 kg, CrCl > 30 mL/min) *Enoxaparin/Lovenox 30 mg SQ daily (WT < 150 kg, CrCl > 10-29 mL/min) *Enoxaparin/Lovenox 30 mg SQ BID (WT < 150 kg, CrCl > 30 mL/min) AND *Sequential Compression Device (SCD) <Reyna Hunter - 06/19/18 10:39> Assessment and Plan - Assessment (1) Pneumonia Code(s): J18.9 - Pneumonia, unspecified organism Status: Acute (2) End-stage renal disease (ESRD) Code(s): N18.6 - End stage renal disease Status: Acute (3) HIV (human immunodeficiency virus infection) Code(s): B20 - Human immunodeficiency virus [HIV] disease Status: Acute (4) Hypertension Code(s): I10 - Essential (primary) hypertension Status: Acute (5) Nutrition, metabolism, and development symptoms Code(s): R63.8 - Other symptoms and signs concerning food and fluid intake Status: Acute <Clau Sigala Lew - 06/20/18 10:32> (1) Pneumonia Code(s): J18.9 - Pneumonia, unspecified organism Status: Acute Plan: Patient immunocompromised with HIV, failed outpatient treatment of community- acquired pneumonia with a azithromycin times 2 days Vital signs stable No signs of respiratory distress WBC 9.6 Follow-up blood cultures Follow-up Legionella pneumococcal urinary antigens Follow-up sputum culture and Gram stain Flu antigen negative Start levofloxacin 750 mg daily, 5-7 days treatment total Scheduled DuoNeb's every 6 hours Robitussin-DM 10 mL p.o. every 4 hours as needed cough Chest x-ray 06/19: Persistent lingular infiltrate (2) End-stage renal disease (ESRD) Code(s): N18.6 - End stage renal disease Status: Acute Plan: Patient with ESRD HIV related since 2014, does dialysis 3X per week Missed dialysis x1 since in ED yesterday creatinine 12.82, follow-up as regularly scheduled with dialysis on Thursday (3) HIV (human immunodeficiency virus infection) Code(s): B20 - Human immunodeficiency virus [HIV] disease Status: Acute Plan: Follows with ID, recent CD4 count in the 300s Continue home antiretroviral meds (4) Hypertension Code(s): I10 - Essential (primary) hypertension Status: Acute Plan: BP is elevated on admission; 192/100, 185/107 Patient is due for morning BP meds, administer BP meds now Labetalol IV as needed for BP 180/100 (5) Nutrition, metabolism, and development symptoms Code(s): R63.8 - Other symptoms and signs concerning food and fluid intake Status: Acute Plan: Fluids: Continue to encourage p.o. fluids Electrolytes: Follow-up BMP and replete as needed Nutrition: Renal diet DVT prophylaxis: SCDs only, anticipate discharge tomorrow <Ryena Hunter - 06/19/18 12:54> - Assessment and Plan 42-year-old female, past medical history of end-stage renal disease on dialysis , HIV, hypertension, presents with pneumonia that failed outpatient treatment. <Reyna Hunter - 06/19/18 13:00> - Attending Attestation The exam, history, and the medical decision-making described in the above note were completed with the assistance of the resident physician. I reviewed and agree with the findings presented. I attest that I had a [id number] encounter with the patient on the same day, and personally performed and documented my assessment and findings in the medical record. She was seen in the emergency department at the time of her admission along with the resident team. <Chester,Clau M - 06/20/18 10:32> <Reyna Hunter - Last Filed: 06/19/18 12:54> (1) Pneumonia Qualifiers: Pneumonia type: due to unspecified organism Laterality: unspecified laterality Lung location: unspecified part of lung Qualified Code(s): J18.9 - Pneumonia, unspecified organism <Mino Sigalaon M - Last Filed: 06/20/18 10:32> (1) Pneumonia Qualifiers: Pneumonia type: due to unspecified organism Laterality: unspecified laterality Lung location: unspecified part of lung Qualified Code(s): J18.9 - Pneumonia, unspecified organism <Reyna Hunter - Last Filed: 06/19/18 12:54> (1) Pneumonia Qualifiers: Pneumonia type: due to unspecified organism Laterality: unspecified laterality Lung location: unspecified part of lung Qualified Code(s): J18.9 - Pneumonia, unspecified organism <Clau Sigala - Last Filed: 06/20/18 10:32> (1) Pneumonia Qualifiers: Pneumonia type: due to unspecified organism Laterality: unspecified laterality Lung location: unspecified part of lung Qualified Code(s): J18.9 - Pneumonia, unspecified organism
[2018-06-19] MEDS ORDERED: guaiFENesin/Dextromethorphan 200 MG/20 MG 10 ML UDC PO PRN (11:02)
[2018-06-19] MEDS ORDERED: Labetalol HCl Inj 100 MG/20 ML Vial IV.PUSH PRN (12:42)
[2018-06-19] MEDS: amLODIPine 5 MG Tablet PO SCH (13:08)
[2018-06-19] MEDS: Labetalol 100 MG Tablet PO SCH ×2 (13:08→21:30)
[2018-06-19] MEDS ORDERED: Naloxone Inj 0.4 MG/ML Vial IV.PUSH PRN (13:38)
[2018-06-19] MEDS ORDERED: Acetaminophen 325 MG Tablet PO PRN (13:38)
[2018-06-19] MEDS ORDERED: levoFLOXacin 750 MG Tablet PO ONE (14:00)
[2018-06-19 15:35] LABS: Bacteria,Urine Rare /hpf; Bilirubin,Urine Negative (Negative); Clarity,Urine Hazy (Clear); Color,Urine Straw (Yellw/Straw); Glucose,Urine (UA) 50 mg/dL (Negative); Leukocyte Esterase,Urine Negative (Negative); Nitrite,Urine Negative (Negative); Specific Gravity,Urine 1.009 (1.002-1.035); Squamous Epithelial Cell,Urine 3 /hpf (0-5)
[2018-06-19 15:39] LABS: Amphetamine Screen,Urine Neg (Neg); Barbiturate Screen,Urine Neg (Neg); Cannabinoid Screen,Urine Neg (Neg); Cocaine Screen,Urine Pos (Neg)
[2018-06-19 15:41] LABS: Opiate Screen,Urine Neg (Neg)
--- NOTE | 2018-06-20 08:42 | ECG ---
Date Performed: 06/19/2018 Time Performed: 07:52:04 PTAGE: 42 years EKG: Sinus rhythm POSSIBLE RIGHT ATRIAL ENLARGEMENT LEFT ATRIAL ENLARGEMENT NONSPECIFIC ST & T-WAVE ABNORMALITY ABNORM AL ECG PREVIOUS TRACING : 06/16/2018 15.55 DOCTOR: Trip Hernandez Interpretating Date/Time 06/20/2018 08:33:31
--- NOTE | 2018-06-20 10:20 | P.HPFP ---
History of Present Illness Primary Care Physician: UNKNOWN History of Present Illness: 42-year-old female, past medical history of end-stage renal disease on dialysis , HIV, hypertension, presents with pneumonia that failed outpatient treatment. Pt felt sick on Thursday and Thursday and decided to go the ER Thursday, and was told she had a URI (XRAY normal in ED). 2 days later she was told she had a pneumonia, not hospital acquired (Thursday). She was sent home with antibiotic and instructions to return if its worse. She woke up 3AM with severe body aches and SOB, called [facility], and came back to the ED. Thursday and Thursday she was spitting up yellow mucous with mild body aches that increased over the week. She took her temp at her dialysis appt Thursday and it was 99.6, although she has felt that she has probably had fever/chills. She thinks that her symptoms seem to come and go in waves every few hours. She took tylenol PM the night before admission but that did not relieve her sx. Denies any sick contacts, no kids around. She mostly stays home, works at [employer], and goes to her dialysis appts. She had a nebulizer treatment, and did not feel any SOB. She responded very well to the nebulizer treatments. Denies any current chest pains. Denies N/V, diarrhea, constipation. She has continued to take her HIV medications and she sees her ID doctor regularly. The last cell count was good per pt. There was a concern about her taking all of her medicines properly as she had not filled or taken the antibiotic prescribed by the emergency department in a regular manner. Based on the concern about taking azithromycin and not seeming to respond, though I do not believe she had a long enough trial, she was switched to Levaquin. This morning she reports feeling back to almost normal. She states that the nebulizer treatments seem to have worked very well for her. She has little if any cough. She has tolerated the Levaquin very well and is ready to go home today. When questioned further about taking her medications she does not know the names of her HIV medicines but was very definite about always taking them at 9 PM and seem to be reliable. We also discussed her urine drug test was positive for cocaine she realizes that this can be harmful to her health and knows that there is help available if she needs it. - Diagnosis (1) Pneumonia (2) End-stage renal disease (ESRD) (3) HIV (human immunodeficiency virus infection) (4) Hypertension (5) Nutrition, metabolism, and development symptoms Inpatient Certification: I certify that the inpatient services were ordered in accordance with Medicare regulations governing the order. This includes certification that hospital inpatient services are reasonable and necessary and in the case of services not specified as inpatient-only under 42 CFR 419.22(n), that they are appropriately provided as inpatient services in accordance to with the 2-midnight benchmark under 43 CFR 412.3(e) Estimated Total Length of Stay (Days): 2 Plans for Post Hospital Care: Home Review of Systems other (Please see her history and physical from yesterday) PMFSH - History History Provided By: Patient - Medical History Medical History: Medical History (Last Updated 06/19/18 @ 10:38 by Reyna Hunter MD, R2) Arteriovenous fistula for hemodialysis in place, primary ESRD on dialysis HBP (high blood pressure) HIV (human immunodeficiency virus infection) Smoker - Surgical History Surgical History: Surgical History (Last Reviewed 06/19/18 @ 08:55 by Christianne Betancourt MD) History of tubal ligation - Family History Family History: Family History (Last Updated 06/19/18 @ 10:38 by Reyna Hunter MD, R2) Mother Family history of cancer - Tobacco History Second Hand Smoke Exposure: Yes Tobacco Use In Past 30 Days: No Smoking Status: Former smoker Tobacco Type: Cigarettes - Alcohol History How Often Do You Have a Drink Containing Alcohol: 2 to 4 times a month - Substance Use History Substance History: No History of Abuse - Travel History History of Recent Travel: No Recent Travel in the [place] Within the Last 8 Weeks: No Recent Travel Out of the Country Within the Last 8 Weeks: No - Immunization History Tetanus Immunization: >5 Years Hx Influenza Vaccine This Season: Yes Medications and Allergies Active Medications: Active Medications Acetaminophen (Tylenol) 650 mg PO Q6HR PRN PRN Reason: PAIN SCALE 1 TO 2 Hydrocodone Bitart/Acetaminophen ([place] 5/325) 1 tab PO Q4H PRN PRN Reason: PAIN SCALE 3 TO 5 Hydrocodone Bitart/Acetaminophen ([place] 7.5/325) 1 tab PO Q4H PRN PRN Reason: PAIN SCALE 6 TO 10 Last Admin: 06/20/18 03:48 Dose: 1 tab Albuterol (Duoneb Neb ([facility])) 1 ampul NEB Q6HR NEB [facility] Last Admin: 06/20/18 08:38 Dose: 1 ampul Amlodipine Besylate (Norvasc) 5 mg PO DAILY [facility] Last Admin: 06/19/18 13:08 Dose: 5 mg Darunavir (Prezista) 800 mg PO DAILY [facility] Dolutegravir Sodium (Tivicay) 50 mg PO BID [facility] Last Admin: 06/19/18 21:29 Dose: 50 mg Etravirine (Intelence) 200 mg PO BID [facility] Last Admin: 06/19/18 21:29 Dose: 200 mg Guaifenesin/Dextromethorphan (Robitussin Dm 200/20 Mg/10 Ml Liq) 10 ml PO Q4H PRN PRN Reason: COUGH Labetalol HCl (Trandate) 100 mg PO BID [facility] Last Admin: 06/19/18 21:30 Dose: 100 mg Labetalol HCl (Trandate Inj) 10 mg IV.PUSH Q4H PRN PRN Reason: SEE LABEL COMMENTS Levofloxacin (Levaquin) 500 mg PO Q48H [facility] Naloxone HCl (Narcan Inj) 0.4 mg IV.PUSH UNSCH PRN PRN Reason: SEE LABEL COMMENTS Ondansetron HCl (Zofran Inj) 4 mg IV.PUSH Q6H PRN PRN Reason: NAUSEA OR VOMITING Sodium Chloride (Ns Flush) 2 ml IV.FLUSH UNSCH PRN PRN Reason: FLUSH AFTER USING IV ACCESS Sodium Chloride (Ns Flush) 2 ml IV.FLUSH BID [facility] Last Admin: 06/19/18 21:29 Dose: 2 ml Allergies Allergy/AdvReac Type Severity Reaction Status Date / Time Sulfa (Sulfonamide Allergy Intermediate Hives Verified 06/19/18 08:49 Antibiotics) Home Medications Medication Instructions Recorded Confirmed Type amlodipine [Norvasc] 5 mg PO DAILY 05/19/18 06/19/18 History darunavir ethanolate [Prezista] 800 mg PO DAILY 05/19/18 06/19/18 History dolutegravir [Tivicay] 50 mg PO BID 05/19/18 06/19/18 History etravirine [Intelence] 200 mg PO BID 05/19/18 06/19/18 History labetalol 100 mg PO BID 05/19/18 06/19/18 History ropinirole [Requip] 0.5 mg PO TID 05/19/18 06/19/18 History Exam Vital signs: Vital Signs 06/19/18 12:16 06/19/18 13:52 06/19/18 14:44 Temperature 98.9 F Pulse Rate 91 H 90 87 Respiratory Rate 15 19 19 Blood Pressure 173/110 H 163/96 H Pulse Oximetry 100 98 06/19/18 14:54 06/19/18 19:14 06/19/18 21:36 Temperature 98.9 F Pulse Rate 97 H 97 H Respiratory Rate 16 18 18 Blood Pressure 148/90 H Pulse Oximetry 100 95 06/19/18 23:29 06/20/18 03:36 06/20/18 04:12 Temperature 98 F 98.6 F Pulse Rate 69 91 H 91 H Respiratory Rate 18 16 16 Blood Pressure 158/87 H 157/81 H Pulse Oximetry 100 100 06/20/18 07:29 06/20/18 08:39 Temperature 98.1 F Pulse Rate 90 87 Respiratory Rate 16 18 Blood Pressure 159/93 H Pulse Oximetry 99 - Constitutional no acute distress, average body habitus, cooperative - Routine HEENT Exam Head: Present: normocephalic. Absent: cushingoid faces, facial swelling Eye: Present: EOMI. Absent: conjunctival icterus, scleral injection ENT: Present: mucous membranes moist, external ear normal - Routine Neck Exam Present: supple, full ROM - Routine Chest/Breast/Axilla Exam Chest wall: Absent: tenderness, chest tube - Routine Respiratory Exam Present: decreased breath sounds, wheezes. Absent: accessory muscle use - Routine Cardiovascular Exam Present: RRR. Absent: murmur, gallop, rubs, irregular rhythm - Routine Abdominal Exam Present: soft. Absent: tenderness, distended, rebound, guarding - Routine Extremities Exam Absent: cyanosis, clubbing, edema, extremity cold to touch - Routine Skin Exam Present: intact, dry. Absent: cyanosis, erythema - Routine Neurological Exam Present: alert, oriented X3, moving all extremities, normal tone. Absent: sensory deficit, motor deficit, altered mental status Results - Labs Result diagrams: 06/19/18 07:30 06/19/18 07:30 Abnormal lab results 06/19/18 06/19/18 Range/Units 12:37 12:51 Urine Clarity Hazy H (Clear) Urine Protein 100 H (Neg-Trace) mg/dL Urine Bacteria Rare H (None) /hpf Urine Cocaine Screen Pos H (Neg) Urine 06/19/18 Range/Units 12:51 Urine Color Straw (Yellw/Straw) Urine Clarity Hazy H (Clear) Urine pH 7.0 (5.0-8.5) Ur Specific [place] 1.009 (1.002-1.035) Urine Protein 100 H (Neg-Trace) mg/dL Urine Glucose (UA) 50 (Negative) mg/dL Caprini VTE Risk Assessment Caprini VTE Risk Assessment: No/Low Risk (score <= 1) Caprini Risk Assessment Model: Point Value = 1 Point Value = 2 Point Value = 3 Point Value = 5 Age 41-60 Minor surgery BMI > 25 kg/m2 Swollen legs Varicose veins or History of unexplained or recurrent spontaneous Oral contraceptives or hormone replacement Sepsis (< 1 month) Serious lung disease, including pneumonia (< 1 month) Abnormal pulmonary function Acute myocardial infarction Congestive heart failure (< 1 month) History of inflammatory bowel disease Medical patient at bed rest Age 61-74 Arthroscopic surgery Major open surgery (> 45 min) Laparoscopic surgery (> 45 min) Malignancy Confined to bed (> 72 hours) Immobilizing plaster cast Central venous access Age >= 75 History of VTE Family history of VTE Factor V Leiden Prothrombin [id number] Lupus anticoagulant Anticardiolipin antibodies Elevated serum homocysteine Heparin-induced thrombocytopenia Other congenital or acquired thrombophilia Stroke (< 1 month) Elective arthroplasty Hip, pelvis, or leg fracture Acute spinal cord injury (< 1 month) Prophylaxis Regimen: Total Risk Factor Score Risk Level Prophylaxis Regimen 0-1 Low Early ambulation 2 Moderate Order ONE of the following: *Sequential Compression Device (SCD) *Heparin 5000 units SQ BID 3-4 Higher Order ONE of the following medications: *Heparin 5000 units SQ TID *Enoxaparin/Lovenox 40 mg SQ daily (WT < 150 kg, CrCl > 30 mL/min) *Enoxaparin/Lovenox 30 mg SQ daily (WT < 150 kg, CrCl > 10-29 mL/min) *Enoxaparin/Lovenox 30 mg SQ BID (WT < 150 kg, CrCl > 30 mL/min) AND/OR *Sequential Compression Device (SCD) 5 or more Highest Order ONE of the following medications: *Heparin 5000 units SQ TID (Preferred with Epidurals) *Enoxaparin/Lovenox 40 mg SQ daily (WT < 150 kg, CrCl > 30 mL/min) *Enoxaparin/Lovenox 30 mg SQ daily (WT < 150 kg, CrCl > 10-29 mL/min) *Enoxaparin/Lovenox 30 mg SQ BID (WT < 150 kg, CrCl > 30 mL/min) AND *Sequential Compression Device (SCD) Assessment and Plan - Assessment (1) Pneumonia Code(s): J18.9 - Pneumonia, unspecified organism Status: Acute Plan: Patient immunocompromised with HIV, failed outpatient treatment of community- acquired pneumonia with a azithromycin times 2 days Vital signs stable No signs of respiratory distress WBC 9.6 Follow-up blood cultures Follow-up Legionella pneumococcal urinary antigens Follow-up sputum culture and Gram stain Flu antigen negative Start levofloxacin 250 mg daily, renally dosed, 5-7 days treatment total or can consider 500 mg after dialysis. Scheduled DuoNeb's every 6 hours Robitussin-DM 10 mL p.o. every 4 hours as needed cough Chest x-ray 06/19: Persistent lingular infiltrate (2) End-stage renal disease (ESRD) Code(s): N18.6 - End stage renal disease Status: Acute Plan: Patient with ESRD HIV related since 2014, does dialysis 3X per week Missed dialysis x1 since in ED yesterday creatinine 12.82, follow-up as regularly scheduled with dialysis on Thursday as an outpatient. She has no problems with fluid overload at this time. (3) HIV (human immunodeficiency virus infection) Code(s): B20 - Human immunodeficiency virus [HIV] disease Status: Acute Plan: Follows with ID, recent CD4 count in the 300s Continue home antiretroviral meds (4) Hypertension Code(s): I10 - Essential (primary) hypertension Status: Acute Plan: BP is elevated on admission; 192/100, 185/107 Patient is due for morning BP meds, administer BP meds now Labetalol IV as needed for BP 180/100 She will probably improve her blood pressure when she gets back to dialysis as she will have less volume. (5) Nutrition, metabolism, and development symptoms Code(s): R63.8 - Other symptoms and signs concerning food and fluid intake Status: Acute Plan: Fluids: Continue to encourage p.o. fluids Electrolytes: Follow-up BMP and replete as needed Nutrition: Renal diet DVT prophylaxis: SCDs only, anticipate discharge today - Assessment and Plan 42-year-old female, past medical history of end-stage renal disease on dialysis , HIV, hypertension, presents with pneumonia that failed outpatient treatment. She needed to get on the antibiotic regularly and also responded very well to nebulizer treatments. She is ready to go home today. H&P: Quality - VTE Deep Vein Thrombosis/Pulmonary Embolism Present on Admission: No (1) Pneumonia Qualifiers: Pneumonia type: due to unspecified organism Laterality: unspecified laterality Lung location: unspecified part of lung Qualified Code(s): J18.9 - Pneumonia, unspecified organism (4) Hypertension Qualifiers: Hypertension type: renovascular hypertension Qualified Code(s): I15.0 - Renovascular hypertension
[2018-06-20 10:53] LABS: Baso % (Auto) 0.7 % (0.0-2.0); Eos # (Auto) 0.2 th/mm3 (0.0-0.4); Eos % (Auto) 2.6 % (0.0-4.0); Hemoglobin 9.7 gm/dL (11.6-15.3); Lymph # (Auto) 1.2 th/mm3 (1.0-4.8); Lymph % (Auto) 20.8 % (9.0-44.0); Mean Corpuscular HGB Conc 33.3 % (32.0-36.0); Mean Corpuscular Hemoglobin 29.2 pg (27.0-34.0); Mean Corpuscular Volume 87.8 fL (80.0-100.0); Mean Platelet Volume 8.4 fL (7.0-11.0); Mono # (Auto) 0.6 th/mm3 (0.0-0.9); Mono % (Auto) 9.7 % (0.0-8.0); Neut # (Auto) 3.9 th/mm3 (1.8-7.7); Neut % (Auto) 66.2 % (16.0-70.0); Platelet Count 180 th/mm3 (150-450); Red Cell Distribution Width 16.1 % (11.6-17.2); White Blood Count 5.9 th/mm3 (4.0-11.0)
[2018-06-20] MEDS: amLODIPine 5 MG Tablet PO SCH (10:59)
[2018-06-20] MEDS: Labetalol 100 MG Tablet PO SCH (11:00)
[2018-06-20 11:26] LABS: Alanine Aminotransferase 12 U/L (10-53); Albumin 2.9 g/dL (3.4-5.0); Alkaline Phosphatase 58 U/L (45-117); Anion Gap 13 meq/L (5-15); Aspartate Aminotransferase 16 U/L (15-37); Blood Urea Nitrogen 87 mg/dL (7-18); Carbon Dioxide 19.5 meq/L (21.0-32.0); Chloride 103 meq/L (98-107); Glomerular Filtration Rate 3 mL/min (>89); Glucose,Random 104 mg/dL (74-106); Potassium 4.8 meq/L (3.5-5.1); Sodium 135 meq/L (136-145); Total Protein 8.2 g/dL (6.4-8.2)
[2018-06-20 11:38] VITALS: BP 196/108; PULSE 97; RESP 16; TEMP 98.5; O2SAT 100
[2018-06-21] MEDS ORDERED: levoFLOXacin 500 MG Tablet PO SCH (14:00)
== END 2018-06-20 15:25 | disposition home or self-care (01) ==
LOC: NEPC 06:05 → NEDA 06:05 → NEPGCP 16:49
PROVIDERS: ADMIT Family Medicine; ATTEND Family Medicine

== ENCOUNTER 2018-10-17 13:14 | Observation (INO) ==
[2018-10-17] MEDS ORDERED: Labetalol HCl Inj 100 MG/20 ML Vial IV.PUSH ONE ×2 (13:54→15:57)
[2018-10-17 14:10] LABS: Baso % (Auto) 0.5 % (0.0-2.0); Eos # (Auto) 0.2 th/mm3 (0.0-0.4); Eos % (Auto) 2.7 % (0.0-4.0); Hematocrit 33.4 % (35.0-46.0); Hemoglobin 10.7 gm/dL (11.6-15.3); Lymph # (Auto) 1.2 th/mm3 (1.0-4.8); Lymph % (Auto) 15.9 % (9.0-44.0); Mean Corpuscular HGB Conc 32.1 % (32.0-36.0); Mean Corpuscular Hemoglobin 29.7 pg (27.0-34.0); Mean Corpuscular Volume 92.4 fL (80.0-100.0); Mean Platelet Volume 9.3 fL (7.0-11.0); Mono # (Auto) 0.6 th/mm3 (0.0-0.9); Mono % (Auto) 8.2 % (0.0-8.0); Neut # (Auto) 5.4 th/mm3 (1.8-7.7); Neut % (Auto) 72.7 % (16.0-70.0); Platelet Count 133 th/mm3 (150-450); Red Blood Count 3.61 mil/mm3 (4.00-5.30); Red Cell Distribution Width 17.6 % (11.6-17.2); White Blood Count 7.4 th/mm3 (4.0-11.0)
--- NOTE | 2018-10-17 14:26 | ED ---
HPI General Chief complaint: Respiratory Symptoms Stated complaint: problem breathing/body ache/cold & flu complaint Time Seen by Provider: 10/17/18 13:47 Source: patient Mode of arrival: ambulatory Limitations: no limitations History of Present Illness HPI narrative: Patient is a 43 year old female who comes in complaining of cough , shortness of breath and pain all over. She says this started yesterday. She tried using albuterol at home without relief of her symptoms. She normally takes hydrocodone for pain, but has been out of it because she was doubling up on her pills. She says the pain is all over her body. Specifically, she denies chest pain or abdominal pain. She has not had nausea or vomiting. She is HIV positive and reports compliance with her medications. She says she only took one of her blood pressure medications today. She is ESRD and is dialyzed MWF, reports compliance. Severity is moderate. Related Data Home Medications Medication Instructions Recorded Confirmed amlodipine [Norvasc] 5 mg PO DAILY 05/19/18 10/17/18 darunavir ethanolate [Prezista] 800 mg PO DAILY 05/19/18 10/17/18 dolutegravir [Tivicay] 50 mg PO BID 05/19/18 10/17/18 etravirine [Intelence] 200 mg PO BID 05/19/18 10/17/18 labetalol 300 mg PO BID 05/19/18 10/17/18 ropinirole [Requip] 0.5 mg PO TID 05/19/18 10/17/18 Previous Rx's Medication Instructions Recorded ipratropium-albuterol 3 ml INHALATION Q6-8H PRN #30 ml 06/20/18 Allergies Allergy/AdvReac Type Severity Reaction Status Date / Time Sulfa (Sulfonamide Allergy Intermediate Hives Verified 06/19/18 08:49 Antibiotics) Review of Systems ROS: all other systems reviewed are negative Constitutional Denies chills and Denies fever(s) ENT Denies dizziness Cardiovascular Denies chest pain Respiratory Reports cough and Reports dyspnea Gastrointestinal Denies nausea and Denies vomiting Musculoskeletal Reports myalgias Integumentary/Breasts Denies sores and Denies wounds Neurologic Denies focal weakness and Denies numbness PMFSH Medical History Medical History Arteriovenous fistula for hemodialysis in place, primary (Acute) ESRD on dialysis (Acute) HBP (high blood pressure) (Acute) HIV (human immunodeficiency virus infection) (Acute) Smoker (Acute) Surgical History Surgical History History of tubal ligation (Acute) Family History Family History Mother Family history of cancer Social History Social History Substance History: No History of Abuse Second Hand Smoke Exposure: Yes Smoking Status: Current every day smoker Tobacco Type: Cigarettes How Often Do You Have a Drink Containing Alcohol: 2 to 4 times a month Hx Recent Travel: No Recent Travel in [facility] within the Last 8 Weeks: No Recent Out of Country Travel within the Last 8 Weeks: No Immunization History Tetanus Immunization: <5 Years Exam Narrative Exam Narrative: GENERAL: Awake and alert, in no acute distress. SKIN: Focused skin assessment warm/dry. HEAD: Atraumatic. Normocephalic. EYES: Pupils equal and round. No scleral icterus. No injection or drainage. ENT: No nasal bleeding or discharge. Mucous membranes pink and moist. NECK: Trachea midline. No JVD. CARDIOVASCULAR: Regular rate and rhythm. No murmur appreciated. RESPIRATORY: No accessory muscle use. Decreased breath sounds throughout both lungs. Breath sounds equal bilaterally. GASTROINTESTINAL: Abdomen soft, non-tender, nondistended. MUSCULOSKELETAL: No obvious deformities. No clubbing. No cyanosis. No edema. NEUROLOGICAL: Awake and alert. No obvious cranial nerve deficits. Motor grossly within normal limits. Normal speech. PSYCHIATRIC: Appropriate mood and affect; insight and judgment normal. Course Initial Documented Vital Signs Temperature 98.4 F 10/17/18 13:18 Pulse Rate 89 10/17/18 13:18 Respiratory Rate 20 10/17/18 13:18 Blood Pressure 255/129 H 10/17/18 13:18 Pulse Oximetry 99 10/17/18 13:18 Last Documented Vital Signs Temperature 98.4 F 10/17/18 13:18 Pulse Rate 91 H 10/17/18 16:38 Respiratory Rate 18 10/17/18 16:38 Blood Pressure 212/125 H 10/17/18 16:38 Pulse Oximetry 95 12/09/18 16:38 Medical Decision Making MDM Narrative Medical decision making narrative: Patient is a 43 year old female with history of ESRD, HIV, who comes in complaining of body aches and SOB. Exam show decreased breath sounds in both lungs. Given duonebs, solumedrol. Given her home amlodipine, which she has not taken today as well as IV Labetalol. Labs show no acute abnormalities. CXR concerning for possible consolidation. Given Rocephin and Azithromycin. Given home pain medicine. Patient continues to complain of shortness of breath. given additional duonebs. Given additional pain medicine. Patient given 2 doses of 20mg Labetalol, amlodipine, and clonidine. BP is very difficulty to control. She is due for dialysis tomorrow. Patient will be placed in observation due to continued SOB with pneumonia, and her comorbidities. Medical Screen Exam Complete: Yes Emergency Medical Condition: Yes Differential Diagnosis Differential Diagnosis: pneumonia vs bronchitis vs influenza vs COPD Medical Records Medical records reviewed: Yes I reviewed the patient's medical records. Lab Data Lab results reviewed: Yes I reviewed the patient's lab results. Result diagrams: 10/17/18 14:00 10/17/18 14:00 Lab Results 10/17/18 10/17/18 Range/Units 14:00 14:00 WBC 7.4 (4.0-11.0) th/mm3 RBC 3.61 L (4.00-5.30) mil/mm3 Hgb 10.7 L (11.6-15.3) gm/dL Hct 33.4 L (35.0-46.0) % MCV 92.4 (80.0-100.0) fL MCH 29.7 (27.0-34.0) pg MCHC 32.1 (32.0-36.0) % RDW 17.6 H (11.6-17.2) % Plt Count 133 L D (150-450) th/mm3 MPV 9.3 (7.0-11.0) fL Neut % (Auto) 72.7 H (16.0-70.0) % Lymph % (Auto) 15.9 (9.0-44.0) % [place] % (Auto) 8.2 H (0.0-8.0) % Eos % (Auto) 2.7 (0.0-4.0) % Baso % (Auto) 0.5 (0.0-2.0) % Neut # (Auto) 5.4 (1.8-7.7) th/mm3 Lymph # (Auto) 1.2 (1.0-4.8) th/mm3 [place] # (Auto) 0.6 (0.0-0.9) th/mm3 Eos # (Auto) 0.2 (0.0-0.4) th/mm3 Baso # (Auto) 0.0 (0.0-0.2) th/mm3 WBC Differential . Differential Comment Auto diff final Sodium 138 (136-145) meq/L Potassium 4.2 (3.5-5.1) meq/L Chloride 101 (98-107) meq/L Carbon Dioxide 22.2 (21.0-32.0) meq/L Anion Gap 15 (5-15) meq/L BUN 85 H (7-18) mg/dL Creatinine 12.83 H* (0.50-1.00) mg/dL Estimated GFR 4 L (>89) mL/min Random Glucose 89 (74-106) mg/dL Calcium 6.7 L* (8.5-10.1) mg/dL Calcium Adj for Albumin 7.3 L* (8.5-10.1) mg/dL Total Bilirubin 0.5 (0.2-1.0) mg/dL AST 28 (15-37) U/L ALT 29 (10-53) U/L Alkaline Phosphatase 59 (45-117) U/L Total Protein 7.9 (6.4-8.2) g/dL Albumin 3.3 L (3.4-5.0) g/dL Imaging Data Radiologist's impression: Chest X-Ray 10/17/18 13:54 CONCLUSION: Focal consolidation or atelectasis at the lateral right base. ECG Data EKG Prior to Arrival: No Attestation: I personally reviewed and interpreted this ECG as follows: Interpretation: ECG shows NSR at a rate of 89, no ST elevation or depression, normal intervals. Discharge Plan Discharge Disposition Patient Disposition: ED Admit(ED Internal Use Only) Discharge Condition Condition: Stable Discharge Details Diagnosis: Hypertension, uncontrolled, Pneumonia, COPD (chronic obstructive pulmonary disease) Physicians Team ED Provider: Zeinab Sharif Rxs /Orders / Referrals /Forms Prescriptions: No Action amlodipine [Norvasc] 5 mg Tablet 5 mg PO DAILY RF: 0 ropinirole [Requip] 0.5 mg Tablet 0.5 mg PO TID RF: 0 etravirine [Intelence] 200 mg Tablet 200 mg PO BID RF: 0 darunavir ethanolate [Prezista] 800 mg Tablet 800 mg PO DAILY RF: 0 labetalol 100 mg Tablet 300 mg PO BID RF: 0 dolutegravir [Tivicay] 50 mg Tablet 50 mg PO BID RF: 0 ipratropium-albuterol 0.5 mg-3 mg(2.5 mg base)/3 mL Solution For Nebulization 3 ml INHALATION Q6-8H PRN (Reason: Shortness Of Breath) Qty: 30 RF: 0 Status ED Status: With Doctor
--- NOTE | 2018-10-17 14:32 | XR ---
EXAM DATE: 10/17/2018 2:29 PM EST AGE/SEX: 43 years / Female INDICATIONS: . Shortness of breath, whole body pain, congestion, and cough. CLINICAL DATA: This is the patient's initial encounter. Patient reports that signs and symptoms have been present for 2 days and indicates a pain score of 10/10. MEDICAL/SURGICAL HISTORY: Hypertension. None. COMPARISON: [facility] [place], CHEST 1V SINGLE AP, 10/03/2018. . FINDINGS: The heart size is upper limits of normal. There is increased density at the lateral right base with s ilhouetting the lateral aspect of the right hemidiaphragm. The left lung is grossly clear. CONCLUSION: Focal consolidation or atelectasis at the lateral right base. Electronically signed by: Phi Myles MD 10/17/2018 2:30 PM EST
[2018-10-17 14:35] LABS: Albumin 3.3 g/dL (3.4-5.0); Calcium 6.7 mg/dL (8.5-10.1); Carbon Dioxide 22.2 meq/L (21.0-32.0); Potassium 4.2 meq/L (3.5-5.1); Total Protein 7.9 g/dL (6.4-8.2)
[2018-10-17] MEDS ORDERED: amLODIPine 5 MG Tablet PO ONE (14:58)
[2018-10-17] MEDS ORDERED: Azithromycin Inj 500 MG in Sodium Chlor 0.9% Inj 250 ML IV.SIG ONE (15:08)
[2018-10-17] MEDS ORDERED: MethylPREDNISolone Sod Succinate Inj 125 MG/2 ML Vial IV.PUSH ONE (15:57)
[2018-10-17] MEDS ORDERED: Morphine Inj 4 MG/ML Vial IV.PUSH ONE (16:23)
[2018-10-17] MEDS ORDERED: Bisacodyl 10 MG Supp RECTAL PRN (17:22)
--- NOTE | 2018-10-17 18:20 | P.HPIM ---
History of Present Illness Service: Hospitalist Primary Care Physician: Phi De La Rosa Chief Complaint: Dyspnea History of Present Illness: This is a 43yr old female with a PMHX significant for ESRD on HD MWF, HIV medication complaint and HTN who presents to [facility] ED with complaints of cough and progressive shortness of breath for the past 2 days. Patient presented with URI symptoms to the ED on 10/03/18. CXR at that time was unremarkable. Since then, she reports progressive dyspnea. She says she hurts all over. She reports associated yellowish sputum production. Patient states she has been feverish at home but has not recorded her temperature. She reports pain with inspiration. She say she was hospitalized in June with pneumonia and this feels the same. She has been using her nebulizer at home without any benefit. She denies any ill contacts but says she may have caught something at dialysis. She denies any nausea, vomiting or abdominal pain. She denies any urinary difficulties, diarrhea or constipation. She has been taking hydrocodone for pain but is out due to doubling up on her pills. She says she is compliant with her dialysis treatments. She has not been taking her Norvasc. She continues to smoke. She does not use oxygen at home. ED workup revealed hypertensive urgency with BP 255/129. She was treated with Labetalol, Amlodipine and Clonidine. CXR shows focal consolidation or atelectasis at the right lateral base. She was given Rocephin and Azithromycin and breathing treatments. She is afebrile. There is no leukocytosis. She is currently satting 97% on 2L. Review of Systems Review of Systems: all other systems reviewed are negative [facility] Medical History Medical History Arteriovenous fistula for hemodialysis in place, primary (Acute) ESRD on dialysis (Acute) HBP (high blood pressure) (Acute) HIV (human immunodeficiency virus infection) (Acute) Smoker (Acute) Surgical History Surgical History History of tubal ligation (Acute) Family History Family History Mother Family history of cancer Social History Social History Substance History: No History of Abuse Second Hand Smoke Exposure: Yes Smoking Status: Current every day smoker Tobacco Type: Cigarettes How Often Do You Have a Drink Containing Alcohol: 2 to 4 times a month Hx Recent Travel: No Recent Travel in [facility] within the Last 8 Weeks: No Recent Out of Country Travel within the Last 8 Weeks: No Immunization History Tetanus Immunization: <5 Years Medications and Allergies Allergies Allergy/AdvReac Type Severity Reaction Status Date / Time Sulfa (Sulfonamide Allergy Intermediate Hives Verified 06/19/18 08:49 Antibiotics) Home Medications Medication Instructions Recorded Confirmed Type amlodipine [Norvasc] 5 mg PO DAILY 05/19/18 10/17/18 History darunavir ethanolate [Prezista] 800 mg PO DAILY 05/19/18 10/17/18 History dolutegravir [Tivicay] 50 mg PO BID 05/19/18 10/17/18 History etravirine [Intelence] 200 mg PO BID 05/19/18 10/17/18 History labetalol 300 mg PO BID 05/19/18 10/17/18 History ropinirole [Requip] 0.5 mg PO TID 05/19/18 10/17/18 History Active Medications: Active Medications Acetaminophen (Tylenol) 650 mg PO Q4H PRN PRN Reason: Temp > 100.4 Al Hydroxide/Mg Hydroxide (Milk Of Magnesia Liq) 30 ml PO Q12H PRN PRN Reason: Mild Constipation Albuterol (Duoneb Neb (Prn)) 1 ampul INH Q6HR NEB PRN PRN Reason: Shortness Of Breath Amlodipine Besylate (Norvasc) 5 mg PO DAILY NIDIA Azithromycin (Zithromax) 500 mg PO DAILY NIDIA Bisacodyl (Dulcolax Supp) 10 mg RECTAL DAILY PRN PRN Reason: SEVERE CONSITIPATION Cefuroxime Axetil (Ceftin) 250 mg PO Q12HR NIDIA Clonidine HCl (Catapres) 0.1 mg PO Q6H PRN PRN Reason: SEE LABEL COMMENTS Darunavir (Prezista) 800 mg PO DAILY NIDIA Dolutegravir Sodium (Tivicay) 50 mg PO BID NIDIA Labetalol HCl (Trandate) 300 mg PO BID NIDIA Lactulose (Lactulose Liq) 30 ml PO DAILY PRN PRN Reason: SEVERE CONSITIPATION Ondansetron HCl (Zofran Inj) 4 mg IV.PUSH Q6H PRN PRN Reason: NAUSEA OR VOMITING Pt Own Med: (Etravirine 200mg) 0 each PO BID NIDIA Ropinirole HCl (Requip) 0.5 mg PO TID NIDIA Sennosides (Senokot) 17.2 mg PO Q12H PRN PRN Reason: Moderate Constipation Sodium Chloride (Ns Flush) 2 ml IV.FLUSH BID NIDIA Sodium Chloride (Ns Flush) 2 ml IV.FLUSH PRN PRN PRN Reason: FLUSH AFTER USING IV ACCESS Physical Exam Vital signs: Last Vital Signs Temp 98.4 F 10/17/18 13:18 Pulse 89 10/17/18 17:10 Resp 17 10/17/18 17:10 BP 188/119 H 10/17/18 17:10 Pulse Ox 97 10/17/18 17:10 Intake & Output 10/15/18 10/16/18 10/17/18 10/18/18 06:59 06:59 06:59 06:59 Intake Total 100 / 100 Balance 100 / 100 Weight 72.575 kg Narrative: GENERAL: WDWN female patient, INAD. Awake and alert. Not in any acute respiratory distress. SKIN: Warm and dry. HEAD: Atraumatic. Normocephalic. EYES: Pupils equal and round. No scleral icterus. No injection or drainage. ENT: No nasal bleeding or discharge. Mucous membranes pink and moist. NECK: Trachea midline. CARDIOVASCULAR: Regular rate and rhythm. RESPIRATORY: No accessory muscle use. Diminished BS. Breath sounds equal bilaterally. GASTROINTESTINAL: Abdomen soft, non-tender, nondistended. +BS x 4 quadrants. MUSCULOSKELETAL: Extremities without clubbing, cyanosis, or edema. No obvious deformities. NEUROLOGICAL: Awake and alert. No obvious cranial nerve deficits. Motor grossly within normal limits. Able to move all extremities spontaneously. Normal speech. PSYCHIATRIC: Appropriate mood and affect; insight and judgment normal. Results Labs CBC & Chem 7: 10/17/18 14:00 10/17/18 14:00 Imaging Impressions Chest X-Ray 10/17/18 13:54 CONCLUSION: Focal consolidation or atelectasis at the lateral right base. Caprini VTE Risk Assessment Caprini VTE Risk Assessment: No/Low Risk (score <= 1) Caprini Risk Assessment Model: Point Value = 1 Point Value = 2 Point Value = 3 Point Value = 5 Age 41-60 Minor surgery BMI > 25 kg/m2 Swollen legs Varicose veins or History of unexplained or recurrent spontaneous Oral contraceptives or hormone replacement Sepsis (< 1 month) Serious lung disease, including pneumonia (< 1 month) Abnormal pulmonary function Acute myocardial infarction Congestive heart failure (< 1 month) History of inflammatory bowel disease Medical patient at bed rest Age 61-74 Arthroscopic surgery Major open surgery (> 45 min) Laparoscopic surgery (> 45 min) Malignancy Confined to bed (> 72 hours) Immobilizing plaster cast Central venous access Age >= 75 History of VTE Family history of VTE Factor V Leiden Prothrombin [id number] Lupus anticoagulant Anticardiolipin antibodies Elevated serum homocysteine Heparin-induced thrombocytopenia Other congenital or acquired thrombophilia Stroke (< 1 month) Elective arthroplasty Hip, pelvis, or leg fracture Acute spinal cord injury (< 1 month) Prophylaxis Regimen: Total Risk Factor Score Risk Level Prophylaxis Regimen 0-1 Low Early ambulation 2 Moderate Order ONE of the following: *Sequential Compression Device (SCD) *Heparin 5000 units SQ BID 3-4 Higher Order ONE of the following medications: *Heparin 5000 units SQ TID *Enoxaparin/Lovenox 40 mg SQ daily (WT < 150 kg, CrCl > 30 mL/min) *Enoxaparin/Lovenox 30 mg SQ daily (WT < 150 kg, CrCl > 10-29 mL/min) *Enoxaparin/Lovenox 30 mg SQ BID (WT < 150 kg, CrCl > 30 mL/min) AND/OR *Sequential Compression Device (SCD) 5 or more Highest Order ONE of the following medications: *Heparin 5000 units SQ TID (Preferred with Epidurals) *Enoxaparin/Lovenox 40 mg SQ daily (WT < 150 kg, CrCl > 30 mL/min) *Enoxaparin/Lovenox 30 mg SQ daily (WT < 150 kg, CrCl > 10-29 mL/min) *Enoxaparin/Lovenox 30 mg SQ BID (WT < 150 kg, CrCl > 30 mL/min) AND *Sequential Compression Device (SCD) Assessment and Plan Plan 43 yo AAF with PMHX of HIV medication complaint, HTN and ESRD on HD MWF admitted with hypertensive urgency and PNA. Hypertensive urgency BP 255/129 treated with Clonidine, Labetalol and Amlodipine in the ED BP improved 166/80 -resume home medications Norvasc and Labetalol -Clonidine prn with parameters -continue to monitor BP and adjust treatment accordingly -patient also due to HD tomorrow which should help lower BP PNA CXR shows focal consolidation vs atelectasis in the right lung treated with Azithromycin, Ceftriaxone and Methylprednisolone in the ED -continue supplemental oxygen as needed to maintain O2 sats >92% -scheduled Duonebs -start on Ceftin 250mg po q12 and Azithromycin 500mg po daily -monitor for improvement -monitor respiratory status ESRD on HD MWF Hypocalcemia -Consult Nephrology, appreciate assistance. HIV, medication complaint -resume home antiretroviral medication regimen Hx of cocaine use 06/19/18 UDS + cocaine -obtain UDS DVT prophylaxis -bilateral SCD/LAURA hose Discharge Planning: Likely discharge in next 1-2 hrs pending clinical improvement
[2018-10-17 19:52] LABS: Bacteria,Urine Rare /hpf; Bilirubin,Urine Negative (Negative); Clarity,Urine Hazy (Clear); Color,Urine Yellow (Yellw/Straw); Glucose,Urine (UA) 50 mg/dL (Negative); Leukocyte Esterase,Urine Negative (Negative); Nitrite,Urine Negative (Negative); Squamous Epithelial Cell,Urine 11 /hpf (0-5)
[2018-10-17 20:05] LABS: Amphetamine Screen,Urine Neg (Neg); Barbiturate Screen,Urine Neg (Neg); Cannabinoid Screen,Urine Neg (Neg); Cocaine Screen,Urine Pos (Neg)
[2018-10-17 20:08] LABS: Opiate Screen,Urine Neg (Neg)
[2018-10-17] MEDS ORDERED: ETRAVIRINE 200 MG PO SCH (21:00)
[2018-10-17] MEDS: Labetalol 100 MG Tablet PO SCH (21:15)
[2018-10-18] MEDS: Acetaminophen 325 MG Tablet PO PRN (00:49)
[2018-10-18 05:30] LABS: Calcium 6.8 mg/dL (8.5-10.1); Carbon Dioxide 20.6 meq/L (21.0-32.0); Phosphorus 6.6 mg/dL (2.5-4.9); Potassium 5.2 meq/L (3.5-5.1)
[2018-10-18 05:57] LABS: Albumin 2.9 g/dL (3.4-5.0); Calcium-Albumin Corrected 7.7 mg/dL (8.5-10.1)
[2018-10-18] MEDS ORDERED: Albumin Human 25% Inj 100 ML IV.SIG PRN (09:04)
[2018-10-18] MEDS ORDERED: Heparin 10,000 UNITS/10 ML Vial (for IV use) OTHER PRN ×2 (09:04)
[2018-10-18] MEDS ORDERED: Acetaminophen 325 MG Tablet PO PRN (09:04)
[2018-10-18] MEDS ORDERED: Sod Chloride 0.9% Inj 1,000 ML OTHER PRN ×2 (09:04)
[2018-10-18] MEDS ORDERED: Sod Chloride 0.9% Inj 1,000 ML IV.CONT PRN (09:04)
[2018-10-18] MEDS: amLODIPine 5 MG Tablet PO SCH (09:05)
[2018-10-18] MEDS: Labetalol 100 MG Tablet PO SCH ×2 (09:05→21:05)
[2018-10-18] MEDS: Azithromycin 250 MG Tablet PO SCH (09:05)
--- NOTE | 2018-10-18 09:29 | P.CONNP ---
<Irena Garcia - Last Filed: 10/18/18 09:17> History of Present Illness Service: Nephrology Consult date: 10/18/18 Requesting Physician: Cookie Sheehan Reason for Consult: End stage renal disease on hemodialysis, hypertensive Primary Care Provider: Phi De La Rosa Chief Complaint: Dyspnea History of Present Illness: Patient is a 43yr old female with a past medical history of significant for end stage renal disease on hemodialysis, hypertension, and HIV. Presents to [facility] emergency room with complaints of cough and progressive shortness of breath for the past 2 days. Chest Xray reveals focal consolidation or atelectasias at the right lateral base. She was also found to be hypertensive with a blood pressure of 255/129. Nephrology is consulted for management of hemodialysis. Normal hemodialysis days are on Thursday, Thursday, and Thursday. Last week she did miss Thursday treatment. Shortness of breath has improved. Denies any chest pain, nausea, vomiting, or dysuria. PMFSH - History History Provided By: Patient - Medical History Medical History: Medical History (Last Reviewed 10/17/18 @ 18:03 by Marci Johnson) Arteriovenous fistula for hemodialysis in place, primary ESRD on dialysis HBP (high blood pressure) HIV (human immunodeficiency virus infection) Smoker - Surgical History Surgical History: Surgical History (Last Reviewed 10/17/18 @ 18:03 by Marci Johnson) History of tubal ligation - Family History Family History: Family History (Last Reviewed 10/17/18 @ 18:03 by Marci Johnson) Mother Family history of cancer - Tobacco History Second Hand Smoke Exposure: Yes Tobacco Use In Past 30 Days: Yes Smoking Status: Current every day smoker Tobacco Type: Cigarettes - Alcohol History How Often Do You Have a Drink Containing Alcohol: Never - Substance Use History Substance History: No History of Abuse - Travel History History of Recent Travel: No Recent Travel in the [place] Within the Last 8 Weeks: No Recent Travel Out of the Country Within the Last 8 Weeks: No - Immunization History Tetanus Immunization: <5 Years Medications and Allergies Allergies Allergy/AdvReac Type Severity Reaction Status Date / Time Sulfa (Sulfonamide Allergy Intermediate Hives Verified 06/19/18 08:49 Antibiotics) Home Medications Medication Instructions Recorded Confirmed Type amlodipine [Norvasc] 5 mg PO DAILY 05/19/18 10/17/18 History darunavir ethanolate [Prezista] 800 mg PO DAILY 05/19/18 10/17/18 History dolutegravir [Tivicay] 50 mg PO BID 05/19/18 10/17/18 History etravirine [Intelence] 200 mg PO BID 05/19/18 10/17/18 History labetalol 300 mg PO BID 05/19/18 10/17/18 History ropinirole [Requip] 0.5 mg PO TID 05/19/18 10/17/18 History Active Medications: Active Medications Acetaminophen (Tylenol) 650 mg PO Q4H PRN PRN Reason: Temp > 100.4 Last Admin: 10/18/18 00:49 Dose: 650 mg Acetaminophen (Tylenol) 650 mg PO UNSCH PRN PRN Reason: SEE LABEL COMMENTS Al Hydroxide/Mg Hydroxide (Milk Of Everett Trevino) 30 ml PO Q12H PRN PRN Reason: Mild Constipation Albuterol (Duoneb Neb (Prn)) 1 ampul INH Q6HR NEB PRN PRN Reason: Shortness Of Breath Last Admin: 10/18/18 08:23 Dose: 1 ampul Amlodipine Besylate (Norvasc) 5 mg PO DAILY [facility] Last Admin: 10/18/18 09:05 Dose: 5 mg Azithromycin (Zithromax) 500 mg PO DAILY [facility] Last Admin: 10/18/18 09:05 Dose: 500 mg Bisacodyl (Dulcolax Supp) 10 mg RECTAL DAILY PRN PRN Reason: SEVERE CONSITIPATION Cefuroxime Axetil (Ceftin) 250 mg PO Q12HR [facility] Last Admin: 10/18/18 09:06 Dose: 250 mg Clonidine HCl (Catapres) 0.1 mg PO Q6H PRN PRN Reason: SEE LABEL COMMENTS Last Admin: 10/18/18 00:50 Dose: 0.1 mg Clonidine HCl (Catapres) 0.1 mg PO UNSCH PRN PRN Reason: SEE LABEL COMMENTS Darunavir (Prezista) 800 mg PO DAILY [facility] Last Admin: 10/18/18 09:06 Dose: 800 mg Diphenhydramine HCl (Benadryl) 25 mg PO UNSCH PRN PRN Reason: SEE LABEL COMMENTS Dolutegravir Sodium (Tivicay) 50 mg PO BID [facility] Last Admin: 10/18/18 09:05 Dose: 50 mg Epoetin Hair (Epogen Inj) 4,000 unit IV.PUSH UNSCH PRN PRN Reason: SEE LABEL COMMENTS Gelatin (Gelfoam 12 Mm/7 Mm Topical) 1 foam TOPICAL PRN PRN PRN Reason: help stop bleeding from site Gentamicin Sulfate (Gentamicin Inj) 20 mg OTHER WITH DIALYSIS PRN PRN Reason: Dwell Gentamycin Lock Heparin Sodium (Porcine) (Heparin Inj) 8,000 units OTHER WITH DIALYSIS PRN PRN Reason: for machine prime Heparin Sodium (Porcine) (Heparin Inj) 1,000 units OTHER WITH DIALYSIS PRN PRN Reason: Dwell Heparin to Fill Catheter Albumin Human (Flexbumin 25% Inj) 100 mls @ 60 mls/hr IV.SIG WITH DIALYSIS PRN PRN Reason: hypotension / volume replace Sodium Chloride (Ns Inj) 1,000 mls @ 0 mls/hr OTHER .Q0M PRN PRN Reason: for prime and rinse back Sodium Chloride (Ns Inj) 1,000 mls @ 0 mls/hr IV.CONT .Q0M PRN PRN Reason: hypotension / volume replace Sodium Chloride (Ns Inj) 1,000 mls @ 200 mls/hr OTHER .Q5H PRN PRN Reason: for dialyzer flush PRN Labetalol HCl (Trandate) 300 mg PO BID [facility] Last Admin: 10/18/18 09:05 Dose: 300 mg Lactulose (Lactulose Liq) 30 ml PO DAILY PRN PRN Reason: SEVERE CONSITIPATION Mannitol (Mannitol Inj) 12.5 gm IV.PUSH UNSCH PRN PRN Reason: hypotension / volume replace Nitroglycerin (Nitrostat Sl) 0.4 mg SL Q5M PRN PRN Reason: CHEST PAIN Ondansetron HCl (Zofran Inj) 4 mg IV.PUSH Q6H PRN PRN Reason: NAUSEA OR VOMITING Ondansetron HCl (Zofran Inj) 4 mg IV.PUSH UNSCH PRN PRN Reason: NAUSEA OR VOMITING Pt Own Med: (Etravirine 200mg) 0 each PO BID [facility] Ropinirole HCl (Requip) 0.5 mg PO TID [facility] Last Admin: 10/18/18 09:05 Dose: 0.5 mg Sennosides (Senokot) 17.2 mg PO Q12H PRN PRN Reason: Moderate Constipation Sodium Chloride (Ns Flush) 2 ml IV.FLUSH BID [facility] Last Admin: 10/18/18 09:06 Dose: 2 ml Sodium Chloride (Ns Flush) 2 ml IV.FLUSH PRN PRN PRN Reason: FLUSH AFTER USING IV ACCESS Sodium Chloride (Ns Flush) 5 ml IV.FLUSH PRN PRN PRN Reason: flush each lumen during HD Exam Vital signs: Vital Signs 10/17/18 13:18 10/17/18 13:21 10/17/18 14:05 Temperature 98.4 F Pulse Rate 89 86 87 Respiratory Rate 20 20 17 Blood Pressure 255/129 H 251/120 H Pulse Oximetry 99 99 10/17/18 14:31 10/17/18 14:33 10/17/18 15:03 Temperature Pulse Rate 91 H 87 Respiratory Rate 18 17 Blood Pressure 239/128 H 233/123 H Pulse Oximetry 96 96 96 10/17/18 15:52 10/17/18 16:03 10/17/18 16:16 Temperature Pulse Rate 89 90 89 Respiratory Rate 17 17 18 Blood Pressure 231/125 H 231/125 H Pulse Oximetry 95 95 10/17/18 16:38 10/17/18 16:54 10/17/18 17:10 Temperature Pulse Rate 91 H 90 89 Respiratory Rate 18 20 17 Blood Pressure 212/125 H 188/119 H Pulse Oximetry 95 97 10/17/18 18:08 10/17/18 19:44 10/17/18 19:48 Temperature Pulse Rate 89 Respiratory Rate 17 Blood Pressure 166/89 H Pulse Oximetry 96 99 99 10/17/18 20:00 10/18/18 00:00 10/18/18 04:00 Temperature 95.9 F L 96.4 F L 97.1 F L Pulse Rate 80 75 76 Respiratory Rate 16 18 16 Blood Pressure 180/97 H 183/96 H 138/76 Pulse Oximetry 99 98 100 10/18/18 07:30 10/18/18 08:28 Temperature 97.6 F Pulse Rate 72 72 Respiratory Rate 16 17 Blood Pressure 150/81 H Pulse Oximetry 99 100 Intake & Output 10/17/18 10/18/18 10/18/18 18:59 06:59 18:59 Intake Total 350 / 350 Balance 350 / 350 Weight 72.575 kg 72.575 kg Intake: IV 350 / 350 Azithromycin Inj 500 MG In NS 250 / 250 Inj 250 ML @ 250 mls/hr IV.SIG ONCE ONE Rx#:[id number] Rocephin Inj 1,000 MG In NS Inj 100 / 100 100 ML @ 200 mls/hr IV.SIG ONCE ONE Rx#:[id number] Other: Date of Last Bowel Movement 10/16/18 Weight On Admission 72.575 kg Narrative: GENERAL: alert and oriented. SKIN: Warm and dry. NECK: Supple, trachea midline. No JVD. CARDIOVASCULAR: Regular rate and rhythm without murmurs, gallops, or rubs. Left AVF with positive thrill and bruit. RESPIRATORY: Breath sounds equal bilaterally. No accessory muscle use. GASTROINTESTINAL: Abdomen soft, non-tender, nondistended. MUSCULOSKELETAL: No cyanosis, generalized edema BACK: Nontender without obvious deformity. No CVA tenderness. Results - Lab Results 10/17/18 14:00 10/18/18 03:48 Most recent lab results Calcium 6.8 mg/dL (8.5-10.1) L* 10/18/18 03:48 Phosphorus 6.6 mg/dL (2.5-4.9) H 10/18/18 03:48 Assessment and Plan - Assessment (1) End-stage renal disease on hemodialysis Code(s): N18.6 - End stage renal disease; Z99.2 - Dependence on renal dialysis Status: Acute Plan: End stage renal disease on HD on Thursday, Thursday, and Thursday. Last HD was on Thursday, missed on Thursday. Will proceed to HD today, orders placed. Hyperkalemia, will adjust K bath with dialysis Hyperphosphatemia, calcium acetate added. (2) HIV (human immunodeficiency virus infection) Code(s): B20 - Human immunodeficiency virus [HIV] disease Status: Acute Plan: Home medications continued. (3) Hypertension, uncontrolled Code(s): I10 - Essential (primary) hypertension Status: Acute Plan: Will monitor. On labetalol and amlodipine (4) Pneumonia Code(s): J18.9 - Pneumonia, unspecified organism Status: Acute Plan: Shortness of breath has improved. On Ceftin and azithromycin <Tone Rodas - Last Filed: 10/20/18 17:03> History of Present Illness Primary Care Provider: Phi NOBLE - Medical History Medical History: Medical History (Last Reviewed 10/17/18 @ 18:03 by Marci Johnson) Arteriovenous fistula for hemodialysis in place, primary ESRD on dialysis HBP (high blood pressure) HIV (human immunodeficiency virus infection) Smoker - Surgical History Surgical History: Surgical History (Last Reviewed 10/17/18 @ 18:03 by Marci Johnson) History of tubal ligation - Family History Family History: Family History (Last Reviewed 10/17/18 @ 18:03 by Marci Johnson) Mother Family history of cancer Medications and Allergies Active Medications: Active Medications Acetaminophen (Tylenol) 650 mg PO Q4H PRN PRN Reason: Temp > 100.4 Last Admin: 10/19/18 12:10 Dose: 650 mg Acetaminophen/Butalbital/Caffeine (Fioricet 50-325-40) 1 tab PO Q8H PRN PRN Reason: HEADACHE Last Admin: 10/20/18 13:00 Dose: 1 tab Hydrocodone Bitart/Acetaminophen ([place] 5/325) 1 tab PO Q6H PRN PRN Reason: ABDOMINAL PAIN Last Admin: 10/20/18 16:48 Dose: 1 tab Al Hydroxide/Mg Hydroxide (Milk Of Everett Trevino) 30 ml PO Q12H PRN PRN Reason: Mild Constipation Albuterol (Duoneb Neb (Prn)) 1 ampul INH Q6HR NEB PRN PRN Reason: Shortness Of Breath Last Admin: 10/20/18 03:51 Dose: 1 ampul Amlodipine Besylate (Norvasc) 5 mg PO BID [facility] Last Admin: 10/20/18 08:26 Dose: 5 mg Azithromycin (Zithromax) 500 mg PO DAILY [facility] Last Admin: 10/20/18 08:25 Dose: 500 mg Bisacodyl (Dulcolax Supp) 10 mg RECTAL DAILY PRN PRN Reason: SEVERE CONSITIPATION Calcium Acetate (Phoslo) 1,334 mg PO TID [facility] Last Admin: 10/20/18 13:52 Dose: Not Given Cefuroxime Axetil (Ceftin) 250 mg PO Q12HR [facility] Last Admin: 10/20/18 08:32 Dose: 250 mg Clonidine HCl (Catapres) 0.1 mg PO Q6H PRN PRN Reason: SEE LABEL COMMENTS Last Admin: 10/20/18 16:47 Dose: 0.1 mg Darunavir (Prezista) 800 mg PO DAILY [facility] Last Admin: 10/20/18 08:32 Dose: 800 mg Diphenhydramine HCl (Benadryl) 25 mg PO UNSCH PRN PRN Reason: SEE LABEL COMMENTS Dolutegravir Sodium (Tivicay) 50 mg PO BID [facility] Last Admin: 10/20/18 08:26 Dose: 50 mg Epoetin Hair (Epogen Inj) 4,000 unit IV.PUSH UNSCH PRN PRN Reason: SEE LABEL COMMENTS Last Admin: 10/20/18 11:34 Dose: 4,000 unit Gelatin (Gelfoam 12 Mm/7 Mm Topical) 1 foam TOPICAL PRN PRN PRN Reason: help stop bleeding from site Last Admin: 10/20/18 11:34 Dose: 1 foam Gentamicin Sulfate (Gentamicin Inj) 20 mg OTHER WITH DIALYSIS PRN PRN Reason: Dwell Gentamycin Lock Heparin Sodium (Porcine) (Heparin Inj) 8,000 units OTHER WITH DIALYSIS PRN PRN Reason: for machine prime Heparin Sodium (Porcine) (Heparin Inj) 1,000 units OTHER WITH DIALYSIS PRN PRN Reason: Dwell Heparin to Fill Catheter Hydralazine HCl (Apresoline) 25 mg PO TID [facility] Last Admin: 10/20/18 13:00 Dose: 25 mg Albumin Human (Flexbumin 25% Inj) 100 mls @ 60 mls/hr IV.SIG WITH DIALYSIS PRN PRN Reason: hypotension / volume replace Sodium Chloride (Ns Inj) 1,000 mls @ 0 mls/hr OTHER .Q0M PRN PRN Reason: for prime and rinse back Sodium Chloride (Ns Inj) 1,000 mls @ 0 mls/hr IV.CONT .Q0M PRN PRN Reason: hypotension / volume replace Sodium Chloride (Ns Inj) 1,000 mls @ 200 mls/hr OTHER .Q5H PRN PRN Reason: for dialyzer flush PRN Labetalol HCl (Trandate) 300 mg PO BID [facility] Last Admin: 10/20/18 08:22 Dose: 300 mg Lactulose (Lactulose Liq) 30 ml PO DAILY PRN PRN Reason: SEVERE CONSITIPATION Last Admin: 10/20/18 08:36 Dose: 30 ml Mannitol (Mannitol Inj) 12.5 gm IV.PUSH UNSCH PRN PRN Reason: hypotension / volume replace Nitroglycerin (Nitrostat Sl) 0.4 mg SL Q5M PRN PRN Reason: CHEST PAIN Ondansetron HCl (Zofran Inj) 4 mg IV.PUSH Q6H PRN PRN Reason: NAUSEA OR VOMITING Ondansetron HCl (Zofran Inj) 4 mg IV.PUSH UNSCH PRN PRN Reason: NAUSEA OR VOMITING Pt Own Med: (Etravirine 200mg) 0 each PO BID [facility] Ropinirole HCl (Requip) 0.5 mg PO TID [facility] Last Admin: 10/20/18 13:01 Dose: 0.5 mg Sennosides (Senokot) 17.2 mg PO Q12H PRN PRN Reason: Moderate Constipation Sodium Chloride (Ns Flush) 2 ml IV.FLUSH BID [facility] Last Admin: 10/20/18 08:32 Dose: 2 ml Sodium Chloride (Ns Flush) 2 ml IV.FLUSH PRN PRN PRN Reason: FLUSH AFTER USING IV ACCESS Sodium Chloride (Ns Flush) 5 ml IV.FLUSH PRN PRN PRN Reason: flush each lumen during HD Exam Vital signs: Vital Signs 10/19/18 19:34 10/19/18 20:00 10/20/18 00:00 Temperature 97.6 F 98.4 F Pulse Rate 73 82 71 Respiratory Rate 17 18 18 Blood Pressure 171/87 H 180/96 H Pulse Oximetry 99 100 99 10/20/18 03:51 10/20/18 04:00 10/20/18 07:33 Temperature 97.8 F 97.9 F Pulse Rate 68 76 71 Respiratory Rate 20 18 16 Blood Pressure 163/93 H 184/106 H Pulse Oximetry 98 100 100 10/20/18 08:00 10/20/18 13:30 10/20/18 16:00 Temperature 97.7 F Pulse Rate 67 Respiratory Rate 18 18 Blood Pressure 189/100 H Pulse Oximetry 100 100 Intake & Output 10/19/18 10/20/18 10/20/18 18:59 06:59 18:59 Output Total 1999 Balance -1999 Weight 74.2 kg Output: Hemodialysis Amount 1999 Results - Lab Results 10/20/18 06:06 10/20/18 06:06 Most recent lab results Calcium 7.6 mg/dL (8.5-10.1) L 10/20/18 06:06 Phosphorus 6.6 mg/dL (2.5-4.9) H 10/18/18 03:48 Magnesium 2.1 mg/dL (1.5-2.5) 10/20/18 06:06 Assessment and Plan - Assessment (1) End-stage renal disease on hemodialysis Code(s): N18.6 - End stage renal disease; Z99.2 - Dependence on renal dialysis Status: Acute Plan: Patient seen and examined, agree with above. BP is elevated, has Cocaine positive, told to avoid that. HD now and continue MWF. (2) HIV (human immunodeficiency virus infection) Code(s): B20 - Human immunodeficiency virus [HIV] disease Status: Acute (3) Hypertension, uncontrolled Code(s): I10 - Essential (primary) hypertension Status: Acute (4) Pneumonia Code(s): J18.9 - Pneumonia, unspecified organism Status: Acute <Irena Garcia - Last Filed: 10/18/18 09:17> (4) Pneumonia Qualifiers: Pneumonia type: due to unspecified organism Laterality: right Lung location : lower lobe of lung Qualified Code(s): J18.1 - Lobar pneumonia, unspecified organism <Tone Rodas - Last Filed: 10/20/18 17:03> (4) Pneumonia Qualifiers: Pneumonia type: due to unspecified organism Laterality: right Lung location : lower lobe of lung Qualified Code(s): J18.1 - Lobar pneumonia, unspecified organism
[2018-10-18] MEDS: Gelatin 12 MM/7 MM Topical Foam TOPICAL PRN (12:49)
[2018-10-18] MEDS: Calcium Acetate 667 MG Capsule PO SCH ×2 (13:45→18:00)
--- NOTE | 2018-10-18 14:41 | P.PN ---
Subjective Interval history: Nursing reports patient is complaining of headache. When I walk into the room, patient says her shortness of breath is gone at this time but she reports having a cough associated chest pain which she says she gets each time she has dialysis. Says she takes hydrocodone 10 at home for this type of pain. Denies any fevers, there are no fevers in the chart. Denies any nausea Physical Exam Vital signs: Vital Signs 10/17/18 15:03 10/17/18 15:52 10/17/18 16:03 Temperature Pulse Rate 87 89 90 Respiratory Rate 17 17 17 Blood Pressure 233/123 H 231/125 H Pulse Oximetry 96 95 10/17/18 16:16 10/17/18 16:38 10/17/18 16:54 Temperature Pulse Rate 89 91 H 90 Respiratory Rate 18 18 20 Blood Pressure 231/125 H 212/125 H Pulse Oximetry 95 95 10/17/18 17:10 10/17/18 18:08 10/17/18 19:44 Temperature Pulse Rate 89 89 Respiratory Rate 17 17 Blood Pressure 188/119 H 166/89 H Pulse Oximetry 97 96 99 10/17/18 19:48 10/17/18 20:00 10/18/18 00:00 Temperature 95.9 F L 96.4 F L Pulse Rate 80 75 Respiratory Rate 16 18 Blood Pressure 180/97 H 183/96 H Pulse Oximetry 99 99 98 10/18/18 04:00 10/18/18 07:30 10/18/18 08:28 Temperature 97.1 F L 97.6 F Pulse Rate 76 72 72 Respiratory Rate 16 16 17 Blood Pressure 138/76 150/81 H Pulse Oximetry 100 99 100 Intake & Output 10/17/18 10/18/18 10/18/18 18:59 06:59 18:59 Intake Total 350 / 350 Output Total 2500 / 2500 Balance 350 / 350 -2500 / -2500 Weight 72.575 kg 72.575 kg Intake: IV 350 / 350 Azithromycin Inj 500 MG In NS 250 / 250 Inj 250 ML @ 250 mls/hr IV.SIG ONCE ONE Rx#:[id number] Rocephin Inj 1,000 MG In NS Inj 100 / 100 100 ML @ 200 mls/hr IV.SIG ONCE ONE Rx#:[id number] Output: Hemodialysis Amount 2500 / 2500 Other: Date of Last Bowel Movement 10/16/18 Weight On Admission 72.575 kg Narrative: Clear lungs bilaterally, unlabored breathing Heart sounds regular rate and rhythm Abdomen soft, nontender No lower extremity edema Nurse present in the room, I palpated the patient's left sided rib cage with directly elicited pain upon palpation to which the patient confirms is her pain Results - Labs CBC & Chem 7: 10/17/18 14:00 10/18/18 03:48 Laboratory Results - last 24 hr 10/17/18 10/17/18 10/17/18 14:00 19:20 19:20 Sodium 138 Potassium 4.2 Chloride 101 Carbon Dioxide 22.2 Anion Gap 15 BUN 85 H Creatinine 12.83 H* Estimated GFR 4 L Random Glucose 89 Calcium 6.7 L* Calcium Adj for Albumin 7.3 L* Phosphorus Total Bilirubin 0.5 AST 28 ALT 29 Alkaline Phosphatase 59 Total Protein 7.9 Albumin 3.3 L Procalcitonin Urine Color Yellow Urine Clarity Hazy H Urine pH 7.0 Ur Specific [place] 1.010 Urine Protein 500 or greater Urine Glucose (UA) 50 Urine Ketones Negative Urine Occult Blood Negative Urine Nitrate Negative Urine Bilirubin Negative Urine Urobilinogen Less than 2 Ur Leukocyte Esterase Negative Urine RBC Less than 1 Urine WBC 1 Ur Squamous Epith Cells 11 Urine Bacteria Rare H Micro UA Comment Culture not ind Ur Microscopic Review Not Reportable Urine Culture Comments Culture not ind Urine Opiates Screen Neg Ur Barbiturates Screen Neg Ur Amphetamines Screen Neg U Benzodiazepines Scrn Neg Urine Cocaine Screen Pos H U Cannabinoids Screen Neg 10/18/18 10/18/18 03:48 03:48 Sodium 137 Potassium 5.2 H D Chloride 100 Carbon Dioxide 20.6 L Anion Gap 16 H BUN 100 H Creatinine 13.72 H* Estimated GFR 4 L Random Glucose 143 H Calcium 6.8 L* Calcium Adj for Albumin 7.7 L Phosphorus 6.6 H Total Bilirubin AST ALT Alkaline Phosphatase Total Protein Albumin 2.9 L Procalcitonin 0.74 H Urine Color Urine Clarity Urine pH Ur Specific [place] Urine Protein Urine Glucose (UA) Urine Ketones Urine Occult Blood Urine Nitrate Urine Bilirubin Urine Urobilinogen Ur Leukocyte Esterase Urine RBC Urine WBC Ur Squamous Epith Cells Urine Bacteria Micro UA Comment Ur Microscopic Review Urine Culture Comments Urine Opiates Screen Ur Barbiturates Screen Ur Amphetamines Screen U Benzodiazepines Scrn Urine Cocaine Screen U Cannabinoids Screen Microbiology 10/17/18 14:40 Nasal Wash Influenza Types A,B Antigen - Final Negative for FLU A and B antigen Infection due to influenza A or B cannot be ruled out since the antigen present in the sample may be below the detection limit of the test. Assessment and Plan - Plan 43 yo AAF with PMHX of HIV medication complaint, HTN and ESRD on HD MWF admitted with hypertensive urgency and PNA. SOB - resolved at this time, possibly 2/2 HTN urgency and PNA -see tx below Hypertensive urgency End-stage renal disease -Much improved since admission, nephrology following with dialysis -home medications Norvasc and Labetalol -Clonidine prn with parameters possible R base PNA on CXR -continue supplemental oxygen as needed to maintain O2 sats >92% -scheduled Duonebs -Ceftin and azithromycin -afebrile, anticipate oral rachel ESRD on HD MWF Hypocalcemia -dialyzing today, nephrology following HIV, medication complaint -home antiretroviral medication regimen Hx of cocaine use -Again + seen upon current UDS DVT prophylaxis -bilateral SCD/LAURA hose Discharge Planning: Anticipate dc rachel w/ clearance from nephrology
[2018-10-18 15:57] LABS: Hepatitits B Surface Antigen Nonreactive (Nonreactive)
[2018-10-18 16:22] LABS: Hepatitis A IgM Antibody Nonreactive (Nonreactive)
--- NOTE | 2018-10-18 19:10 | ECG ---
Date Performed: 10/17/2018 Time Performed: 14:03:51 PTAGE: 43 years EKG: Sinus rhythm RIGHT ATRIAL ENLARGEMENT BORDERLINE RIGHT AXIS DEVIATION ABNORMAL ECG PREVIOUS TRACING : 06/19/2018 07.52 Since the previous tracing, no significant change noted DOCTOR: Carlyle Mckeon Interpretating Date/Time 10/18/2018 19:09:06
--- NOTE | 2018-10-19 09:04 | P.PNNP ---
Subjective Interval history: Patient reports still feeling really bad. Has chest discomfort with coughing, thick sputum, and shortness of breath. Hemodialysis yesterday tolerated well. <Irena Garcia - Last Filed: 10/19/18 08:45> Physical Exam Vital signs: Vital Signs 10/18/18 15:17 10/18/18 16:38 10/18/18 17:07 Temperature 98.3 F Pulse Rate 82 Respiratory Rate 16 18 Blood Pressure 189/92 H 155/80 H Pulse Oximetry 10/18/18 19:47 10/19/18 00:00 10/19/18 03:40 Temperature 98.3 F 98.4 F Pulse Rate 80 87 Respiratory Rate 18 18 Blood Pressure 179/93 H 192/96 H 162/98 H Pulse Oximetry 96 97 10/19/18 04:15 Temperature 98.1 F Pulse Rate 68 Respiratory Rate 16 Blood Pressure 162/86 H Pulse Oximetry Intake & Output 10/18/18 10/19/18 10/19/18 18:59 06:59 18:59 Output Total 2500 / 2500 Balance -2500 / -2500 Output: Hemodialysis Amount 2500 / 2500 Other: Date of Last Bowel Movement 10/15/18 Narrative: GENERAL: alert and oriented. NAD SKIN: Warm and dry. NECK: Supple, trachea midline. No JVD. CARDIOVASCULAR: Regular rate and rhythm without murmurs, gallops, or rubs. Left arm AVF positive thrill and bruit. RESPIRATORY: Breath sounds equal bilaterally. No accessory muscle use. GASTROINTESTINAL: Abdomen soft, non-tender, nondistended. MUSCULOSKELETAL: No cyanosis, or edema. BACK: Nontender without obvious deformity. No CVA tenderness. <Irena Garcia - Last Filed: 10/19/18 08:45> Vital signs: Vital Signs 10/19/18 00:00 10/19/18 03:40 10/19/18 04:15 Temperature 98.4 F 98.1 F Pulse Rate 87 68 Respiratory Rate 18 16 Blood Pressure 192/96 H 162/98 H 162/86 H Pulse Oximetry 97 10/19/18 08:00 10/19/18 08:58 10/19/18 12:00 Temperature 98.8 F 97.4 F L Pulse Rate 77 74 Respiratory Rate 18 16 Blood Pressure 193/114 H 186/103 H Pulse Oximetry 97 99 98 10/19/18 16:00 12/11/18 19:34 10/19/18 20:00 Temperature 98.8 F 97.6 F Pulse Rate 72 73 82 Respiratory Rate 16 17 18 Blood Pressure 179/98 H 171/87 H Pulse Oximetry 100 99 100 Intake & Output 10/19/18 10/19/18 10/20/18 06:59 18:59 06:59 Other: Date of Last Bowel Movement 10/15/18 <Tone Rodas - Last Filed: 10/19/18 20:21> Assessment and Plan - Assessment (1) End-stage renal disease on hemodialysis Code(s): N18.6 - End stage renal disease; Z99.2 - Dependence on renal dialysis Status: Acute Plan: End stage renal disease on HD on Thursday, Thursday, and Thursday. Avoid IVF administration. HD tolerated well with UF of 2.5 liters. HD tomorrow. (2) HIV (human immunodeficiency virus infection) Code(s): B20 - Human immunodeficiency virus [HIV] disease Status: Acute Plan: Home medications continued. (3) Hypertension, uncontrolled Code(s): I10 - Essential (primary) hypertension Status: Acute Plan: Elevated. On labetalol and amlodipine. Amlodipine increased. (4) Pneumonia Code(s): J18.9 - Pneumonia, unspecified organism Status: Acute Qualifiers: Pneumonia type: due to unspecified organism Laterality: right Lung location: lower lobe of lung Qualified Code(s): J18.1 - Lobar pneumonia, unspecified organism Plan: Shortness of breath has improved. On Ceftin and azithromycin <Irena Garcia - Last Filed: 10/19/18 08:45> - Assessment (1) End-stage renal disease on hemodialysis Code(s): N18.6 - End stage renal disease; Z99.2 - Dependence on renal dialysis Status: Acute Plan: Patient seen and examined, agree with above. Continue antibiotics, follow CBC. HD will be in AM, will remove more fluid. (2) HIV (human immunodeficiency virus infection) Code(s): B20 - Human immunodeficiency virus [HIV] disease Status: Acute (3) Hypertension, uncontrolled Code(s): I10 - Essential (primary) hypertension Status: Acute (4) Pneumonia Code(s): J18.9 - Pneumonia, unspecified organism Status: Acute Qualifiers: Pneumonia type: due to unspecified organism Laterality: right Lung location: lower lobe of lung Qualified Code(s): J18.1 - Lobar pneumonia, unspecified organism <Tone Rodas - Last Filed: 10/19/18 20:21>
[2018-10-19] MEDS: Labetalol 100 MG Tablet PO SCH ×2 (09:43→21:07)
[2018-10-19] MEDS: Azithromycin 250 MG Tablet PO SCH (09:46)
[2018-10-19] MEDS: amLODIPine 5 MG Tablet PO SCH ×3 (09:49→21:08)
[2018-10-19] MEDS: Calcium Acetate 667 MG Capsule PO SCH ×3 (09:55→18:58)
[2018-10-19] MEDS: Acetaminophen 325 MG Tablet PO PRN (12:10)
[2018-10-19] MEDS ORDERED: fentaNYL Citrate Inj 100 MCG/2 ML Ampul IV.PUSH ONE (13:52)
--- NOTE | 2018-10-19 15:22 | P.PNIM ---
Subjective Interval history: Patient seen and examined this morning at the bedside + cough with sputum no fever or chill SOB is improving last 24hrs diffuse pain from coughing was present however Physical Exam Vital signs: Last Vital Signs Temp 97.4 F L 10/19/18 12:00 Pulse 74 10/19/18 12:00 Resp 16 10/19/18 12:00 BP 186/103 H 10/19/18 12:00 Pulse Ox 98 10/19/18 12:00 Intake & Output 10/17/18 10/18/18 10/19/18 10/20/18 06:59 06:59 06:59 06:59 Intake Total 350 / 350 Output Total 2500 / 2500 Balance 350 / 350 -2500 / -2500 Weight 72.575 kg Narrative: GENERAL: alert and oriented. NAD SKIN: Warm and dry. NECK: Supple, trachea midline. No JVD. No tender LN palpable. CARDIOVASCULAR: Regular rate and rhythm without murmurs, gallops, or rubs. Left arm AVF positive thrill and bruit. RESPIRATORY: + crackle on RIGHT chest wall > LEFT chest wall. No wheeze GASTROINTESTINAL: Abdomen soft, non-tender, nondistended. MUSCULOSKELETAL: No cyanosis, or edema. BACK: Nontender without obvious deformity. No CVA tenderness. Results Labs CBC & Chem 7: 10/17/18 14:00 10/18/18 03:48 Assessment and Plan Plan Pulmonary: Community acquired pneumonia - continue on ceftin and azithromax - legionella Ag PENDING. d/c azithro if negative. Likely vantin on discharge - incentive spirometry - CXR reviewed - RIGHT sided consolidation Cardiology: Hypertensive urgency - in setting of End-stage renal disease -home medications Norvasc and Labetalol -Clonidine prn with parameters - nephrology consulted and recommendations appreciated - HD sessions -- Nephrology: ESRD on HD MWF - Nephrology consulted and recommendations appreciated Infectious disease: HIV -home antiretroviral medication regimen Psychiatry: Hx of cocaine use - Tox screen positive. DVT prophylaxis -bilateral SCD/LAURA hose code: FC dvt ppx dispo: home pending clinical improvement Progress Note: Quality VTE Deep Vein Thrombosis/Pulmonary Embolism Present on Admission: No
[2018-10-19] MEDS: hydrALAZINE 25 MG Tablet PO SCH ×2 (16:13→19:00)
[2018-10-20 08:02] LABS: Hematocrit 29.5 % (35.0-46.0); Hemoglobin 9.6 gm/dL (11.6-15.3); Mean Corpuscular HGB Conc 32.5 % (32.0-36.0); Mean Corpuscular Hemoglobin 29.8 pg (27.0-34.0); Mean Corpuscular Volume 91.7 fL (80.0-100.0); Mean Platelet Volume 10.2 fL (7.0-11.0); Platelet Count 118 th/mm3 (150-450); Red Blood Count 3.22 mil/mm3 (4.00-5.30); Red Cell Distribution Width 17.4 % (11.6-17.2); White Blood Count 5.1 th/mm3 (4.0-11.0)
[2018-10-20] MEDS: Labetalol 100 MG Tablet PO SCH ×2 (08:22→20:45)
[2018-10-20] MEDS: Azithromycin 250 MG Tablet PO SCH (08:25)
[2018-10-20] MEDS: hydrALAZINE 25 MG Tablet PO SCH ×3 (08:25→17:36)
[2018-10-20] MEDS: amLODIPine 5 MG Tablet PO SCH ×2 (08:26→20:45)
[2018-10-20] MEDS: Calcium Acetate 667 MG Capsule PO SCH ×3 (08:32→17:38)
[2018-10-20 08:42] LABS: Calcium 7.6 mg/dL (8.5-10.1); Carbon Dioxide 26.3 meq/L (21.0-32.0); Magnesium 2.1 mg/dL (1.5-2.5); Potassium 4.1 meq/L (3.5-5.1)
--- NOTE | 2018-10-20 10:11 | P.PNNP ---
Subjective Interval history: Seen during hemodialysis. Reported that she was in pain most of the night, rib pain. <Irena Garcia - Last Filed: 10/20/18 10:07> Physical Exam Vital signs: Vital Signs 10/19/18 12:00 10/19/18 16:00 10/19/18 19:34 Temperature 97.4 F L 98.8 F Pulse Rate 74 72 73 Respiratory Rate 16 16 17 Blood Pressure 186/103 H 179/98 H Pulse Oximetry 98 100 99 10/19/18 20:00 10/20/18 00:00 10/20/18 03:51 Temperature 97.6 F 98.4 F Pulse Rate 82 71 68 Respiratory Rate 18 18 20 Blood Pressure 171/87 H 180/96 H Pulse Oximetry 100 99 98 10/20/18 04:00 10/20/18 07:33 Temperature 97.8 F 97.9 F Pulse Rate 76 71 Respiratory Rate 18 16 Blood Pressure 163/93 H 184/106 H Pulse Oximetry 100 100 Intake & Output 10/19/18 10/20/18 10/20/18 18:59 06:59 18:59 Weight 74.2 kg Narrative: GENERAL: alert and oriented. NAD SKIN: Warm and dry. NECK: Supple, trachea midline. No JVD. CARDIOVASCULAR: Regular rate and rhythm without murmurs, gallops, or rubs. Left arm AVF positive thrill and bruit. RESPIRATORY: Lung sound diminished at bases. No wheeze. Tenderness palpated on left side of rib cage. GASTROINTESTINAL: Abdomen soft, non-tender, nondistended. MUSCULOSKELETAL: No cyanosis, or edema. BACK: Nontender without obvious deformity. No CVA tenderness. <Irena Garcia - Last Filed: 10/20/18 10:07> Vital signs: Vital Signs 10/20/18 19:35 10/20/18 23:25 10/21/18 00:00 Temperature 97.7 F 97.5 F L Pulse Rate 66 70 71 Respiratory Rate 16 16 16 Blood Pressure 156/87 H 155/77 H Pulse Oximetry 98 98 99 10/21/18 03:32 10/21/18 07:19 10/21/18 08:47 Temperature 97.5 F L 98.0 F Pulse Rate 72 74 72 Respiratory Rate 16 16 14 Blood Pressure 144/84 H 157/89 H Pulse Oximetry 100 99 100 10/21/18 11:29 Temperature 97.6 F Pulse Rate 71 Respiratory Rate 16 Blood Pressure 143/76 H Pulse Oximetry 100 Intake & Output 10/20/18 10/21/18 10/21/18 18:59 06:59 18:59 Output Total 1999 Balance -1999 Weight 74.2 kg Output: Hemodialysis Amount 1999 Other: Date of Last Bowel Movement 10/15/18 <Tone Rodas - Last Filed: 10/21/18 18:40> Assessment and Plan - Assessment (1) End-stage renal disease on hemodialysis Code(s): N18.6 - End stage renal disease; Z99.2 - Dependence on renal dialysis Status: Acute Plan: End stage renal disease on HD on Thursday, Thursday, and Thursday. Avoid IVF administration. HD today, 3 k bath, will remove fluid as tolerated. (2) HIV (human immunodeficiency virus infection) Code(s): B20 - Human immunodeficiency virus [HIV] disease Status: Acute Plan: Home medications continued. (3) Hypertension, uncontrolled Code(s): I10 - Essential (primary) hypertension Status: Acute Plan: Elevated expect improvement after dialysis. On labetalol and amlodipine. Amlodipine increased yesterday. PRN available (4) Pneumonia Code(s): J18.9 - Pneumonia, unspecified organism Status: Acute Qualifiers: Pneumonia type: due to unspecified organism Laterality: right Lung location: lower lobe of lung Qualified Code(s): J18.1 - Lobar pneumonia, unspecified organism Plan: Shortness of breath has improved. On antibiotics <Irena Garcia - Last Filed: 10/20/18 10:07> - Assessment (1) End-stage renal disease on hemodialysis Code(s): N18.6 - End stage renal disease; Z99.2 - Dependence on renal dialysis Status: Acute Plan: Patient seen and examined, agree with above. HD done, tolerated well. BP is better, continue same meds. (2) HIV (human immunodeficiency virus infection) Code(s): B20 - Human immunodeficiency virus [HIV] disease Status: Acute (3) Hypertension, uncontrolled Code(s): I10 - Essential (primary) hypertension Status: Acute (4) Pneumonia Code(s): J18.9 - Pneumonia, unspecified organism Status: Acute Qualifiers: Pneumonia type: due to unspecified organism Laterality: right Lung location: lower lobe of lung Qualified Code(s): J18.1 - Lobar pneumonia, unspecified organism <Tone Rodas - Last Filed: 10/21/18 18:40>
[2018-10-20] MEDS: Gelatin 12 MM/7 MM Topical Foam TOPICAL PRN (11:34)
[2018-10-20] MEDS ORDERED: Butalbital/APAP/Caff 50/325/40 MG Tablet PO PRN (12:03)
[2018-10-20] MEDS ORDERED: Benzonatate 100 MG Capsule PO PRN (17:16)
--- NOTE | 2018-10-20 17:19 | P.PNIM ---
Subjective Interval history: Patient continues to have elevated blood pressure.. Patient was recently started on hydralazine 25 mg 3 times daily. Nephrology recommendations appreciated. Patient continues to have rib pain with coughing. Legionella and pneumococcal antigens negative. Will discontinue azithromycin Physical Exam Vital signs: Last Vital Signs Temp 97.7 F 10/20/18 16:00 Pulse 67 10/20/18 16:00 Resp 18 10/20/18 16:00 BP 189/100 H 10/20/18 16:00 Pulse Ox 100 10/20/18 16:00 Intake & Output 10/18/18 10/19/18 10/20/18 10/21/18 06:59 06:59 06:59 06:59 Intake Total 350 / 350 Output Total 2500 / 2500 1999 Balance 350 / 350 -2500 / -2500 -1999 Weight 72.575 kg 74.2 kg Narrative: GENERAL: alert and oriented. NAD SKIN: Warm and dry. NECK: Supple, trachea midline. No JVD. CARDIOVASCULAR: Regular rate and rhythm without murmurs, gallops, or rubs. Left arm AVF positive thrill and bruit. RESPIRATORY: Lung sound diminished at bases. No wheeze. Tenderness palpated on left side of rib cage. GASTROINTESTINAL: Abdomen soft, non-tender, nondistended. MUSCULOSKELETAL: No cyanosis, or edema. BACK: Nontender without obvious deformity. No CVA tenderness. Results Labs CBC & Chem 7: 10/20/18 06:06 10/20/18 06:06 Labs: Microbiology 10/19/18 21:11 Urine - Random Urine Streptococcus pneumoniae Antigen (M - Final Presumptive negative for streptococcus pneumoniae antigen, suggesting no current or recent infection. Infection due to Streptococcus pneumoniae cannot be ruled out since the antigen present in the sample may be below the detection limit of the test. 10/19/18 21:11 Urine - Random Urine Legionella Antigen - Final Presumptive negative for Legionella pneumophila serogroup 1 antigen in urine, suggesting no recent or recurrent infection. Infection due to Legionella cannot be ruled out since other serogroups and species may cause disease, antigen may not be present in urine in early infection, and the level of antigen present in the urine may be below the detection limit of the test. Assessment and Plan Plan Pulmonary: Community acquired pneumonia - continue on ceftin. Consider Vantin on discharge - legionella Ag negative. Discontinue azithromycin - incentive spirometry - CXR reviewed - RIGHT sided consolidation Tessalon Perles 200 mg every 8 hours as needed cough suppression Cardiology: Hypertensive urgency - in setting of End-stage renal disease -home medications Norvasc and Labetalol -Clonidine prn with parameters - nephrology consulted and recommendations appreciated - HD sessions -Hydralazine 25 mg 3 times daily Nephrology: ESRD on HD MWF - Nephrology consulted and recommendations appreciated Infectious disease: HIV -home antiretroviral medication regimen Psychiatry: Hx of cocaine use - Tox screen positive. DVT prophylaxis -bilateral SCD/LAURA hose code: FC dvt ppx dispo: home pending clinical improvement. Likely within 24 hours Progress Note: Quality VTE Deep Vein Thrombosis/Pulmonary Embolism Present on Admission: No
--- NOTE | 2018-10-21 08:38 | P.PNNP ---
Subjective Interval history: No acute events overnight. Shortness of breath improving. HD yesterday tolerated well. <Irena Garcia - Last Filed: 10/21/18 08:33> Physical Exam Vital signs: Vital Signs 10/20/18 13:30 10/20/18 16:00 10/20/18 17:18 Temperature 97.7 F Pulse Rate 67 Respiratory Rate 18 18 18 Blood Pressure 189/100 H Pulse Oximetry 100 10/20/18 19:35 10/20/18 23:25 10/21/18 00:00 Temperature 97.7 F 97.5 F L Pulse Rate 66 70 71 Respiratory Rate 16 16 16 Blood Pressure 156/87 H 155/77 H Pulse Oximetry 98 98 99 10/21/18 03:32 10/21/18 07:19 Temperature 97.5 F L 98.0 F Pulse Rate 72 74 Respiratory Rate 16 16 Blood Pressure 144/84 H 157/89 H Pulse Oximetry 100 99 Intake & Output 10/20/18 10/21/18 10/21/18 18:59 06:59 18:59 Output Total 1999 Balance -1999 Weight 74.2 kg Output: Hemodialysis Amount 1999 Other: Date of Last Bowel Movement 10/15/18 Narrative: GENERAL: alert and oriented. NAD SKIN: Warm and dry. NECK: Supple, trachea midline. No JVD. CARDIOVASCULAR: Regular rate and rhythm without murmurs, gallops, or rubs. Left arm AVF positive thrill and bruit. RESPIRATORY: Lung sound diminished at bases. No wheeze. Tenderness palpated on left side of rib cage. GASTROINTESTINAL: Abdomen soft, non-tender, nondistended. MUSCULOSKELETAL: No cyanosis, or edema. BACK: Nontender without obvious deformity. No CVA tenderness. <Irena Garcia - Last Filed: 10/21/18 08:33> Vital signs: Vital Signs 10/20/18 23:25 10/21/18 00:00 10/21/18 03:32 Temperature 97.5 F L 97.5 F L Pulse Rate 70 71 72 Respiratory Rate 16 16 16 Blood Pressure 155/77 H 144/84 H Pulse Oximetry 98 99 100 10/21/18 07:19 10/21/18 08:47 10/21/18 11:29 Temperature 98.0 F 97.6 F Pulse Rate 74 72 71 Respiratory Rate 16 14 16 Blood Pressure 157/89 H 143/76 H Pulse Oximetry 99 100 100 Intake & Output 10/21/18 10/21/18 10/22/18 06:59 18:59 06:59 Other: Date of Last Bowel Movement 10/15/18 <Tone Rodas - Last Filed: 10/21/18 21:11> Assessment and Plan - Assessment (1) End-stage renal disease on hemodialysis Code(s): N18.6 - End stage renal disease; Z99.2 - Dependence on renal dialysis Status: Acute Plan: End stage renal disease on HD on Thursday, Thursday, and Thursday. Avoid IVF administration. HD tolerated well with UF of 2 liters. HD planned for tomorrow (2) HIV (human immunodeficiency virus infection) Code(s): B20 - Human immunodeficiency virus [HIV] disease Status: Acute Plan: Home medications continued. (3) Hypertension, uncontrolled Code(s): I10 - Essential (primary) hypertension Status: Acute Plan: Better controlled. On labetalol, hydralazine, and amlodipine. PRN available (4) Pneumonia Code(s): J18.9 - Pneumonia, unspecified organism Status: Acute Qualifiers: Pneumonia type: due to unspecified organism Laterality: right Lung location: lower lobe of lung Qualified Code(s): J18.1 - Lobar pneumonia, unspecified organism Plan: Shortness of breath has improved. On antibiotics <Irena Garcia - Last Filed: 10/21/18 08:33> - Assessment (1) End-stage renal disease on hemodialysis Code(s): N18.6 - End stage renal disease; Z99.2 - Dependence on renal dialysis Status: Acute Plan: HD was done yesterday, BP is better controlled. To continue HD as out patient and be compliant with her meds. (2) HIV (human immunodeficiency virus infection) Code(s): B20 - Human immunodeficiency virus [HIV] disease Status: Acute (3) Hypertension, uncontrolled Code(s): I10 - Essential (primary) hypertension Status: Acute (4) Pneumonia Code(s): J18.9 - Pneumonia, unspecified organism Status: Acute Qualifiers: Pneumonia type: due to unspecified organism Laterality: right Lung location: lower lobe of lung Qualified Code(s): J18.1 - Lobar pneumonia, unspecified organism <Tone Rodas - Last Filed: 10/21/18 21:11>
[2018-10-21 08:49] VITALS: O2SAT 100
[2018-10-21] MEDS: Labetalol 100 MG Tablet PO SCH (09:21)
[2018-10-21] MEDS: hydrALAZINE 25 MG Tablet PO SCH ×2 (09:21→13:40)
[2018-10-21] MEDS: amLODIPine 5 MG Tablet PO SCH (09:21)
[2018-10-21] MEDS: Calcium Acetate 667 MG Capsule PO SCH ×2 (09:22→13:40)
[2018-10-21 11:31] VITALS: BP 143/76; PULSE 71; RESP 16; TEMP 97.6
== END 2018-10-21 14:38 | disposition home or self-care (01) ==
LOC: NEPD 13:14 → NEDA 13:14 → NEPGCP 19:21
PROVIDERS: ADMIT Internal Medicine; ATTEND Internal Medicine

== ENCOUNTER 2018-11-14 10:28 | Inpatient (IN) ==
[2018-11-14] MEDS ORDERED: Labetalol HCl Inj 100 MG/20 ML Vial IV.PUSH ONE (11:19)
--- NOTE | 2018-11-14 11:28 | ED ---
HPI General Chief complaint: Eye Problems Stated complaint: Eye Complaint/SOB Time Seen by Provider: 11/14/18 11:07 Source: patient Mode of arrival: ambulatory Limitations: no limitations History of Present Illness HPI narrative: Patient is a 43-year-old female presenting to emergency department for evaluation of blurry vision. Patient states it started Thursday. She reports a dull headache, frontal, 6 out of 10, constant. Patient states that she purchased [id number] eyedrops to see if this would help, she is been using these with no improvement. She states that when she wears her glasses it makes her vision worse. Patient has a history of hypertension, she was recently discharged from the hospital because of this. She is currently only taking amlodipine and clonidine. She did not take these medications today. She has a history of end-stage renal disease on HD, her last dialysis treatment was on Thursday. Dialysis did not improve her vision either. She reports shortness of breath, this appears chronic. She denies any chest pain, nausea, vomiting, fever, chills. Symptom onset was abrupt, symptoms are moderate. Symptoms have worsened over the last 24 hours. Onset (ago): day(s) Location: head Radiation: non-radiation Severity: moderate Severity scale (1-10): 5 Quality: aching Pain Consistency: constant Relieving factors: none Exacerbating factors: none Related Data Home Medications Medication Instructions Recorded Confirmed darunavir ethanolate [Prezista] 800 mg PO DAILY 05/19/18 11/14/18 dolutegravir [Tivicay] 50 mg PO BID 05/19/18 11/14/18 etravirine [Intelence] 200 mg PO BID 05/19/18 11/14/18 ropinirole [Requip] 0.5 mg PO TID 05/19/18 11/14/18 clonidine HCl 11/14/18 11/14/18 Previous Rx's Medication Instructions Recorded ipratropium-albuterol 3 ml INHALATION Q6-8H PRN #30 ml 06/20/18 amlodipine [Norvasc] 10 mg PO DAILY 30 Days #60 tab 10/21/18 Allergies Allergy/AdvReac Type Severity Reaction Status Date / Time Sulfa (Sulfonamide Allergy Intermediate Hives Verified 06/19/18 08:49 Antibiotics) Review of Systems ROS: all other systems reviewed are negative [facility] Medical History Medical History Arteriovenous fistula for hemodialysis in place, primary (Acute) ESRD on dialysis (Acute) HBP (high blood pressure) (Acute) HIV (human immunodeficiency virus infection) (Acute) Smoker (Acute) Surgical History Surgical History History of tubal ligation (Acute) Family History Family History Mother Family history of cancer Social History Social History Substance History: Active Abuse Second Hand Smoke Exposure: No Smoking Status: Current every day smoker Tobacco Type: Cigarettes How Often Do You Have a Drink Containing Alcohol: Monthly or less Hx Recent Travel: No Recent Travel in [facility] within the Last 8 Weeks: No Recent Out of Country Travel within the Last 8 Weeks: No Substance Abuse Detail Marijuana: Substance Use Status: Active Immunization History Tetanus Immunization: <5 Years Tetanus Immunization Year if Known: 2013 Exam Narrative Exam Narrative: GENERAL: Well-developed, well-nourished, alert -[place] female. Presenting in no acute distress. SKIN: Focused skin assessment warm/dry. HEAD: Atraumatic. Normocephalic. EYES: Pupils equal and round. No scleral icterus. No injection or drainage. ENT: No nasal bleeding or discharge. Mucous membranes pink and moist. NECK: Trachea midline. No JVD. CARDIOVASCULAR: Regular rate and rhythm. 3/6 systolic murmur appreciated. Left AV fistula positive thrill, positive bruit. RESPIRATORY: No accessory muscle use. Clear to auscultation. Breath sounds equal bilaterally. GASTROINTESTINAL: Abdomen soft, non-tender, nondistended. Hepatic and splenic margins not palpable. MUSCULOSKELETAL: No obvious deformities. No clubbing. No cyanosis. No edema. NEUROLOGICAL: Awake and alert. No obvious cranial nerve deficits. Motor grossly within normal limits. Normal speech. PSYCHIATRIC: Appropriate mood and affect; insight and judgment normal. Course Initial Documented Vital Signs Pulse Rate 92 H 11/14/18 10:40 Blood Pressure 210/119 H 11/14/18 10:40 Pulse Oximetry 99 11/14/18 10:40 Last Documented Vital Signs Pulse Rate 91 H 11/14/18 15:10 Respiratory Rate 26 H 11/14/18 15:10 Blood Pressure 190/102 H 11/14/18 14:30 Pulse Oximetry 100 11/14/18 15:10 Critical Care Time Critical Care Time: Yes Total Critical Care Time: 30 Attestation: Time to perform other separately billable procedures was not included in the critical care time. My time did not include minutes spent treating any other patients simultaneously or on activities that did not directly contribute to the patient's treatment. The services I provided to this patient were to treat and/or prevent clinically significant deterioration due to blurred vision likely related to hypertensive urgency I provided critical care services requiring my management, as noted below: Chart data review, documentation time, medication orders and management, vital sign assessments/reviewing monitor data, ordering and reviewing lab tests, ordering and interpreting/reviewing x-rays and diagnostic studies, care of the patient and discussion of the patient with the admitting physicians Medical Decision Making ESHA Attestation ESHA supervised visit: Yes Attestation: I, Dr. Kendrick, have reviewed the advance practice practitioner's documentation and am in agreement, met with the patient face to face, made the diagnosis, and the medical decision making was done by me. *My assessment and Findings: This patient presented with a several day history of progressively worsening blurred vision. She does not describe diplopia. Her decreased visual acuity is bilateral. She was noted to have markedly elevated blood pressure. HTN emergency was considered and work up was ordered accordingly. She was placed on a Cardene drip so that her blood pressure could be lowered gradually and was tight control. Please see Charlene Power NP's note for a more detailed H&P, final diagnosis and disposition MDM Narrative Medical decision making narrative: Patient is a 43-year-old female presenting with blurred vision, headache and uncontrolled hypertension. Labs and imaging ordered and pending. Discussed patient's presentation with my attending physician also saw patient. Will obtain MRI and MRA of the brain. Labs ordered and pending. Patient will be given 20 mg of labetalol IV x1 dose. Blood pressure did not change after labetalol was administered. Patient will be placed on a Cardene drip at this time. Labs reviewed, CBC with no acute findings, chemistry with elevated BUN/ creatinine, there is an expected finding. Cardiac enzymes are negative x1 set. Urine drug screen is positive for cocaine. MRI and MRA of the brain are unremarkable with the exception of tiny punctate white matter changes, MS cannot be excluded. Patient was admitted to the [facility], discussed with Dr. Madrigal who accepted admission. Admit orders placed. Discussed that it appears that there may have been some confusion for her as to what she was supposed to be taking at home in regards to blood pressure medications. Medical Screen Exam Complete: Yes Emergency Medical Condition: Yes Differential Diagnosis Differential Diagnosis: Hypertensive urgency vs ICH vs acute glaucoma vs metabolic abnormality vs other Medical Records Medical records reviewed: Yes I reviewed the patient's medical records. Patient is only taking amlodipine and clonidine at home, according to medical records from her last admission it appears she should be on labetalol and hydralazine as well. Lab Data Lab results reviewed: Yes I reviewed the patient's lab results. Result diagrams: 11/14/18 12:20 11/14/18 12:20 Lab Results 11/14/18 11/14/18 11/14/18 Range/Units 12:20 12:20 12:20 WBC 4.5 (4.0-11.0) th/mm3 RBC 3.14 L (4.00-5.30) mil/mm3 Hgb 9.2 L (11.6-15.3) gm/dL Hct 28.3 L (35.0-46.0) % MCV 90.2 (80.0-100.0) fL MCH 29.3 (27.0-34.0) pg MCHC 32.5 (32.0-36.0) % RDW 15.7 (11.6-17.2) % Plt Count 123 L (150-450) th/mm3 MPV 9.1 (7.0-11.0) fL Neut % (Auto) 49.6 (16.0-70.0) % Lymph % (Auto) 38.2 (9.0-44.0) % Vance % (Auto) 6.7 (0.0-8.0) % Eos % (Auto) 4.4 H (0.0-4.0) % Baso % (Auto) 1.1 (0.0-2.0) % Neut # (Auto) 2.2 (1.8-7.7) th/mm3 Lymph # (Auto) 1.7 (1.0-4.8) th/mm3 Vance # (Auto) 0.3 (0.0-0.9) th/mm3 Eos # (Auto) 0.2 (0.0-0.4) th/mm3 Baso # (Auto) 0.0 (0.0-0.2) th/mm3 WBC Differential . Differential Comment Auto diff final PT 9.8 (9.8-11.6) sec INR 1.0 Ratio APTT 25.8 (23.4-31.7) sec Sodium 140 (136-145) meq/L Potassium 4.6 (3.5-5.1) meq/L Chloride 106 (98-107) meq/L Carbon Dioxide 24.1 (21.0-32.0) meq/L Anion Gap 10 (5-15) meq/L BUN 60 H (7-18) mg/dL Creatinine 11.58 H* (0.50-1.00) mg/dL Estimated GFR 4 L (>89) mL/min Random Glucose 85 (74-106) mg/dL Calcium 7.4 L* (8.5-10.1) mg/dL Calcium Adj for Albumin 8.4 L (8.5-10.1) mg/dL Magnesium 2.1 (1.5-2.5) mg/dL Total Bilirubin 0.3 (0.2-1.0) mg/dL AST 23 (15-37) U/L ALT 19 (10-53) U/L Alkaline Phosphatase 50 (45-117) U/L Total Creatine Kinase 231 H (26-192) U/L CK-MB (CK-2) 4.0 H (0.5-3.6) ng/mL CK-MB (CK-2) % 1.7 (0.0-4.0) % Troponin I 0.03 (0.02-0.05) ng/mL Total Protein 7.4 (6.4-8.2) g/dL Albumin 2.8 L (3.4-5.0) g/dL Urine Opiates Screen (Neg) Ur Barbiturates Screen (Neg) Ur Amphetamines Screen (Neg) U Benzodiazepines Scrn (Neg) Urine Cocaine Screen (Neg) U Cannabinoids Screen (Neg) 11/14/18 Range/Units 14:05 WBC (4.0-11.0) th/mm3 RBC (4.00-5.30) mil/mm3 Hgb (11.6-15.3) gm/dL Hct (35.0-46.0) % MCV (80.0-100.0) fL MCH (27.0-34.0) pg MCHC (32.0-36.0) % RDW (11.6-17.2) % Plt Count (150-450) th/mm3 MPV (7.0-11.0) fL Neut % (Auto) (16.0-70.0) % Lymph % (Auto) (9.0-44.0) % Vance % (Auto) (0.0-8.0) % Eos % (Auto) (0.0-4.0) % Baso % (Auto) (0.0-2.0) % Neut # (Auto) (1.8-7.7) th/mm3 Lymph # (Auto) (1.0-4.8) th/mm3 Vance # (Auto) (0.0-0.9) th/mm3 Eos # (Auto) (0.0-0.4) th/mm3 Baso # (Auto) (0.0-0.2) th/mm3 WBC Differential Differential Comment PT (9.8-11.6) sec INR Ratio APTT (23.4-31.7) sec Sodium (136-145) meq/L Potassium (3.5-5.1) meq/L Chloride (98-107) meq/L Carbon Dioxide (21.0-32.0) meq/L Anion Gap (5-15) meq/L BUN (7-18) mg/dL Creatinine (0.50-1.00) mg/dL Estimated GFR (>89) mL/min Random Glucose (74-106) mg/dL Calcium (8.5-10.1) mg/dL Calcium Adj for Albumin (8.5-10.1) mg/dL Magnesium (1.5-2.5) mg/dL Total Bilirubin (0.2-1.0) mg/dL AST (15-37) U/L ALT (10-53) U/L Alkaline Phosphatase (45-117) U/L Total Creatine Kinase (26-192) U/L CK-MB (CK-2) (0.5-3.6) ng/mL CK-MB (CK-2) % (0.0-4.0) % Troponin I (0.02-0.05) ng/mL Total Protein (6.4-8.2) g/dL Albumin (3.4-5.0) g/dL Urine Opiates Screen Neg (Neg) Ur Barbiturates Screen Neg (Neg) Ur Amphetamines Screen Neg (Neg) U Benzodiazepines Scrn Neg (Neg) Urine Cocaine Screen Pos H (Neg) U Cannabinoids Screen Neg (Neg) Imaging Data Radiologist's impression: Chest X-Ray 11/14/18 11:20 CONCLUSION: No acute cardiopulmonary disease. Head MRI 11/14/18 11:30 CONCLUSION: Unremarkable study except for a few tiny punctate white matter changes on FLAIR sequence nonspecific probably of no clinical significance, however a subtle case of demyelinating process (multiple sclerosis is not exclude . Head MRA 11/14/18 11:31 CONCLUSION: 1. Negative MRA Cow ([place]) non contrast. Discharge Plan Discharge Disposition Patient Disposition: ED Admit(ED Internal Use Only) Discharge Condition Condition: Stable Discharge Order Discharge Orders: ED Use Only Admit Order (Routine); Ordered 11/14/18 Ordered By: Charlene Borja Physicians Team ED Provider: Loulou Kendrick ED Midlevel Provider: Charlene Borja Attending Provider: Manuel Madrigal Status ED Status: Admitted Observation Patient
--- NOTE | 2018-11-14 12:27 | XR ---
EXAM DATE: 11/14/2018 12:15 PM EST AGE/SEX: 43 years / Female INDICATIONS: Chest pain and blurry vision CLINICAL DATA: This is the patient's initial encounter. Patient reports that signs and symptoms have been present for 1 day and indicates a pain score of 5/10. MEDICAL/SURGICAL HISTORY: Hypertension. None. COMPARISON: [facility] [place], CHEST 2V PA&LAT, 10/17/2018. . FINDINGS: The lungs are clear without infiltrate, nodule, or mass. There is no appreciable pleural effusion for technique. Heart and mediastinum are unremarkable. CONCLUSION: No acute cardiopulmonary disease. Electronically signed by: Caren Dixon MD Board Certified Radiologist 11/14/2018 12:25 PM EST
[2018-11-14 12:38] LABS: Baso % (Auto) 1.1 % (0.0-2.0); Eos # (Auto) 0.2 th/mm3 (0.0-0.4); Eos % (Auto) 4.4 % (0.0-4.0); Hematocrit 28.3 % (35.0-46.0); Hemoglobin 9.2 gm/dL (11.6-15.3); Lymph # (Auto) 1.7 th/mm3 (1.0-4.8); Lymph % (Auto) 38.2 % (9.0-44.0); Mean Corpuscular HGB Conc 32.5 % (32.0-36.0); Mean Corpuscular Hemoglobin 29.3 pg (27.0-34.0); Mean Corpuscular Volume 90.2 fL (80.0-100.0); Mean Platelet Volume 9.1 fL (7.0-11.0); Mono # (Auto) 0.3 th/mm3 (0.0-0.9); Mono % (Auto) 6.7 % (0.0-8.0); Neut # (Auto) 2.2 th/mm3 (1.8-7.7); Neut % (Auto) 49.6 % (16.0-70.0); Platelet Count 123 th/mm3 (150-450); Red Blood Count 3.14 mil/mm3 (4.00-5.30); Red Cell Distribution Width 15.7 % (11.6-17.2); White Blood Count 4.5 th/mm3 (4.0-11.0)
[2018-11-14 12:47] LABS: Activated Partial Thrombo Time 25.8 sec (23.4-31.7); Prothrombin Time 9.8 sec (9.8-11.6)
[2018-11-14 13:01] LABS: Albumin 2.8 g/dL (3.4-5.0); Calcium 7.4 mg/dL (8.5-10.1); Carbon Dioxide 24.1 meq/L (21.0-32.0); Magnesium 2.1 mg/dL (1.5-2.5); Potassium 4.6 meq/L (3.5-5.1)
[2018-11-14 13:05] LABS: Total Protein 7.4 g/dL (6.4-8.2); Troponin I 0.03 ng/mL (0.02-0.05)
--- NOTE | 2018-11-14 13:10 | MR ---
EXAM DATE: 11/14/2018 1:06 PM EST AGE/SEX: 43 years / Female INDICATIONS: CVA. Blurred vision. CLINICAL DATA: This is the patient's initial encounter. Patient reports that signs and symptoms have been present for 1 day and indicates a pain score of 0/10. MEDICAL/SURGICAL HISTORY: Hypertension. Renal failure, chronic. HIV. Tubal ligation. COMPARISON: [facility] [place], MR HEAD W/O CONTRAST, 11/14/2018. . TECHNIQUE: 3D [id number] MRA was performed. Source images, multiplanar STS MIP, and 3D volum e MIP reconstructions were reviewed. FINDINGS: There is excellent visualization of the major intracranial arteries out to the second-order branch ve ssels. There is no evidence for aneurysm, vessel truncation or stenosis, and no evidence for vascula r malformation. CONCLUSION: 1. Negative MRA Cow ([place]) non contrast. Electronically signed by: Caren Dixon MD Board Certified Radiologist 11/14/2018 1:08 PM EST
--- NOTE | 2018-11-14 13:12 | MR ---
EXAM DATE: 11/14/2018 1:06 PM EST AGE/SEX: 43 years / Female INDICATIONS: CVA. Blurred vision. CLINICAL DATA: This is the patient's initial encounter. Patient reports that signs and symptoms have been present for 1 day and indicates a pain score of 0/10. MEDICAL/SURGICAL HISTORY: Hypertension. Renal failure, chronic. HIV. Tubal ligation. COMPARISON: No prior exams available for comparison. TECHNIQUE: Multiplanar, multisequence examination of the brain was performed without contrast. FINDINGS: There is no evidence for intracranial hemorrhage, mass effect, mass lesions, edema, or extra-axial fl uid collections. The ventricles are normal size for the patient's age. There are no signs of acute infarction for technique. The diffusion portion, and postcontrast portion are unremarkable. The FLAI R sequence demonstrates a few tiny punctate areas of bright signal in white matter tracks periventric ular region nonspecific. CONCLUSION: Unremarkable study except for a few tiny punctate white matter changes on FLAIR sequence nonspecific probably of no clinical significance, however a subtle case of demyelinating process (mu ltiple sclerosis is not exclude . Electronically signed by: Caren Dixon MD Board Certified Radiologist 11/14/2018 1:11 PM EST
[2018-11-14 13:35] LABS: CKMB Percent 1.7 % (0.0-4.0)
[2018-11-14 14:23] LABS: Amphetamine Screen,Urine Neg (Neg); Barbiturate Screen,Urine Neg (Neg); Cannabinoid Screen,Urine Neg (Neg); Cocaine Screen,Urine Pos (Neg)
[2018-11-14 14:26] LABS: Opiate Screen,Urine Neg (Neg)
[2018-11-14] MEDS ORDERED: ALPRAZolam 0.25 MG Tablet PO PRN (15:17)
[2018-11-14] MEDS ORDERED: MethylPREDNISolone Sod Succinate Inj 40 MG/ML Vial IV.PUSH ONE (15:18)
--- NOTE | 2018-11-14 15:29 | P.HPIM ---
History of Present Illness Primary Care Physician: Phi De La Rosa History of Present Illness: 43-year-old female with a history of ESRD, HIV, HTN , cocaine abuse, presents to the ER complaining of blurry vision and shortness of breath, vital signs seen revealed that she was in hypertensive crisis with pressure beyond 220 systolic. She was given a dose of labetalol and started on a Cardene drip. Further history revealed that although she was sent home on amlodipine, labetalol, hydralazine, clonidine she has only been taking clonidine and amlodipine and that has been an adequate to control her blood pressure. Her visual changes began last Thursday and presented as a waxing and waning symptomology but has been present persistently for the last 2 days. She confirms that her pressure during those times has been elevated. Her pressure did not decrease significantly with recent dialysis treatments. She states she is feeling short of breath, requesting a breathing treatment, but seems to be breathing comfortably off of oxygen and saturating within normal limits. She denies any cough, denies any recent fevers, denies nausea, vomiting , diarrhea. She denies any heart palpitations, though her urine toxicology did reveal the presence of cocaine which could be a potential factor in her hypertensive urgency. Her BP at time of admission is a systolic of 168. Review of Systems Review of Systems: all other systems reviewed are negative [facility] Medical History Medical History Arteriovenous fistula for hemodialysis in place, primary (Acute) ESRD on dialysis (Acute) HBP (high blood pressure) (Acute) HIV (human immunodeficiency virus infection) (Acute) Smoker (Acute) Surgical History Surgical History History of tubal ligation (Acute) Family History Family History Mother Family history of cancer Social History Social History Substance History: Active Abuse Second Hand Smoke Exposure: No Smoking Status: Current every day smoker Tobacco Type: Cigarettes How Often Do You Have a Drink Containing Alcohol: Monthly or less Hx Recent Travel: No Recent Travel in [facility] within the Last 8 Weeks: No Recent Out of Country Travel within the Last 8 Weeks: No Substance Abuse Detail Marijuana: Substance Use Status: Active Immunization History Tetanus Immunization: <5 Years Tetanus Immunization Year if Known: 2013 Medications and Allergies Allergies Allergy/AdvReac Type Severity Reaction Status Date / Time Sulfa (Sulfonamide Allergy Intermediate Hives Verified 06/19/18 08:49 Antibiotics) Home Medications Medication Instructions Recorded Confirmed Type darunavir ethanolate [Prezista] 800 mg PO DAILY 05/19/18 11/14/18 History dolutegravir [Tivicay] 50 mg PO BID 05/19/18 11/14/18 History etravirine [Intelence] 200 mg PO BID 05/19/18 11/14/18 History ropinirole [Requip] 0.5 mg PO TID 05/19/18 11/14/18 History clonidine HCl 11/14/18 11/14/18 History Active Medications: Active Medications Acetaminophen (Tylenol) 650 mg PO Q4H PRN PRN Reason: Temp > 100.4 Al Hydroxide/Mg Hydroxide (Milk Of Magncorn[place] Liq) 30 ml PO Q12H PRN PRN Reason: Mild Constipation Albuterol (Duoneb Neb (Prn)) ampul NEB Q6-8H PRN PRN Reason: Shortness Of Breath Alprazolam (Xanax) 0.25 mg PO Q8H PRN PRN Reason: Anxiety or Insomnia Amlodipine Besylate (Norvasc) 10 mg PO DAILY NIDIA Darunavir (Prezista) 800 mg PO DAILY NIDIA Dolutegravir Sodium (Tivicay) 50 mg PO BID NIDIA Nicardipine HCl 25 mg/ Sodium (Chloride) 250 mls @ 50 mls/hr IV.CONT TITRATE PRN; Protocol PRN Reason: Per Protocol Methylprednisolone Sodium Succinate (Solumedrol Inj) 40 mg IV.PUSH ONCE ONE Stop: 11/14/18 15:19 Non-Formulary Medication (Etravirine [Intelence]) 200 mg PO BID NIDIA Ondansetron HCl (Zofran Inj) 4 mg IV.PUSH Q6H PRN PRN Reason: NAUSEA OR VOMITING Ropinirole HCl (Requip) 0.5 mg PO TID NIDIA Sodium Chloride (Ns Flush) 2 ml IV.FLUSH UNSCH PRN PRN Reason: FLUSH AFTER USING IV ACCESS Sodium Chloride (Ns Flush) 2 ml IV.FLUSH BID NIDIA Sodium Chloride (Ns Flush) 2 ml IV.FLUSH PRN PRN PRN Reason: FLUSH AFTER USING IV ACCESS Physical Exam Vital signs: Last Vital Signs Pulse 91 H 11/14/18 15:10 Resp 26 H 11/14/18 15:10 BP 190/102 H 11/14/18 14:30 Pulse Ox 100 11/14/18 15:10 Intake & Output 11/12/18 11/13/18 11/14/18 11/15/18 06:59 06:59 06:59 06:59 Weight 72.575 kg Narrative: GENERAL: AAOx3, no acute distress, adequate nutrition SKIN: Warm and dry, no rashes. HEAD: Atraumatic. Normocephalic. EYES: Pupils equal, round, reactive to light. No scleral icterus. No injection or drainage. ENT: No nasal bleeding or discharge. Moist mucous membranes. Nonerythematous oropharynx. NECK: Trachea midline. No JVD. Thyroid size within normal limits. CARDIOVASCULAR: Regular rate and rhythm. No murmur, no gallops, no rubs. RESPIRATORY: Moderate rales in bilateral bases. No accessory muscle use. GASTROINTESTINAL: Abdomen soft, non-tender, nondistended, normal active bowel sounds. Hepatic and splenic margins not palpable. MUSCULOSKELETAL: Extremities without clubbing or cyanosis. No obvious deformities. No edema. NEUROLOGICAL: Awake and alert. No obvious cranial nerve deficits. Motor grossly within normal limits. No focal deficits. Five out of 5 muscle strength in the arms and legs. Normal speech. PSYCHIATRIC: Appropriate mood and affect; insight and judgment normal. Results Labs CBC & Chem 7: 11/14/18 12:20 11/14/18 12:20 Imaging Impressions Chest X-Ray 11/14/18 11:20 CONCLUSION: No acute cardiopulmonary disease. Head MRI 11/14/18 11:30 CONCLUSION: Unremarkable study except for a few tiny punctate white matter changes on FLAIR sequence nonspecific probably of no clinical significance, however a subtle case of demyelinating process (multiple sclerosis is not exclude . Head MRA 11/14/18 11:31 CONCLUSION: 1. Negative MRA Cow ([place]) non contrast. Caprini VTE Risk Assessment Caprini VTE Risk Assessment: Moderate/High Risk (score >= 2) Caprini Risk Assessment Model: Point Value = 1 Point Value = 2 Point Value = 3 Point Value = 5 Age 41-60 Minor surgery BMI > 25 kg/m2 Swollen legs Varicose veins or History of unexplained or recurrent spontaneous Oral contraceptives or hormone replacement Sepsis (< 1 month) Serious lung disease, including pneumonia (< 1 month) Abnormal pulmonary function Acute myocardial infarction Congestive heart failure (< 1 month) History of inflammatory bowel disease Medical patient at bed rest Age 61-74 Arthroscopic surgery Major open surgery (> 45 min) Laparoscopic surgery (> 45 min) Malignancy Confined to bed (> 72 hours) Immobilizing plaster cast Central venous access Age >= 75 History of VTE Family history of VTE Factor V Leiden Prothrombin [id number] Lupus anticoagulant Anticardiolipin antibodies Elevated serum homocysteine Heparin-induced thrombocytopenia Other congenital or acquired thrombophilia Stroke (< 1 month) Elective arthroplasty Hip, pelvis, or leg fracture Acute spinal cord injury (< 1 month) Prophylaxis Regimen: Total Risk Factor Score Risk Level Prophylaxis Regimen 0-1 Low Early ambulation 2 Moderate Order ONE of the following: *Sequential Compression Device (SCD) *Heparin 5000 units SQ BID 3-4 Higher Order ONE of the following medications: *Heparin 5000 units SQ TID *Enoxaparin/Lovenox 40 mg SQ daily (WT < 150 kg, CrCl > 30 mL/min) *Enoxaparin/Lovenox 30 mg SQ daily (WT < 150 kg, CrCl > 10-29 mL/min) *Enoxaparin/Lovenox 30 mg SQ BID (WT < 150 kg, CrCl > 30 mL/min) AND/OR *Sequential Compression Device (SCD) 5 or more Highest Order ONE of the following medications: *Heparin 5000 units SQ TID (Preferred with Epidurals) *Enoxaparin/Lovenox 40 mg SQ daily (WT < 150 kg, CrCl > 30 mL/min) *Enoxaparin/Lovenox 30 mg SQ daily (WT < 150 kg, CrCl > 10-29 mL/min) *Enoxaparin/Lovenox 30 mg SQ BID (WT < 150 kg, CrCl > 30 mL/min) AND *Sequential Compression Device (SCD) Assessment and Plan Plan Hypertensive urgency Patient presented with systolic BP above 220, controlled to 168 following labetalol She will be admitted on Cardene drip to the [facility] unit Once controlled, recommend addition of p.o. hydralazine and labetalol as previously prescribed She is due for dialysis treatment tomorrow which could also benefit her blood pressure Follow on telemetry Dyspnea Likely secondary to hypertensive urgency She has a history of using nebulizer treatments at home We will continue nebulizers while she is hospitalized Physical exam reveals rales in her bilateral bases, likely some moderate pulmonary edema from HTN Dialysis should help with her pulmonary edema Blurry vision Also likely secondary to hypertensive urgency I explained to her that the vision should improve once her BP is controlled for more than 12 hours If vision is not improving, consider ophthalmology consult or referral End-stage renal disease Creatinine is 11 0.58, she undergoes dialysis MWF She is due for dialysis tomorrow, also showing signs of fluid overload in her lungs Nephrology consulted to arrange dialysis HIV Unsure of current CD4 count, she is not presenting with infection Continue home dose antiretrovirals Anxiety Patient is exhibiting anxiety about her stay, possibly withdrawing from cocaine Xanax ordered as needed, wide spaced doses due to renal failure Cocaine abuse Urine toxicology was positive for cocaine on her last 3 admissions Likely contributing to her hypertensive urgency Patient is counseled to quit DVT prophylaxis SCDs
[2018-11-14] MEDS ORDERED: Gelatin 12 MM/7 MM Topical Foam TOPICAL PRN (18:27)
[2018-11-14] MEDS ORDERED: Sod Chloride 0.9% Inj 1,000 ML IV.CONT PRN (18:27)
[2018-11-14] MEDS ORDERED: Acetaminophen 325 MG Tablet PO PRN (18:27)
[2018-11-14] MEDS ORDERED: Sod Chloride 0.9% Inj 1,000 ML OTHER PRN ×2 (18:27)
[2018-11-14] MEDS ORDERED: Albumin Human 25% Inj 100 ML IV.SIG PRN (18:27)
[2018-11-14] MEDS ORDERED: Heparin 10,000 UNITS/10 ML Vial (for IV use) OTHER PRN ×2 (18:27)
--- NOTE | 2018-11-14 19:15 | MB ---
cc: Simone Garcia MD DATE: 11/14/2018 REASON FOR CONSULTATION: End-stage renal disease management. HISTORY OF PRESENT ILLNESS: This is a 43-year-old female with a history of end-stage renal disease. She is on hemodialysis Mondays, Wednesdays, and Fridays and follows up with Dr. Rodas as an outpatient. The patient also has a history of HIV and hypertension. The patient presented to the emergency room with hypertensive crisis and decreased vision. She presented with a systolic blood pressure above 220. She was found to have cocaine in her blood system here and she admits to using cocaine recently over the holidays. The patient reports that she started developing some blurriness of vision several days ago. She had continued with her outpatient dialysis, otherwise. However, her vision became more and more of an issue and she came to the hospital here for further evaluation. While admitted here, she was seen here in the emergency room and started on a Cardene drip. She had an MRI imaging of the brain for her visual issues and these imaging studies were negative at this point. At this point, the patient is resting comfortably. Her systolic blood pressures improved to the 160s. She is breathing comfortably without any oxygen. Nephrology was consulted for further evaluation. REVIEW OF SYSTEMS: The patient reports having decreased visual acuity and blurry vision for approximately 1 week, which was gradually worsening. Also some dizziness, some lightheadedness. No nausea, no vomiting, no diarrhea, no chest pains, no shortness of breath otherwise. Otherwise, review of systems is negative. PAST MEDICAL HISTORY: Includes left forearm AV fistula currently in use for dialysis. Also, ESRD, on hemodialysis, follows up with Dr. Rodas on hemodialysis Thursday, Thursday and Thursday, had her full treatment on Thursday. Also, history of hypertension, HIV, tobacco use and cocaine use. PAST SURGICAL HISTORY: Includes tubal ligation and AV fistula creation. FAMILY HISTORY: Cancer. SOCIAL HISTORY: Current daily smoker as well as recent positive cocaine use and social alcohol use. ALLERGIES: INCLUDE SULFA ALLERGIES. MEDICATIONS AT HOME: Include Prezista, Tivicay, Intelence, Requip and clonidine as well as amlodipine and labetalol and hydralazine. PHYSICAL EXAMINATION: VITAL SIGNS: At the time of evaluation, blood pressure 160/80s, pulse 91, respiratory rate 26, pulse oximetry 100% on room air. GENERAL: Awake, alert, oriented, in no apparent distress. NECK: Soft, supple. CARDIAC: Regular rate and rhythm. PULMONARY: Clear to auscultation. ABDOMEN: Soft, nontender, nondistended. EXTREMITIES: No edema. Left radiocephalic AV fistula with positive thrill. LABORATORY FINDINGS: White count 4.5, hemoglobin 9.2, hematocrit 28.3, platelet count 123. Sodium 140, potassium 4.6, chloride 106, bicarbonate 24, BUN 50, creatinine 11.58, glucose of 85. MRA and MRI of the brain negative. ASSESSMENT AND PLAN: 1. End-stage renal disease. The patient is on hemodialysis and is on dialysis Thursday, Thursday and Thursday. She had a full treatment, apparently on Thursday. We will do hemodialysis tomorrow and continue with Thursday, Thursday, Thursday schedule here. Continue renal dose of all medications and antibiotics. Protect the left arm AV fistula. No IVs or blood pressure cuffs to the left arm. We will do ultrafiltration as tolerated tomorrow. At this point, volume status and electrolytes are otherwise stable. 2. Hypertensive urgency. Resume home medications. The patient presented with systolic blood pressures over the 220s with Cardene drip. This is improved to the level of the 160s. Of note, this is likely hypertension exacerbated due to recent cocaine use. The patient had previously been on hydralazine and labetalol p.o. Continue to monitor with ICU and titrate drips as possible. 3. Blurry vision. The patient with apparent blurry vision secondary to hypertensive emergency. MRI imaging was otherwise negative. Continue to monitor with primary team. 4. Human immunodeficiency virus. Continue with antiretrovirals. The patient reports she has been compliant with medications. 5. Cocaine use. Encouraged the patient to stop using cocaine. The patient reports she has been using it near her friends and family over the holidays. MD NATHAN HanleyP/sv , 06:24 PM , 06:34 PM
[2018-11-14] MEDS: niCARdipine Inj 25 MG in Sodium Chlor 0.9% Inj 240 ML IV.CONT PRN ×2 (19:27→21:51)
[2018-11-14] MEDS ORDERED: ETRAVIRINE 200 MG PO SCH (21:00)
[2018-11-14] MEDS: Acetaminophen 325 MG Tablet PO PRN (21:15)
[2018-11-15] MEDS: niCARdipine Inj 25 MG in Sodium Chlor 0.9% Inj 240 ML IV.CONT PRN ×9 (00:06→19:58)
[2018-11-15] MEDS: Chlorhexidine Gluconate 2% 1 Pack (2 Cloths) TOPICAL SCH (03:00)
[2018-11-15] MEDS: Acetaminophen 325 MG Tablet PO PRN ×3 (03:54→15:47)
[2018-11-15] MEDS ORDERED: Chlorhexidine Gluconate 2% 1 Pack (2 Cloths) TOPICAL PRN (04:00)
[2018-11-15 06:48] LABS: Baso % (Auto) 0.2 % (0.0-2.0); Hematocrit 30.4 % (35.0-46.0); Hemoglobin 9.9 gm/dL (11.6-15.3); Lymph # (Auto) 0.9 th/mm3 (1.0-4.8); Lymph % (Auto) 15.5 % (9.0-44.0); Mean Corpuscular HGB Conc 32.7 % (32.0-36.0); Mean Corpuscular Hemoglobin 29.3 pg (27.0-34.0); Mean Corpuscular Volume 89.4 fL (80.0-100.0); Mean Platelet Volume 8.7 fL (7.0-11.0); Mono # (Auto) 0.1 th/mm3 (0.0-0.9); Mono % (Auto) 1.4 % (0.0-8.0); Neut % (Auto) 82.9 % (16.0-70.0); Platelet Count 159 th/mm3 (150-450); White Blood Count 6.1 th/mm3 (4.0-11.0)
[2018-11-15 07:08] LABS: Alanine Aminotransferase 23 U/L (10-53); Alkaline Phosphatase 54 U/L (45-117); Anion Gap 13 meq/L (5-15); Aspartate Aminotransferase 21 U/L (15-37); Blood Urea Nitrogen 76 mg/dL (7-18); Calcium 7.6 mg/dL (8.5-10.1); Carbon Dioxide 18.4 meq/L (21.0-32.0); Chloride 106 meq/L (98-107); Glomerular Filtration Rate 4 mL/min (>89); Glucose,Random 147 mg/dL (74-106); Potassium 5.5 meq/L (3.5-5.1); Sodium 137 meq/L (136-145)
[2018-11-15 08:49] LABS: Bacteria,Urine Rare /hpf; Bilirubin,Urine Negative (Negative); Clarity,Urine Cloudy (Clear); Color,Urine Yellow (Yellw/Straw); Glucose,Urine (UA) 50 mg/dL (Negative); Leukocyte Esterase,Urine Negative (Negative); Nitrite,Urine Negative (Negative); Squamous Epithelial Cell,Urine 4 /hpf (0-5)
[2018-11-15] MEDS: amLODIPine 5 MG Tablet PO SCH (09:29)
--- NOTE | 2018-11-15 11:18 | P.PNIM ---
Subjective Interval history: Patient states she is breathing easier today, her vision is about 50% improved compared to her admission where she complained of foggy/ smoky visual impairment. On admission we discussed that both are related to her persistently uncontrolled hypertension, now that her pressure is controlled both seem to be improving. Physical Exam Vital signs: Last Vital Signs Temp 98.2 F 11/15/18 04:00 Pulse 99 H 11/15/18 10:00 Resp 18 11/15/18 08:46 BP 155/76 H 11/15/18 04:00 Pulse Ox 100 11/15/18 09:50 Intake & Output 11/13/18 11/14/18 11/15/18 11/16/18 06:59 06:59 06:59 06:59 Intake Total 1610 / 1610 250 / 250 Output Total 200 / 200 Balance 1410 / 1410 250 / 250 Weight 75 kg Narrative: GENERAL: AAOx3, no acute distress, adequate nutrition SKIN: Warm and dry, no rashes. HEAD: Atraumatic. Normocephalic. EYES: Pupils equal, round, reactive to light. No scleral icterus. No injection or drainage. ENT: No nasal bleeding or discharge. Moist mucous membranes. Nonerythematous oropharynx. NECK: Trachea midline. No JVD. Thyroid size within normal limits. CARDIOVASCULAR: Regular rate and rhythm. No murmur, no gallops, no rubs. RESPIRATORY: Moderate rales in bilateral bases. No accessory muscle use. GASTROINTESTINAL: Abdomen soft, non-tender, nondistended, normal active bowel sounds. Hepatic and splenic margins not palpable. MUSCULOSKELETAL: Extremities without clubbing or cyanosis. No obvious deformities. No edema. NEUROLOGICAL: Awake and alert. No obvious cranial nerve deficits. Motor grossly within normal limits. No focal deficits. Five out of 5 muscle strength in the arms and legs. Normal speech. PSYCHIATRIC: Appropriate mood and affect; insight and judgment normal. Results Labs CBC & Chem 7: 11/15/18 05:41 11/15/18 05:41 Imaging Imaging: Impressions Chest X-Ray 11/14/18 11:20 CONCLUSION: No acute cardiopulmonary disease. Head MRI 11/14/18 11:30 CONCLUSION: Unremarkable study except for a few tiny punctate white matter changes on FLAIR sequence nonspecific probably of no clinical significance, however a subtle case of demyelinating process (multiple sclerosis is not exclude . Head MRA 11/14/18 11:31 CONCLUSION: 1. Negative MRA Cow ([place]) non contrast. Assessment and Plan Plan Hypertensive urgency Patient presented with systolic BP above 220, controlled to 168 following labetalol Weaning from Cardene drip, start hydralazine 50 mg twice daily, may increase to 3 times daily if needed Patient may be transferred out of [facility] to [facility] when off Cardene drip Undergoing dialysis today May be off telemetry after transfer Dyspnea Likely secondary to hypertensive urgency She has a history of using nebulizer treatments at home Continue duo nebs as needed Less airway congestion this morning Dialysis should also help with her dyspnea Blurry vision Improving with better control of her blood pressure Continue to monitor for improvement End-stage renal disease Creatinine is 11 0.58, she undergoes dialysis MWF She is scheduled for dialysis today Nephrology consulted to arrange dialysis HIV Unsure of current CD4 count, she is not presenting with infection Continue home dose antiretrovirals Anxiety Patient is exhibiting anxiety about her stay, possibly withdrawing from cocaine Xanax ordered as needed, wide spaced doses due to renal failure Cocaine abuse Urine toxicology was positive for cocaine on her last 3 admissions Likely contributing to her hypertensive urgency Patient is counseled to quit DVT prophylaxis SCDs Progress Note: Quality VTE Deep Vein Thrombosis/Pulmonary Embolism Present on Admission: No
[2018-11-15 13:35] LABS: Hepatitits B Surface Antigen Nonreactive (Nonreactive)
[2018-11-15 13:48] LABS: Hepatitis A IgM Antibody Nonreactive (Nonreactive)
[2018-11-15] MEDS: hydrALAZINE 50 MG Tablet PO SCH (20:01)
--- NOTE | 2018-11-15 21:24 | ECG ---
Date Performed: 11/14/2018 Time Performed: 12:53:09 PTAGE: 43 years EKG: Sinus rhythm POSSIBLE RIGHT ATRIAL ENLARGEMENT NONSPECIFIC T-WAVE ABNORMALITY BORDERLINE ECG PREVIOUS TRACING : 10/17/2018 14.03 Since the previous tracing, no significant change noted DOCTOR: Jaison Gomez Interpretating Date/Time 11/15/2018 21:22:48
--- NOTE | 2018-11-15 21:28 | P.PNNP ---
Subjective Interval history: Patient seen in the late afternoon, after HD, no headache, feeling better. Physical Exam Vital signs: Vital Signs 11/14/18 22:00 11/15/18 00:00 11/15/18 02:00 Temperature 98.6 F Pulse Rate 99 H 98 H 95 H Respiratory Rate 18 Blood Pressure 143/71 H Pulse Oximetry 100 11/15/18 04:00 11/15/18 06:00 11/15/18 08:00 Temperature 98.2 F 98.6 F Pulse Rate 94 H 96 H 90 Respiratory Rate 18 18 Blood Pressure 155/76 H 146/80 H Pulse Oximetry 100 11/15/18 08:43 11/15/18 08:46 11/15/18 09:50 Temperature Pulse Rate 96 H Respiratory Rate 18 Blood Pressure Pulse Oximetry 100 100 11/15/18 10:00 11/15/18 12:00 11/15/18 12:35 Temperature 98.3 F Pulse Rate 99 H 101 H 95 H Respiratory Rate 20 Blood Pressure 149/81 H Pulse Oximetry 99 11/15/18 14:00 11/15/18 16:00 11/15/18 16:18 Temperature 98.3 F Pulse Rate 99 H 107 H 98 H Respiratory Rate 25 H Blood Pressure 162/79 H Pulse Oximetry 99 11/15/18 17:46 11/15/18 17:47 Temperature Pulse Rate 100 H 100 H Respiratory Rate Blood Pressure Pulse Oximetry Intake & Output 11/15/18 11/15/18 11/16/18 06:59 18:59 06:59 Intake Total 1610 / 1610 1120 / 1120 250 / 250 Output Total 200 / 200 2800 / 2800 Balance 1410 / 1410 -1680 / -1680 250 / 250 Weight 75 kg Intake: IV 1250 / 1250 1000 / 1000 250 / 250 Cardene Inj 25 MG In NS Inj 240 1250 / 1250 1000 / 1000 250 / 250 ML @ 5 MG/HR 50 mls/hr IV.CONT TITRATE PRN Rx#:[id number] Oral 360 / 360 120 / 120 Output: Urine 200 / 200 300 / 300 Hemodialysis Amount 2500 / 2500 Other: # Bowel Movements 0 Weight On Admission 73.5 kg Narrative: GENERAL: AAOx3, no acute distress, adequate nutrition SKIN: Warm and dry, no rashes. HEAD: Atraumatic. Normocephalic. EYES: Pupils equal, round, reactive to light. No scleral icterus. No injection or drainage. ENT: No nasal bleeding or discharge. Moist mucous membranes. Nonerythematous oropharynx. NECK: Trachea midline. No JVD. Thyroid size within normal limits. CARDIOVASCULAR: Regular rate and rhythm. No murmur, no gallops, no rubs. RESPIRATORY: Moderate rales in bilateral bases. No accessory muscle use. GASTROINTESTINAL: Abdomen soft, non-tender, nondistended, normal active bowel sounds. Hepatic and splenic margins not palpable. MUSCULOSKELETAL: Extremities without clubbing or cyanosis. No obvious deformities. No edema. NEUROLOGICAL: Awake and alert. No obvious cranial nerve deficits. Motor grossly within normal limits. No focal deficits. Five out of 5 muscle strength in the arms and legs. Normal speech. PSYCHIATRIC: Appropriate mood and affect; insight and judgment normal. Assessment and Plan - Assessment (1) Pneumonia Code(s): J18.9 - Pneumonia, unspecified organism Status: Acute (2) End-stage renal disease (ESRD) Code(s): N18.6 - End stage renal disease Status: Acute (3) HIV (human immunodeficiency virus infection) Code(s): B20 - Human immunodeficiency virus [HIV] disease Status: Acute (4) Hypertension, uncontrolled Code(s): I10 - Essential (primary) hypertension Status: Acute (5) End-stage renal disease on hemodialysis Code(s): N18.6 - End stage renal disease; Z99.2 - Dependence on renal dialysis Status: Acute - Plan Patient with end stage renal disease, has been on HD, MWF. Patient was admitted with uncontrolled Hypertension. The drug screening was positive for Cocaine, also has some compliance issue. Now the BP is much better. HD done and 2 liters removed. Hgb. is stable, on Epogen. Urine toxicology was positive ofr Cocaine, and this is causing the BP to increase. Told before not to use street drugs. Continue HD as schedule.
[2018-11-16] MEDS: Chlorhexidine Gluconate 2% 1 Pack (2 Cloths) TOPICAL SCH (04:29)
[2018-11-16 07:00] LABS: Hematocrit 25.5 % (35.0-46.0); Hemoglobin 8.3 gm/dL (11.6-15.3); Mean Corpuscular HGB Conc 32.5 % (32.0-36.0); Mean Corpuscular Hemoglobin 28.8 pg (27.0-34.0); Mean Corpuscular Volume 88.6 fL (80.0-100.0); Mean Platelet Volume 9.6 fL (7.0-11.0); Platelet Count 154 th/mm3 (150-450); Red Blood Count 2.87 mil/mm3 (4.00-5.30); Red Cell Distribution Width 15.5 % (11.6-17.2); White Blood Count 11.7 th/mm3 (4.0-11.0)
[2018-11-16 07:36] LABS: Alanine Aminotransferase 21 U/L (10-53); Albumin 2.9 g/dL (3.4-5.0); Alkaline Phosphatase 47 U/L (45-117); Anion Gap 10 meq/L (5-15); Aspartate Aminotransferase 22 U/L (15-37); Blood Urea Nitrogen 49 mg/dL (7-18); Calcium 7.7 mg/dL (8.5-10.1); Carbon Dioxide 26.5 meq/L (21.0-32.0); Chloride 103 meq/L (98-107); Glomerular Filtration Rate 6 mL/min (>89); Glucose,Random 103 mg/dL (74-106); Potassium 4.8 meq/L (3.5-5.1); Sodium 139 meq/L (136-145)
[2018-11-16] MEDS: hydrALAZINE 50 MG Tablet PO SCH (08:45)
[2018-11-16] MEDS: amLODIPine 5 MG Tablet PO SCH (08:49)
--- NOTE | 2018-11-16 11:36 | P.PNIM ---
Subjective Interval history: Patient complains of persistent blurry vision. She does not have any other complaints. Physical Exam Vital signs: Vital Signs 11/15/18 12:00 11/15/18 12:35 11/15/18 14:00 Temperature 98.3 F Pulse Rate 101 H 95 H 99 H Respiratory Rate 20 Blood Pressure 149/81 H Pulse Oximetry 99 11/15/18 16:00 11/15/18 16:18 11/15/18 17:46 Temperature 98.3 F Pulse Rate 107 H 98 H 100 H Respiratory Rate 25 H Blood Pressure 162/79 H Pulse Oximetry 99 11/15/18 17:47 11/15/18 20:00 11/15/18 21:00 Temperature 98.1 F 97.6 F Pulse Rate 100 H 101 H 101 H Respiratory Rate 16 18 Blood Pressure 149/71 H 160/80 H Pulse Oximetry 100 99 11/16/18 00:00 11/16/18 04:00 11/16/18 08:00 Temperature 98.1 F 98.9 F 97.8 F Pulse Rate 98 H 92 H 93 H Respiratory Rate 16 15 18 Blood Pressure 164/88 H 152/88 H 181/110 H Pulse Oximetry 97 97 100 11/16/18 08:42 11/16/18 10:13 Temperature Pulse Rate Respiratory Rate 16 Blood Pressure Pulse Oximetry 97 Intake & Output 11/15/18 11/16/18 11/16/18 18:59 06:59 18:59 Intake Total 1120 / 1120 1020 / 1020 Output Total 2800 / 2800 Balance -1680 / -1680 1020 / 1020 Weight 73.8 kg Intake: IV 1000 / 1000 500 / 500 Cardene Inj 25 MG In NS Inj 240 1000 / 1000 500 / 500 ML @ 5 MG/HR 50 mls/hr IV.CONT TITRATE PRN Rx#:[id number] Oral 120 / 120 520 / 520 Output: Urine 300 / 300 Hemodialysis Amount 2500 / 2500 Other: # Voids 1 Narrative: General patient still complains of blurry vision HEENT extraocular movements are intact, clear oropharyngeal mucosa, no JVD Cardiovascular S1-S2 audible, RRR, no murmurs rubs or gallops Respiratory clear to auscultation bilaterally Abdomen soft, nontender, nondistended, normal bowel sounds Extremities no edema 2+ distal pulses in bilateral upper and lower extremities Neuro patient moves all 4 extremities, sensation is intact bilaterally Results - Labs CBC & Chem 7: 11/16/18 04:30 11/16/18 04:50 Laboratory Results - last 24 hr 11/15/18 11/16/18 11/16/18 11:49 04:30 04:50 WBC 11.7 H D RBC 2.87 L Hgb 8.3 L Hct 25.5 L MCV 88.6 MCH 28.8 MCHC 32.5 RDW 15.5 Plt Count 154 MPV 9.6 Sodium 139 Potassium 4.8 Chloride 103 Carbon Dioxide 26.5 Anion Gap 10 BUN 49 H Creatinine 8.74 H Estimated GFR 6 L Random Glucose 103 Calcium 7.7 L Total Bilirubin 0.3 AST 22 ALT 21 Alkaline Phosphatase 47 Total Protein 7.0 D Albumin 2.9 L Hepatitis A IgM Ab Nonreactive Hep Bs Antigen Nonreactive Hep B Core IgM Ab Nonreactive Hep C IgG Ab Nonreactive Assessment and Plan - Plan This patient is a 43-year-old female with a diagnosis of end- stage renal disease on following up with Dr. Rodas. the patient also has HIV, hypertension, history of cocaine abuse. She presents to the emergency department with complaints of blurry vision and is found to be in hypertensive crisis with a systolic blood pressure around 220. 1. Hypertensive emergency 2. Blurry vision Patient initially presented with complaints of blurry vision as well as a systolic blood pressure around 220. Patient initially was on a Cardene drip which has now been transitioned to p.o. medications. Her dose of hydralazine was increased, will continue to monitor her blood pressure. Currently systolic blood pressures around 180. Patient still has complaints of blurry vision which has not been improving as per the patient. MRI shows a few punctate white matter changes on flair sequence. This could possibly be due to multiple sclerosis. The patient's persistent blurry vision is concerning, no stroke seen on brain imaging. We will consult neurology to evaluate the patient. I would appreciate their recommendations. 3. Cocaine abuse U tox positive for cocaine, patient admits to snorting cocaine. 5 minutes was spent counseling the patient on cocaine abuse. She says she will quit. 4. End-stage renal disease on hemodialysis Continue hemodialysis on Thursday and Thursday. 5. HIV Continue home HIV medications. SCDs for DVT prophylaxis.
--- NOTE | 2018-11-16 14:45 | P.PNNP ---
Subjective Interval history: Reports blurry vision. Denies any shortness of breath, nausea, or vomiting. Hemodialysis yesterday tolerated well. <RadhaIrena - Last Filed: 11/16/18 14:41> Physical Exam Vital signs: Vital Signs 11/15/18 16:00 11/15/18 16:18 11/15/18 17:46 Temperature 98.3 F Pulse Rate 107 H 98 H 100 H Respiratory Rate 25 H Blood Pressure 162/79 H Pulse Oximetry 99 11/15/18 17:47 11/15/18 20:00 11/15/18 21:00 Temperature 98.1 F 97.6 F Pulse Rate 100 H 101 H 101 H Respiratory Rate 16 18 Blood Pressure 149/71 H 160/80 H Pulse Oximetry 100 99 11/16/18 00:00 11/16/18 04:00 11/16/18 08:00 Temperature 98.1 F 98.9 F 97.8 F Pulse Rate 98 H 92 H 93 H Respiratory Rate 16 15 18 Blood Pressure 164/88 H 152/88 H 181/110 H Pulse Oximetry 97 97 100 11/16/18 08:42 11/16/18 10:13 11/16/18 12:00 Temperature 97.2 F L Pulse Rate 88 Respiratory Rate 16 18 Blood Pressure 168/88 H Pulse Oximetry 97 100 Intake & Output 11/15/18 11/16/18 11/16/18 18:59 06:59 18:59 Intake Total 1120 / 1120 1020 / 1020 Output Total 2800 / 2800 Balance -1680 / -1680 1020 / 1020 Weight 73.8 kg Intake: IV 1000 / 1000 500 / 500 Cardene Inj 25 MG In NS Inj 240 1000 / 1000 500 / 500 ML @ 5 MG/HR 50 mls/hr IV.CONT TITRATE PRN Rx#:[id number] Oral 120 / 120 520 / 520 Output: Urine 300 / 300 Hemodialysis Amount 2500 / 2500 Other: # Voids 1 Narrative: GENERAL: alert and oriented. SKIN: Warm and dry. NECK: Supple, trachea midline. No JVD CARDIOVASCULAR: Regular rate and rhythm without murmurs, gallops, or rubs. Avf with positive thrill and bruit. RESPIRATORY: Breath sounds equal bilaterally. No accessory muscle use. GASTROINTESTINAL: Abdomen soft, non-tender, nondistended. +BS MUSCULOSKELETAL: No cyanosis, or edema. BACK: Nontender without obvious deformity. No CVA tenderness. <Irena Garcia - Last Filed: 11/16/18 14:41> Vital signs: Vital Signs 11/15/18 21:00 11/16/18 00:00 11/16/18 04:00 Temperature 97.6 F 98.1 F 98.9 F Pulse Rate 101 H 98 H 92 H Respiratory Rate 18 16 15 Blood Pressure 160/80 H 164/88 H 152/88 H Pulse Oximetry 99 97 97 11/16/18 08:00 11/16/18 08:42 11/16/18 10:13 Temperature 97.8 F Pulse Rate 93 H Respiratory Rate 18 16 Blood Pressure 181/110 H Pulse Oximetry 100 97 11/16/18 12:00 11/16/18 16:00 Temperature 97.2 F L 97.3 F L Pulse Rate 88 89 Respiratory Rate 18 18 Blood Pressure 168/88 H 160/80 H Pulse Oximetry 100 100 Intake & Output 11/16/18 11/16/18 11/17/18 06:59 18:59 06:59 Intake Total 1020 / 1020 Balance 1020 / 1020 Weight 73.8 kg Intake: IV 500 / 500 Cardene Inj 25 MG In NS Inj 240 500 / 500 ML @ 5 MG/HR 50 mls/hr IV.CONT TITRATE PRN Rx#:[id number] Oral 520 / 520 Other: # Voids 1 4 <Tone Rodas - Last Filed: 11/16/18 20:57> Assessment and Plan - Assessment (1) Pneumonia Code(s): J18.9 - Pneumonia, unspecified organism Status: Acute (2) End-stage renal disease (ESRD) Code(s): N18.6 - End stage renal disease Status: Acute (3) HIV (human immunodeficiency virus infection) Code(s): B20 - Human immunodeficiency virus [HIV] disease Status: Acute (4) Hypertension, uncontrolled Code(s): I10 - Essential (primary) hypertension Status: Acute (5) End-stage renal disease on hemodialysis Code(s): N18.6 - End stage renal disease; Z99.2 - Dependence on renal dialysis Status: Acute - Plan Patient with end stage renal disease, has been on HD, MWF. Patient was admitted with uncontrolled Hypertension. The drug screening was positive for Cocaine, also has some compliance issue. Hypertension, hydralazine increased. Urine toxicology was positive for Cocaine, and this is causing the BP to increase. Told before not to use street drugs HD done yesterday with UF of 2.5 L Epogen with dialysis Continue HD as schedule, planned for tomorrow. Reports blurry vision, neurology is consulted for further evaluation. <Irena Garcia - Last Filed: 11/16/18 14:41> - Assessment (1) Pneumonia Code(s): J18.9 - Pneumonia, unspecified organism Status: Acute (2) End-stage renal disease (ESRD) Code(s): N18.6 - End stage renal disease Status: Acute (3) HIV (human immunodeficiency virus infection) Code(s): B20 - Human immunodeficiency virus [HIV] disease Status: Acute (4) Hypertension, uncontrolled Code(s): I10 - Essential (primary) hypertension Status: Acute (5) End-stage renal disease on hemodialysis Code(s): N18.6 - End stage renal disease; Z99.2 - Dependence on renal dialysis Status: Acute - Plan Patient seen and examine, agree with above. Neurology consulted, has blurring of vision. BP is on higher side, will add Labetalol. <Tone Rodas - Last Filed: 11/16/18 20:57>
--- NOTE | 2018-11-16 17:11 | P.CONNEU ---
History of Present Illness Service: Neurology Primary Care Provider: Phi De La Rosa Chief Complaint: Blurry vision History of Present Illness: 43-year-old female history HIV, cocaine positive UDS, end-stage renal disease blurry vision. Said blurry vision for about a week now comes and goes. No headache vision is blurry in both eyes no diplopia no ptosis. No temporal tenderness. Occurred somewhat acutely per patient. States the blurriness will come and go. No pain with eye movement. Noted to have severe hypertension as well. MRI brain scan did not show any acute lesion no acute stroke. Review of Systems All other systems reviewed negative except as stated in [facility] - History History Provided By: Patient - Medical History Medical History: Medical History (Last Reviewed 11/14/18 @ 20:48 by Iris Parisi) Arteriovenous fistula for hemodialysis in place, primary ESRD on dialysis HBP (high blood pressure) HIV (human immunodeficiency virus infection) Smoker - Surgical History Surgical History: Surgical History (Last Reviewed 11/14/18 @ 20:48 by Iris Parisi) History of tubal ligation - Family History Family History: Family History (Last Reviewed 11/14/18 @ 20:48 by Iris Parisi) Mother Family history of cancer - Tobacco History Second Hand Smoke Exposure: Yes Tobacco Use In Past 30 Days: Yes Smoking Status: Current every day smoker Tobacco Type: Cigarettes - Alcohol History How Often Do You Have a Drink Containing Alcohol: Monthly or less - Substance Use History Substance History: No History of Abuse - Substance Use Type Marijuana Status: Active - Travel History History of Recent Travel: No Recent Travel in the [place] Within the Last 8 Weeks: No Recent Travel Out of the Country Within the Last 8 Weeks: No - Immunization History Tetanus Immunization: <5 Years Tetanus Immunization Year if Known: 2013 Hx Influenza Vaccine This Season: No Medications and Allergies Active Medications: Active Medications Acetaminophen (Tylenol) 650 mg PO Q4H PRN PRN Reason: Temp > 100.4 Last Admin: 11/15/18 15:47 Dose: 650 mg Acetaminophen (Tylenol) 650 mg PO UNSCH PRN PRN Reason: SEE LABEL COMMENTS Hydrocodone Bitart/Acetaminophen ([place] 5/325) 1 tab PO Q6H PRN PRN Reason: Acute Pain Last Admin: 11/16/18 07:34 Dose: 1 tab Al Hydroxide/Mg Hydroxide (Milk Of Magnesia Liq) 30 ml PO Q12H PRN PRN Reason: Mild Constipation Last Admin: 11/15/18 13:10 Dose: 30 ml Albuterol (Duoneb Neb (Prn)) 1 ampul NEB Q6HR NEB PRN PRN Reason: Shortness Of Breath Alprazolam (Xanax) 0.25 mg PO Q8H PRN PRN Reason: Anxiety or Insomnia Last Admin: 11/14/18 21:16 Dose: 0.25 mg Amlodipine Besylate (Norvasc) 10 mg PO DAILY [facility] Last Admin: 11/16/18 08:49 Dose: 10 mg Chlorhexidine Gluconate (Chlorhexidine 2% Cloth) 3 pack TOPICAL DAILY@0400 [facility] Stop: 11/20/18 03:59 Last Admin: 11/16/18 04:29 Dose: Not Given Chlorhexidine Gluconate (Chlorhexidine 2% Cloth) 3 pack TOPICAL DAILY@0400 PRN PRN Reason: Extra cloth needed Stop: 11/20/18 03:59 Darunavir (Prezista) 800 mg PO DAILY [facility] Last Admin: 11/16/18 08:50 Dose: 800 mg Diphenhydramine HCl (Benadryl) 25 mg PO UNSCH PRN PRN Reason: SEE LABEL COMMENTS Dolutegravir Sodium (Tivicay) 50 mg PO BID [facility] Last Admin: 11/16/18 08:51 Dose: 50 mg Gelatin (Gelfoam 12 Mm/7 Mm Topical) 1 foam TOPICAL PRN PRN PRN Reason: help stop bleeding from site Gentamicin Sulfate (Gentamicin Inj) 20 mg OTHER WITH DIALYSIS PRN PRN Reason: Dwell Gentamycin Lock Heparin Sodium (Porcine) (Heparin Inj) 8,000 units OTHER WITH DIALYSIS PRN PRN Reason: for machine prime Heparin Sodium (Porcine) (Heparin Inj) 1,000 units OTHER WITH DIALYSIS PRN PRN Reason: Dwell Heparin to Fill Catheter Hydralazine HCl (Apresoline) 75 mg PO BID [facility] Albumin Human (Flexbumin 25% Inj) 100 mls @ 60 mls/hr IV.SIG WITH DIALYSIS PRN PRN Reason: hypotension / volume replace Sodium Chloride (Ns Inj) 1,000 mls @ 0 mls/hr OTHER .Q0M PRN PRN Reason: for prime and rinse back Sodium Chloride (Ns Inj) 1,000 mls @ 200 mls/hr OTHER .Q5H PRN PRN Reason: for dialyzer flush PRN Sodium Chloride (Ns Inj) 1,000 mls @ 0 mls/hr IV.CONT .Q0M PRN PRN Reason: hypotension / volume replace Mannitol (Mannitol Inj) 12.5 gm IV.PUSH UNSCH PRN PRN Reason: hypotension / volume replace Nitroglycerin (Nitrostat Sl) 0.4 mg SL Q5M PRN PRN Reason: CHEST PAIN Ondansetron HCl (Zofran Inj) 4 mg IV.PUSH Q6H PRN PRN Reason: NAUSEA OR VOMITING Last Admin: 11/15/18 16:00 Dose: 4 mg Ondansetron HCl (Zofran Inj) 4 mg IV.PUSH UNSCH PRN PRN Reason: NAUSEA OR VOMITING Pt Own Med: (Etravirine 200mg) 0 each PO BID [facility] Ropinirole HCl (Requip) 0.5 mg PO TID [facility] Last Admin: 11/16/18 12:34 Dose: 0.5 mg Sodium Chloride (Ns Flush) 2 ml IV.FLUSH UNSCH PRN PRN Reason: FLUSH AFTER USING IV ACCESS Sodium Chloride (Ns Flush) 2 ml IV.FLUSH BID [facility] Last Admin: 11/16/18 08:50 Dose: 2 ml Sodium Chloride (Ns Flush) 2 ml IV.FLUSH PRN PRN PRN Reason: FLUSH AFTER USING IV ACCESS Sodium Chloride (Ns Flush) 5 ml IV.FLUSH PRN PRN PRN Reason: flush each lumen during HD Allergies Allergy/AdvReac Type Severity Reaction Status Date / Time Sulfa (Sulfonamide Allergy Intermediate Hives Verified 06/19/18 08:49 Antibiotics) Home Medications Medication Instructions Recorded Confirmed Type darunavir ethanolate [Prezista] 800 mg PO DAILY 05/19/18 11/14/18 History dolutegravir [Tivicay] 50 mg PO BID 05/19/18 11/14/18 History etravirine [Intelence] 200 mg PO BID 05/19/18 11/14/18 History ropinirole [Requip] 0.5 mg PO TID 05/19/18 11/14/18 History clonidine HCl 0.2 mg PO TID 11/14/18 11/14/18 History Exam Vital signs: Vital Signs 11/15/18 17:46 11/15/18 17:47 11/15/18 20:00 Temperature 98.1 F Pulse Rate 100 H 100 H 101 H Respiratory Rate 16 Blood Pressure 149/71 H Pulse Oximetry 100 11/15/18 21:00 11/16/18 00:00 11/16/18 04:00 Temperature 97.6 F 98.1 F 98.9 F Pulse Rate 101 H 98 H 92 H Respiratory Rate 18 16 15 Blood Pressure 160/80 H 164/88 H 152/88 H Pulse Oximetry 99 97 97 11/16/18 08:00 11/16/18 08:42 11/16/18 10:13 Temperature 97.8 F Pulse Rate 93 H Respiratory Rate 18 16 Blood Pressure 181/110 H Pulse Oximetry 100 97 11/16/18 12:00 Temperature 97.2 F L Pulse Rate 88 Respiratory Rate 18 Blood Pressure 168/88 H Pulse Oximetry 100 Intake & Output 11/15/18 11/16/18 11/16/18 18:59 06:59 18:59 Intake Total 1120 / 1120 1020 / 1020 Output Total 2800 / 2800 Balance -1680 / -1680 1020 / 1020 Weight 73.8 kg Intake: IV 1000 / 1000 500 / 500 Cardene Inj 25 MG In NS Inj 240 1000 / 1000 500 / 500 ML @ 5 MG/HR 50 mls/hr IV.CONT TITRATE PRN Rx#:[id number] Oral 120 / 120 520 / 520 Output: Urine 300 / 300 Hemodialysis Amount 2500 / 2500 Other: # Voids 1 Narrative: Awake alert oriented x3 no aphasia no facial asymmetry sensation V1 to be neck supple. Able to make out light she can see the TV and gross figures unable to make out colors were read can see some simple figures no obvious APD. Pupils 2 mm sluggishly reactive. Strength 5 out of 5 upper lower limb sensory exam within normal limits reflexes symmetric no dystaxia dysmetria Results - Labs CBC & Chem 7: 11/16/18 04:30 11/16/18 04:50 Labs: Laboratory Results - last 24 hr 11/16/18 11/16/18 04:30 04:50 WBC 11.7 H D RBC 2.87 L Hgb 8.3 L Hct 25.5 L MCV 88.6 MCH 28.8 MCHC 32.5 RDW 15.5 Plt Count 154 MPV 9.6 Sodium 139 Potassium 4.8 Chloride 103 Carbon Dioxide 26.5 Anion Gap 10 BUN 49 H Creatinine 8.74 H Estimated GFR 6 L Random Glucose 103 Calcium 7.7 L Total Bilirubin 0.3 AST 22 ALT 21 Alkaline Phosphatase 47 Total Protein 7.0 D Albumin 2.9 L Review/Management - Diagnosis (1) Cocaine abuse Code(s): F14.10 - Cocaine abuse, uncomplicated Status: Acute Current Visit: Yes (2) End-stage renal disease (ESRD) Code(s): N18.6 - End stage renal disease Status: Acute Current Visit: No (3) HIV (human immunodeficiency virus infection) Code(s): B20 - Human immunodeficiency virus [HIV] disease Status: Acute Current Visit: No (4) Hypertension, uncontrolled Code(s): I10 - Essential (primary) hypertension Status: Acute Current Visit : No (5) Blurry vision, bilateral Code(s): H53.8 - Other visual disturbances Status: Acute Current Visit: Yes - Review/Management Plan: Bilateral blurry vision times 1 week. Likely associated with severe hypertension possibly HIV Exclude neurosyphilis. PRES another consideration although the occipital lobes did not show any significant flare hyperintensity. Additional consideration would include sarcoid, HIV retinitis MRI brain scan reviewed doubt demyelinating lesion. In addition optic neuritis from multiple sclerosis is usually unilateral associated with pain with eye movement and does not occur acutely. Recommendation Ophthalmological evaluation Blood pressure control Stop illicit drug use Check RPR
[2018-11-16] MEDS: hydrALAZINE 25 MG Tablet PO SCH (21:29)
[2018-11-16] MEDS: Labetalol 100 MG Tablet PO SCH (22:53)
[2018-11-17] MEDS: Chlorhexidine Gluconate 2% 1 Pack (2 Cloths) TOPICAL SCH (05:05)
[2018-11-17] MEDS: amLODIPine 5 MG Tablet PO SCH (08:09)
[2018-11-17] MEDS: hydrALAZINE 25 MG Tablet PO SCH (08:09)
[2018-11-17] MEDS: Labetalol 100 MG Tablet PO SCH (08:14)
[2018-11-17 09:21] VITALS: BP 166/86; PULSE 83; RESP 18; TEMP 97.3; O2SAT 99
[2018-11-17 09:38] LABS: RPR Screen For Reflex FTA Nonreactive (Nonreactive)
--- NOTE | 2018-11-17 10:06 | P.PNIM ---
Subjective Interval history: Patient says her blurry vision is slightly improved form yesterday. Physical Exam Vital signs: Vital Signs 11/16/18 10:13 11/16/18 12:00 11/16/18 16:00 Temperature 97.2 F L 97.3 F L Pulse Rate 88 89 Respiratory Rate 18 18 Blood Pressure 168/88 H 160/80 H Pulse Oximetry 97 100 100 11/16/18 20:00 11/17/18 00:00 11/17/18 04:00 Temperature 97.4 F L 97.4 F L 97.9 F Pulse Rate 91 H 82 90 Respiratory Rate 17 17 17 Blood Pressure 170/80 H 126/66 164/82 H Pulse Oximetry 99 98 98 11/17/18 08:00 Temperature 97.3 F L Pulse Rate 83 Respiratory Rate 18 Blood Pressure 166/86 H Pulse Oximetry 99 Intake & Output 11/16/18 11/17/18 11/17/18 18:59 06:59 18:59 Intake Total 120 / 120 Output Total 400 / 400 Balance -280 / -280 Weight 75.3 kg Intake: Oral 120 / 120 Output: Urine 400 / 400 Urine/Stool Mix 0 / 0 Other: # Voids 4 Narrative: General patients blurry vision is improving. HEENT extraocular movements are intact, clear oropharyngeal mucosa, no JVD Cardiovascular S1-S2 audible, RRR, no murmurs rubs or gallops Respiratory clear to auscultation bilaterally Abdomen soft, nontender, nondistended, normal bowel sounds Extremities no edema 2+ distal pulses in bilateral upper and lower extremities Neuro patient moves all 4 extremities, sensation is intact bilaterally Results - Labs CBC & Chem 7: 11/17/18 09:35 11/17/18 09:35 Laboratory Results - last 24 hr 11/16/18 19:10 RPR Nonreactive Assessment and Plan - Plan This patient is a 43-year-old female with a diagnosis of end- stage renal disease on following up with Dr. Rodas. the patient also has HIV, hypertension, history of cocaine abuse. She presents to the emergency department with complaints of blurry vision and is found to be in hypertensive crisis with a systolic blood pressure around 220. See Discharge summary
--- NOTE | 2018-11-17 10:07 | P.PNNP ---
Subjective Interval history: Seen during hemodialysis reports nausea. Continues to have blurry vision, seen by neurology. <Irena Garcia - Last Filed: 11/17/18 09:59> Physical Exam Vital signs: Vital Signs 11/16/18 10:13 11/16/18 12:00 11/16/18 16:00 Temperature 97.2 F L 97.3 F L Pulse Rate 88 89 Respiratory Rate 18 18 Blood Pressure 168/88 H 160/80 H Pulse Oximetry 97 100 100 11/16/18 20:00 11/17/18 00:00 11/17/18 04:00 Temperature 97.4 F L 97.4 F L 97.9 F Pulse Rate 91 H 82 90 Respiratory Rate 17 17 17 Blood Pressure 170/80 H 126/66 164/82 H Pulse Oximetry 99 98 98 11/17/18 08:00 Temperature 97.3 F L Pulse Rate 83 Respiratory Rate 18 Blood Pressure 166/86 H Pulse Oximetry 99 Intake & Output 11/16/18 11/17/18 11/17/18 18:59 06:59 18:59 Intake Total 120 / 120 Output Total 400 / 400 Balance -280 / -280 Weight 75.3 kg Intake: Oral 120 / 120 Output: Urine 400 / 400 Urine/Stool Mix 0 / 0 Other: # Voids 4 Narrative: GENERAL: alert and oriented. SKIN: Warm and dry. NECK: Supple, trachea midline. No JVD CARDIOVASCULAR: Regular rate and rhythm without murmurs, gallops, or rubs. Left ARM AVF positive thrill and bruit. RESPIRATORY: Breath sounds equal bilaterally. No accessory muscle use. GASTROINTESTINAL: Abdomen soft, non-tender, nondistended. +BS MUSCULOSKELETAL: No cyanosis, or edema. BACK: Nontender without obvious deformity. No CVA tenderness. <Irena Garcia - Last Filed: 11/17/18 09:59> Vital signs: Vital Signs 11/17/18 00:00 11/17/18 04:00 11/17/18 08:00 Temperature 97.4 F L 97.9 F 97.3 F L Pulse Rate 82 90 83 Respiratory Rate 17 17 18 Blood Pressure 126/66 164/82 H 166/86 H Pulse Oximetry 98 98 99 Intake & Output 11/17/18 11/17/18 11/18/18 06:59 18:59 06:59 Intake Total 120 / 120 Output Total 400 / 400 1999 Balance -280 / -280 -1999 Weight 75.3 kg Intake: Oral 120 / 120 Output: Urine 400 / 400 Urine/Stool Mix 0 / 0 Hemodialysis Amount 1999 <Tone Rodas - Last Filed: 11/17/18 21:02> Assessment and Plan - Assessment (1) Pneumonia Code(s): J18.9 - Pneumonia, unspecified organism Status: Acute (2) End-stage renal disease (ESRD) Code(s): N18.6 - End stage renal disease Status: Acute (3) HIV (human immunodeficiency virus infection) Code(s): B20 - Human immunodeficiency virus [HIV] disease Status: Acute (4) Hypertension, uncontrolled Code(s): I10 - Essential (primary) hypertension Status: Acute (5) End-stage renal disease on hemodialysis Code(s): N18.6 - End stage renal disease; Z99.2 - Dependence on renal dialysis Status: Acute - Plan Patient with end stage renal disease, has been on HD, MWF. Patient was admitted with uncontrolled Hypertension. The drug screening was positive for Cocaine, also has some compliance issue. Hypertension, labetalol added. Urine toxicology was positive for Cocaine, and this is causing the BP to increase. Told before not to use street drugs Blurry vision, seen by neurology consult noted. Epogen with dialysis Seen during hemodialysis, 2 K bath, will remove fluid as tolerated. <Irena Garcia - Last Filed: 11/17/18 09:59> - Assessment (1) Pneumonia Code(s): J18.9 - Pneumonia, unspecified organism Status: Acute (2) End-stage renal disease (ESRD) Code(s): N18.6 - End stage renal disease Status: Acute (3) HIV (human immunodeficiency virus infection) Code(s): B20 - Human immunodeficiency virus [HIV] disease Status: Acute (4) Hypertension, uncontrolled Code(s): I10 - Essential (primary) hypertension Status: Acute (5) End-stage renal disease on hemodialysis Code(s): N18.6 - End stage renal disease; Z99.2 - Dependence on renal dialysis Status: Acute - Plan Patient seen and examined, agree with above. Seen by neurology for blurry vision. BP is better today, possible discharge. BP increase as out patient due to non compliance and substance abuse. <Tone Rodas - Last Filed: 11/17/18 21:02>
[2018-11-17 10:26] LABS: Hematocrit 27.8 % (35.0-46.0); Hemoglobin 9.3 gm/dL (11.6-15.3); Mean Corpuscular HGB Conc 33.4 % (32.0-36.0); Mean Corpuscular Volume 89.7 fL (80.0-100.0); Mean Platelet Volume 8.4 fL (7.0-11.0); Platelet Count 151 th/mm3 (150-450); Red Cell Distribution Width 15.8 % (11.6-17.2); White Blood Count 8.9 th/mm3 (4.0-11.0)
[2018-11-17 10:52] LABS: Alanine Aminotransferase 19 U/L (10-53); Albumin 2.8 g/dL (3.4-5.0); Alkaline Phosphatase 46 U/L (45-117); Anion Gap 9 meq/L (5-15); Aspartate Aminotransferase 19 U/L (15-37); Blood Urea Nitrogen 44 mg/dL (7-18); Calcium 7.6 mg/dL (8.5-10.1); Carbon Dioxide 28.9 meq/L (21.0-32.0); Chloride 102 meq/L (98-107); Glomerular Filtration Rate 7 mL/min (>89); Glucose,Random 82 mg/dL (74-106); Potassium 3.6 meq/L (3.5-5.1); Sodium 140 meq/L (136-145); Total Protein 6.8 g/dL (6.4-8.2)
--- NOTE | 2018-11-17 14:28 | P.DS ---
Date of admission: 11/14/18 14:37 Primary care physician: Phi De La Rosa Brief History from admission: This patient is a 43-year-old female with a diagnosis of end- stage renal disease on following up with Dr. Rodas. the patient also has HIV, hypertension, history of cocaine abuse. She presents to the emergency department with complaints of blurry vision and is found to be in hypertensive crisis with a systolic blood pressure around 220. DS: Medications - Discharge Medications Prescriptions: hydralazine 75 mg PO BID #90 tab DS: Summary Hospital Course: This patient is a 43-year-old female with a diagnosis of end- stage renal disease on following up with Dr. Rodas. the patient also has HIV, hypertension, history of cocaine abuse. She presents to the emergency department with complaints of blurry vision and is found to be in hypertensive crisis with a systolic blood pressure around 220. 1. Hypertensive emergency 2. Blurry vision Patient initially presented with complaints of blurry vision as well as a systolic blood pressure around 220. Patient initially was on a Cardene drip which has now been transitioned to p.o. medications. Her dose of hydralazine was increased, patient received HD today. Scripts for Hydralazine given to the patient prior to discharge. Patient still has complains of blurry vision which is somewhat improved from yesterday. MRI shows a few punctate white matter changes on flair sequence. Neurology was consulted to evaluate the patient given these findings. They do not believe this is a demyelinating condition and have consulted ophthalmology to evaluate the patient. Ophthalmology was consulted and will evaluate the patient tomorrow am at 945, an appt was made for the patient. Directions to the appt location were given to the patient. 3. Cocaine abuse U tox positive for cocaine, patient admits to snorting cocaine. 5 minutes was spent counseling the patient on cocaine abuse yesterday. She says she will quit. 4. End-stage renal disease on hemodialysis Continue hemodialysis on Thursday and Thursday. Patient follows up with Dr. Rodas 5. HIV Continue home HIV medications. - Time Spent with Patient Total time spent providing and/or coordinating discharge services: Greater than 30 minutes - Quality: VTE Deep Vein Thrombosis/Pulmonary Embolism Present on Admission: No Exam Vital signs: Vital Signs 11/16/18 16:00 11/16/18 20:00 11/17/18 00:00 Temperature 97.3 F L 97.4 F L 97.4 F L Pulse Rate 89 91 H 82 Respiratory Rate 18 17 17 Blood Pressure 160/80 H 170/80 H 126/66 Pulse Oximetry 100 99 98 11/17/18 04:00 11/17/18 08:00 Temperature 97.9 F 97.3 F L Pulse Rate 90 83 Respiratory Rate 17 18 Blood Pressure 164/82 H 166/86 H Pulse Oximetry 98 99 Intake & Output 11/16/18 11/17/18 11/17/18 18:59 06:59 18:59 Intake Total 120 / 120 Output Total 400 / 400 1999 Balance -280 / -280 -1999 Weight 75.3 kg Intake: Oral 120 / 120 Output: Urine 400 / 400 Urine/Stool Mix 0 / 0 Hemodialysis Amount 1999 Other: # Voids 4 Narrative: General patient says her blurry vision is still present but improved from yesterday. HEENT extraocular movements are intact, clear oropharyngeal mucosa, no JVD Cardiovascular S1-S2 audible, RRR, no murmurs rubs or gallops Respiratory clear to auscultation bilaterally Abdomen soft, nontender, nondistended, normal bowel sounds Extremities no edema 2+ distal pulses in bilateral upper and lower extremities Neuro patient moves all 4 extremities, sensation is intact bilaterally Results Procedures completed during hospitalization: none Labs on day of discharge: Labs from last 24 hours 11/17/18 11/17/18 11/16/18 09:35 09:35 19:10 WBC 8.9 RBC 3.10 L Hgb 9.3 L Hct 27.8 L MCV 89.7 MCH 30.0 MCHC 33.4 RDW 15.8 Plt Count 151 MPV 8.4 Sodium 140 Potassium 3.6 D Chloride 102 Carbon Dioxide 28.9 Anion Gap 9 BUN 44 H Creatinine 7.79 H Estimated GFR 7 L Random Glucose 82 Calcium 7.6 L Total Bilirubin 0.3 AST 19 ALT 19 Alkaline Phosphatase 46 Total Protein 6.8 Albumin 2.8 L RPR Nonreactive - Impressions ITS Impressions Chest X-Ray 11/14/18 11:20 CONCLUSION: No acute cardiopulmonary disease. Head MRI 11/14/18 11:30 CONCLUSION: Unremarkable study except for a few tiny punctate white matter changes on FLAIR sequence nonspecific probably of no clinical significance, however a subtle case of demyelinating process (multiple sclerosis is not exclude . Head MRA 11/14/18 11:31 CONCLUSION: 1. Negative MRA [place] ([place]) non contrast. Discharge Plan - Discharge Disposition Patient Disposition: Discharge Home - Discharge Condition Condition: Stable - Discharge Order Discharge Orders: Discharge Order (Routine); Ordered 11/17/18 Ordered By: Nhi Zacarias - Physicians Team Attending Provider: Nhi Zacarias Other Providers: Simone Garcia MD ; Baloon[place],[facility] ; Behzad Siegel MD ; Ashia Garcia MD
== END 2018-11-17 16:53 | disposition home or self-care (01) | DRG 304 ==
LOC: NEPD 10:28 → NEDA 14:40 → OBSVTOIN 14:40 → INTOOBSV 14:40 → HIMC 20:40 → N04 11-15 20:55
PROVIDERS: ADMIT Hospitalist; ATTEND Hospitalist
CPT/HCPCS: 36540; 36591; 70544; 70551; 71010; 71045; 76937; 80053; 80074; 80307; 81001; 82550; 82552; 83735; 84484; 85025; 85027; 85610; 85730; 86592; 87641; 90774; 90784; 90935; 93005; 94664; 96374; 99291; C8952; J2405; J2920; J7050